=== PATIENT | female | born 1995 | race Two or more races ===

== ENCOUNTER 2019-06-12 13:47 | Inpatient (IN) | payer MEDICARE, MEDICAID ==
[~2019-06-12] VITALS: Ht 170.2 cm; Wt 105.5 kg
[2019-06-12] MEDS ORDERED: HALD100I2 IM (14:41)
[2019-06-12 15:08] LABS: HEMATOCRIT 41.1 % (36.0-47.0); HEMOGLOBIN 13.3 g/dl (12.0-15.5); MEAN CORPUSCULAR HEMOGLOBIN 27.8 pg (27.0-33.0); MEAN CORPUSCULAR HGB CONC 32.4 g/dl (32.0-36.5); MEAN CORPUSCULAR VOLUME 85.8 fl (80.0-96.0); PLATELET COUNT, AUTOMATED 226 10^3/uL (150-450); RED BLOOD COUNT 4.79 10^6/uL (4.00-5.40); WHITE BLOOD COUNT 6.8 10^3/uL (4.0-10.0)
[2019-06-12 15:30] LABS: HCG, SERUM QUALITATIVE NEGATIVE (NEGATIVE)
[2019-06-12 15:40] LABS: ACETAMINOPHEN LEVEL < 2.0 UG/ML (10.0-30.0); ALBUMIN 3.8 GM/DL (3.2-5.2); ALT/SGPT 21 U/L (12-78); BILIRUBIN,DIRECT 0.2 MG/DL (0.0-0.2); BILIRUBIN,TOTAL 0.5 MG/DL (0.2-1.0); BLOOD UREA NITROGEN 9 MG/DL (7-18); CALCIUM LEVEL 9.4 MG/DL (8.5-10.1); CARBON DIOXIDE LEVEL 25 MEQ/L (21-32); CHLORIDE LEVEL 103 MEQ/L (98-107); ETHYL ALCOHOL (ETHANOL) < 0.003 % (0.000-0.010); GLOMERULAR FILTRATION RATE > 60.0 (>60); GLUCOSE, FASTING 73 MG/DL (70-100); POTASSIUM SERUM 3.7 MEQ/L (3.5-5.1); SALICYLATE LEVEL < 1.7 MG/DL (5.0-30.0); SODIUM LEVEL 138 MEQ/L (136-145); THYROID STIMULATING HORMONE 0.436 uIU/ML (0.358-3.740)
[2019-06-12 19:54] LABS: AMPHETAMINES LEVEL URINE NEGATIVE (NEGATIVE); BARBITURATES URINE NEGATIVE (NEGATIVE); BENZODIAZEPINES URINE NEGATIVE (NEGATIVE); CANNABINOIDS URINE NEGATIVE (NEGATIVE); COCAINE METABOLITE URINE NEGATIVE (NEGATIVE); METHADONE URINE NEGATIVE (NEGATIVE); OPIATES URINE NEGATIVE (NEGATIVE); PHENCYCLIDINE URINE NEGATIVE (NEGATIVE)
[2019-06-12] MEDS ORDERED: HALOPERIDOL 10 MG TAB PO ONE (21:30)
[2019-06-12] MEDS ORDERED: LORazepam 2 MG TAB PO ONE (21:30)
[2019-06-12] MEDS ORDERED: MOM 30ML SUSPENSION UDC PO PRN (21:45)
[2019-06-12] MEDS ORDERED: MAALOX 30 ML SUSP *UDC PO PRN (21:45)
[2019-06-12] MEDS ORDERED: LORazepam 1 MG TAB PO PRN (21:45)
[2019-06-13 06:00] VITALS: BP 147/92
[2019-06-13] MEDS: HALOPERIDOL 5 MG TAB PO SCH ×5 (09:00→21:00)
[2019-06-13] MEDS ORDERED: LORazepam 2 MG/ML VIAL (J2060) IM STA ×2 (10:34→11:13)
[2019-06-13] MEDS ORDERED: HALOPERIDOL 5 MG/ML VIAL (J1630) IM STA ×2 (10:34→11:13)
[2019-06-13] MEDS ORDERED: diphenhydrAMINE INJ 50MG/ML VIAL (J1200) IM STA ×2 (10:34→11:13)
[2019-06-14] MEDS: ACETAMINOPHEN TAB 650MG DOSE (2X325MG) PO PRN ×2 (05:45→11:57)
[2019-06-14 06:49] VITALS: BP 124/83
[2019-06-14] MEDS: HALOPERIDOL 5 MG TAB PO SCH ×5 (08:59→20:36)
--- NOTE | 2019-06-14 09:15 | MHHPE ---
DATE OF ADMISSION: 06/12/2019 CURRENT MEDICATIONS: - Haldol Decanoate 100 mg IM monthly given 06/08/2019 CHIEF COMPLAINT: Physical aggression. HISTORY OF PRESENT ILLNESS: This is a 23-year-old, -[place]er female brought to the emergency room by her mother. The patient has history of schizophrenia according to her mother and was recently released from an unknown hospital in [place] on 06/08/2019. She was given a Haldol Decanoate shot prior to discharge apparently. She has not cooperated with oral medication however since discharge. The patient's mother brings her in to the hospital as she has been aggressive, which has been intensifying over the past three days. The patient's behavior in the emergency room was labile. At times, she was screaming, other times she was mute. She appeared to be responding to internal stimuli. The patient refused medication in the emergency room. She has refused medication upon admission as well. The patient has been expressing delusional beliefs to staff such as she is the " blaze Trejo". The patient is unable to provide any adequate history. Further information will need to be acquired from her mother who hopefully will be visiting later today. MEDICAL HISTORY: None noted. ALLERGIES: None noted. LEGAL HISTORY: Unknown. CHEMICAL DEPENDENCY: Unknown. SOCIAL HISTORY: The patient has moved to the [facility] in the three days with her mother who apparently is stationed at [employer]. The patient had been staying with her grandmother in [place] for the past year with a number of psychiatric hospitalizations due to poor medication compliance. Her mother apparently was stationed in [facility] at the time. Further background social information will need to be obtained from the patient and/or family members when available. FAMILY PSYCHIATRIC HISTORY: Unknown. MENTAL STATUS EXAMINATION: The patient appears alert and is oriented to month and year according to emergency room staff. The patient is mostly mute and at times catatonic when evaluated today. She smiles inappropriately. She appears to be responding to internal stimuli. She keeps her eyes closed. She whispers things to herself which are inaudible. The patient appears paranoid. At times she breaks out into tears and is wailing. Insight and judgment appear markedly impaired. ASSESSMENT: The patient appears to have a psychotic disorder, likely schizophrenia or schizoaffective disorder and apparently has history of noncompliance. Old records are not available. She apparently was treated with Haldol at the previous institution and will be offered same here at [facility]. Further information on her background will need to be obtained. DIAGNOSIS: Schizoaffective disorder. LENGTH OF STAY: 7-10 days. PLAN: 9.39 status. Encourage medication compliance. Encourage milieu involvement. Obtain further information from background history from patient and family members when available.
[2019-06-14 18:46] VITALS: BP 121/68
[2019-06-14] MEDS: traZODone 50 MG TAB PO PRN (20:36)
[2019-06-15] MEDS: ACETAMINOPHEN TAB 650MG DOSE (2X325MG) PO PRN (05:41)
[2019-06-15 06:44] VITALS: BP 116/67
[2019-06-15] MEDS: HALOPERIDOL 5 MG TAB PO SCH ×4 (09:27→21:00)
[2019-06-15 15:59] VITALS: BP 118/70
--- NOTE | 2019-06-15 20:11 | HPE ---
DATE OF ADMISSION: 06/15/2019 HISTORY OF THE PRESENT ILLNESS: Please refer to psychiatric history and evaluation for further details on this admission. This examination and history is intended for medical issues which may need treatment, followup, or consult on this 23-year-old female. ALLERGIES: No known drug allergies. PRIMARY CARE PROVIDER: She has none. SOCIAL HISTORY: She is single. She was recently discharged from an unknown hospital in [place], 06/08/2019. She has a history of schizophrenia. She has been staying with her grandmother and has moved now to the [facility] in the last three days with her mother who is apparently stationed at [place]. Ethyl alcohol (EtOH): She does not drink alcohol. She does not smoke cigarettes. She does not use recreational drugs. LABORATORY STUDIES: CBC is normal. CMP was normal. Urine for toxicology was negative. FAMILY HISTORY: Unknown. HOME MEDICATIONS: Haloperidol decanoate 100 mg intramuscularly (IM) monthly, and she received it 06/04/2019. PHYSICAL EXAMINATION: A 23-year-old cooperative female in no acute distress. Blood pressure is 116/67, pulse 84, respirations 14, temperature 98. The patient is alert and oriented times three. Pupils are equal and reactive to light. Extraocular movements intact. Cornea and sclerae clear. Conjunctivae is normal. No facial asymmetry. Pharynx: Tongue and gums pink and moist. Tongue is midline. Neck is supple without lymphadenopathy. No thyromegaly. No goiter. Carotids 2+ without bruits. Chest is clear to auscultation without wheeze or retractions. Heart is regular. Abdomen: Benign. Bowel sounds are positive. Genital/Rectal: Not done. Extremities: No cyanosis, clubbing or edema. Peripheral pulses equal and palpable bilaterally. Skin is warm and dry. IMPRESSION AND PLAN: Psychiatric plan per psychiatry. No acute medical issues.
--- NOTE | 2019-06-15 20:48 | MHIPN ---
DATE: 06/14/2019 VITAL SIGNS: Temperature 97.6, pulse 106, respirations 16, blood pressure 124/83. CURRENT MEDICATIONS: Haldol 10 mg four times a day. HISTORY OF PRESENT ILLNESS: The patient still requires one to one monitoring for her safety. The patient is a bit more verbal today, but still shows bizarre behavior. The patient smiles inappropriately. She apparently is responding to internal stimuli. The patient claims that she feels "great". At times, she is talkative, but other times she is mute. At the end of our interviews, she flops down on the bed with her head hanging off the side and refuses any further discussion. She did sign a release of information so they will be able to get further information from her mother when she visits or calls in. The patient had been refusing her Haldol oral dosage. She had taken an intramuscular (IM) dose yesterday morning. This morning she did take her first dose of by mouth Haldol and appears to be tolerating it well. MENTAL STATUS EXAMINATION: The patient appears alert, but unable to assess if she is oriented or not. The patient will not respond to any questions regarding her clinical history. She appears to be responding to internal stimuli. She does appear paranoid. Her affect appears good temporarily; at other times however she is weeping without any explanation. The patient had been voicing some caodaism delusional believes to the staff. She refused to discuss this here today. Insight appears poor. Judgment appears poor. Have overt signs of organicity. DIAGNOSIS: 1. Schizoaffective disorder. PLAN: Continue aggressive management. Encourage medication compliance. Obtain further information from family members when feasible.
--- NOTE | 2019-06-16 06:15 | MHIPN ---
DATE OF VISIT: 06/15/2019 VITAL SIGNS: Temperature 97.8, pulse 84, respirations 12, blood pressure 116/67. CURRENT MEDICATIONS: - Haldol 10 mg four times a day - trazodone 50 mg nightly as needed HISTORY OF PRESENT ILLNESS: The patient has been medication compliant for the last day or so. Her behavior has been somewhat more appropriate on the unit. She is slightly more verbal but is still responding to internal stimuli. Her mother did visit yesterday. The patient claims that she did not recognize her mother. The patient is still religiously occupied. She claims that she is the bride of Neil and that she is actually Ree Mckeon from the Bible. The patient states her appetite is quite good. The patient claims she slept well last night. She has no other complaints. The patient is still requiring one on one supervision for her own safety. MENTAL STATUS EXAM: The patient is alert and oriented to month and year. The patient just moved here from out of state. She does not know the name of the hospital or city is. The patient is a bit more verbal today. The patient still smiles a lot and appears to be generally preoccupied. Eye contact is improved. The patient is grandiose and delusional with scientology themes. The patient is not tearful today. She denies auditory hallucinations but is likely covering. She denies depression or suicidality. Insight and judgment is still poor. No signs of organicity. DIAGNOSES: Schizophrenia disorder. PLAN: Continue present management, involve in hospital milieu as appropriate.
[2019-06-16 06:47] VITALS: BP 121/75
[2019-06-16] MEDS: HALOPERIDOL 5 MG TAB PO SCH ×4 (09:53→21:00)
[2019-06-16 16:39] VITALS: BP 132/80
--- NOTE | 2019-06-16 20:13 | MHIPN ---
DATE: 06/16/2019 VITAL SIGNS: Temperature 98.3, pulse 84, respirations 12, blood pressure 121/75. CURRENT MEDICATIONS: - Haldol 10 mg four times a day taken sporadically HISTORY OF PRESENT ILLNESS: Patient had been medication compliant for a day or two, then yesterday afternoon she missed several dosages, she refused this morning's dose until I intervened and persuaded her to take it. Patient not able to explain why she is refusing. Patient is delusional, claiming that she is Ree Mckeon, of Neil. Patient is still on one-to-one supervision. She is still responding to internal stimuli. She isolates a lot in her room but at times will walk up and down the corridor. Patient has not been able to attend any groups. Staff report her appetite is not very good. MENTAL STATUS EXAMINATION: Patient is alert and oriented to month and year. Patient smiles inappropriately. She is often mute and nonresponsive to questioning. She appears paranoid. She is grandiose and delusional. Personal hygiene is poor. Patient encouraged to take a shower with staff supervision. She denies being depressed or suicidal. Insight and judgment remain quite poor. DIAGNOSIS: Schizophrenia, chronic. PLAN: Continue present management. Encourage medication compliance.
[2019-06-16] MEDS: traZODone 50 MG TAB PO PRN (23:43)
[2019-06-16] MEDS ORDERED: HALOPERIDOL 10 MG TAB As Ordered ONE (23:46)
[2019-06-16] MEDS ORDERED: LORazepam 2 MG/ML VIAL (J2060) IM STA (23:50)
[2019-06-16] MEDS ORDERED: HALOPERIDOL 5 MG/ML VIAL (J1630) IM STA (23:50)
[2019-06-16] MEDS ORDERED: diphenhydrAMINE INJ 50MG/ML VIAL (J1200) IM STA (23:50)
[2019-06-17 06:50] VITALS: BP 117/79
[2019-06-17] MEDS: HALOPERIDOL 5 MG TAB PO SCH ×4 (09:35→21:00)
[2019-06-17 18:00] VITALS: BP 122/72
[2019-06-18 06:51] VITALS: BP 118/59
[2019-06-18] MEDS: HALOPERIDOL 5 MG TAB PO SCH ×4 (10:33→21:00)
--- NOTE | 2019-06-18 10:38 | MHIPNPDOC ---
[facility] Progress Note Progress Note DATE OF SERVICE: 06/18/19 HISTORY:This is a 23-year-old, -Vietnamese female brought to the emergency room by her mother. The patient has history of schizophrenia according to her mother and was recently released from an unknown hospital in [place] on 06/08/2019. She was given a Haldol Decanoate shot prior to discharge apparently. She has not cooperated with oral medication however since discharge. The patient's mother brings her in to the hospital as she has been aggressive, which has been intensifying over the past three days. The patient's behavior in the emergency room was labile. At times, she was screaming, other times she was mute. She appeared to be responding to internal stimuli. The patient refused medication in the emergency room. She has refused medication upon admission as well. The patient has been expressing delusional beliefs to staff such as she is the " of Neil". The patient is unable to provide any adequate history. Further information will need to be acquired from her mother who hopefully will be visiting later today. VITAL SIGNS: See below. NEW TEST RESULTS: See below. CURRENT MEDICATIONS: See below. MENTAL STATUS EXAMINATION: Patient is alert, laying in bed staring a ceiling. She is refusing to talk to me and turned her head away while in bed from me to ignore me as I introduced myself to her. She is mute and nonresponsive to questioning. She appears paranoid. Per Dr. Marley she is grandiose and delusional. Personal hygiene is fair. Patient encouraged to take a shower with staff supervision. Insight and judgment remain quite poor. DIAGNOSES: Schizophrenia, chronic. ASSESSMENT:Patient refused this morning's dose of haldol and will try to get her to take it with staff support. Patient not able to explain why she is refusing as she isn't talking to me and choosing to ignore me thru her body language. Per Dr. Marley "Patient is delusional, claiming that she is Ree Mckeon, of Neil. Patient is still on one-to-one supervision. She is still responding to internal stimuli. She isolates a lot in her room but at times will walk up and down the corridor. Patient has not been able to attend any groups. Staff report her appetite is not very good." MANAGEMENT PLAN: continue plan haldol 10mg tid Time: 30ming Vital Signs Vital Signs Date Time Temp Pulse Resp B/P (MAP) Pulse Ox O2 Delivery O2 Flow Rate FiO2 06/18/19 06:51 98.5 82 12 118/59 (78) 06/12/19 15:06 100 Room Air Current Medications Current Medications Medications (Trade) Dose Ordered Sig/Ben Route PRN Reason Start Time Stop Time Status Last Admin Dose Admin Acetaminophen (Tylenol Tab) 650 mg Q6HP PRN PO HEADACHE or DISCOMFORT 06/12/19 21:45 06/15/19 05:41 Al Hydrox/Mg Hydrox/Simethicone (Mylanta) 30 ml Q4HP PRN PO HEARTBURN/INDIGESTION 06/12/19 21:45 Diphenhydramine HCl (Benadryl) 50 mg STAT STAT IM 06/13/19 10:34 06/13/19 10:36 DC 06/13/19 10:48 Diphenhydramine HCl (Benadryl) 50 mg STAT STAT IM 06/13/19 11:13 06/13/19 11:14 Cancel Diphenhydramine HCl (Benadryl) 50 mg STAT STAT IM 06/16/19 23:50 06/16/19 23:53 DC 06/16/19 23:56 Haloperidol (Haldol) 10 mg QID PO 06/13/19 09:00 06/17/19 16:20 Haloperidol (Haldol) 10 mg STAT STAT IM 06/13/19 10:34 06/13/19 10:36 DC 06/13/19 10:48 Haloperidol (Haldol) 10 mg STAT STAT IM 06/13/19 11:13 06/13/19 11:14 Cancel Haloperidol (Haldol) 10 mg STAT STAT IM 06/16/19 23:50 06/16/19 23:53 DC 06/16/19 23:56 Home Med (Med Rec Complete!) ASDIRECTED XX 06/12/19 22:45 06/12/19 22:48 DC Lorazepam (Ativan) 2 mg Q4HP PRN PO ANXIETY/AGITATION 06/12/19 21:45 Lorazepam (Ativan) 2 mg STAT STAT IM 06/13/19 10:34 06/13/19 10:36 DC 06/13/19 10:48 Lorazepam (Ativan) 2 mg STAT STAT IM 06/13/19 11:13 06/13/19 11:14 Cancel Lorazepam (Ativan) 2 mg STAT STAT IM 06/16/19 23:50 06/16/19 23:53 DC 06/16/19 23:56 Magnesium Hydroxide (Milk Of Magnesia) 30 ml DAILYPRN PRN PO CONSTIPATION 06/12/19 21:45 Trazodone HCl (Desyrel) 50 mg QHSP PRN PO INSOMNIA 06/12/19 21:45 06/14/19 20:36 Allergies Coded Allergies: No Known Drug Allergies (Verified Allergy, Unknown, 06/12/19) ZEKE BRODY DO Jun 18, 2019 10:38 am
--- NOTE | 2019-06-18 13:27 | MHIPN ---
DATE: 06/17/2019 VITAL SIGNS: Temperature 97.1, pulse 100, respirations 12, blood pressure 117/79. CURRENT MEDICATIONS: - Haldol 10 mg four times a day, taken sporadically - trazodone 50 mg at bedtime as needed HISTORY OF PRESENT ILLNESS: Patient's medication compliance has not been good. She often misses doses, especially if they are offered by a female nurse. Patient decompensated last night due to agitation, placing herself and others at risk. Patient was given intramuscular (IM) Haldol and Ativan with good effect. Patient did not need physical restraints. Patient still has a one-on-one sitter. Patient verbalizes little. She states that she wants to go home, even though she is still quite psychotic. Patient's family came in last night, and, according to nursing notes, she had minimal interaction. She is claiming that the woman who visits is not her real mother. Patient still believes that she is Ree Mckeon, the bride of Frank. MENTAL STATUS EXAMINATION: Patient is resting quietly but easily aroused. She is more mute today. She volunteers little. She is not able to explain why her behavior decompensated last night. She claims that she does not remember. Patient is still delusional with spiritism themes. Grooming and hygiene remain poor. Affect appears labile. Insight and judgment remain poor. She appears to be responding to internal stimuli. DIAGNOSES: Schizophrenia. PLAN: Continue present management. According to her mother, the patient has always done best on Haldol compared to other antipsychotics. Dr. Dailey to be taking over the case tomorrow.
[2019-06-18 18:00] VITALS: BP 106/55
[2019-06-19 06:42] VITALS: BP 121/74
[2019-06-19] MEDS: HALOPERIDOL 5 MG TAB PO SCH (09:00)
[2019-06-19] MEDS ORDERED: HALOPERIDOL DECANOATE 100 MG/ML VIAL (J1631) IM ONE (09:30)
--- NOTE | 2019-06-19 09:45 | MHIPNPDOC ---
[facility] Progress Note Progress Note DATE OF SERVICE: 06/19/19 HISTORY: This is a 23-year-old, -[place] female brought to the emergency room by her mother. The patient has history of schizophrenia according to her mother and was recently released from an unknown hospital in [place] on 06/08/2019. She was given a Haldol Decanoate shot prior to discharge apparently. She has not cooperated with oral medication however since discharge. The patient's mother brings her in to the hospital as she has been aggressive, which has been intensifying over the past three days. The patient's behavior in the emergency room was labile. At times, she was screaming, other times she was mute. She appeared to be responding to internal stimuli. The patient refused medication in the emergency room. She has refused medication upon admission as well. The patient has been expressing delusional beliefs to staff such as she is the " of Neil". The patient is unable to provide any adequate history. Further information will need to be acquired from her mother who hopefully will be visiting later today. VITAL SIGNS: See below. NEW TEST RESULTS: See below. CURRENT MEDICATIONS: See below. MENTAL STATUS EXAMINATION: Patient is alert, laying in bed with eyes closed ignoring me. She is refusing to talk to me. She is mute and nonresponsive to questioning. She appears paranoid. Per Dr. Marley she is grandiose and delusional. Personal hygiene is fair. Patient encouraged to take a shower with staff supervision. Insight and judgment remain quite poor. DIAGNOSES: Schizophrenia, chronic. ASSESSMENT:Patient refused nightly dose of haldol and per treatment team is only taking it sporadically. Prior to admission pt had been receiving haldol dec so will order it to be given here to aid with med compliance on the unit. Will continue oral haldol for now and as symptoms improve decrease and maybe titrate off pending pt improvement. If pt refuses dec and oral will consider [facility] referral. As per yesterday "Patient not able to explain why she is refusing as she isn't talking to me and choosing to ignore me thru her body language (she is doing this with much of the staff as well). Per Dr. Marley "Patient is delusional, claiming that she is Ree Mckeon, of Neil. Patient is still on one-to-one supervision. She is still responding to internal stimuli. She isolates a lot in her room but at times will walk up and down the corridor. Patient has not been able to attend any groups. Staff report her appetite is not very good." She did eat her breakfast this morning per 1:1 sitter. MANAGEMENT PLAN: continue plan haldol 10mg tid haldol dec 100mg IM x1 today Time Spent: 30 min Vital Signs Vital Signs Date Time Temp Pulse Resp B/P (MAP) Pulse Ox O2 Delivery O2 Flow Rate FiO2 06/19/19 06:42 98.0 73 18 121/74 (90) Current Medications Current Medications Medications (Trade) Dose Ordered Sig/Ben Route PRN Reason Start Time Stop Time Status Last Admin Dose Admin Acetaminophen (Tylenol Tab) 650 mg Q6HP PRN PO HEADACHE or DISCOMFORT 06/12/19 21:45 06/15/19 05:41 Al Hydrox/Mg Hydrox/Simethicone (Mylanta) 30 ml Q4HP PRN PO HEARTBURN/INDIGESTION 06/12/19 21:45 Diphenhydramine HCl (Benadryl) 50 mg STAT STAT IM 06/13/19 10:34 06/13/19 10:36 DC 06/13/19 10:48 Diphenhydramine HCl (Benadryl) 50 mg STAT STAT IM 06/13/19 11:13 06/13/19 11:14 Cancel Diphenhydramine HCl (Benadryl) 50 mg STAT STAT IM 06/16/19 23:50 06/16/19 23:53 DC 06/16/19 23:56 Haloperidol (Haldol) 10 mg QID PO 06/13/19 09:00 06/18/19 16:37 Haloperidol (Haldol) 10 mg STAT STAT IM 06/13/19 10:34 06/13/19 10:36 DC 06/13/19 10:48 Haloperidol (Haldol) 10 mg STAT STAT IM 06/13/19 11:13 06/13/19 11:14 Cancel Haloperidol (Haldol) 10 mg STAT STAT IM 06/16/19 23:50 06/16/19 23:53 DC 06/16/19 23:56 Home Med (Med Rec Complete!) ASDIRECTED XX 06/12/19 22:45 06/12/19 22:48 DC Lorazepam (Ativan) 2 mg Q4HP PRN PO ANXIETY/AGITATION 06/12/19 21:45 Lorazepam (Ativan) 2 mg STAT STAT IM 06/13/19 10:34 06/13/19 10:36 DC 06/13/19 10:48 Lorazepam (Ativan) 2 mg STAT STAT IM 06/13/19 11:13 06/13/19 11:14 Cancel Lorazepam (Ativan) 2 mg STAT STAT IM 06/16/19 23:50 06/16/19 23:53 DC 06/16/19 23:56 Magnesium Hydroxide (Milk Of Magnesia) 30 ml DAILYPRN PRN PO CONSTIPATION 06/12/19 21:45 Trazodone HCl (Desyrel) 50 mg QHSP PRN PO INSOMNIA 06/12/19 21:45 06/14/19 20:36 Allergies Coded Allergies: No Known Drug Allergies (Verified Allergy, Unknown, 06/12/19) ZEKE BRODY DO Jun 19, 2019 9:30 am
[2019-06-19] MEDS: HALOPERIDOL 10 MG TAB PO SCH ×4 (09:51→20:46)
[2019-06-19] MEDS ORDERED: LORazepam 2 MG TAB PO PRN (18:44)
[2019-06-19] MEDS ORDERED: BENZTROPINE 0.5 MG TAB PO PRN (18:45)
[2019-06-19] MEDS ORDERED: LORazepam 2 MG/ML VIAL (J2060) IM ONE (20:30)
[2019-06-20] MEDS: HALOPERIDOL 10 MG TAB PO SCH ×5 (09:25→21:50)
[2019-06-20 18:00] VITALS: BP 119/63
[2019-06-20] MEDS: traZODone 50 MG TAB PO PRN (21:50)
[2019-06-21 06:51] VITALS: BP 118/68
[2019-06-21] MEDS: HALOPERIDOL 10 MG TAB PO SCH ×4 (08:56→21:00)
[2019-06-21] MEDS ORDERED: LORazepam 1 MG TAB PO ONE (15:15)
[2019-06-21] MEDS ORDERED: LORazepam 2 MG/ML VIAL (J2060) IM ONE (15:15)
--- NOTE | 2019-06-21 17:59 | MHIPNPDOC ---
[facility] Progress Note Progress Note Date of Service: 06/21/2019 History of Present Illness 23 year old woman with a long history of psychosis. She remains psychotic on the unit on a one-to-one sitter. She has been demonstrating over the weekend significant howling, posturing and other issues consistent with catatonia. She was given a dose of Ativan that appeared to improve this on Saturday. Interval History The patient is met with at the request of the patient. She was fairly bizarre. She had been laying in her bed asleep. Her parents had come and left. However, she remained unusual howling and crying for no reason, posturing at other times and had been continuously more bizarre. She was notably having some difficulty with posturing at other times she does appear promptable at others. Nursing note that she still remains generally isolated to her room. Review Of Systems Still has a confused thought process and paranoia. Psychotherapy None on this visit. Vital Signs Reviewed. Mental Status Examination General: Poor hygiene Speech: Mute Thought processes: Tangential MSK: Has catatonic like waxy flexibility Thought content: Paranoid Abstract reasoning, and computation: Impaired Description of associations: Impaired Description of abnormal or psychotic thoughts: Demonstrates paranoid ideation Judgment: Poor Insight: Poor Orientation: Alert Cognition: Unable to fully assess Recent and remote memory: Unable to assess Attention span and concentration: Impaired Fund of knowledge: Unable to assess Mood: "Too bad" Affect: Unusual affect with inappropriate emotion matching Diagnoses Unspecified psychotic disorder. Catatonia. Assessment and Plan We'll continue with the regular management as per Dr. Dailey. However, dose of Ativan given with positive results. Concern for Catatonia there is waxing and waning. Disposition The patient will need further inpatient admission due to the severity of her psychosis and impairment. Time Spent 20 minutes with greater than 50% of time spent on coordination of care. Saturday Vital Signs Vital Signs Date Time Temp Pulse Resp B/P (MAP) Pulse Ox O2 Delivery O2 Flow Rate FiO2 06/21/19 06:51 97.6 69 12 118/68 (85) Current Medications Current Medications Medications (Trade) Dose Ordered Sig/Ben Route PRN Reason Start Time Stop Time Status Last Admin Dose Admin Acetaminophen (Tylenol Tab) 650 mg Q6HP PRN PO HEADACHE or DISCOMFORT 06/12/19 21:45 06/15/19 05:41 Al Hydrox/Mg Hydrox/Simethicone (Mylanta) 30 ml Q4HP PRN PO HEARTBURN/INDIGESTION 06/12/19 21:45 Benztropine Mesylate (Cogentin) 0.5 mg Q4HP PRN PO EPS 06/19/19 18:45 Diphenhydramine HCl (Benadryl) 50 mg STAT STAT IM 06/13/19 10:34 06/13/19 10:36 DC 06/13/19 10:48 Diphenhydramine HCl (Benadryl) 50 mg STAT STAT IM 06/13/19 11:13 06/13/19 11:14 Cancel Diphenhydramine HCl (Benadryl) 50 mg STAT STAT IM 06/16/19 23:50 06/16/19 23:53 DC 06/16/19 23:56 Haloperidol (Haldol) 10 mg QID PO 06/13/19 09:00 06/19/19 09:34 DC 06/18/19 16:37 Haloperidol (Haldol) 10 mg QID PO 06/19/19 09:00 06/21/19 17:04 Haloperidol (Haldol) 10 mg STAT STAT IM 06/13/19 10:34 06/13/19 10:36 DC 06/13/19 10:48 Haloperidol (Haldol) 10 mg STAT STAT IM 06/13/19 11:13 06/13/19 11:14 Cancel Haloperidol (Haldol) 10 mg STAT STAT IM 06/16/19 23:50 06/16/19 23:53 DC 06/16/19 23:56 Home Med (Med Rec Complete!) ASDIRECTED XX 06/12/19 22:45 06/12/19 22:48 DC Lorazepam (Ativan) 2 mg Q4HP PRN PO ANXIETY/AGITATION 06/12/19 21:45 06/19/19 18:44 DC Lorazepam (Ativan) 2 mg Q4HP PRN PO ANXIETY/AGITATION 06/19/19 18:44 Lorazepam (Ativan) 2 mg STAT STAT IM 06/13/19 10:34 06/13/19 10:36 DC 06/13/19 10:48 Lorazepam (Ativan) 2 mg STAT STAT IM 06/13/19 11:13 06/13/19 11:14 Cancel Lorazepam (Ativan) 2 mg STAT STAT IM 06/16/19 23:50 06/16/19 23:53 DC 06/16/19 23:56 Magnesium Hydroxide (Milk Of Magnesia) 30 ml DAILYPRN PRN PO CONSTIPATION 06/12/19 21:45 Trazodone HCl (Desyrel) 50 mg QHSP PRN PO INSOMNIA 06/12/19 21:45 06/14/19 20:36 Allergies Coded Allergies: No Known Drug Allergies (Verified Allergy, Unknown, 06/12/19) CHARO CHILEL DO Jun 21, 2019 17:59
[2019-06-22 06:55] VITALS: BP 112/70
[2019-06-22] MEDS: **PENDING PPD ENTRY XX SCH (09:00)
[2019-06-22] MEDS: HALOPERIDOL 10 MG TAB PO SCH ×4 (10:16→21:00)
--- NOTE | 2019-06-22 11:06 | MHIPNPDOC ---
[facility] Progress Note Progress Note DATE OF SERVICE: 06/22/19 HISTORY:This is a 23-year-old, -[place] female brought to the emergency room by her mother. The patient has history of schizophrenia according to her mother and was recently released from an unknown hospital in [place] on 06/08/2019. She was given a Haldol Decanoate shot prior to discharge apparently. She has not cooperated with oral medication however since discharge. The patient's mother brings her in to the hospital as she has been aggressive, which has been intensifying over the past three days. The patient's behavior in the emergency room was labile. At times, she was screaming, other times she was mute. She appeared to be responding to internal stimuli. The patient refused medication in the emergency room. She has refused medication upon admission as well. The patient has been expressing delusional beliefs to staff such as she is the " blaze Trejo". The patient is unable to provide any adequate history. Further information will need to be acquired from her mother who hopefully will be visiting later today. VITAL SIGNS: See below. NEW TEST RESULTS: See below. CURRENT MEDICATIONS: See below. MENTAL STATUS EXAMINATION: Patient is alert, laying in bed with eyes closed ignoring me. She is refusing to talk to me. She is mute and nonresponsive to questioning. She appears paranoid. Per Dr. Marley she is grandiose and delusional. Personal hygiene is fair. Patient encouraged to take a shower with staff supervision. Insight and judgment remain quite poor. DIAGNOSES: Schizophrenia, chronic. ASSESSMENT:Patient ignoring me today pretending to sleep in bed even though it is quite apparent she's awake and can hear me. Per treatment team, pt's parents came to visit over the weekend and she refused to see or speak with them and was agitated periodically but calmed with staff support and redirection. She is visible walking the unit periodically, eating meals, asking for clean clothes in am. She remains on 1:1 sitter for safety/psychosis. She did take her haldol dec on Saturday and tolerated it well with some improvement noted as presence in milieu more and talking with staff occasionally. She did take her haldol oral this am but per treatment team continues to only take it sporadically as she did over the weekend. er Dr. Marley "Patient is delusional, claiming that she is Ree Mckeon, of [place]. Patient is still on one-to-one supervision. She is still responding to internal stimuli. She isolates a lot in her room mostly. Patient has not been able to attend any groups. Due to slow improveme nt in psychosis, pt appears to possibly need custodial treatment and well start process for [facility] referral. MANAGEMENT PLAN: continue plan, refer to [facility] haldol 10mg tid haldol dec 100mg IM x1 today Time Spent: 30 min Vital Signs Vital Signs Date Time Temp Pulse Resp B/P (MAP) Pulse Ox O2 Delivery O2 Flow Rate FiO2 06/22/19 06:55 98.1 76 12 112/70 (84) Current Medications Current Medications Medications (Trade) Dose Ordered Sig/Ben Route PRN Reason Start Time Stop Time Status Last Admin Dose Admin Acetaminophen (Tylenol Tab) 650 mg Q6HP PRN PO HEADACHE or DISCOMFORT 06/12/19 21:45 06/15/19 05:41 Al Hydrox/Mg Hydrox/Simethicone (Mylanta) 30 ml Q4HP PRN PO HEARTBURN/INDIGESTION 06/12/19 21:45 Benztropine Mesylate (Cogentin) 0.5 mg Q4HP PRN PO EPS 06/19/19 18:45 Diphenhydramine HCl (Benadryl) 50 mg STAT STAT IM 06/13/19 10:34 06/13/19 10:36 DC 06/13/19 10:48 Diphenhydramine HCl (Benadryl) 50 mg STAT STAT IM 06/13/19 11:13 06/13/19 11:14 Cancel Diphenhydramine HCl (Benadryl) 50 mg STAT STAT IM 06/16/19 23:50 06/16/19 23:53 DC 06/16/19 23:56 Haloperidol (Haldol) 10 mg QID PO 06/13/19 09:00 06/19/19 09:34 DC 06/18/19 16:37 Haloperidol (Haldol) 10 mg QID PO 06/19/19 09:00 06/22/19 10:16 Haloperidol (Haldol) 10 mg STAT STAT IM 06/13/19 10:34 06/13/19 10:36 DC 06/13/19 10:48 Haloperidol (Haldol) 10 mg STAT STAT IM 06/13/19 11:13 06/13/19 11:14 Cancel Haloperidol (Haldol) 10 mg STAT STAT IM 06/16/19 23:50 06/16/19 23:53 DC 06/16/19 23:56 Home Med (Med Rec Complete!) ASDIRECTED XX 06/12/19 22:45 06/12/19 22:48 DC Lorazepam (Ativan) 2 mg Q4HP PRN PO ANXIETY/AGITATION 06/12/19 21:45 06/19/19 18:44 DC Lorazepam (Ativan) 2 mg Q4HP PRN PO ANXIETY/AGITATION 06/19/19 18:44 Lorazepam (Ativan) 2 mg STAT STAT IM 06/13/19 10:34 06/13/19 10:36 DC 06/13/19 10:48 Lorazepam (Ativan) 2 mg STAT STAT IM 06/13/19 11:13 06/13/19 11:14 Cancel Lorazepam (Ativan) 2 mg STAT STAT IM 06/16/19 23:50 06/16/19 23:53 DC 06/16/19 23:56 Magnesium Hydroxide (Milk Of Magnesia) 30 ml DAILYPRN PRN PO CONSTIPATION 06/12/19 21:45 Trazodone HCl (Desyrel) 50 mg QHSP PRN PO INSOMNIA 06/12/19 21:45 06/14/19 20:36 Allergies Coded Allergies: No Known Drug Allergies (Verified Allergy, Unknown, 06/12/19) ZEKE BRODY DO Jun 22, 2019 11:06 am
[2019-06-22] MEDS ORDERED: TUBERCULIN PPD 5 UNITS/0.1 ML ID ONE (11:15)
[2019-06-22 18:17] VITALS: BP 138/75
[2019-06-22 18:36] VITALS: BP 138/75
[2019-06-23] VITALS (10 sets, daily range): BP systolic 102–140; BP diastolic 69–97
[2019-06-23] MEDS ORDERED: diphenhydrAMINE INJ 50MG/ML VIAL (J1200) IM STA ×2 (00:02→11:55)
[2019-06-23] MEDS ORDERED: HALOPERIDOL 5 MG/ML VIAL (J1630) IM STA (00:02)
[2019-06-23] MEDS ORDERED: LORazepam 2 MG/ML VIAL (J2060) IM STA ×2 (00:02→11:55)
--- NOTE | 2019-06-23 00:32 | MHIR ---
General Date: Jun 22, 2019 Time Initiated: 11:55 Restraint Documentation Order/Evaluation FACE TO FACE: Yes PHYSICIAN ASSESSMENT: The patient was agitated, was not following directions, kept going towards the door, she is psychotic, was physically aggressive towards staff. Earlier, she had urinated on herself REASON FOR RESTRAINT: Patient poses imminent danger of harming self or others: As above DE-ESCALATION INTERVENTIONS ATTEMPTED BEFORE USE OF RESTRAINTS: Yes, re direction was attempted, her room is close to the Nurse station, PRN medications were offered, her night time medications were offered and she refused all of them [MECHANICAL AND/OR CHEMICAL] RESTRAINTS USED: both LENGTH OF TIME ORDERED IN RESTRAINTS: 240 minutes. WHEN TO DISCONTINUE RESTRAINTS:when she is not a danger to self or others. Post evaluation of restraint due in 24 hours. WENDY SHAIKH MD Jun 23, 2019 00:09
[2019-06-23] MEDS: **PENDING PPD ENTRY XX SCH (09:00)
[2019-06-23] MEDS: HALOPERIDOL 10 MG TAB PO SCH ×4 (09:00→22:17)
--- NOTE | 2019-06-23 09:40 | MHPR ---
General Date: Jun 23, 2019 Time: 09:30 Post-Restraint Evaluation THE OUTCOME OF THE RESTRAINT: According to Nursing staff, it was positive, she was able to calm, she slept well and her V/S were maintained within normal limitis. EFFECTIVENESS OF THE RESTRAINT: Mechanical and/or chemical: Positive ANY EVIDENCE THAT THE PATIENT WAS AFFECTED EMOTIONALLY: she was not affected in a negative way, she was able to rest, she needed that. The effect was positive ANY NEED FOR COUNSELING/ASSISTANCE: Re direction and support has been provided by staff. CHANGES IN TREATMENT PLAN: Those will be up to treating attending, Dr. Dailey. RECOMMENDATIONS FOR FUTURE INCIDENTS: continue re direction, support, PRN medications.. WENDY SHAIKH MD Jun 23, 2019 09:40
--- NOTE | 2019-06-23 10:02 | MHIPNPDOC ---
[facility] Progress Note Progress Note DATE OF SERVICE: 06/23/19 HISTORY: Per Dr. Marley "This is a 23-year-old, -[place] female brought to the emergency room by her mother. The patient has history of schizophrenia according to her mother and was recently released from an unknown hospital in [place] on 06/08/2019. She was given a Haldol Decanoate shot prior to discharge apparently. She has not cooperated with oral medication however since discharge. The patient's mother brings her in to the hospital as she has been aggressive, which has been intensifying over the past three days. The patient's behavior in the emergency room was labile. At times, she was screaming, other times she was mute. She appeared to be responding to internal stimuli. The patient refused medication in the emergency room. She has refused medication upon admission as well. The patient has been expressing delusional beliefs to staff such as she is the " blaze Trejo". The patient is unable to provide any adequate history. Further information will need to be acquired from her mother who hopefully will be visiting later today. VITAL SIGNS: See below. NEW TEST RESULTS: See below. CURRENT MEDICATIONS: See below. MENTAL STATUS EXAMINATION: Patient is alert, laying in bed with eyes closed ignoring me. She is refusing to talk to me. She is mute and nonresponsive to questioning. She appears paranoid and bizarre (Pt seen this morning in restraint room standing by her bed raising her forearms up and down in a routine manner with her eyes closed and when I tried to speak to pt she swung her arm out toward me as if attempted to hit me." (Per Dr. Marley she is grandiose and delusional. Personal hygiene is fair. Patient encouraged to take a shower with staff supervision. Insight and judgment remain quite poor. DIAGNOSES: Schizophrenia, chronic. ASSESSMENT:Pt coded last night due to "The patient was agitated, was not following directions, kept going towards the door, she is psychotic, was physically aggressive towards staff. Earlier, she had urinated on herself" per Dr. Mason. Pt seen this morning in restraint room standing by her bed raising her forearms up and down in a routine manner with her eyes closed and when I tried to speak to pt she swung her arm out toward me as if attempted to hit me. Left pt with 1:1 sitter present and she proceeded to return to what she was doing and wasn't violent or aggressive but very bizarre. She refused to take her oral haldol this am and will have staff continue to try to encourage her to take it as directed. She is visible walking the unit periodically, eating edson ls, asking for clean clothes in am. She remains on 1:1 sitter for safety/psychosis. She did take her haldol dec on Saturday and tolerated it well with some improvement noted as presence in milieu more and talking with staff occasionally. Continues to only take oral haldol sporadically. Per Dr. Marley "Patient is delusional, claiming that she is Ree Mckeon, of [place]. Maddy lucero is still on one-to-one supervision. She is still responding to internal stimuli. She isolates a lot in her room mostly. Patient has not been able to attend any groups. Due to slow improvement in psychosis, pt appears to possibly need [facility] terminal treatment and well start process for [facility] referral. MANAGEMENT PLAN: continue plan, refer to [facility] haldol 10mg tid haldol dec 100mg IM x1 today Time Spent: 30 min Vital Signs Vital Signs Date Time Temp Pulse Resp B/P (MAP) Pulse Ox O2 Delivery O2 Flow Rate FiO2 06/23/19 06:52 97.1 94 12 125/74 (91) 06/23/19 00:15 97 Current Medications Current Medications Medications (Trade) Dose Ordered Sig/Ben Route PRN Reason Start Time Stop Time Status Last Admin Dose Admin Acetaminophen (Tylenol Tab) 650 mg Q6HP PRN PO HEADACHE or DISCOMFORT 06/12/19 21:45 06/15/19 05:41 Al Hydrox/Mg Hydrox/Simethicone (Mylanta) 30 ml Q4HP PRN PO HEARTBURN/INDIGESTION 06/12/19 21:45 Benztropine Mesylate (Cogentin) 0.5 mg Q4HP PRN PO EPS 06/19/19 18:45 Diphenhydramine HCl (Benadryl) 50 mg STAT STAT IM 06/13/19 10:34 06/13/19 10:36 DC 06/13/19 10:48 Diphenhydramine HCl (Benadryl) 50 mg STAT STAT IM 06/13/19 11:13 06/13/19 11:14 Cancel Diphenhydramine HCl (Benadryl) 50 mg STAT STAT IM 06/16/19 23:50 06/16/19 23:53 DC 06/16/19 23:56 Diphenhydramine HCl (Benadryl) 50 mg STAT STAT IM 06/23/19 00:02 06/23/19 00:05 DC 06/23/19 00:08 Haloperidol (Haldol) 10 mg QID PO 06/13/19 09:00 06/19/19 09:34 DC 06/18/19 16:37 Haloperidol (Haldol) 10 mg QID PO 06/19/19 09:00 06/22/19 18:14 Haloperidol (Haldol) 10 mg STAT STAT IM 06/13/19 10:34 06/13/19 10:36 DC 06/13/19 10:48 Haloperidol (Haldol) 10 mg STAT STAT IM 06/13/19 11:13 06/13/19 11:14 Cancel Haloperidol (Haldol) 10 mg STAT STAT IM 06/16/19 23:50 06/16/19 23:53 DC 06/16/19 23:56 Haloperidol (Haldol) 10 mg STAT STAT IM 06/23/19 00:02 06/23/19 00:05 DC 06/23/19 00:09 Home Med (Med Rec Complete!) ASDIRECTED XX 06/12/19 22:45 06/12/19 22:48 DC Lorazepam (Ativan) 1 mg STAT STAT IM 06/23/19 00:02 06/23/19 00:05 DC 06/23/19 00:09 Lorazepam (Ativan) 2 mg Q4HP PRN PO ANXIETY/AGITATION 06/12/19 21:45 06/19/19 18:44 DC Lorazepam (Ativan) 2 mg Q4HP PRN PO ANXIETY/AGITATION 06/19/19 18:44 Lorazepam (Ativan) 2 mg STAT STAT IM 06/13/19 10:34 06/13/19 10:36 DC 06/13/19 10:48 Lorazepam (Ativan) 2 mg STAT STAT IM 06/13/19 11:13 06/13/19 11:14 Cancel Lorazepam (Ativan) 2 mg STAT STAT IM 8/20/19 23:50 06/16/19 23:53 DC 06/16/19 23:56 Magnesium Hydroxide (Milk Of Magnesia) 30 ml DAILYPRN PRN PO CONSTIPATION 06/12/19 21:45 Non-Formulary Medication ( See Comment Field Below ) SEE COMMENTS SECTION 1T@10 XX 06/24/19 10:00 06/25/19 09:59 UNV Non-Formulary Medication ( See Comment Field Below ) SEE LABEL COMMENTS DAILY XX 06/22/19 09:00 Trazodone HCl (Desyrel) 50 mg QHSP PRN PO INSOMNIA 06/12/19 21:45 06/14/19 20:36 Allergies Coded Allergies: No Known Drug Allergies (Verified Allergy, Unknown, 06/12/19) ZEKE BRODY DO Jun 23, 2019 10:02 am
[2019-06-23] MEDS ORDERED: chlorproMAZINE INJ 50MG/2ML AMP (J3230) IM STA (11:55)
--- NOTE | 2019-06-23 12:00 | MHIR ---
General Date: Jun 23, 2019 Restraint Documentation Order/Evaluation FACE TO FACE: Yes PHYSICIAN ASSESSMENT: The patient was agitated, crying, saying "you're not my doctor... I want my doctor", was not following directions, listening to staff support or redirection, refusing prn meds, kept going towards the door, attempted to hit staff aiming toward mem she is psychotic, was physically aggressive towards staff. REASON FOR RESTRAINT: Patient poses imminent danger of harming self or others: As above DE-ESCALATION INTERVENTIONS ATTEMPTED BEFORE USE OF RESTRAINTS: Yes, redirection was attempted, staff support, PRN medications were offered [MECHANICAL AND/OR CHEMICAL] RESTRAINTS USED: both LENGTH OF TIME ORDERED IN RESTRAINTS: 240 minutes. WHEN TO DISCONTINUE RESTRAINTS:when she is not a danger to self or others. Post evaluation of restraint due in 24 hours. ZEKE BRODY DO Jun 23, 2019 12:00 pm
[2019-06-24 06:47] VITALS: BP 148/59
[2019-06-24] MEDS: HALOPERIDOL 10 MG TAB PO SCH ×4 (09:00→21:00)
[2019-06-24] MEDS: **PENDING PPD ENTRY XX SCH (09:00)
--- NOTE | 2019-06-24 09:10 | MHPR ---
General Date: Jun 24, 2019 Post-Restraint Evaluation THE OUTCOME OF THE RESTRAINT: pt took IM medications without incident and did not need to be physically restrained. She feel asleep shortly after receiving meds EFFECTIVENESS OF THE RESTRAINT: Mechanical and/or chemical: chemical only and positive ANY EVIDENCE THAT THE PATIENT WAS AFFECTED EMOTIONALLY: no. ANY NEED FOR COUNSELING/ASSISTANCE: no CHANGES IN TREATMENT PLAN:no RECOMMENDATIONS FOR FUTURE INCIDENTS: continue current plan and 1:1 ZEKE BRODY DO Jun 24, 2019 9:10 am
--- NOTE | 2019-06-24 09:20 | MHIPNPDOC ---
[facility] Progress Note Progress Note DATE OF SERVICE: 06/24/19 HISTORY: Per Dr. Marley "This is a 23-year-old, -[place] female brought to the emergency room by her mother. The patient has history of schizophrenia according to her mother and was recently released from an unknown hospital in [place] on 06/08/2019. She was given a Haldol Decanoate shot prior to discharge apparently. She has not cooperated with oral medication however since discharge. The patient's mother brings her in to the hospital as she has been aggressive, which has been intensifying over the past three days. The patient's behavior in the emergency room was labile. At times, she was screaming, other times she was mute. She appeared to be responding to internal stimuli. The patient refused medication in the emergency room. She has refused medication upon admission as well. The patient has been expressing delusional beliefs to staff such as she is the " blaze Trejo". The patient is unable to provide any adequate history. Further information will need to be acquired from her mother who hopefully will be visiting later today. VITAL SIGNS: See below. NEW TEST RESULTS: See below. CURRENT MEDICATIONS: See below. MENTAL STATUS EXAMINATION:Unable to assess as pt asleep and left sleeping. (per yesterday MSE) Patient is alert, laying in bed with eyes closed ignoring me. She is refusing to talk to me. She is mute and nonresponsive to questioning. She appears paranoid and bizarre (Pt seen this morning in restraint room standing by her bed raising her forearms up and down in a routine manner with her eyes closed and when I tried to speak to pt she swung her arm out toward me as if attempted to hit me." (Per Dr. Marley she is grandiose and delusional. Personal hygiene is fair. Patient encouraged to take a shower with staff supervision. Insight and judgment remain quite poor. DIAGNOSES: Schizophrenia, chronic. ASSESSMENT:Pt coded yesterday afternoon due to "The patient was agitated, crying, saying "you're not my doctor... I want my doctor", was not following directions, listening to staff support or redirection, refusing prn meds, kept going towards the door, attempted to hit staff aiming toward me she is psychotic, was physically aggressive towards staff. " and only received chemical restraint (thorazine, ativan, benadryl) w/o incident and did not need to be physically restrained, she feel asleep shortly after receiving meds.. Pt seen this morning sleeping in bed with 1:1 sitter present. Per yesterday's note "in restraint room standing by her bed raising her forearms up and down in a routine manner with her eyes closed and when I tried to speak to pt she swung her arm out toward me as if attempted to hit me. Left pt with 1:1 sitter present and she proceeded to return to what she was doing and wasn't violent or aggressive but very bizarre." She has not taken her oral haldol this am due to having been asleep all morning. She is visible walking the unit periodically, eating meals, asking for clean clothes in am. She remains on 1:1 sitter for safety/psychosis. She did take her haldol dec on Saturday and tolerated it well with some improvement noted as presence in milieu more and talking with staff occasionally. Continues to only take oral haldol sporadically. Per Dr. Marley "Patient is delusional, claiming that she is Ree Mckeon, of [place]. Patient is still on one-to-one supervision. She is still responding to internal stimuli. She isolates a lot in her room mostly. Patient has not been able to attend any groups. Due to slow improvement in psychosis, pt appears to possibly need custodial treatment and well start process for [facility] referral. MANAGEMENT PLAN: continue plan, refer to [facility] haldol 10mg tid haldol dec 100mg IM x1 today Time Spent: 30 min Vital Signs Vital Signs Date Time Temp Pulse Resp B/P (MAP) Pulse Ox O2 Delivery O2 Flow Rate FiO2 06/24/19 06:47 99.1 82 14 148/59 (88) 06/23/19 00:15 97 Current Medications Current Medications Medications (Trade) Dose Ordered Sig/Ben Route PRN Reason Start Time Stop Time Status Last Admin Dose Admin Acetaminophen (Tylenol Tab) 650 mg Q6HP PRN PO HEADACHE or DISCOMFORT 06/12/19 21:45 06/15/19 05:41 Al Hydrox/Mg Hydrox/Simethicone (Mylanta) 30 ml Q4HP PRN PO HEARTBURN/INDIGESTION 06/12/19 21:45 Benztropine Mesylate (Cogentin) 0.5 mg Q4HP PRN PO EPS 06/19/19 18:45 Chlorpromazine HCl (Thorazine) 50 mg STAT STAT IM 06/23/19 11:55 06/23/19 11:58 DC 06/23/19 12:01 Diphenhydramine HCl (Benadryl) 50 mg STAT STAT IM 06/13/19 10:34 06/13/19 10:36 DC 06/13/19 10:48 Diphenhydramine HCl (Benadryl) 50 mg STAT STAT IM 06/13/19 11:13 06/13/19 11:14 Cancel Diphenhydramine HCl (Benadryl) 50 mg STAT STAT IM 06/16/19 23:50 06/16/19 23:53 DC 06/16/19 23:56 Diphenhydramine HCl (Benadryl) 50 mg STAT STAT IM 06/23/19 00:02 06/23/19 00:05 DC 06/23/19 00:08 Diphenhydramine HCl (Benadryl) 50 mg STAT STAT IM 06/23/19 11:55 06/23/19 11:58 DC 06/23/19 12:21 Haloperidol (Haldol) 10 mg QID PO 06/13/19 09:00 06/19/19 09:34 DC 06/18/19 16:37 Haloperidol (Haldol) 10 mg QID PO 06/19/19 09:00 06/22/19 18:14 Haloperidol (Haldol) 10 mg STAT STAT IM 06/13/19 10:34 06/13/19 10:36 DC 06/13/19 10:48 Haloperidol (Haldol) 10 mg STAT STAT IM 06/13/19 11:13 06/13/19 11:14 Cancel Haloperidol (Haldol) 10 mg STAT STAT IM 06/16/19 23:50 06/16/19 23:53 DC 06/16/19 23:56 Haloperidol (Haldol) 10 mg STAT STAT IM 06/23/19 00:02 06/23/19 00:05 DC 06/23/19 00:09 Home Med (Med Rec Complete!) ASDIRECTED XX 06/12/19 22:45 06/12/19 22:48 DC Lorazepam (Ativan) 1 mg STAT STAT IM 06/23/19 00:02 06/23/19 00:05 DC 06/23/19 00:09 Lorazepam (Ativan) 2 mg Q4HP PRN PO ANXIETY/AGITATION 06/12/19 21:45 06/19/19 18:44 DC Lorazepam (Ativan) 2 mg Q4HP PRN PO ANXIETY/AGITATION 06/19/19 18:44 Lorazepam (Ativan) 2 mg STAT STAT IM 06/13/19 10:34 06/13/19 10:36 DC 06/13/19 10:48 Lorazepam (Ativan) 2 mg STAT STAT IM 06/13/19 11:13 06/13/19 11:14 Cancel Lorazepam (Ativan) 2 mg STAT STAT IM 06/16/19 23:50 06/16/19 23:53 DC 06/16/19 23:56 Lorazepam (Ativan) 2 mg STAT STAT IM 06/23/19 11:55 06/23/19 11:58 DC 06/23/19 12:02 Magnesium Hydroxide (Milk Of Magnesia) 30 ml DAILYPRN PRN PO CONSTIPATION 06/12/19 21:45 Non-Formulary Medication ( See Comment Field Below ) SEE COMMENTS SECTION 1T@10 XX 06/24/19 10:00 06/25/19 09:59 UNV Non-Formulary Medication ( See Comment Field Below ) SEE LABEL COMMENTS DAILY XX 06/22/19 09:00 Trazodone HCl (Desyrel) 50 mg QHSP PRN PO INSOMNIA 06/12/19 21:45 06/14/19 20:36 Allergies Coded Allergies: No Known Drug Allergies (Verified Allergy, Unknown, 06/12/19) ZEKE BRODY DO Jun 24, 2019 9:20 am
[2019-06-24] MEDS ORDERED: PPD DOCUMENTATION ENTRY MISC XX SCH (10:00)
[2019-06-25 06:45] VITALS: BP 127/55
[2019-06-25] MEDS: HALOPERIDOL 10 MG TAB PO SCH ×3 (10:00→21:00)
[2019-06-25] MEDS: **PENDING PPD ENTRY XX SCH (10:00)
--- NOTE | 2019-06-25 10:25 | MHIPNPDOC ---
[facility] Progress Note Progress Note DATE OF SERVICE: 06/25/19 HISTORY: Per Dr. Marley "This is a 23-year-old, -Norwegian female brought to the emergency room by her mother. The patient has history of schizophrenia according to her mother and was recently released from an unknown hospital in [place] on 06/08/2019. She was given a Haldol Decanoate shot prior to discharge apparently. She has not cooperated with oral medication however since discharge. The patient's mother brings her in to the hospital as she has been aggressive, which has been intensifying over the past three days. The patient's behavior in the emergency room was labile. At times, she was screaming, other times she was mute. She appeared to be responding to internal stimuli. The patient refused medication in the emergency room. She has refused medication upon admission as well. The patient has been expressing delusional beliefs to staff such as she is the " blaze Trejo". The patient is unable to provide any adequate history. Further information will need to be acquired from her mother who hopefully will be visiting later today. VITAL SIGNS: See below. NEW TEST RESULTS: See below. CURRENT MEDICATIONS: See below. MENTAL STATUS EXAMINATION: Patient is alert, laying in bed, and arousable. She is did talk to me today. She is more cooperative today. She is not reliable as she states she's taking her medicine but per MAR refused her morning haldol today. Speech limited to yes/no answers and is non-spontaneous. She appears paranoid and bizarre (Per Dr. Marley she is grandiose and delusional. Personal hygiene is fair. Patient encouraged to take a shower with staff supervision. Insight and judgment remain quite poor. DIAGNOSES: Schizophrenia, chronic. ASSESSMENT:Pt did not need to be coded yesterday. Pt seen in room this am with 1:1 sitter present and actually talked to me. States she doing "well" and smiled at me. She had been walking with staff in the milieu and cooperative this am. She appears much more pleasant and is much more cooperative today. States she taking her medication today but when looked at med MAR she refused her Haldol this am. Will encourage pt to take it to help her. cShe remains on 1:1 sitter for safety/psychosis. She did take her haldol dec on 06/19/19 and tolerated it well with some improvement noted as presence in milieu more and talking with staff occasionally. Continues to only take oral haldol sporadically. Per Dr. Marley "Patient is delusional, claiming that she is Ree Mckeon, of [place]. Patient is still on one-to-one supervision. She is still responding to internal stimuli. She isolates a lot in her room mostly. Patient has not been able to attend any groups. Due to slow improvement in psychosis, pt appears to possibly need senior living treatment and well start process for [facility] referral. MANAGEMENT PLAN: increase oral haldol, refer to [facility] haldol 20mg tid haldol dec 100mg IM 06/19/19 Time Spent: 30 min Vital Signs Vital Signs Date Time Temp Pulse Resp B/P (MAP) Pulse Ox O2 Delivery O2 Flow Rate FiO2 06/25/19 06:45 98.6 85 12 127/55 (79) 06/23/19 00:15 97 Current Medications Current Medications Medications (Trade) Dose Ordered Sig/Ben Route PRN Reason Start Time Stop Time Status Last Admin Dose Admin Acetaminophen (Tylenol Tab) 650 mg Q6HP PRN PO HEADACHE or DISCOMFORT 06/12/19 21:45 06/15/19 05:41 Al Hydrox/Mg Hydrox/Simethicone (Mylanta) 30 ml Q4HP PRN PO HEARTBURN/INDIGESTION 06/12/19 21:45 Benztropine Mesylate (Cogentin) 0.5 mg Q4HP PRN PO EPS 06/19/19 18:45 Chlorpromazine HCl (Thorazine) 50 mg STAT STAT IM 06/23/19 11:55 06/23/19 11:58 DC 06/23/19 12:01 Diphenhydramine HCl (Benadryl) 50 mg STAT STAT IM 06/13/19 10:34 06/13/19 10:36 DC 06/13/19 10:48 Diphenhydramine HCl (Benadryl) 50 mg STAT STAT IM 06/13/19 11:13 06/13/19 11:14 Cancel Diphenhydramine HCl (Benadryl) 50 mg STAT STAT IM 06/16/19 23:50 06/16/19 23:53 DC 06/16/19 23:56 Diphenhydramine HCl (Benadryl) 50 mg STAT STAT IM 06/23/19 00:02 06/23/19 00:05 DC 06/23/19 00:08 Diphenhydramine HCl (Benadryl) 50 mg STAT STAT IM 06/23/19 11:55 06/23/19 11:58 DC 06/23/19 12:21 Haloperidol (Haldol) 10 mg QID PO 06/13/19 09:00 06/19/19 09:34 DC 06/18/19 16:37 Haloperidol (Haldol) 10 mg QID PO 06/19/19 09:00 06/22/19 18:14 Haloperidol (Haldol) 10 mg STAT STAT IM 06/13/19 10:34 06/13/19 10:36 DC 06/13/19 10:48 Haloperidol (Haldol) 10 mg STAT STAT IM 06/13/19 11:13 06/13/19 11:14 Cancel Haloperidol (Haldol) 10 mg STAT STAT IM 06/16/19 23:50 06/16/19 23:53 DC 06/16/19 23:56 Haloperidol (Haldol) 10 mg STAT STAT IM 06/23/19 00:02 06/23/19 00:05 DC 06/23/19 00:09 Home Med (Med Rec Complete!) ASDIRECTED XX 06/12/19 22:45 06/12/19 22:48 DC Lorazepam (Ativan) 1 mg STAT STAT IM 06/23/19 00:02 06/23/19 00:05 DC 06/23/19 00:09 Lorazepam (Ativan) 2 mg Q4HP PRN PO ANXIETY/AGITATION 06/12/19 21:45 06/19/19 18:44 DC Lorazepam (Ativan) 2 mg Q4HP PRN PO ANXIETY/AGITATION 06/19/19 18:44 Lorazepam (Ativan) 2 mg STAT STAT IM 06/13/19 10:34 06/13/19 10:36 DC 06/13/19 10:48 Lorazepam (Ativan) 2 mg STAT STAT IM 06/13/19 11:13 06/13/19 11:14 Cancel Lorazepam (Ativan) 2 mg STAT STAT IM 06/16/19 23:50 06/16/19 23:53 DC 06/16/19 23:56 Lorazepam (Ativan) 2 mg STAT STAT IM 06/23/19 11:55 06/23/19 11:58 DC 06/23/19 12:02 Magnesium Hydroxide (Milk Of Magnesia) 30 ml DAILYPRN PRN PO CONSTIPATION 06/12/19 21:45 Non-Formulary Medication ( See Comment Field Below ) SEE COMMENTS SECTION 1T@10 XX 06/24/19 10:00 06/25/19 09:59 UNV Non-Formulary Medication ( See Comment Field Below ) SEE LABEL COMMENTS DAILY XX 06/22/19 09:00 Trazodone HCl (Desyrel) 50 mg QHSP PRN PO INSOMNIA 06/12/19 21:45 06/14/19 20:36 Allergies Coded Allergies: No Known Drug Allergies (Verified Allergy, Unknown, 06/12/19) ZEKE BRODY DO Jun 25, 2019 10:25 am
[2019-06-25 18:00] VITALS: BP 135/93
[2019-06-26 06:45] VITALS: BP 131/68
[2019-06-26] MEDS: HALOPERIDOL 10 MG TAB PO SCH ×3 (08:43→21:00)
[2019-06-26] MEDS: **PENDING PPD ENTRY XX SCH (09:00)
--- NOTE | 2019-06-26 10:13 | MHIPNPDOC ---
[facility] [place] Progress Note DATE OF SERVICE: 06/26/19 HISTORY: Per Dr. Marley "This is a 23-year-old, -Bulgarian female brought to the emergency room by her mother. The patient has history of schizophrenia according to her mother and was recently released from an unknown hospital in [place] on 06/08/2019. She was given a Haldol Decanoate shot prior to discharge apparently. She has not cooperated with oral medication however since discharge. The patient's mother brings her in to the hospital as she has been aggressive, which has been intensifying over the past three days. The patient's behavior in the emergency room was labile. At times, she was screaming, other times she was mute. She appeared to be responding to internal stimuli. The patient refused medication in the emergency room. She has refused medication upon admission as well. The patient has been expressing delusional beliefs to staff such as she is the " blaze Trejo". The patient is unable to provide any adequate history. Further information will need to be acquired from her mother who hopefully will be visiting later today. VITAL SIGNS: See below. NEW TEST RESULTS: See below. CURRENT MEDICATIONS: See below. MENTAL STATUS EXAMINATION: Patient is awake, alert, and oriented to self and hospital. Saw me in my office and was able to ask linear and logical questions about when she could possibly go home. She is more cooperative and pleasant today. She is not fully reliable still. Speech is more regular and spontaneous. She appears less paranoid and bizarre, responding to internal stimuli less often (Per Dr. Marley she is grandiose and delusional. Personal hygiene is fair. Patient encouraged to take a shower with staff supervision. Insight and judgment remain quite poor. DIAGNOSES: Schizophrenia, chronic. ASSESSMENT:Pt did not need to be coded yesterday. Pt seen in office today with 1:1 sitter present and asked me how much longer she would be here. Spoke to pt about making sure she takes her oral haldol tid as scheduled and that she does appear to be improving. Advised pt if she continues to be compliant on her medication and continues to show improved psychosis then she may be able to be discharge home sometime next week. States she'll be compliant on her meds b/c she wants to go home. She is able to participate with interview, be coop erative, and is able to ask linear/logical questions. She is more present in the milieu during the day. She continues bizarre behavior and response to internal stimuli that appear to be improving with increase in oral haldol. She had been walking with staff in the milieu and cooperative this am. She is pleasant and cooperative today today. States she taking her medication today but when looked at med MAR and she did take her meds. Will encourage pt to take it to help her. She remains on 1:1 sitter for safety/psychosis. She did take her haldol dec on 06/19/19 and tolerated it well with some improvement noted as presence in milieu more and talking with staff occasionally. Continues to take oral haldol sporadically but is roughly taking it more often than previously. Per Dr. Marley "Patient is delusional, claiming that she is Ree Mckeon, of [place]." She is still responding to internal stimuli. Patient has not been able to attend any groups. Due to slow improvement in psychosis, pt appears to possibly need alf treatment and well start process for [facility] referral. MANAGEMENT PLAN: increase oral haldol, refer to [facility] haldol 20mg tid haldol dec 100mg IM 06/19/19 Time Spent: 30 min Vital Signs Vital Signs Date Time Temp Pulse Resp B/P (MAP) Pulse Ox O2 Delivery O2 Flow Rate FiO2 06/26/19 06:45 99.1 87 12 131/68 (89) 06/23/19 00:15 97 Current Medications Current Medications Medications (Trade) Dose Ordered Sig/Ben Route PRN Reason Start Time Stop Time Status Last Admin Dose Admin Acetaminophen (Tylenol Tab) 650 mg Q6HP PRN PO HEADACHE or DISCOMFORT 06/12/19 21:45 06/15/19 05:41 Al Hydrox/Mg Hydrox/Simethicone (Mylanta) 30 ml Q4HP PRN PO HEARTBURN/INDIGESTION 06/12/19 21:45 Benztropine Mesylate (Cogentin) 0.5 mg Q4HP PRN PO EPS 06/19/19 18:45 Chlorpromazine HCl (Thorazine) 50 mg STAT STAT IM 06/23/19 11:55 06/23/19 11:58 DC 06/23/19 12:01 Diphenhydramine HCl (Benadryl) 50 mg STAT STAT IM 06/13/19 10:34 06/13/19 10:36 DC 06/13/19 10:48 Diphenhydramine HCl (Benadryl) 50 mg STAT STAT IM 06/13/19 11:13 06/13/19 11:14 Cancel Diphenhydramine HCl (Benadryl) 50 mg STAT STAT IM 06/16/19 23:50 06/16/19 23:53 DC 06/16/19 23:56 Diphenhydramine HCl (Benadryl) 50 mg STAT STAT IM 06/23/19 00:02 06/23/19 00:05 DC 06/23/19 00:08 Diphenhydramine HCl (Benadryl) 50 mg STAT STAT IM 06/23/19 11:55 06/23/19 11:58 DC 06/23/19 12:21 Haloperidol (Haldol) 10 mg QID PO 06/13/19 09:00 06/19/19 09:34 DC 06/18/19 16:37 Haloperidol (Haldol) 10 mg QID PO 06/19/19 09:00 06/25/19 10:23 DC 06/22/19 18:14 Haloperidol (Haldol) 10 mg STAT STAT IM 06/13/19 10:34 06/13/19 10:36 DC 06/13/19 10:48 Haloperidol (Haldol) 10 mg STAT STAT IM 06/13/19 11:13 06/13/19 11:14 Cancel Haloperidol (Haldol) 10 mg STAT STAT IM 06/16/19 23:50 06/16/19 23:53 DC 06/16/19 23:56 Haloperidol (Haldol) 10 mg STAT STAT IM 06/23/19 00:02 06/23/19 00:05 DC 06/23/19 00:09 Haloperidol (Haldol) 10 mg TID PO 06/25/19 16:00 06/26/19 08:43 Home Med (Med Rec Complete!) ASDIRECTED XX 06/12/19 22:45 06/12/19 22:48 DC Lorazepam (Ativan) 1 mg STAT STAT IM 06/23/19 00:02 06/23/19 00:05 DC 06/23/19 00:09 Lorazepam (Ativan) 2 mg Q4HP PRN PO ANXIETY/AGITATION 06/12/19 21:45 06/19/19 18:44 DC Lorazepam (Ativan) 2 mg Q4HP PRN PO ANXIETY/AGITATION 06/19/19 18:44 06/25/19 17:28 Lorazepam (Ativan) 2 mg STAT STAT IM 06/13/19 10:34 06/13/19 10:36 DC 06/13/19 10:48 Lorazepam (Ativan) 2 mg STAT STAT IM 06/13/19 11:13 06/13/19 11:14 Cancel Lorazepam (Ativan) 2 mg STAT STAT IM 06/16/19 23:50 06/16/19 23:53 DC 06/16/19 23:56 Lorazepam (Ativan) 2 mg STAT STAT IM 06/23/19 11:55 06/23/19 11:58 DC 06/23/19 12:02 Magnesium Hydroxide (Milk Of Magnesia) 30 ml DAILYPRN PRN PO CONSTIPATION 06/12/19 21:45 Miscellaneous (Unresolved Clarification Entry) SEE LABEL COMMENTS DAILY XX 06/25/19 09:00 06/26/19 01:24 Miscellaneous (Unresolved Clarification Entry) SEE LABEL COMMENTS DAILY XX 06/26/19 09:00 UNV Non-Formulary Medication ( See Comment Field Below ) SEE COMMENTS SECTION 1T@10 XX 06/24/19 10:00 06/25/19 09:59 UNV Non-Formulary Medication ( See Comment Field Below ) SEE LABEL COMMENTS DAILY XX 06/22/19 09:00 Trazodone HCl (Desyrel) 50 mg QHSP PRN PO INSOMNIA 06/12/19 21:45 06/14/19 20:36 Allergies Coded Allergies: No Known Drug Allergies (Verified Allergy, Unknown, 06/12/19) ZEKE BRODY DO Jun 26, 2019 10:13 am
[2019-06-26 17:55] VITALS: BP 134/93
[2019-06-27] MEDS: **PENDING PPD ENTRY XX SCH (09:00)
[2019-06-27] MEDS: HALOPERIDOL 10 MG TAB PO SCH ×3 (09:37→21:00)
[2019-06-27 17:58] VITALS: BP 118/77
[2019-06-28] VITALS (16 sets, daily range): BP systolic 102–146; BP diastolic 56–90
[2019-06-28] MEDS ORDERED: HALOPERIDOL 5 MG/ML VIAL (J1630) IM STA (02:22)
[2019-06-28] MEDS ORDERED: diphenhydrAMINE INJ 50MG/ML VIAL (J1200) IM STA (02:22)
[2019-06-28] MEDS ORDERED: LORazepam 2 MG/ML VIAL (J2060) IM STA ×2 (02:22→03:50)
[2019-06-28] MEDS ORDERED: LORazepam 2 MG TAB PO PRN (02:45)
[2019-06-28] MEDS ORDERED: chlorproMAZINE INJ 50MG/2ML AMP (J3230) IM PRN (02:45)
--- NOTE | 2019-06-28 02:45 | MHIR ---
General Date: Jun 28, 2019 Restraint Documentation Order/Evaluation FACE TO FACE: Yes PHYSICIAN ASSESSMENT: The patient was psychotic, butt scooting on the floor in the milieu, would not stop with any staff support, redirection, prn meds offered by staff. REASON FOR RESTRAINT: Patient poses imminent danger of harming self or others: As above DE-ESCALATION INTERVENTIONS ATTEMPTED BEFORE USE OF RESTRAINTS: Yes, re direction was attempted, her room is close to the Nurse station, PRN medications were offered, her night time medications were offered and she refused all of them [MECHANICAL AND/OR CHEMICAL] RESTRAINTS USED: both LENGTH OF TIME ORDERED IN RESTRAINTS: 240 minutes. WHEN TO DISCONTINUE RESTRAINTS:when she is not a danger to self or others. Post evaluation of restraint due in 24 hours. ZEKE BRODY DO Jun 28, 2019 02:45
[2019-06-28] MEDS ORDERED: chlorproMAZINE INJ 50MG/2ML AMP (J3230) IM STA (03:49)
--- NOTE | 2019-06-28 09:34 | MHPR ---
General Date: Jun 28, 2019 Post-Restraint Evaluation THE OUTCOME OF THE RESTRAINT: Had to be given thorazine 50mg and ativan 2mg IM roughly 30min after initial meds given due to pt continuing to scream and not stopping with an redirection, staff support, prn meds offered. Once second dose of meds given pt calmed down and feel sleep. EFFECTIVENESS OF THE RESTRAINT: Mechanical and/or chemical: Positive ANY EVIDENCE THAT THE PATIENT WAS AFFECTED EMOTIONALLY: she was not affected in a negative way, she was able to rest, she needed that. The effect was positive ANY NEED FOR COUNSELING/ASSISTANCE: Re direction and support has been provided by staff. CHANGES IN TREATMENT PLAN: continue current plan RECOMMENDATIONS FOR FUTURE INCIDENTS: continue re direction, support, PRN medications.. ZEKE BRODY DO Jun 28, 2019 9:34 am
[2019-06-28] MEDS ORDERED: chlorproMAZINE 25 MG TAB (Q0161) PO PRN (09:45)
[2019-06-28] MEDS: HALOPERIDOL 10 MG TAB PO SCH ×3 (10:10→21:00)
[2019-06-28] MEDS: **PENDING PPD ENTRY XX SCH (16:00)
[2019-06-29 06:46] VITALS: BP 138/73
[2019-06-29] MEDS: **PENDING PPD ENTRY XX SCH (09:00)
[2019-06-29] MEDS: HALOPERIDOL 10 MG TAB PO SCH ×3 (09:00→21:48)
--- NOTE | 2019-06-29 10:14 | MHIPNPDOC ---
[facility] Progress Note Progress Note DATE OF SERVICE: 06/29/19 HISTORY: Per Dr. Marley "This is a 23-year-old, -Lao female brought to the emergency room by her mother. The patient has history of schizophrenia according to her mother and was recently released from an unknown hospital in [place] on 06/08/2019. She was given a Haldol Decanoate shot prior to discharge apparently. She has not cooperated with oral medication however since discharge. The patient's mother brings her in to the hospital as she has been aggressive, which has been intensifying over the past three days. The patient's behavior in the emergency room was labile. At times, she was screaming, other times she was mute. She appeared to be responding to internal stimuli. The patient refused medication in the emergency room. She has refused medication upon admission as well. The patient has been expressing delusional beliefs to staff such as she is the " blaze Trejo". The patient is unable to provide any adequate history. Further information will need to be acquired from her mother who hopefully will be visiting later today. VITAL SIGNS: See below. NEW TEST RESULTS: See below. CURRENT MEDICATIONS: See below. MENTAL STATUS EXAMINATION: Patient is awake, alert, and oriented to self and hospital. Walked into my office with sitter present w/o being called demanding to go home. She appeared dazed and lethargic and was refusing to sit but rather standing over me causing nurse to step beside me for safety. She is preoccupied with go home. Appears to be becoming more bizarre and psychotic with medication noncompliance for rough the past 3 days. She is not fully reliable still. Speech is spontaneous and demanding. She appears paranoid and bizarre, responding to internal stimuli (Per Dr. Marley she is grandiose and delusional. Personal hygiene is fair. Patient encouraged to take a shower with staff supervision. Insight and judgment remain quite poor. DIAGNOSES: Schizophrenia, chronic. ASSESSMENT:Pt was coded around 2:30am early Saturday morning as "The patient was psychotic, butt scooting on the floor in the milieu, would not stop with any staff support, redirection, prn meds offered by staff." She continues to refuse her medication all Saturday night, all day Saturday, and this morning. Pt seen in office today after just walking in w/o being asked to with 1:1 sitter present demanding to be discharged. She stated she needed to go home and didn't need to be here b/c she was fine. Repeatedly told pt that she was not ready to go home and would not be discharge which she would not accept. She then stated she was going to call her mom and get a transit clerk, went to call her mom, and then came back saying "My mom told me I'm going home on Saturday", then left again. She appeared slightly dazed, lethargic, refusing to sit down, and attempting to stand over me causing nurse to step beside me for safety. States she's been taking her meds each time they're due even though she hasn't been for roughly 3 days. Advised pt if she continues to be compliant on her medication and continues to show improved psychosis then she may be able to be discharge home. She continues bizarre behavior and response to internal stimuli that is decompensating due to med noncompliance. Per Dr. Marley "Patient is delusional, claiming that she is Ree Mckeon, of [place]." She is still responding to internal stimuli. Patient has not been able to attend any groups. Due to slow improvement in psychosis, pt appears to possibly need senior care treatment and well start process [facility]. MANAGEMENT PLAN: increase oral haldol, refer to [facility] haldol 20mg tid haldol dec 100mg IM 06/19/19 Time Spent: 30 min Vital Signs Vital Signs Date Time Temp Pulse Resp B/P (MAP) Pulse Ox O2 Delivery O2 Flow Rate FiO2 06/29/19 06:46 98.2 92 14 138/73 (94) 06/28/19 05:45 100 Current Medications Current Medications Medications (Trade) Dose Ordered Sig/Ben Route PRN Reason Start Time Stop Time Status Last Admin Dose Admin Acetaminophen (Tylenol Tab) 650 mg Q6HP PRN PO HEADACHE or DISCOMFORT 06/12/19 21:45 06/15/19 05:41 Al Hydrox/Mg Hydrox/Simethicone (Mylanta) 30 ml Q4HP PRN PO HEARTBURN/INDIGESTION 06/12/19 21:45 Benztropine Mesylate (Cogentin) 0.5 mg Q4HP PRN PO EPS 06/19/19 18:45 Chlorpromazine HCl (Thorazine) 50 mg Q4HP PRN PO AGITATION 06/28/19 09:45 Chlorpromazine HCl (Thorazine) 50 mg Q6HP PRN IM AGITATION 06/28/19 02:45 Cancel Chlorpromazine HCl (Thorazine) 50 mg STAT STAT IM 06/23/19 11:55 06/23/19 11:58 DC 06/23/19 12:01 Chlorpromazine HCl (Thorazine) 50 mg STAT STAT IM 06/28/19 03:49 06/28/19 03:52 DC 06/28/19 03:55 Diphenhydramine HCl (Benadryl) 50 mg STAT STAT IM 06/13/19 10:34 06/13/19 10:36 DC 06/13/19 10:48 Diphenhydramine HCl (Benadryl) 50 mg STAT STAT IM 06/13/19 11:13 06/13/19 11:14 Cancel Diphenhydramine HCl (Benadryl) 50 mg STAT STAT IM 06/16/19 23:50 06/16/19 23:53 DC 06/16/19 23:56 Diphenhydramine HCl (Benadryl) 50 mg STAT STAT IM 06/23/19 00:02 06/23/19 00:05 DC 06/23/19 00:08 Diphenhydramine HCl (Benadryl) 50 mg STAT STAT IM 06/23/19 11:55 06/23/19 11:58 DC 06/23/19 12:21 Diphenhydramine HCl (Benadryl) 100 mg STAT STAT IM 06/28/19 02:22 06/28/19 02:27 DC 06/28/19 02:29 Haloperidol (Haldol) 10 mg QID PO 06/13/19 09:00 06/19/19 09:34 DC 06/18/19 16:37 Haloperidol (Haldol) 10 mg QID PO 06/19/19 09:00 06/25/19 10:23 DC 06/22/19 18:14 Haloperidol (Haldol) 10 mg STAT STAT IM 06/13/19 10:34 06/13/19 10:36 DC 06/13/19 10:48 Haloperidol (Haldol) 10 mg STAT STAT IM 06/13/19 11:13 06/13/19 11:14 Cancel Haloperidol (Haldol) 10 mg STAT STAT IM 06/16/19 23:50 06/16/19 23:53 DC 06/16/19 23:56 Haloperidol (Haldol) 10 mg STAT STAT IM 06/23/19 00:02 06/23/19 00:05 DC 06/23/19 00:09 Haloperidol (Haldol) 10 mg STAT STAT IM 06/28/19 02:22 06/28/19 02:27 DC 06/28/19 02:29 Haloperidol (Haldol) 10 mg TID PO 06/25/19 16:00 06/26/19 10:07 DC 06/26/19 08:43 Haloperidol (Haldol) 20 mg TID PO 06/26/19 16:00 06/27/19 15:56 Home Med (Med Rec Complete!) ASDIRECTED XX 06/12/19 22:45 06/12/19 22:48 DC Lorazepam (Ativan) 1 mg STAT STAT IM 06/23/19 00:02 06/23/19 00:05 DC 06/23/19 00:09 Lorazepam (Ativan) 2 mg Q4HP PRN PO ANXIETY/AGITATION 06/12/19 21:45 06/19/19 18:44 DC Lorazepam (Ativan) 2 mg Q4HP PRN PO ANXIETY/AGITATION 06/19/19 18:44 06/26/19 14:54 DC 06/25/19 17:28 Lorazepam (Ativan) 2 mg Q4HP PRN PO ANXIETY/AGITATION 06/28/19 02:45 Lorazepam (Ativan) 2 mg STAT STAT IM 06/13/19 10:34 06/13/19 10:36 DC 06/13/19 10:48 Lorazepam (Ativan) 2 mg STAT STAT IM 06/13/19 11:13 06/13/19 11:14 Cancel Lorazepam (Ativan) 2 mg STAT STAT IM 06/16/19 23:50 06/16/19 23:53 DC 06/16/19 23:56 Lorazepam (Ativan) 2 mg STAT STAT IM 06/23/19 11:55 06/23/19 11:58 DC 06/23/19 12:02 Lorazepam (Ativan) 2 mg STAT STAT IM 06/28/19 02:22 06/28/19 02:27 DC 06/28/19 02:29 Lorazepam (Ativan) 2 mg STAT STAT IM 06/28/19 03:50 06/28/19 03:51 DC 06/28/19 03:54 Magnesium Hydroxide (Milk Of Magnesia) 30 ml DAILYPRN PRN PO CONSTIPATION 06/12/19 21:45 Miscellaneous (Unresolved Clarification Entry) SEE LABEL COMMENTS DAILY XX 06/25/19 09:00 06/26/19 11:14 DC 06/26/19 01:24 Miscellaneous (Unresolved Clarification Entry) SEE LABEL COMMENTS DAILY XX 06/26/19 09:00 UNV Miscellaneous (Unresolved Clarification Entry) SEE LABEL COMMENTS DAILY XX 06/27/19 09:00 06/27/19 09:00 DC Non-Formulary Medication ( See Comment Field Below ) SEE COMMENTS SECTION 1T@10 XX 06/24/19 10:00 06/25/19 09:59 UNV Non-Formulary Medication ( See Comment Field Below ) SEE LABEL COMMENTS DAILY XX 06/22/19 09:00 Trazodone HCl (Desyrel) 50 mg QHSP PRN PO INSOMNIA 06/12/19 21:45 06/14/19 20:36 Allergies Coded Allergies: No Known Drug Allergies (Verified Allergy, Unknown, 06/12/19) ZEKE BRODY DO Jun 29, 2019 10:14 am
[2019-06-29 17:02] VITALS: BP 132/80
[2019-06-29] MEDS: traZODone 50 MG TAB PO PRN (21:48)
[2019-06-30 06:52] VITALS: BP 119/66
[2019-06-30] MEDS: **PENDING PPD ENTRY XX SCH (09:00)
[2019-06-30] MEDS: HALOPERIDOL 10 MG TAB PO SCH ×3 (09:34→21:00)
--- NOTE | 2019-06-30 10:58 | MHIPNPDOC ---
[facility] Progress Note Progress Note DATE OF SERVICE: 06/30/19 HISTORY: Per Dr. Marley "This is a 23-year-old, -[place] female brought to the emergency room by her mother. The patient has history of schizophrenia according to her mother and was recently released from an unknown hospital in [place] on 06/08/2019. She was given a Haldol Decanoate shot prior to discharge apparently. She has not cooperated with oral medication however since discharge. The patient's mother brings her in to the hospital as she has been aggressive, which has been intensifying over the past three days. The patient's behavior in the emergency room was labile. At times, she was screaming, other times she was mute. She appeared to be responding to internal stimuli. The patient refused medication in the emergency room. She has refused medication upon admission as well. The patient has been expressing delusional beliefs to staff such as she is the " of Neil". The patient is unable to provide any adequate history. Further information will need to be acquired from her mother who hopefully will be visiting later today. VITAL SIGNS: See below. NEW TEST RESULTS: See below. CURRENT MEDICATIONS: See below. MENTAL STATUS EXAMINATION: Patient is awake. Pt appears bizarre today as she's not talking, sitting at the edge of her bed, staring at the wall, and not moving for over 30min. . She appeared dazed and lethargicAppears to be becoming more bizarre and psychotic with medication noncompliance for rough the past 3 days. She is not fully reliable still. Speech is mute today She appears paranoid and bizarre, responding to internal stimuli (Per Dr. Marley she is grandiose and delusional. Personal hygiene is fair. Patient encouraged to take a shower with staff supervision." Insight and judgment remain quite poor. DIAGNOSES: Schizophrenia, chronic. ASSESSMENT:Pt was not coded last night. She did take her oral haldol this am, first time in 3 days. Pt seen in her room with sitter present, bizarre, not talking, sitting at the edge of her bed, staring at the wall, and not moving for over 30min. Per yesterdiay's note "Pt seen in office today after just walking in w/o being asked to with 1:1 sitter present demanding to be discharged. She stated she needed to go home and didn't need to be here b/c she was fine. Repeatedly told pt that she was not ready to go home and would not be discharge which she would not accept. She then stated she was going to call her mom and get a finance consultant, went to call her mom, and then came back saying "My mom told me I'm going home on Saturday", then left again. She appeared slightly dazed, lethargic, refusing to sit down, and attempting to stand over me causing nurse to step beside me for safety." She continues bizarre behavior and responsing to internal stimuli that is decompensating due to med noncompliance. Per Dr. Marley "Patient is delusional, claiming that she is Ree Mckeon, of [place]." She is still responding to internal stimuli. Patient has not been able to attend any groups. Due to slow improvement in psychosis, pt appears to possibly need long term care administrator treatment and well start process for [facility] referral. MANAGEMENT PLAN: increase oral haldol, refer to [facility] haldol 20mg tid haldol dec 100mg IM 06/19/19 Time Spent: 30 min Vital Signs Vital Signs Date Time Temp Pulse Resp B/P (MAP) Pulse Ox O2 Delivery O2 Flow Rate FiO2 06/30/19 06:52 98.4 100 12 119/66 (83) 06/28/19 05:45 100 Current Medications Current Medications Medications (Trade) Dose Ordered Sig/Ben Route PRN Reason Start Time Stop Time Status Last Admin Dose Admin Acetaminophen (Tylenol Tab) 650 mg Q6HP PRN PO HEADACHE or DISCOMFORT 06/12/19 21:45 06/15/19 05:41 Al Hydrox/Mg Hydrox/Simethicone (Mylanta) 30 ml Q4HP PRN PO HEARTBURN/INDIGESTION 06/12/19 21:45 Benztropine Mesylate (Cogentin) 0.5 mg Q4HP PRN PO EPS 06/19/19 18:45 Chlorpromazine HCl (Thorazine) 50 mg Q4HP PRN PO AGITATION 06/28/19 09:45 Chlorpromazine HCl (Thorazine) 50 mg Q6HP PRN IM AGITATION 06/28/19 02:45 Cancel Chlorpromazine HCl (Thorazine) 50 mg STAT STAT IM 06/23/19 11:55 06/23/19 11:58 DC 06/23/19 12:01 Chlorpromazine HCl (Thorazine) 50 mg STAT STAT IM 06/28/19 03:49 06/28/19 03:52 DC 06/28/19 03:55 Diphenhydramine HCl (Benadryl) 50 mg STAT STAT IM 06/13/19 10:34 06/13/19 10:36 DC 06/13/19 10:48 Diphenhydramine HCl (Benadryl) 50 mg STAT STAT IM 06/13/19 11:13 06/13/19 11:14 Cancel Diphenhydramine HCl (Benadryl) 50 mg STAT STAT IM 06/16/19 23:50 06/16/19 23:53 DC 06/16/19 23:56 Diphenhydramine HCl (Benadryl) 50 mg STAT STAT IM 06/23/19 00:02 06/23/19 00:05 DC 06/23/19 00:08 Diphenhydramine HCl (Benadryl) 50 mg STAT STAT IM 06/23/19 11:55 06/23/19 11:58 DC 06/23/19 12:21 Diphenhydramine HCl (Benadryl) 100 mg STAT STAT IM 06/28/19 02:22 06/28/19 02:27 DC 06/28/19 02:29 Haloperidol (Haldol) 10 mg QID PO 06/13/19 09:00 06/19/19 09:34 DC 06/18/19 16:37 Haloperidol (Haldol) 10 mg QID PO 06/19/19 09:00 06/25/19 10:23 DC 06/22/19 18:14 Haloperidol (Haldol) 10 mg STAT STAT IM 06/13/19 10:34 06/13/19 10:36 DC 06/13/19 10:48 Haloperidol (Haldol) 10 mg STAT STAT IM 06/13/19 11:13 06/13/19 11:14 Cancel Haloperidol (Haldol) 10 mg STAT STAT IM 06/16/19 23:50 06/16/19 23:53 DC 06/16/19 23:56 Haloperidol (Haldol) 10 mg STAT STAT IM 06/23/19 00:02 06/23/19 00:05 DC 06/23/19 00:09 Haloperidol (Haldol) 10 mg STAT STAT IM 06/28/19 02:22 06/28/19 02:27 DC 06/28/19 02:29 Haloperidol (Haldol) 10 mg TID PO 06/25/19 16:00 06/26/19 10:07 DC 06/26/19 08:43 Haloperidol (Haldol) 20 mg TID PO 06/26/19 16:00 06/30/19 09:34 Home Med (Med Rec Complete!) ASDIRECTED XX 06/12/19 22:45 06/12/19 22:48 DC Lorazepam (Ativan) 1 mg STAT STAT IM 06/23/19 00:02 06/23/19 00:05 DC 06/23/19 00:09 Lorazepam (Ativan) 2 mg Q4HP PRN PO ANXIETY/AGITATION 06/12/19 21:45 06/19/19 18:44 DC Lorazepam (Ativan) 2 mg Q4HP PRN PO ANXIETY/AGITATION 06/19/19 18:44 06/26/19 14:54 DC 06/25/19 17:28 Lorazepam (Ativan) 2 mg Q4HP PRN PO ANXIETY/AGITATION 06/28/19 02:45 Lorazepam (Ativan) 2 mg STAT STAT IM 06/13/19 10:34 06/13/19 10:36 DC 06/13/19 10:48 Lorazepam (Ativan) 2 mg STAT STAT IM 06/13/19 11:13 06/13/19 11:14 Cancel Lorazepam (Ativan) 2 mg STAT STAT IM 06/16/19 23:50 06/16/19 23:53 DC 06/16/19 23:56 Lorazepam (Ativan) 2 mg STAT STAT IM 06/23/19 11:55 06/23/19 11:58 DC 06/23/19 12:02 Lorazepam (Ativan) 2 mg STAT STAT IM 06/28/19 02:22 06/28/19 02:27 DC 06/28/19 02:29 Lorazepam (Ativan) 2 mg STAT STAT IM 06/28/19 03:50 06/28/19 03:51 DC 06/28/19 03:54 Magnesium Hydroxide (Milk Of Magnesia) 30 ml DAILYPRN PRN PO CONSTIPATION 06/12/19 21:45 Miscellaneous (Unresolved Clarification Entry) SEE LABEL COMMENTS DAILY XX 06/25/19 09:00 06/26/19 11:14 DC 06/26/19 01:24 Miscellaneous (Unresolved Clarification Entry) SEE LABEL COMMENTS DAILY XX 06/26/19 09:00 UNV Miscellaneous (Unresolved Clarification Entry) SEE LABEL COMMENTS DAILY XX 06/27/19 09:00 06/27/19 09:00 DC Non-Formulary Medication ( See Comment Field Below ) SEE COMMENTS SECTION 1T@10 XX 06/24/19 10:00 06/25/19 09:59 UNV Non-Formulary Medication ( See Comment Field Below ) SEE LABEL COMMENTS DAILY XX 06/22/19 09:00 Trazodone HCl (Desyrel) 50 mg QHSP PRN PO INSOMNIA 06/12/19 21:45 06/29/19 21:48 Allergies Coded Allergies: No Known Drug Allergies (Verified Allergy, Unknown, 06/12/19) ZEKE BRODY DO Jun 30, 2019 10:58 am
[2019-06-30] MEDS ORDERED: LORazepam 2 MG/ML VIAL (J2060) IM STA (12:09)
[2019-06-30] MEDS ORDERED: chlorproMAZINE INJ 50MG/2ML AMP (J3230) IM STA (12:09)
[2019-06-30] MEDS ORDERED: diphenhydrAMINE INJ 50MG/ML VIAL (J1200) IM STA (12:09)
--- NOTE | 2019-06-30 12:20 | MHIR ---
General Date: Jun 30, 2019 Restraint Documentation Order/Evaluation FACE TO FACE: Yes PHYSICIAN ASSESSMENT: the pt was demanding to be discharged, crying, stating she is taking her medication every time it's due but per med records hasn't been thru out the week end or very sporadic, screaming and yelling at me, becoming aggressive toward me having staff hold her back and attempting to redirect her, refusing to take prn medication or listening to any redirection, attempting to follow and confront me. REASON FOR RESTRAINT: Patient poses imminent danger of harming self or others: As above DE-ESCALATION INTERVENTIONS ATTEMPTED BEFORE USE OF RESTRAINTS: Yes, re direction was attempted, her room is close to the Nurse station, PRN medications were offered, her night time medications were offered and she refused all of them [MECHANICAL AND/OR CHEMICAL] RESTRAINTS USED: both LENGTH OF TIME ORDERED IN RESTRAINTS: 240 minutes. WHEN TO DISCONTINUE RESTRAINTS:when she is not a danger to self or others. Post evaluation of restraint due in 24 hours. Post evaluation of restraint due in 24 hours. ZEKE BRODY DO Jun 30, 2019 12:20
[2019-06-30 12:30] VITALS: BP 124/95
[2019-06-30 14:30] VITALS: BP 119/72
[2019-06-30 14:45] VITALS: BP 116/71
[2019-06-30 15:00] VITALS: BP 114/72
[2019-07-01 07:02] VITALS: BP 134/66
[2019-07-01] MEDS: **PENDING PPD ENTRY XX SCH (09:00)
[2019-07-01] MEDS: HALOPERIDOL 10 MG TAB PO SCH ×3 (09:31→21:57)
--- NOTE | 2019-07-01 09:35 | MHPR ---
General Date: Jul 01, 2019 Post-Restraint Evaluation THE OUTCOME OF THE RESTRAINT: good, feel asleep after receiving meds EFFECTIVENESS OF THE RESTRAINT: Mechanical and/or chemical: both positive ANY EVIDENCE THAT THE PATIENT WAS AFFECTED EMOTIONALLY: no. ANY NEED FOR COUNSELING/ASSISTANCE: no CHANGES IN TREATMENT PLAN:no RECOMMENDATIONS FOR FUTURE INCIDENTS: continue current plan and 1:1 ZEKE BRODY DO Jul 01, 2019 9:35 am
--- NOTE | 2019-07-01 10:24 | MHIPNPDOC ---
[facility] Progress Note Progress Note DATE OF SERVICE: 07/01/19 HISTORY: Per Dr. Marley "This is a 23-year-old, -[place]ones[place] female brought to the emergency room by her mother. The patient has history of schizophrenia according to her mother and was recently released from an unknown hospital in [place] on 06/08/2019. She was given a Haldol Decanoate shot prior to discharge apparently. She has not cooperated with oral medication however since discharge. The patient's mother brings her in to the hospital as she has been aggressive, which has been intensifying over the past three days. The patient's behavior in the emergency room was labile. At times, she was screaming, other times she was mute. She appeared to be responding to internal stimuli. The patient refused medication in the emergency room. She has refused medication upon admission as well. The patient has been expressing delusional beliefs to staff such as she is the " of Neil". The patient is unable to provide any adequate history. Further information will need to be acquired from her mother who hopefully will be visiting later today. VITAL SIGNS: See below. NEW TEST RESULTS: See below. CURRENT MEDICATIONS: See below. MENTAL STATUS EXAMINATION: Patient is asleep and left sleeping due to agitation when up that is sporadic and mostly related to wanting to go home. Per yesterday MSE "Pt appears bizarre today as she's not talking, sitting at the edge of her bed, staring at the wall, and not moving for over 30min. . She appeared dazed and lethargicAppears to be becoming more bizarre and psychotic with medication noncompliance for rough the past 3 days. She is not fully reliable still. Speech is mute today She appears paranoid and bizarre, responding to internal stimuli (Per Dr. Marley she is grandiose and delusional. Personal hygiene is fair. Patient encouraged to take a shower with staff supervision." Insight and judgment remain quite poor." DIAGNOSES: Schizophrenia, chronic. ASSESSMENT:Pt was coded yesterday due to "the pt was demanding to be discharged, crying, stating she is taking her medication every time it's due but per med records hasn't been thru out the week end or very sporadic, screaming and yelling at me, becoming aggressive toward me having staff hold her back and attempting to redirect her, refusing to take prn medication or listening to any redirection, attempting to follow and confront me." Fell asleep after im thorazine/ativan/benadryl give. REfused her oral haldol last night and this morning. May change pt to prolixin to see if more beneficial for her psychosis than haldol, although her non-compliance with haldol makes it hard to tell. Pt seen in her room at first sleeping, then eating breakfast quietly, then walkled milieu to shower all with sitter present. Per treatment team that spoke with pt's mother yesterday, mother states pt is not at her baseline status and still needs treatment. She continues bizarre behavior and responding to internal stimuli that is decompensating due to med noncompliance. Per Dr. Marley "Patient is delusional, claiming that she is Ree Mckeon, of [place]." She is still responding to internal stimuli. Patient has not been able to attend any groups. Due to slow improvement in psychosis, pt appears to possibly need local intermodal truck driver treatment and well start process for [facility] referral. MANAGEMENT PLAN: increase oral haldol, refer to [facility] haldol 20mg tid haldol dec 100mg IM 06/19/19 Time Spent: 30 min Vital Signs Vital Signs Date Time Temp Pulse Resp B/P (MAP) Pulse Ox O2 Delivery O2 Flow Rate FiO2 07/01/19 07:02 98.0 85 12 134/66 (88) 06/30/19 15:00 99 Current Medications Current Medications Medications (Trade) Dose Ordered Sig/Ben Route PRN Reason Start Time Stop Time Status Last Admin Dose Admin Acetaminophen (Tylenol Tab) 650 mg Q6HP PRN PO HEADACHE or DISCOMFORT 06/12/19 21:45 06/15/19 05:41 Al Hydrox/Mg Hydrox/Simethicone (Mylanta) 30 ml Q4HP PRN PO HEARTBURN/INDIGESTION 06/12/19 21:45 Benztropine Mesylate (Cogentin) 0.5 mg Q4HP PRN PO EPS 06/19/19 18:45 Chlorpromazine HCl (Thorazine) 50 mg Q4HP PRN PO AGITATION 06/28/19 09:45 Chlorpromazine HCl (Thorazine) 50 mg Q6HP PRN IM AGITATION 06/28/19 02:45 Cancel Chlorpromazine HCl (Thorazine) 50 mg STAT STAT IM 06/23/19 11:55 06/23/19 11:58 DC 06/23/19 12:01 Chlorpromazine HCl (Thorazine) 50 mg STAT STAT IM 06/28/19 03:49 06/28/19 03:52 DC 06/28/19 03:55 Chlorpromazine HCl (Thorazine) 100 mg STAT STAT IM 06/30/19 12:09 06/30/19 12:13 DC 06/30/19 12:20 Diphenhydramine HCl (Benadryl) 50 mg STAT STAT IM 06/13/19 10:34 06/13/19 10:36 DC 06/13/19 10:48 Diphenhydramine HCl (Benadryl) 50 mg STAT STAT IM 06/13/19 11:13 06/13/19 11:14 Cancel Diphenhydramine HCl (Benadryl) 50 mg STAT STAT IM 06/16/19 23:50 06/16/19 23:53 DC 06/16/19 23:56 Diphenhydramine HCl (Benadryl) 50 mg STAT STAT IM 06/23/19 00:02 06/23/19 00:05 DC 06/23/19 00:08 Diphenhydramine HCl (Benadryl) 50 mg STAT STAT IM 06/23/19 11:55 06/23/19 11:58 DC 06/23/19 12:21 Diphenhydramine HCl (Benadryl) 100 mg STAT STAT IM 06/28/19 02:22 06/28/19 02:27 DC 06/28/19 02:29 Diphenhydramine HCl (Benadryl) 100 mg STAT STAT IM 06/30/19 12:09 06/30/19 12:13 DC 06/30/19 12:20 Haloperidol (Haldol) 10 mg QID PO 06/13/19 09:00 06/19/19 09:34 DC 06/18/19 16:37 Haloperidol (Haldol) 10 mg QID PO 06/19/19 09:00 06/25/19 10:23 DC 06/22/19 18:14 Haloperidol (Haldol) 10 mg STAT STAT IM 06/13/19 10:34 06/13/19 10:36 DC 06/13/19 10:48 Haloperidol (Haldol) 10 mg STAT STAT IM 06/13/19 11:13 06/13/19 11:14 Cancel Haloperidol (Haldol) 10 mg STAT STAT IM 06/16/19 23:50 06/16/19 23:53 DC 06/16/19 23:56 Haloperidol (Haldol) 10 mg STAT STAT IM 06/23/19 00:02 06/23/19 00:05 DC 06/23/19 00:09 Haloperidol (Haldol) 10 mg STAT STAT IM 06/28/19 02:22 06/28/19 02:27 DC 06/28/19 02:29 Haloperidol (Haldol) 10 mg TID PO 06/25/19 16:00 06/26/19 10:07 DC 06/26/19 08:43 Haloperidol (Haldol) 20 mg TID PO 06/26/19 16:00 06/30/19 16:27 Home Med (Med Rec Complete!) ASDIRECTED XX 06/12/19 22:45 06/12/19 22:48 DC Lorazepam (Ativan) 1 mg STAT STAT IM 06/23/19 00:02 06/23/19 00:05 DC 06/23/19 00:09 Lorazepam (Ativan) 2 mg Q4HP PRN PO ANXIETY/AGITATION 06/12/19 21:45 06/19/19 18:44 DC Lorazepam (Ativan) 2 mg Q4HP PRN PO ANXIETY/AGITATION 06/19/19 18:44 06/26/19 14:54 DC 06/25/19 17:28 Lorazepam (Ativan) 2 mg Q4HP PRN PO ANXIETY/AGITATION 06/28/19 02:45 Lorazepam (Ativan) 2 mg STAT STAT IM 06/13/19 10:34 06/13/19 10:36 DC 06/13/19 10:48 Lorazepam (Ativan) 2 mg STAT STAT IM 06/13/19 11:13 06/13/19 11:14 Cancel Lorazepam (Ativan) 2 mg STAT STAT IM 06/16/19 23:50 06/16/19 23:53 DC 06/16/19 23:56 Lorazepam (Ativan) 2 mg STAT STAT IM 06/23/19 11:55 06/23/19 11:58 DC 06/23/19 12:02 Lorazepam (Ativan) 2 mg STAT STAT IM 06/28/19 02:22 06/28/19 02:27 DC 06/28/19 02:29 Lorazepam (Ativan) 2 mg STAT STAT IM 06/28/19 03:50 06/28/19 03:51 DC 06/28/19 03:54 Lorazepam (Ativan) 2 mg STAT STAT IM 06/30/19 12:09 06/30/19 12:13 DC 06/30/19 12:20 Magnesium Hydroxide (Milk Of Magnesia) 30 ml DAILYPRN PRN PO CONSTIPATION 06/12/19 21:45 Miscellaneous (Unresolved Clarification Entry) SEE LABEL COMMENTS DAILY XX 06/25/19 09:00 06/26/19 11:14 DC 06/26/19 01:24 Miscellaneous (Unresolved Clarification Entry) SEE LABEL COMMENTS DAILY XX 06/26/19 09:00 UNV Miscellaneous (Unresolved Clarification Entry) SEE LABEL COMMENTS DAILY XX 06/27/19 09:00 06/27/19 09:00 DC Non-Formulary Medication ( See Comment Field Below ) SEE COMMENTS SECTION 1T@10 XX 06/24/19 10:00 06/25/19 09:59 UNV Non-Formulary Medication ( See Comment Field Below ) SEE LABEL COMMENTS DAILY XX 06/22/19 09:00 Trazodone HCl (Desyrel) 50 mg QHSP PRN PO INSOMNIA 06/12/19 21:45 06/29/19 21:48 Allergies Coded Allergies: No Known Drug Allergies (Verified Allergy, Unknown, 06/12/19) ZEKE BRODY DO Jul 01, 2019 9:35 am
[2019-07-01 16:31] VITALS: BP 112/70
[2019-07-01] MEDS: ACETAMINOPHEN TAB 650MG DOSE (2X325MG) PO PRN (17:44)
[2019-07-02 06:51] VITALS: BP 122/67
[2019-07-02] MEDS: **PENDING PPD ENTRY XX SCH (09:00)
[2019-07-02] MEDS: HALOPERIDOL 10 MG TAB PO SCH (09:19)
--- NOTE | 2019-07-02 09:52 | MHIPNPDOC ---
[facility] Progress Note Progress Note DATE OF SERVICE: 07/02/19 HISTORY: Per Dr. Marley "This is a 23-year-old, -I[place] female brought to the emergency room by her mother. The patient has history of schizophrenia according to her mother and was recently released from an unknown hospital in [place] on 06/08/2019. She was given a Haldol Decanoate shot prior to discharge apparently. She has not cooperated with oral medication however since discharge. The patient's mother brings her in to the hospital as she has been aggressive, which has been intensifying over the past three days. The patient's behavior in the emergency room was labile. At times, she was screaming, other times she was mute. She appeared to be responding to internal stimuli. The patient refused medication in the emergency room. She has refused medication upon admission as well. The patient has been expressing delusional beliefs to staff such as she is the " of Neil". The patient is unable to provide any adequate history. Further information will need to be acquired from her mother who hopefully will be visiting later today. VITAL SIGNS: See below. NEW TEST RESULTS: See below. CURRENT MEDICATIONS: See below. MENTAL STATUS EXAMINATION: Patient is asleep and left sleeping due to agitation when up that is sporadic and mostly related to wanting to go home. Per yesterday MSE "Pt appears bizarre today as she's not talking, sitting at the edge of her bed, staring at the wall, and not moving for over 30min. . She appeared dazed and lethargicAppears to be becoming more bizarre and psychotic with medication noncompliance for rough the past 3 days. She is not fully reliable still. Speech is mute today She appears paranoid and bizarre, responding to internal stimuli (Per Dr. Marley she is grandiose and delusional. Personal hygiene is fair. Patient encouraged to take a shower with staff supervision." Insight and judgment remain quite poor." DIAGNOSES: Schizophrenia, chronic. ASSESSMENT:Pt was not coded yesterday. Pt seen in office today stating she's "better," has been taking all her medications, wants to go home today, and that her mom told her she wants her home. Attempted to speek with pt that, yes she did take her medicine yesterday but has not taken this morning yet and that she is still not fully better to go home which mother also told treatment team. Pt started saying that I was lying, just wanted to keep her here for no reason b/c she is better, her mother told her she wants her home, and that I don't care. Stated she was going to call her food service driver then left office to go use phone and called her mother requesting her mother to get her a food service driver b/c I'm a liar and she is taking all her medication while she was upset and crying. Will change pt to prolixin to see if more beneficial for her psychosis than haldol, although her non-compliance with haldol makes it hard to tell. It has been 2wks since pt recieved first does of haldol dec with very limited improvement in psychosis since administration and most likely 100mg IM not enough so will give another dose to see if psychosis improves more especially with pt's unpredictable med compliance on oral meds. As stated yesterday "Per treatment team that spoke with pt's mother yesterday, mother states pt is not at her baseline status and still needs treatment." She continues bizarre behavior, emotionally reactive/unpredictably aggressive, and responding to internal stimuli that is decompensating due to med noncompliance. Per Dr. Marley "Patient is delusional, claiming that she is Ree Mckeon, of [place]." She is still responding to internal stimuli. Patient has not been able to attend any groups. Due to slow improvement in psychosis, pt appears to possibly need shelter treatment and well start process [facility]. MANAGEMENT PLAN: D/c oral haldol and start prolixin 10mg tid, refer to [facility] Prolixin 10mg tid haldol dec 100mg IM 06/19/19 and x1 today Time Spent: 30 min Vital Signs Vital Signs Date Time Temp Pulse Resp B/P (MAP) Pulse Ox O2 Delivery O2 Flow Rate FiO2 07/02/19 06:51 98.2 89 12 122/67 (85) 06/30/19 15:00 99 Current Medications Current Medications Medications (Trade) Dose Ordered Sig/Ben Route PRN Reason Start Time Stop Time Status Last Admin Dose Admin Acetaminophen (Tylenol Tab) 650 mg Q6HP PRN PO HEADACHE or DISCOMFORT 06/12/19 21:45 9/4/19 17:44 Al Hydrox/Mg Hydrox/Simethicone (Mylanta) 30 ml Q4HP PRN PO HEARTBURN/INDIGESTION 06/12/19 21:45 Benztropine Mesylate (Cogentin) 0.5 mg Q4HP PRN PO EPS 06/19/19 18:45 Chlorpromazine HCl (Thorazine) 50 mg Q4HP PRN PO AGITATION 06/28/19 09:45 Chlorpromazine HCl (Thorazine) 50 mg Q6HP PRN IM AGITATION 06/28/19 02:45 Cancel Chlorpromazine HCl (Thorazine) 50 mg STAT STAT IM 06/23/19 11:55 06/23/19 11:58 DC 06/23/19 12:01 Chlorpromazine HCl (Thorazine) 50 mg STAT STAT IM 06/28/19 03:49 06/28/19 03:52 DC 06/28/19 03:55 Chlorpromazine HCl (Thorazine) 100 mg STAT STAT IM 06/30/19 12:09 06/30/19 12:13 DC 06/30/19 12:20 Diphenhydramine HCl (Benadryl) 50 mg STAT STAT IM 06/13/19 10:34 06/13/19 10:36 DC 06/13/19 10:48 Diphenhydramine HCl (Benadryl) 50 mg STAT STAT IM 06/13/19 11:13 06/13/19 11:14 Cancel Diphenhydramine HCl (Benadryl) 50 mg STAT STAT IM 06/16/19 23:50 06/16/19 23:53 DC 06/16/19 23:56 Diphenhydramine HCl (Benadryl) 50 mg STAT STAT IM 06/23/19 00:02 06/23/19 00:05 DC 06/23/19 00:08 Diphenhydramine HCl (Benadryl) 50 mg STAT STAT IM 06/23/19 11:55 06/23/19 11:58 DC 06/23/19 12:21 Diphenhydramine HCl (Benadryl) 100 mg STAT STAT IM 06/28/19 02:22 06/28/19 02:27 DC 06/28/19 02:29 Diphenhydramine HCl (Benadryl) 100 mg STAT STAT IM 06/30/19 12:09 06/30/19 12:13 DC 06/30/19 12:20 Haloperidol (Haldol) 10 mg QID PO 06/13/19 09:00 06/19/19 09:34 DC 06/18/19 16:37 Haloperidol (Haldol) 10 mg QID PO 06/19/19 09:00 06/25/19 10:23 DC 06/22/19 18:14 Haloperidol (Haldol) 10 mg STAT STAT IM 06/13/19 10:34 06/13/19 10:36 DC 06/13/19 10:48 Haloperidol (Haldol) 10 mg STAT STAT IM 06/13/19 11:13 06/13/19 11:14 Cancel Haloperidol (Haldol) 10 mg STAT STAT IM 06/16/19 23:50 06/16/19 23:53 DC 06/16/19 23:56 Haloperidol (Haldol) 10 mg STAT STAT IM 06/23/19 00:02 06/23/19 00:05 DC 06/23/19 00:09 Haloperidol (Haldol) 10 mg STAT STAT IM 06/28/19 02:22 06/28/19 02:27 DC 06/28/19 02:29 Haloperidol (Haldol) 10 mg TID PO 06/25/19 16:00 06/26/19 10:07 DC 06/26/19 08:43 Haloperidol (Haldol) 20 mg TID PO 06/26/19 16:00 07/02/19 09:19 Home Med (Med Rec Complete!) ASDIRECTED XX 06/12/19 22:45 06/12/19 22:48 DC Lorazepam (Ativan) 1 mg STAT STAT IM 06/23/19 00:02 06/23/19 00:05 DC 06/23/19 00:09 Lorazepam (Ativan) 2 mg Q4HP PRN PO ANXIETY/AGITATION 06/12/19 21:45 06/19/19 18:44 DC Lorazepam (Ativan) 2 mg Q4HP PRN PO ANXIETY/AGITATION 06/19/19 18:44 06/26/19 14:54 DC 06/25/19 17:28 Lorazepam (Ativan) 2 mg Q4HP PRN PO ANXIETY/AGITATION 06/28/19 02:45 Lorazepam (Ativan) 2 mg STAT STAT IM 06/13/19 10:34 06/13/19 10:36 DC 06/13/19 10:48 Lorazepam (Ativan) 2 mg STAT STAT IM 06/13/19 11:13 06/13/19 11:14 Cancel Lorazepam (Ativan) 2 mg STAT STAT IM 06/16/19 23:50 06/16/19 23:53 DC 06/16/19 23:56 Lorazepam (Ativan) 2 mg STAT STAT IM 06/23/19 11:55 06/23/19 11:58 DC 06/23/19 12:02 Lorazepam (Ativan) 2 mg STAT STAT IM 06/28/19 02:22 06/28/19 02:27 DC 06/28/19 02:29 Lorazepam (Ativan) 2 mg STAT STAT IM 06/28/19 03:50 06/28/19 03:51 DC 06/28/19 03:54 Lorazepam (Ativan) 2 mg STAT STAT IM 06/30/19 12:09 06/30/19 12:13 DC 06/30/19 12:20 Magnesium Hydroxide (Milk Of Magnesia) 30 ml DAILYPRN PRN PO CONSTIPATION 06/12/19 21:45 Miscellaneous (Unresolved Clarification Entry) SEE LABEL COMMENTS DAILY XX 06/25/19 09:00 06/26/19 11:14 DC 06/26/19 01:24 Miscellaneous (Unresolved Clarification Entry) SEE LABEL COMMENTS DAILY XX 06/26/19 09:00 UNV Miscellaneous (Unresolved Clarification Entry) SEE LABEL COMMENTS DAILY XX 06/27/19 09:00 06/27/19 09:00 DC Non-Formulary Medication ( See Comment Field Below ) SEE COMMENTS SECTION 1T@10 XX 06/24/19 10:00 06/25/19 09:59 UNV Non-Formulary Medication ( See Comment Field Below ) SEE LABEL COMMENTS DAILY XX 06/22/19 09:00 Trazodone HCl (Desyrel) 50 mg QHSP PRN PO INSOMNIA 06/12/19 21:45 06/29/19 21:48 Allergies Coded Allergies: No Known Drug Allergies (Verified Allergy, Unknown, 06/12/19) ZEKE BRODY DO Jul 02, 2019 9:52 am
[2019-07-02] MEDS ORDERED: HALOPERIDOL DECANOATE 100 MG/ML VIAL (J1631) IM ONE (10:00)
[2019-07-02] MEDS ORDERED: LORazepam 1 MG TAB PO ONE (20:00)
[2019-07-02] MEDS ORDERED: LORazepam 2 MG/ML VIAL (J2060) IM ONE ×2 (21:00→23:00)
[2019-07-02] MEDS ORDERED: chlorproMAZINE INJ 50MG/2ML AMP (J3230) IM ONE (23:00)
[2019-07-03] MEDS: **PENDING PPD ENTRY XX SCH (09:00)
--- NOTE | 2019-07-03 09:30 | MHIPNPDOC ---
[facility] Progress Note Progress Note DATE OF SERVICE: 07/03/19 HISTORY: Per Dr. Marley "This is a 23-year-old, -English female brought to the emergency room by her mother. The patient has history of schizophrenia according to her mother and was recently released from an unknown hospital in [place] on 06/08/2019. She was given a Haldol Decanoate shot prior to discharge apparently. She has not cooperated with oral medication however since discharge. The patient's mother brings her in to the hospital as she has been aggressive, which has been intensifying over the past three days. The patient's behavior in the emergency room was labile. At times, she was screaming, other times she was mute. She appeared to be responding to internal stimuli. The patient refused medication in the emergency room. She has refused medication upon admission as well. The patient has been expressing delusional beliefs to staff such as she is the " of Neil". The patient is unable to provide any adequate history. Further information will need to be acquired from her mother who hopefully will be visiting later today. VITAL SIGNS: See below. NEW TEST RESULTS: See below. CURRENT MEDICATIONS: See below. MENTAL STATUS EXAMINATION: Patient is asleep and left sleeping due to agitation when up that is sporadic and mostly related to wanting to go home. Per yesterday MSE "Pt appears bizarre today as she's not talking, sitting at the edge of her bed, staring at the wall, and not moving for over 30min. . She appeared dazed and lethargicAppears to be becoming more bizarre and psychotic with medication noncompliance for rough the past 3 days. She is not fully reliable still. Speech is mute today She appears paranoid and bizarre, responding to internal stimuli (Per Dr. Marley she is grandiose and delusional. Personal hygiene is fair. Patient encouraged to take a shower with staff supervision." Insight and judgment remain quite poor." DIAGNOSES: Schizophrenia, chronic. ASSESSMENT:Pt was not coded yesterday. Called by staff for pt behaving very bizarre but not agitated, sitting on her bed and staring oddly, rolling her eyes at times intensionally due to internal stimuli and pt given thorazine 100mg and ativan 2mg that she took po. She is asleep currently so unable to assess at this time. She was left sleeping due to unpredictable agitation when awake. Pt refused im haldol dec and oral prolixin noon and nightly dose Per yesterday's note "Pt seen in office today stating she's "better," has been taking all her medications, wants to go home today, and that her mom told her she wants her home. Attempted to spek with pt that, yes she did take her medicine yesterday but has not taken this morning yet and that she is still not fully better to go home which mother also told treatment team. Pt started saying that I was lying, just wanted to keep her here for no reason b/c she is better, her mother told her she wants her home, and that I don't care. Stated she was going to call her box office attendant then left office to go use phone and called her mother requesting her mother to get her a box office attendant b/c I'm a liar and she is taking all her medication while she was upset and crying. Will change pt to prolixin to see if more beneficial for her psychosis than haldol, although her non-compliance with haldol makes it hard to tell. It has been 2wks since pt recieved first does of haldol dec with very limited improvement in psychosis since administration and most likely 100mg IM not enough so will give another dose to see if psychosis improves more especially with pt's unpredictable med compliance on oral meds. As stated yesterday "Per treatment team that spoke with pt's mother yesterday, mother states pt is not at her baseline status and still needs treatment." She continues bizarre behavior, emotionally reactive/unpredictably aggressive, and responding to internal stimuli that is decompensating due to med noncompliance. Per Dr. Marley "Patient is delusional, claiming that she is Ree Mckeon, of [place]." She is still responding to internal stimuli. Patient has not been able to attend any groups. Due to slow improvement in psychosis, pt appears to possibly need truck terminal manager treatment and well start process for [facility]." MANAGEMENT PLAN: [facility] to [facility] Prolixin 10mg tid haldol dec 100mg IM 06/19/19 and x1 (refused 07/02/19) Time Spent: 30 min Vital Signs Vital Signs Date Time Temp Pulse Resp B/P (MAP) Pulse Ox O2 Delivery O2 Flow Rate FiO2 07/03/19 06:52 14 07/02/19 06:51 98.2 89 122/67 (85) 06/30/19 15:00 99 Current Medications Current Medications Medications (Trade) Dose Ordered Sig/Ben Route PRN Reason Start Time Stop Time Status Last Admin Dose Admin Acetaminophen (Tylenol Tab) 650 mg Q6HP PRN PO HEADACHE or DISCOMFORT 06/12/19 21:45 07/01/19 17:44 Al Hydrox/Mg Hydrox/Simethicone (Mylanta) 30 ml Q4HP PRN PO HEARTBURN/INDIGESTION 06/12/19 21:45 Benztropine Mesylate (Cogentin) 0.5 mg Q4HP PRN PO EPS 06/19/19 18:45 Chlorpromazine HCl (Thorazine) 50 mg Q4HP PRN PO AGITATION 06/28/19 09:45 Chlorpromazine HCl (Thorazine) 50 mg Q6HP PRN IM AGITATION 06/28/19 02:45 Cancel Chlorpromazine HCl (Thorazine) 50 mg STAT STAT IM 06/23/19 11:55 06/23/19 11:58 DC 06/23/19 12:01 Chlorpromazine HCl (Thorazine) 50 mg STAT STAT IM 06/28/19 03:49 06/28/19 03:52 DC 06/28/19 03:55 Chlorpromazine HCl (Thorazine) 100 mg STAT STAT IM 06/30/19 12:09 06/30/19 12:13 DC 06/30/19 12:20 Diphenhydramine HCl (Benadryl) 50 mg STAT STAT IM 06/13/19 10:34 06/13/19 10:36 DC 06/13/19 10:48 Diphenhydramine HCl (Benadryl) 50 mg STAT STAT IM 06/13/19 11:13 06/13/19 11:14 Cancel Diphenhydramine HCl (Benadryl) 50 mg STAT STAT IM 06/16/19 23:50 06/16/19 23:53 DC 06/16/19 23:56 Diphenhydramine HCl (Benadryl) 50 mg STAT STAT IM 06/23/19 00:02 06/23/19 00:05 DC 06/23/19 00:08 Diphenhydramine HCl (Benadryl) 50 mg STAT STAT IM 06/23/19 11:55 06/23/19 11:58 DC 06/23/19 12:21 Diphenhydramine HCl (Benadryl) 100 mg STAT STAT IM 06/28/19 02:22 06/28/19 02:27 DC 06/28/19 02:29 Diphenhydramine HCl (Benadryl) 100 mg STAT STAT IM 06/30/19 12:09 06/30/19 12:13 DC 06/30/19 12:20 Fluphenazine HCl (Prolixin) 10 mg TID PO 07/02/19 16:00 Haloperidol (Haldol) 10 mg QID PO 06/13/19 09:00 06/19/19 09:34 DC 06/18/19 16:37 Haloperidol (Haldol) 10 mg QID PO 06/19/19 09:00 06/25/19 10:23 DC 06/22/19 18:14 Haloperidol (Haldol) 10 mg STAT STAT IM 06/13/19 10:34 06/13/19 10:36 DC 06/13/19 10:48 Haloperidol (Haldol) 10 mg STAT STAT IM 06/13/19 11:13 06/13/19 11:14 Cancel Haloperidol (Haldol) 10 mg STAT STAT IM 06/16/19 23:50 06/16/19 23:53 DC 06/16/19 23:56 Haloperidol (Haldol) 10 mg STAT STAT IM 06/23/19 00:02 06/23/19 00:05 DC 06/23/19 00:09 Haloperidol (Haldol) 10 mg STAT STAT IM 06/28/19 02:22 06/28/19 02:27 DC 06/28/19 02:29 Haloperidol (Haldol) 10 mg TID PO 06/25/19 16:00 06/26/19 10:07 DC 06/26/19 08:43 Haloperidol (Haldol) 20 mg TID PO 06/26/19 16:00 07/02/19 09:49 DC 07/02/19 09:19 Home Med (Med Rec Complete!) ASDIRECTED XX 06/12/19 22:45 06/12/19 22:48 DC Lorazepam (Ativan) 1 mg STAT STAT IM 06/23/19 00:02 06/23/19 00:05 DC 06/23/19 00:09 Lorazepam (Ativan) 2 mg Q4HP PRN PO ANXIETY/AGITATION 06/12/19 21:45 06/19/19 18:44 DC Lorazepam (Ativan) 2 mg Q4HP PRN PO ANXIETY/AGITATION 06/19/19 18:44 06/26/19 14:54 DC 06/25/19 17:28 Lorazepam (Ativan) 2 mg Q4HP PRN PO ANXIETY/AGITATION 06/28/19 02:45 Lorazepam (Ativan) 2 mg STAT STAT IM 06/13/19 10:34 06/13/19 10:36 DC 06/13/19 10:48 Lorazepam (Ativan) 2 mg STAT STAT IM 06/13/19 11:13 06/13/19 11:14 Cancel Lorazepam (Ativan) 2 mg STAT STAT IM 06/16/19 23:50 06/16/19 23:53 DC 06/16/19 23:56 Lorazepam (Ativan) 2 mg STAT STAT IM 06/23/19 11:55 06/23/19 11:58 DC 06/23/19 12:02 Lorazepam (Ativan) 2 mg STAT STAT IM 06/28/19 02:22 06/28/19 02:27 DC 06/28/19 02:29 Lorazepam (Ativan) 2 mg STAT STAT IM 06/28/19 03:50 06/28/19 03:51 DC 06/28/19 03:54 Lorazepam (Ativan) 2 mg STAT STAT IM 06/30/19 12:09 06/30/19 12:13 DC 06/30/19 12:20 Magnesium Hydroxide (Milk Of Magnesia) 30 ml DAILYPRN PRN PO CONSTIPATION 06/12/19 21:45 Miscellaneous (Unresolved Clarification Entry) SEE LABEL COMMENTS DAILY XX 06/25/19 09:00 06/26/19 11:14 DC 06/26/19 01:24 Miscellaneous (Unresolved Clarification Entry) SEE LABEL COMMENTS DAILY XX 06/26/19 09:00 UNV Miscellaneous (Unresolved Clarification Entry) SEE LABEL COMMENTS DAILY XX 06/27/19 09:00 8/31/19 09:00 DC Non-Formulary Medication ( See Comment Field Below ) SEE COMMENTS SECTION 1T@10 XX 06/24/19 10:00 06/25/19 09:59 UNV Non-Formulary Medication ( See Comment Field Below ) SEE LABEL COMMENTS DAILY XX 06/22/19 09:00 Trazodone HCl (Desyrel) 50 mg QHSP PRN PO INSOMNIA 06/12/19 21:45 06/29/19 21:48 Allergies Coded Allergies: No Known Drug Allergies (Verified Allergy, Unknown, 06/12/19) ZEKE BRODY DO Jul 03, 2019 9:30 am
[2019-07-03 14:30] VITALS: BP 128/74
[2019-07-03 18:14] VITALS: BP 128/73
[2019-07-04 06:07] VITALS: BP 116/66
[2019-07-04] MEDS: **PENDING PPD ENTRY XX SCH (09:00)
[2019-07-04 16:26] VITALS: BP 121/80
--- NOTE | 2019-07-04 22:08 | MHIPN ---
DATE: 07/04/2019 The patient today states "I am a little tired." She says that she slept good. She has no complaints. MENTAL STATUS EXAMINATION: This patient is alert and oriented times three. Eye contact is fair. Psychomotor activity is normal. The patient states that her mood is fine. Affect appeared to be less labile today. She says that her mood is fine. She denies it but appears to be still psychotic, although she did not verbalize any delusions today. Insight and judgment poor. DIAGNOSIS: 1. Schizophrenia. TREATMENT PLAN: At this point, we will continue to further monitor the patient for her psychotic symptoms and periods of agitation and we will titrate her medications as indicated.
[2019-07-05 06:47] VITALS: BP 124/80
[2019-07-05] MEDS: **PENDING PPD ENTRY XX SCH (09:00)
[2019-07-05 16:40] VITALS: BP 132/75
--- NOTE | 2019-07-05 18:01 | MHIPN ---
DATE: 07/05/2019 The patient today actually came and sat in my office. She tells me that she feels that she is doing better. When I asked her why, she said, "I am opening up more and I am not sleeping all day." She tells me that she is taking her medications, although I am not sure how reliable that is. When I asked why she took the medication, she said that it was for "my thoughts that I should not have." She would not be more specific than that. MENTAL STATUS EXAMINATION: She is alert and oriented times three. She is pleasant, cooperative, verbally spontaneous. There is no formal thought disorder noted. She is still a little guarded about her thoughts. Mood is better. Affect is more appropriate. She still appears to be guarded and I suspect that she is still having some delusions, although she will not admit to it. She is not psychotic, suicidal or homicidal. Concentration is fair. Memory is fair. Insight and judgment poor. DIAGNOSIS: 1. Schizophrenia. TREATMENT PLAN: We will continue to monitor the patient for continued resolution of psychotic symptoms and continue to treat the patient as indicated, and we will continue the one-to-one observation level until we see that this behavior pattern continues to be consistent.
[2019-07-06 06:46] VITALS: BP 122/70
[2019-07-06] MEDS: **PENDING PPD ENTRY XX SCH (08:22)
--- NOTE | 2019-07-06 10:43 | MHIPNPDOC ---
[facility] Progress Note Progress Note DATE OF SERVICE: 07/06/19 HISTORY: Per Dr. Marley "This is a 23-year-old, -[place] female brought to the emergency room by her mother. The patient has history of schizophrenia according to her mother and was recently released from an unknown hospital in [place] on 06/08/2019. She was given a Haldol Decanoate shot prior to discharge apparently. She has not cooperated with oral medication however since discharge. The patient's mother brings her in to the hospital as she has been aggressive, which has been intensifying over the past three days. The patient's behavior in the emergency room was labile. At times, she was screaming, other times she was mute. She appeared to be responding to internal stimuli. The patient refused medication in the emergency room. She has refused medication upon admission as well. The patient has been expressing delusional beliefs to staff such as she is the " blaze Trejo". The patient is unable to provide any adequate history. Further information will need to be acquired from her mother who hopefully will be visiting later today. VITAL SIGNS: See below. NEW TEST RESULTS: See below. CURRENT MEDICATIONS: See below. MENTAL STATUS EXAMINATION: Patient is seen and states she's doing good and is compliant on her medications. Pt appears less bizarre and psychotic with medication compliance over the weekend. Her speech is reg rate/rhythm, and more spontaneous. She appears more alert and bright. She appears to be responding to internal stimuli less. She denies SI/HI. Insight and judgement are improving. Thoughts are more linear and logical. DIAGNOSES: Schizophrenia, chronic. ASSESSMENT:Per treatment team, pt had a good weekend and not coded thru out. Pt seen today after she was in the [facility] socializing with her peers. She appears to be doing much better and has been compliant on her prolixin that appears beneficial to her psychosis. States she's doing good and is taking her medications. She appears more alert, bright, is smiling, and is able to have more of a logical conversation with me w/o any agitation. She appears calmer and less bizarre. States she called her mom over the weekend and her mother told her she's ready for pt to come home, and pt is very much looking forward to going home soon. Will have d/c case planner call pt mother to ask mother if she thinks the pt is near baseline as mother has been dealing with pt's mental health problems for awhile as appears to be able to assess pt status (baseline status) well. Per Dr. Marley "Patient is delusional, claiming that she is Ree Mckeon, of [place]." She is appears to be responding to internal stimul less and her attention is greatly improved. Maybe able to d/c pt later this week if she continues to progress as she is now and remain med compliant. [facility] Prolixin 10mg tid haldol dec 100mg IM 06/19/19 and x1 (refused 07/02/19) Time Spent: 30 min Vital Signs Vital Signs Date Time Temp Pulse Resp B/P (MAP) Pulse Ox O2 Delivery O2 Flow Rate FiO2 07/06/19 06:46 98.0 95 12 122/70 (87) 07/03/19 14:30 100 Current Medications Current Medications Medications (Trade) Dose Ordered Sig/Ben Route PRN Reason Start Time Stop Time Status Last Admin Dose Admin Acetaminophen (Tylenol Tab) 650 mg Q6HP PRN PO HEADACHE or DISCOMFORT 06/12/19 21:45 07/01/19 17:44 Al Hydrox/Mg Hydrox/Simethicone (Mylanta) 30 ml Q4HP PRN PO HEARTBURN/INDIGESTION 06/12/19 21:45 Benztropine Mesylate (Cogentin) 0.5 mg Q4HP PRN PO EPS 06/19/19 18:45 Chlorpromazine HCl (Thorazine) 50 mg Q4HP PRN PO AGITATION 06/28/19 09:45 Chlorpromazine HCl (Thorazine) 50 mg Q6HP PRN IM AGITATION 06/28/19 02:45 Cancel Chlorpromazine HCl (Thorazine) 50 mg STAT STAT IM 06/23/19 11:55 06/23/19 11:58 DC 06/23/19 12:01 Chlorpromazine HCl (Thorazine) 50 mg STAT STAT IM 06/28/19 03:49 06/28/19 03:52 DC 06/28/19 03:55 Chlorpromazine HCl (Thorazine) 100 mg STAT STAT IM 06/30/19 12:09 06/30/19 12:13 DC 06/30/19 12:20 Diphenhydramine HCl (Benadryl) 50 mg STAT STAT IM 06/13/19 10:34 06/13/19 10:36 DC 06/13/19 10:48 Diphenhydramine HCl (Benadryl) 50 mg STAT STAT IM 06/13/19 11:13 06/13/19 11:14 Cancel Diphenhydramine HCl (Benadryl) 50 mg STAT STAT IM 06/16/19 23:50 06/16/19 23:53 DC 06/16/19 23:56 Diphenhydramine HCl (Benadryl) 50 mg STAT STAT IM 06/23/19 00:02 06/23/19 00:05 DC 06/23/19 00:08 Diphenhydramine HCl (Benadryl) 50 mg STAT STAT IM 06/23/19 11:55 06/23/19 11:58 DC 06/23/19 12:21 Diphenhydramine HCl (Benadryl) 100 mg STAT STAT IM 06/28/19 02:22 06/28/19 02:27 DC 06/28/19 02:29 Diphenhydramine HCl (Benadryl) 100 mg STAT STAT IM 06/30/19 12:09 06/30/19 12:13 DC 06/30/19 12:20 Fluphenazine HCl (Prolixin) 10 mg TID PO 07/02/19 16:00 07/06/19 08:21 Haloperidol (Haldol) 10 mg QID PO 06/13/19 09:00 06/19/19 09:34 DC 06/18/19 16:37 Haloperidol (Haldol) 10 mg QID PO 06/19/19 09:00 06/25/19 10:23 DC 06/22/19 18:14 Haloperidol (Haldol) 10 mg STAT STAT IM 06/13/19 10:34 06/13/19 10:36 DC 06/13/19 10:48 Haloperidol (Haldol) 10 mg STAT STAT IM 06/13/19 11:13 06/13/19 11:14 Cancel Haloperidol (Haldol) 10 mg STAT STAT IM 06/16/19 23:50 06/16/19 23:53 DC 06/16/19 23:56 Haloperidol (Haldol) 10 mg STAT STAT IM 06/23/19 00:02 06/23/19 00:05 DC 06/23/19 00:09 Haloperidol (Haldol) 10 mg STAT STAT IM 06/28/19 02:22 06/28/19 02:27 DC 06/28/19 02:29 Haloperidol (Haldol) 10 mg TID PO 06/25/19 16:00 06/26/19 10:07 DC 06/26/19 08:43 Haloperidol (Haldol) 20 mg TID PO 06/26/19 16:00 07/02/19 09:49 DC 07/02/19 09:19 Home Med (Med Rec Complete!) ASDIRECTED XX 06/12/19 22:45 06/12/19 22:48 DC Lorazepam (Ativan) 1 mg STAT STAT IM 06/23/19 00:02 06/23/19 00:05 DC 06/23/19 00:09 Lorazepam (Ativan) 2 mg Q4HP PRN PO ANXIETY/AGITATION 06/12/19 21:45 06/19/19 18:44 DC Lorazepam (Ativan) 2 mg Q4HP PRN PO ANXIETY/AGITATION 06/19/19 18:44 06/26/19 14:54 DC 06/25/19 17:28 Lorazepam (Ativan) 2 mg Q4HP PRN PO ANXIETY/AGITATION 06/28/19 02:45 Lorazepam (Ativan) 2 mg STAT STAT IM 06/13/19 10:34 06/13/19 10:36 DC 06/13/19 10:48 Lorazepam (Ativan) 2 mg STAT STAT IM 06/13/19 11:13 06/13/19 11:14 Cancel Lorazepam (Ativan) 2 mg STAT STAT IM 06/16/19 23:50 06/16/19 23:53 DC 06/16/19 23:56 Lorazepam (Ativan) 2 mg STAT STAT IM 06/23/19 11:55 06/23/19 11:58 DC 06/23/19 12:02 Lorazepam (Ativan) 2 mg STAT STAT IM 06/28/19 02:22 06/28/19 02:27 DC 06/28/19 02:29 Lorazepam (Ativan) 2 mg STAT STAT IM 06/28/19 03:50 06/28/19 03:51 DC 06/28/19 03:54 Lorazepam (Ativan) 2 mg STAT STAT IM 06/30/19 12:09 06/30/19 12:13 DC 06/30/19 12:20 Magnesium Hydroxide (Milk Of Magnesia) 30 ml DAILYPRN PRN PO CONSTIPATION 06/12/19 21:45 Miscellaneous (Unresolved Clarification Entry) SEE LABEL COMMENTS DAILY XX 06/25/19 09:00 06/26/19 11:14 DC 06/26/19 01:24 Miscellaneous (Unresolved Clarification Entry) SEE LABEL COMMENTS DAILY XX 06/26/19 09:00 UNV Miscellaneous (Unresolved Clarification Entry) SEE LABEL COMMENTS DAILY XX 06/27/19 09:00 06/27/19 09:00 DC Miscellaneous (Unresolved Clarification Entry) SEE LABEL COMMENTS DAILY XX 07/04/19 09:00 07/04/19 09:00 DC Non-Formulary Medication ( See Comment Field Below ) SEE COMMENTS SECTION 1T@10 XX 06/24/19 10:00 06/25/19 09:59 UNV Non-Formulary Medication ( See Comment Field Below ) SEE LABEL COMMENTS DAILY XX 06/22/19 09:00 Trazodone HCl (Desyrel) 50 mg QHSP PRN PO INSOMNIA 06/12/19 21:45 06/29/19 21:48 Allergies Coded Allergies: No Known Drug Allergies (Verified Allergy, Unknown, 06/12/19) ZEKE BRODY DO Jul 06, 2019 10:31 am
[2019-07-06 15:45] VITALS: BP 138/84
[2019-07-07 07:00] VITALS: BP 113/72
[2019-07-07] MEDS: **PENDING PPD ENTRY XX SCH (08:51)
--- NOTE | 2019-07-07 10:36 | MHIPNPDOC ---
[facility] Progress Note Progress Note DATE OF SERVICE: 07/07/19 HISTORY: Per Dr. Marley "This is a 23-year-old, -[place] female brought to the emergency room by her mother. The patient has history of schizophrenia according to her mother and was recently released from an unknown hospital in [place] on 06/08/2019. She was given a Haldol Decanoate shot prior to discharge apparently. She has not cooperated with oral medication however since discharge. The patient's mother brings her in to the hospital as she has been aggressive, which has been intensifying over the past three days. The patient's behavior in the emergency room was labile. At times, she was screaming, other times she was mute. She appeared to be responding to internal stimuli. The patient refused medication in the emergency room. She has refused medication upon admission as well. The patient has been expressing delusional beliefs to staff such as she is the " blaze Trejo". The patient is unable to provide any adequate history. Further information will need to be acquired from her mother who hopefully will be visiting later today. VITAL SIGNS: See below. NEW TEST RESULTS: See below. CURRENT MEDICATIONS: See below. MENTAL STATUS EXAMINATION: Patient is seen and states she's doing good and is compliant on her medications. Pt appears much less bizarre and psychotic with medication compliance over the weekend. She is no longer on a 1:1 sitter and is doing well, present in the milieu with peers. Her speech is reg rate/rhythm, and more spontaneous. She appears more alert and bright. She does not appear to be responding to internal stimuli . She denies SI/HI. Insight and judgement are improving. Thoughts are more linear and logical. DIAGNOSES: Schizophrenia, chronic. ASSESSMENT:Pt seen today and states she doing good and is compliant on her medications. She is off 1:1 sitter now and doing very well behaviorally. Per treatment team, mother called and states she believes pt is at her baseline status and is able to come home now. Told pt that she appears to be doing much better and will plan on d/c home tomorrow which pt is very excited about. Pt has been in the lounge socializing with her peers. She appears to be more eu thymic, attentive, with more linear and logical thoughts now that she has been compliant on her prolixin that appears beneficial to her psychosis. She appears more alert, bright, is smiling, and is able to have more of a logical conversation with me w/o any agitation. She appears calmer and no longer bizarre. She is appears to to no longer be responding to internal stimuli and h er attention is greatly improved. She denies SI/HI. Feels safe here. MANAGEMENT PLAN[place] [facility] Prolixin 10mg tid haldol dec 100mg IM 06/19/19 and x1 (refused 07/02/19) Time Spent: 30 min Vital Signs Vital Signs Date Time Temp Pulse Resp B/P (MAP) Pulse Ox O2 Delivery O2 Flow Rate FiO2 07/07/19 07:00 97.3 84 16 113/72 (86) 07/03/19 14:30 100 Current Medications Current Medications Medications (Trade) Dose Ordered Sig/Ben Route PRN Reason Start Time Stop Time Status Last Admin Dose Admin Acetaminophen (Tylenol Tab) 650 mg Q6HP PRN PO HEADACHE or DISCOMFORT 06/12/19 21:45 07/01/19 17:44 Al Hydrox/Mg Hydrox/Simethicone (Mylanta) 30 ml Q4HP PRN PO HEARTBURN/INDIGESTION 06/12/19 21:45 Benztropine Mesylate (Cogentin) 0.5 mg Q4HP PRN PO EPS 06/19/19 18:45 Chlorpromazine HCl (Thorazine) 50 mg Q4HP PRN PO AGITATION 06/28/19 09:45 Chlorpromazine HCl (Thorazine) 50 mg Q6HP PRN IM AGITATION 06/28/19 02:45 Cancel Chlorpromazine HCl (Thorazine) 50 mg STAT STAT IM 06/23/19 11:55 06/23/19 11:58 DC 06/23/19 12:01 Chlorpromazine HCl (Thorazine) 50 mg STAT STAT IM 06/28/19 03:49 06/28/19 03:52 DC 06/28/19 03:55 Chlorpromazine HCl (Thorazine) 100 mg STAT STAT IM 06/30/19 12:09 06/30/19 12:13 DC 06/30/19 12:20 Diphenhydramine HCl (Benadryl) 50 mg STAT STAT IM 06/13/19 10:34 06/13/19 10:36 DC 06/13/19 10:48 Diphenhydramine HCl (Benadryl) 50 mg STAT STAT IM 06/13/19 11:13 06/13/19 11:14 Cancel Diphenhydramine HCl (Benadryl) 50 mg STAT STAT IM 06/16/19 23:50 06/16/19 23:53 DC 06/16/19 23:56 Diphenhydramine HCl (Benadryl) 50 mg STAT STAT IM 06/23/19 00:02 06/23/19 00:05 DC 06/23/19 00:08 Diphenhydramine HCl (Benadryl) 50 mg STAT STAT IM 06/23/19 11:55 06/23/19 11:58 DC 06/23/19 12:21 Diphenhydramine HCl (Benadryl) 100 mg STAT STAT IM 06/28/19 02:22 06/28/19 02:27 DC 06/28/19 02:29 Diphenhydramine HCl (Benadryl) 100 mg STAT STAT IM 06/30/19 12:09 06/30/19 12:13 DC 06/30/19 12:20 Fluphenazine HCl (Prolixin) 10 mg TID PO 07/02/19 16:00 07/07/19 08:00 Haloperidol (Haldol) 10 mg QID PO 06/13/19 09:00 06/19/19 09:34 DC 06/18/19 16:37 Haloperidol (Haldol) 10 mg QID PO 06/19/19 09:00 06/25/19 10:23 DC 06/22/19 18:14 Haloperidol (Haldol) 10 mg STAT STAT IM 06/13/19 10:34 06/13/19 10:36 DC 06/13/19 10:48 Haloperidol (Haldol) 10 mg STAT STAT IM 06/13/19 11:13 06/13/19 11:14 Cancel Haloperidol (Haldol) 10 mg STAT STAT IM 06/16/19 23:50 06/16/19 23:53 DC 06/16/19 23:56 Haloperidol (Haldol) 10 mg STAT STAT IM 06/23/19 00:02 06/23/19 00:05 DC 06/23/19 00:09 Haloperidol (Haldol) 10 mg STAT STAT IM 06/28/19 02:22 06/28/19 02:27 DC 06/28/19 02:29 Haloperidol (Haldol) 10 mg TID PO 06/25/19 16:00 06/26/19 10:07 DC 06/26/19 08:43 Haloperidol (Haldol) 20 mg TID PO 06/26/19 16:00 07/02/19 09:49 DC 07/02/19 09:19 Home Med (Med Rec Complete!) ASDIRECTED XX 06/12/19 22:45 06/12/19 22:48 DC Lorazepam (Ativan) 1 mg STAT STAT IM 06/23/19 00:02 06/23/19 00:05 DC 06/23/19 00:09 Lorazepam (Ativan) 2 mg Q4HP PRN PO ANXIETY/AGITATION 06/12/19 21:45 06/19/19 18:44 DC Lorazepam (Ativan) 2 mg Q4HP PRN PO ANXIETY/AGITATION 06/19/19 18:44 06/26/19 14:54 DC 06/25/19 17:28 Lorazepam (Ativan) 2 mg Q4HP PRN PO ANXIETY/AGITATION 06/28/19 02:45 Lorazepam (Ativan) 2 mg STAT STAT IM 06/13/19 10:34 06/13/19 10:36 DC 06/13/19 10:48 Lorazepam (Ativan) 2 mg STAT STAT IM 06/13/19 11:13 06/13/19 11:14 Cancel Lorazepam (Ativan) 2 mg STAT STAT IM 06/16/19 23:50 06/16/19 23:53 DC 06/16/19 23:56 Lorazepam (Ativan) 2 mg STAT STAT IM 06/23/19 11:55 06/23/19 11:58 DC 06/23/19 12:02 Lorazepam (Ativan) 2 mg STAT STAT IM 06/28/19 02:22 06/28/19 02:27 DC 06/28/19 02:29 Lorazepam (Ativan) 2 mg STAT STAT IM 06/28/19 03:50 06/28/19 03:51 DC 06/28/19 03:54 Lorazepam (Ativan) 2 mg STAT STAT IM 06/30/19 12:09 06/30/19 12:13 DC 06/30/19 12:20 Magnesium Hydroxide (Milk Of Magnesia) 30 ml DAILYPRN PRN PO CONSTIPATION 06/12/19 21:45 Miscellaneous (Unresolved Clarification Entry) SEE LABEL COMMENTS DAILY XX 06/25/19 09:00 06/26/19 11:14 DC 06/26/19 01:24 Miscellaneous (Unresolved Clarification Entry) SEE LABEL COMMENTS DAILY XX 06/26/19 09:00 UNV Miscellaneous (Unresolved Clarification Entry) SEE LABEL COMMENTS DAILY XX 06/27/19 09:00 06/27/19 09:00 DC Miscellaneous (Unresolved Clarification Entry) SEE LABEL COMMENTS DAILY XX 07/04/19 09:00 07/04/19 09:00 DC Non-Formulary Medication ( See Comment Field Below ) SEE COMMENTS SECTION 1T@10 XX 06/24/19 10:00 06/25/19 09:59 UNV Non-Formulary Medication ( See Comment Field Below ) SEE LABEL COMMENTS DAILY XX 06/22/19 09:00 Trazodone HCl (Desyrel) 50 mg QHSP PRN PO INSOMNIA 06/12/19 21:45 06/29/19 21:48 Allergies Coded Allergies: No Known Drug Allergies (Verified Allergy, Unknown, 06/12/19) ZEKE BRODY DO Jul 07, 2019 10:36 am
[2019-07-07 18:00] VITALS: BP 125/75
[2019-07-08 06:58] VITALS: BP 116/72
[2019-07-08] MEDS ORDERED: FLUP5TA PO (08:43)
[2019-07-08] MEDS ORDERED: HALD100I2 IM (08:43)
--- NOTE | 2019-07-08 08:43 | MHDSPDOC ---
[facility] Discharge Summary Discharge Summary DATE OF ADMISSION: Jun 12, 2019 at 9:35 pm DATE OF DISCHARGE: Jul 08, 2019 DISCHARGE DIAGNOSES: Schizophrenia, chronic. REASON FOR ADMISSION: Per Dr. Marley "This is a 23-year-old, -[place] female brought to the emergency room by her mother. The patient has history of schizophrenia according to her mother and was recently released from an unknown hospital in [place] on 06/08/2019. She was given a Haldol Decanoate shot prior to discharge apparently. She has not cooperated with oral medication however since discharge. The patient's mother brings her in to the hospital as she has been aggressive, which has been intensifying over the past three days. The patient's behavior in the emergency room was labile. At times, she was screaming, other times she was mute. She appeared to be responding to internal stimuli. The patient refused medication in the emergency room. She has refused medication upon admission as well. The patient has been expressing delusional beliefs to staff such as she is the " blaze Trejo". The patient is unable to provide any adequate history. Further information will need to be acquired from her mother who hopefully will be visiting later today. CONSULTANTS INVOLVED: none TREATMENT AND PROGRESS ON THE UNIT : Pt was admitted to [facility], seen for psychiatric assessment and started on haldol 5mg qid mg daily for mood and anxiety that was changed to haldol 10mg tid and pt received haldol decanoate 100mg im that she tolerated well but symptoms only cleared minorly. She was continued on haldol dec that she did not take frequently and it did not appear beneficial for pt's psychosis so it was changed to prolixin 10mg tid that she finally started taking to feel compliance with improvement of her symptoms to baseline as verified by the pt's mother in speaking with d/c community development planner prior pt d/c home. She was provided trazodone 50mg qhs prn insomnia. Pt found her prolixin and haldol dec beneficial and tolerated them well. She attended groups daily during her stay. Her symptoms improved greatly with treatment to her baseline status. She was pleasant, cooperative, did not appear psychotic any longer with good linear and logical thought, good attention, and euthymic. On day of discharge she denied depression, anxiety, insomnia, SI/HI, hallucinations, delusions. She was discharged home after family meeting with her mother with follow-up at [facility] She felt safe for discharge. DISCHARGE ASSESSMENT: Pt seen today and states she doing good and is compliant on her medications. She is pleasant, cooperative, did not appear psychotic any longer with good linear and logical thought, good attention, and euthymic. Pt h as been in the lounge socializing with her peers. She appears to be euthymic, attentive, with more linear and logical thoughts now that she has been compliant on her prolixin that appears beneficial to her psychosis. She appears more alert, bright, is smiling, and is able to have logical conversation with me w/o any agitation. She appears calmer and no longer bizarre. She is appears to to no longer be responding to internal stimuli and her attention is greatly improved. She denies depression, anxiety, insomnia, SI/HI. Feels safe to be discharged home with her mother. MENTAL STATUS EXAMINATION ON DISCHARGE: Patient is seen and states she's doing good and is compliant on her medications. Pt appears no longer bizarre and psychotic with medication compliance and appears at her baseline status. She is pleasant and cooperative. Her speech is reg rate/rhythm, and more spontaneous. She appears more alert and bright. She does not appear to be responding to internal stimuli . She denies SI/HI. Insight and judgement are fair. Thoughts are linear and logical. MEDICATIONS ON DISCHARGE: Prolixin 10mg tid haldol dec 100mg IM qmonthly PLAN/FOLLOWUP ARRANGEMENTS: D/c home with follow-up at [facility] The amount of time spent in the coordination of care for this patient was approximately 30 minutes. Vital Signs/I&Os Vital Signs Date Time Temp Pulse Resp B/P (MAP) Pulse Ox O2 Delivery O2 Flow Rate FiO2 07/08/19 06:58 97.6 87 12 116/72 (87) 07/03/19 14:30 100 Medications Scheduled Haloperidol Decanoate (Haldol Decanoate 100) 100 Mg/1 Ml Ampul, 100 MG IM Q30D, (Reported) Allergies Coded Allergies: No Known Drug Allergies (Verified Allergy, Unknown, 06/12/19) ZEKE BRODY DO Jul 08, 2019 8:43 am
[2019-07-08] MEDS: **PENDING PPD ENTRY XX SCH (09:00)
== END 2019-07-08 11:25 | disposition home or self-care (01) | DRG 885 ==
LOC: M ED 13:47 → M ED INP 21:35 → M PSY 06-13 01:39
PROVIDERS: ADMIT Psychiatry & Neurology Psychiatry; ATTEND Psychiatry & Neurology Psychiatry
DX: F20.5 Residual schizophrenia (principal); Z91.14 Patient's other noncompliance with medication regimen; Z79.899 Other long term (current) drug therapy

== ENCOUNTER 2019-07-22 16:17 | Outpatient (CLI) | payer MEDICARE, MEDICAID ==
[~2019-07-22] VITALS: Ht 170.2 cm; Wt 105.5 kg
[~2019-07-22 16:17] MED LIST: FLUP5TA PO; HALD100I2 IM
[2019-07-22 16:20] VITALS: BP 119/71
[2019-07-22] MEDS ORDERED: HALOPERIDOL DECANOATE 100 MG/ML VIAL (J1631) IM ONE (16:30)
[2019-07-22] MEDS ORDERED: HALOPERIDOL DECANOATE 100 MG/ML IM ONE (16:30)
== END 2019-07-22 16:45 | disposition home or self-care (01) ==
LOC: M INFU 16:17
PROVIDERS: ATTEND Psychiatry & Neurology Psychiatry
DX: F20.9 Schizophrenia, unspecified (principal)

== ENCOUNTER 2019-08-05 18:23 | Emergency (ER) | payer SELFPAY ==
[~2019-08-05] VITALS: Ht 172.7 cm; Wt 105.9 kg
[2019-08-05 18:23] VITALS: BP 130/92
[2019-08-06] MEDS ORDERED: CLIN1GEL3 TOP (20:32)
[2019-08-06] MEDS ORDERED: CLEO300C2 PO (20:32)
== END 2019-08-05 19:00 | disposition left against medical advice (07) ==
LOC: M ED 18:23
DX: Z53.21 Procedure and treatment not carried out due to patient leaving prior to being seen by health care provider (principal)

== ENCOUNTER 2019-08-06 19:01 | Emergency (ER) | payer MEDICARE, MEDICAID ==
[~2019-08-06] VITALS: Ht 172.7 cm; Wt 105.9 kg
[2019-08-06] MEDS ORDERED: KETOROLAC 60 MG/2 ML VIAL (J1885) IM ONE (20:15)
[2019-08-06] MEDS ORDERED: CLEO300C2 PO (20:32)
[2019-08-06] MEDS ORDERED: CLIN1GEL3 TOP (20:32)
[2019-08-06 20:53] VITALS: BP 115/79
== END 2019-08-06 20:54 | disposition home or self-care (01) ==
LOC: M ED 19:01
DX: L05.91 Pilonidal cyst without abscess (principal)
CPT/HCPCS: 96372; 99283; J1885

== ENCOUNTER 2019-12-07 14:57 | Emergency (ER) | payer MEDICAID, MEDICARE, SELFPAY ==
[~2019-12-07] VITALS: Ht 172.7 cm; Wt 108.6 kg
[~2019-12-07 14:57] MED LIST changes: +CLEO300C2 PO; +CLIN1GEL3 TOP
[2019-12-07 18:37] VITALS: BP 121/91
[2019-12-07] MEDS ORDERED: FLAG500T PO (18:37)
[2019-12-07] MEDS ORDERED: KEFL500C17 PO (18:43)
[2019-12-07] MEDS ORDERED: metroNIDAZOLE (FLAGYL) 500 MG TAB PO ONE (18:45)
[2019-12-07] MEDS ORDERED: CEPHALEXIN 500 MG CAP PO ONE (18:45)
[2019-12-07 19:23] LABS: CHLAMYDIA DNA AMPLIFICATION NEGATIVE (NEGATIVE); GC DNA AMPLIFICATION NEGATIVE (NEGATIVE)
== END 2019-12-07 19:00 | disposition home or self-care (01) ==
LOC: M ED 14:57
DX: N39.0 Urinary tract infection, site not specified (principal); A59.9 Trichomoniasis, unspecified; F20.9 Schizophrenia, unspecified; Z79.899 Other long term (current) drug therapy

== ENCOUNTER 2020-04-13 19:10 | Emergency (ER) | payer MEDICARE, MEDICAID ==
[~2020-04-13] VITALS: Ht 172.7 cm; Wt 114.9 kg
[~2020-04-13 19:10] MED LIST changes: +FLAG500T PO; +KEFL500C17 PO
[2020-04-13 19:11] VITALS: BP 131/83
[2020-04-13 19:58] LABS: BASO % 0.3 % (0.0-1.0); EOS # 0.4 10^3/uL (0.0-0.5); EOS % 4.6 % (0.0-3.0); HEMATOCRIT 38.7 % (36.0-47.0); HEMOGLOBIN 12.1 g/dl (12.0-15.5); LYMPH # 2.9 10^3/uL (1.5-5.0); LYMPH % 29.8 % (24.0-44.0); MEAN CORPUSCULAR HEMOGLOBIN 26.8 pg (27.0-33.0); MEAN CORPUSCULAR HGB CONC 31.3 g/dl (32.0-36.5); MEAN CORPUSCULAR VOLUME 85.6 fl (80.0-96.0); MONO # 0.7 10^3/uL (0.0-0.8); NEUTROPHILS # 5.6 10^3/uL (1.5-8.5); PLATELET COUNT, AUTOMATED 230 10^3/uL (150-450); RED BLOOD COUNT 4.52 10^6/uL (4.00-5.40); WHITE BLOOD COUNT 9.6 10^3/uL (4.0-10.0)
[2020-04-13 20:22] LABS: ACETAMINOPHEN LEVEL < 2.0 UG/ML (10.0-30.0); BLOOD UREA NITROGEN 12 MG/DL (7-18); CALCIUM LEVEL 8.4 MG/DL (8.5-10.1); CARBON DIOXIDE LEVEL 23 MEQ/L (21-32); CHLORIDE LEVEL 109 MEQ/L (98-107); CREATININE FOR GFR 0.95 MG/DL (0.55-1.30); ETHYL ALCOHOL (ETHANOL) < 0.003 % (0.000-0.010); GLOMERULAR FILTRATION RATE > 60.0 (>60); GLUCOSE, FASTING 92 MG/DL (70-100); POTASSIUM SERUM 3.8 MEQ/L (3.5-5.1); SALICYLATE LEVEL < 1.7 MG/DL (5.0-30.0); SODIUM LEVEL 139 MEQ/L (136-145)
[2020-04-13 20:23] LABS: AMPHETAMINES LEVEL URINE NEGATIVE (NEGATIVE); BARBITURATES URINE NEGATIVE (NEGATIVE); BENZODIAZEPINES URINE NEGATIVE (NEGATIVE); CANNABINOIDS URINE NEGATIVE (NEGATIVE); COCAINE METABOLITE URINE NEGATIVE (NEGATIVE); METHADONE URINE NEGATIVE (NEGATIVE); OPIATES URINE NEGATIVE (NEGATIVE); PHENCYCLIDINE URINE NEGATIVE (NEGATIVE)
[2020-04-13 20:23] LABS: HCG, SERUM QUALITATIVE NEGATIVE (NEGATIVE)
== END 2020-04-13 20:59 | disposition home or self-care (01) ==
LOC: M ED 19:10
DX: F20.9 Schizophrenia, unspecified (principal); F31.9 Bipolar disorder, unspecified; Z79.899 Other long term (current) drug therapy; F17.210 Nicotine dependence, cigarettes, uncomplicated
CPT/HCPCS: 36415; 80048; 80307; 84703; 85025; 99284; G0480

== ENCOUNTER 2020-09-13 11:10 | Emergency (ER) | payer MEDICARE, MEDICAID ==
[~2020-09-13] VITALS: Ht 172.7 cm; Wt 114.9 kg
[2020-09-13 14:40] LABS: CHLAMYDIA DNA AMPLIFICATION NEGATIVE (NEGATIVE); GC DNA AMPLIFICATION NEGATIVE (NEGATIVE)
[2020-09-13] MEDS ORDERED: MICO2CRE42 TOP (14:54)
[2020-09-13 15:07] VITALS: BP 128/74
== END 2020-09-13 15:08 | disposition home or self-care (01) ==
LOC: M ED 11:10
DX: B37.3 Candidiasis of vulva and vagina (principal); F20.9 Schizophrenia, unspecified; F33.9 Major depressive disorder, recurrent, unspecified; F17.210 Nicotine dependence, cigarettes, uncomplicated; Z79.899 Other long term (current) drug therapy

== ENCOUNTER → 2020-10-11 | Outpatient (REF) | payer MEDICARE, MEDICAID ==
[~2020-10-11] MED LIST changes: -FLUP5TA PO; +FLUP5TAB13 PO; +MICO2CRE42 TOP
[2020-10-11 18:05] LABS: ALBUMIN 3.6 GM/DL (3.2-5.2); ALT/SGPT 23 U/L (12-78); BILIRUBIN,TOTAL 0.5 MG/DL (0.2-1.0); BLOOD UREA NITROGEN 8 MG/DL (7-18); CARBON DIOXIDE LEVEL 27 MEQ/L (21-32); CHLORIDE LEVEL 109 MEQ/L (98-107); CHOLESTEROL LEVEL 187 MG/DL (<200); CREATININE FOR GFR 0.98 MG/DL (0.55-1.30); GLOMERULAR FILTRATION RATE > 60.0 (>60); GLUCOSE, FASTING 91 MG/DL (70-100); HDL CHOLESTEROL 44 MG/DL (>40); LDL CHOLESTEROL 121 MG/DL (<100); NON-HDL-C 143 MG/DL; POTASSIUM SERUM 4.3 MEQ/L (3.5-5.1); SODIUM LEVEL 140 MEQ/L (136-145); TOTAL PROTEIN 7.5 GM/DL (6.4-8.2); TRIGLYCERIDES LEVEL 111 MG/DL (<150)
== END ==
LOC: M SFHCPLAZ 15:09
PROVIDERS: ATTEND Family Medicine
DX: F20.9 Schizophrenia, unspecified (principal); Z13.220 Encounter for screening for lipoid disorders; Z79.899 Other long term (current) drug therapy
CPT/HCPCS: 36415; 80053; 80061; G0463

== ENCOUNTER 2020-11-08 15:40 | Emergency (ER) | payer MEDICARE, MEDICAID ==
[~2020-11-08] VITALS: Ht 172.7 cm; Wt 114.5 kg
--- OUTSIDE RECORDS SUMMARY | 2020-11-08 15:47 | CCD ---
Author Author [facility] Organization [facility] Address Unknown Phone Unavailable Care Team Providers Care Tile Designer Name Role Phone Nito Colbert Unavailable PROBLEMS Type Condition ICD9-CM Code [id number] Code Onset Dates Condition S tatus SNOMED Code Notes Problem Schizophrenia, unspecified type F20.9 Active 56719424 Problem Generalized anxiety disorder F41.1 Active 218 29267 ALLERGIES No Known Allergies ENCOUNTERS from 1993 to 2020-10-12 Encounter Location Date Provider Diagnosis [facility] [place] [address] [place] [address] Sep, Nito Hernandezry Schizophrenia, unspecified t ype F20.9 ; Acne vulgaris L70.0 and Screening for hyperlipidemia Z13.220 IMMUNIZATIONS Vaccine Route Administration Date Status HPV9 0.5mL (Gardasil 9) IM Intramuscular January 01, 2020 Adminis tered SOCIAL HISTORY Tobacco Use: Social History Observation Description Date Details (start date - stop date) Current Smoker Sex Assigned At : Social History Observation Description Sex Assigned At Unknown Audit Question Answer Notes Total Score: 0 Interpretation: Alcohol Education Drug and Alcohol Question Answer Notes Total Score: 0 Interpretation: No problems reported BMI Care Goal Follow-Up Question Answer Notes Above Normal BMI Follow-Up Giving encouragement to exercise Tobacco Use: Question Answer Notes Are you a: current smoker Black and Mild Cigar s - 3 per day Patient counseled on the dangers of tobacco use and urged to quit: 10/09/2019 REASON FOR REFERRAL No Information VITAL SIGNS Weight 250 lbs Sep, Height 68 in Sep, BMI 38.01 kg/m2 Sep, Heart Rate 119 /min Sep, Respiratory Rate 17 /min Sep, Temperature 98.1 degrees Fahrenheit Sep, Oximetry 99 Sep, Blood pressure systolic 118 mm Hg Sep, Blood pressure diastolic 82 mm Hg Sep, MEDICATIONS Medication SIG (Take, Route, Frequency, Duration) Notes Start Da te End Date Status Tretinoin 0.025 % 1 application in the evening to face Externally Once a day for 30 days Sep, Not-Taking Albuterol Sulfate 108 (90 Base) MCG/ACT 1 puff as needed Inh alation every 4 hrs Not-Taking Haldol Decanoate 100 MG/ML 2 ml Intramuscular Not-Taking Fluphenazine HCl 10 MG 1 tablet Orally three times a day for 30 days Not-Taking PROCEDURES No Information RESULTS No Results REASON FOR VISIT follow up MEDICAL (GENERAL) HISTORY Type Description Date Surgical History No Surgical history information Hospitalization History 2018 Goals Section No Information Health Concerns No Information MEDICAL EQUIPMENT No Information MENTAL STATUS No Information FUNCTIONAL STATUS No Information ASSESSMENTS Encounter Date Diagnosis Assessment Notes Treatment Notes Treatm ent Clinical Notes Sep, Schizophrenia, unspecified type (ICD-10 - F20.9) I advised patient to go back to seeing behavioral health in order to continue getting her medication because although she does feel Steinauer that may be the medication this causing her to feel this way and do not want her to have an acute worsening of her schizophrenia causing acute hospitalization. Patient says that she will go and talk with behavioral health. Sep, Acne vulgaris (ICD-10 - L70.0) I advised the patient that her acne is mostly related to the dandruff on her head has caused the same organism. I advised her to get some bhdb-pvr-ifwccyd dandruff shampoo and using both her hair and on her for head and nose. Advised to leave the shampoo on for about 5 minutes before rinsing off. If her acne worse and she can use the tretioin cream as spot treatment. Advised patient to keep her face moist and continue using her face wash. If the patient's is acne is not improved by next time I see her, we will start ketoconazole cream. Sep, Screening for hyperlipidemia (ICD-10 - Z13.220) Patient has never had a lipid panel in one has been ordered today. PLAN OF TREATMENT Treatment Notes Assessment Notes Clinical Notes Schizophrenia, unspecified type I advised patient to g o back to seeing behavioral health in order to continue getting her medication because although she does feel Steinauer that may be the medication this causing her to feel this way and do not want her to have an acute worsening of her schizophrenia causing acute hospitalization. Patient says that she will go and talk with behavioral health. Acne vulgaris I advised the patient that h er acne is mostly related to the dandruff on her head has caused the same organism. I advised her to get some fgqr-iaz-mivcsth dandruff shampoo and using both her hair and on her for head and nose. Advised to leave the shampoo on for about 5 minutes before rinsing off. If her acne worse and she can use the tretioin cream as spot treatment. Advised patient to keep her face moist and continue using her face wash. If the patient's is acne is not improved by next time I see her, we will start ketoconazole cream. Screening for hyperlipidemia Patient has never had a l ipid panel in one has been ordered today. Treatment Notes Test Name Order Date Comprehensive Metabolic Profile (CMP) 2020-10-12 LIPID PANEL (CARDIAC RISK) 2020-10-12 Next Appt Details 2 Months Reason:follow up acne Provider Name:Irina Rousseau, 2020-11-29 01:30:00 PM, [address] [place], [address], Follow Up:2 Monthsfollow up acne Insurance Providers Payer Name Payer Address Payer Phone Insured Name Patient Relati onship to Insured Coverage Start Date Coverage End Date MEDICARE Part A and B [address] [facility] [phone] KATHY GORDON MEDICAID [facility] [address] [facility] [id number] KATHY GORDON
--- OUTSIDE RECORDS SUMMARY | 2020-11-08 15:47 | CCD ---
Author Author [facility] Organization [facility] Address Unknown Phone Unavailable Care Team Providers Care Customer Trainer Name Role Phone Nito Colbert Unavailable PROBLEMS Type Condition ICD9-CM Code [id number] Code Onset Dates Condition S tatus SNOMED Code Notes Problem Schizophrenia, unspecified type F20.9 Active [id number] Problem Generalized anxiety disorder F41.1 Active 218 53556 ALLERGIES No Known Allergies ENCOUNTERS from 1993 to 2020-09-14 Encounter Location Date Provider Diagnosis [address] [address] Aug, Nito Filemon IMMUNIZATIONS Vaccine Route Administration Date Status HPV9 [...] REASON FOR REFERRAL No Information VITAL SIGNS No information MEDICATIONS Medication SIG (Take, Route, Frequency, Duration) Notes Start Da te End Date Status Albuterol Sulfate 108 (90 Base) MCG/ACT 1 puff as needed Inh alation every 4 hrs Not-Taking Fluphenazine HCl 10 MG 1 tablet Orally three times a day for 30 days Not-Taking Tretinoin 0.025 % 1 application in the evening to face Externally Once a day for 30 days Sep, Not-Taking Haldol Decanoate 100 MG/ML 2 ml Intramuscular Active PROCEDURES No Information RESULTS No Results REASON FOR VISIT ER Visit [facility] 09/13; Gen Med Complaint MEDICAL (GENERAL) HISTORY Type Description Date Surgical History No Surgical history information Hospitalization History 2019 Goals Section No Information Health Concerns No Information MEDICAL EQUIPMENT No Information MENTAL STATUS No Information FUNCTIONAL STATUS No Information ASSESSMENTS No Information PLAN OF TREATMENT Next Appt Details Provider Name:Nito Colbert, 2020-09-26 03:00:00 PM, [address] [place], [address], Insurance Providers Payer Name Payer Address Payer Phone Insured Name Patient Relati onship to Insured Coverage Start Date Coverage End Date MEDICAID [employer] [address] [facility] [id number] KATHY GORDON MEDICARE Part A and B [address] [facility] [address] [phone] KATHY GORDON
--- OUTSIDE RECORDS SUMMARY | 2020-11-08 15:47 | CCD ---
Author Author [facility] Organization [facility] Address Unknown Phone Unavailable Support Name Relationship Address Phone UE Next Of Kin Unknown Unavailable UN Next Of Kin Unknown Unavailable SHON RODRIGUEZ Next Of Kin [address] [place] [address] Shon Rodriguez ECON [address] [place] [address] [phone] Re-disclosure Warning The records that you are about to access may contain information from federally-assisted alcohol or drug abuse programs. If such information is present, then the following federally mandated warning applies: This information has been disclosed to you from records protected by federal confidentiality rules (42 CFR part 2). The federal rules prohibit you from making any further disclosure of this information unless further disclosure is expressly permitted by the written consent of the person to whom it pertains or as otherwise permitted by 42 CFR part 2. A general authorization for the release of medical or other information is NOT sufficient for this purpose. The Federal rules restrict any use of the information to criminally investigate or prosecute any alcohol or drug abuse patient.The records that you are about to access may contain highly sensitive health information, the redisclosure of which is protected by Article 27-F of the [facility] Public Health law. If you continue you may have access to information: Regarding HIV / AIDS; Provided by facilities licensed or operated by the [facility] Office of Mental Health; or Provided by the [facility] Office for People With Developmental Disabilities. If such information is present, then the following [facility] mandated warning applies: This information has been disclosed to you from confidential records which are protected by state law. State law prohibits you from making any further disclosure of this information without the specific written consent of the person to whom it pertains, or as otherwise permitted by law. Any unauthorized further disclosure in violation of state law may result in a fine or skilled nursing sentence or both. A general authorization for the release of medical or other information is NOT sufficient authorization for further disc losure. Encounters Encounter Providers Location Date Indications Data Source(s ) Outpatient [address] [facility] [id number] 10/11/2020 12:00:00 AM EST eCW1 ([facility]) Unknown [address] [facility] [address] 09/14/2020 12:00:00 AM EST eCW1 ([facility]) [facility] [address] [place] [phone] 01/28/2020 12:00:00 AM EDT eCW1 ([facility]) [address] [address] 01/13/2020 12:00:00 AM EDT eCW1 ([facility]) [facility] [address] [place] [phone] 01/01/2020 12:00:00 AM EST eCW1 ([facility]) [address] [address] 12/21/2019 12:00:00 AM EST eCW1 ([facility]) [facility] [address] [place] [phone] 12/17/2019 12:00:00 AM EST eCW1 ([facility]) [address] [address] 12/08/2019 12:00:00 AM EST eCW1 ([facility]) [address] [address] 11/25/2019 12:00:00 AM EST eCW1 ([facility]) [address] [address] 11/11/2019 12:00:00 AM EST eCW1 ([facility]) [facility] [address] [place] [phone] 11/10/2019 12:00:00 AM EST eCW1 ([facility]) [facility] [place] [address] [facility] [address] 10/12/2019 12:00:00 AM EST eCW1 ([facility]) [facility] [address] [place] [address] 10/09/2019 12:00:00 AM EST eCW1 ([facility]) [facility] [address] [place] [address] 10/06/2019 12:00:00 AM EST eCW1 ([facility]) Immunizations Vaccine Date Status Description Data Source(s) HPV9 01/01/2020 04:17:00 PM EST completed e CW1 ([facility] To [facility]) HPV9 01/01/2020 04:17:00 PM EST completed e CW1 (Pending [facility] To [facility]) HPV9 01/01/2020 04:17:00 PM EST completed e CW1 (Pending [facility] To [facility]) Medications Medication Brand Name Start Date Product Form Dose Route Admi nistrative Instructions Pharmacy Instructions Status Indications Reaction Description Data Source(s) Tretinoin 0.25 MG/ML Topical Cream Tretinoin 0.025 % Tretino in 0.025 % 10/09/2019 12:00:00 AM EST suspended 1 application in the evening to face eCW1 ([facility] To [facility]) Tretinoin 0.25 MG/ML Topical Cream Tretinoin 0.025 % Tretino in 0.025 % 10/09/2019 12:00:00 AM EST suspended Tretinoin 0.025 % eCW1 ([facility] To [facility]) Tretinoin 0.25 MG/ML Topical Cream Tretinoin 0.025 % Tretino in 0.025 % 10/09/2019 12:00:00 AM EST suspended Tretinoin 0.025 % eCW1 ([facility] To [facility]) Tretinoin 0.25 MG/ML Topical Cream Tretinoin 0.025 % Tretino in 0.025 % 10/09/2019 12:00:00 AM EST active 1 application in the evening to face eCW1 ([facility]) Tretinoin 0.025 % UNK 10/09/2019 12:00:00 AM EST active 1 application in the evening to face eCW1 ([facility]) Insurance Providers Payer name Policy type / Coverage type Policy ID Covered green party ID Covered green party's relationship to sabillon Policy [place] Plan Information HIEN [id number] SP [id number] MEDICARE [id number] SP [id number] MEDICARE [id number] SP [id number] MEDICAID [id number] SP [id number] SELF PAY ONLY [id number] SP [id number] SELF PAY ONLY [id number] SP [id number] NCO EPALS [id number] SP [id number] Surgeries/Procedures Procedure Description Date Indications Data Source(s) Office Visit, Est Pt., Level 2 FC 01/01/2020 12:00:00 AM EST eCW1 ([facility]) HPV9 0.5mL (Gardasil 9) 01/01/2020 12:00:00 AM EST eCW1 ([facility]) IMMUNIZATION ADMIN 01/01/2020 12:00:00 AM EST eCW1 ([facility]) PSYTX W PT 45 MINUTES 12/21/2019 12:00:00 AM EST eCW1 ([facility]) Office Visit, Est Pt., Level 3 PC 10/09/2019 12:00:00 AM EST eCW1 ([facility]) Social History Code Duration Value Status Description Data Source(s ) Smoking 10/11/2020 12:00:00 AM EST Current Smoker completed Curre nt Smoker eCW1 ([facility]) Smoking 01/01/2020 12:00:00 AM EST Current Smoker completed Curre nt Smoker eCW1 ([facility]) Vital Signs ID Date Data Source UNK Name Value Range Interpretation Code Description Data Source(s) Diastolic blood pressure 82 mm[Hg] 82 mm[Hg] eCW1 ([facility]) Systolic blood pressure 118 mm[Hg] 118 mm[Hg] e CW1 ([facility]) Body temperature 98.1 [degF] 98.1 [degF] eCW1 ( [facility]) Respiratory rate 17 /min 17 /min eCW1 ([facility]) Heart rate 119 /min 119 /min eCW1 ([facility]) Body mass index (BMI) [Ratio] 38.01 kg/m2 38.01 kg/m2 eCW1 ([facility]) Body height 68 [in_i] 68 [in_i] eCW1 ([facility]) Body weight 250 [lb_av] 250 [lb_av] eCW1 ([facility]) Body weight 109.318 kg 109.318 kg MEDENT ([facility], ) Body mass index (BMI) [Ratio] 36.6 kg/m2 36.6 k g/m2 MEDENT ([facility], ) Body weight 241.00 [lb_av] 241.00 [lb_av] MEDEN T ([facility], ) Body height 68 [in_i] 68 [in_i] MEDENT ([facility], ) 5'8" Heart rate 79 /min 79 /min MEDENT ([facility], ) Diastolic blood pressure 82 mm[Hg] 82 mm[Hg] MEDENT ([facility], ) Systolic blood pressure 116 mm[Hg] 116 mm[Hg] M EDENT ([facility], ) Diastolic blood pressure 70 mm[Hg] 70 mm[Hg] eCW1 ([facility]) Systolic blood pressure 120 mm[Hg] 120 mm[Hg] e CW1 ([facility]) Body temperature 96.7 [degF] 96.7 [degF] eCW1 ( [facility]) Respiratory rate 18 /min 18 /min eCW1 ([facility]) Heart rate 84 /min 84 /min eCW1 ([facility]) Body mass index (BMI) [Ratio] 36.94 kg/m2 36.94 kg/m2 W1 ([facility]) Body height 68 [in_us] 68 [in_us] eCW1 ([facility]) Body weight Measured 243 [lb_av] 243 [lb_av] eC W1 ([facility]) Diastolic blood pressure 70 mm[Hg] 70 mm[Hg] eCW1 ([facility]) Systolic blood pressure 120 mm[Hg] 120 mm[Hg] e CW1 ([facility]) Body temperature 97 [degF] 97 [degF] eCW1 ([facility]) Respiratory rate 20 /min 20 /min eCW1 ([facility]) Heart rate 80 /min 80 /min eCW1 ([facility]) Body mass index (BMI) [Ratio] 36.64 kg/m2 36.64 kg/m2 eCW1 ([facility]) Body height 68 [in_us] 68 [in_us] eCW1 ([facility]) Body weight Measured 241 [lb_av] 241 [lb_av] eC W1 ([facility]) Diastolic blood pressure 76 mm[Hg] 76 mm[Hg] eCW1 ([facility]) Systolic blood pressure 118 mm[Hg] 118 mm[Hg] e CW1 ([facility]) Body temperature 98.6 [degF] 98.6 [degF] eCW1 ( [facility]) Respiratory rate 18 /min 18 /min eCW1 ([facility]) Heart rate 120 /min 120 /min eCW1 ([facility]) Body mass index (BMI) [Ratio] 36.31 kg/m2 36.31 kg/m2 eCW1 ([facility]ending [facility]) Body height 68 [in_us] 68 [in_us] eCW1 ([facility]) Body weight Measured 238.8 [lb_av] 238.8 [lb_av ] eCW1 (Pending [facility] To [facility]) Patient Treatment Plan of Care Planned Activity Planned Date Details Description Data Source (s) Tretinoin 0.25 MG/ML Topical Cream 10/09/2019 12:00:00 AM EST eCW1 ([facility]ending [facility] To [facility])
--- OUTSIDE RECORDS SUMMARY | 2020-11-08 16:32 | CCD ---
Author Author [facility] Organization [facility] Address Unknown Phone Unavailable Support Name Relationship Address Phone YVONNE RODRIGUEZ Next Of Kin [address] [place], [place] [address] UE Next Of Kin Unknown Unavailable UN Next Of Kin Unknown Unavailable SHON RODRIGUEZ Next Of Kin [address], [place] [id number] Shon Rodriguez ECON [address] [place] [address] [phone] Re-disclosure Warning The records that you are [...] is protected by Article 27-F of the [facility] Public Health law. If you continue you may have access to information: Regarding HIV / AIDS; Provided by facilities licensed or operated by the [facility] Office of Mental Health; or Provided by the [facility] Office for People With Developmental Disabilities. If such information is present, then the following [facility] mandated warning applies: This information has been [...] law may result in a fine or care home sentence or both. A general authorization for the release of medical or other information is NOT sufficient authorization for further disc losure. Encounters Encounter Providers Location Date Indications Data Source(s ) Outpatient [address] [facility] [place] [id number] 10/11/2020 12:00:00 AM EST eCW1 ([facility]) Unknown [address] [facility] [address] 09/14/2020 12:00:00 AM EST eCW1 ([facility]) [facility] [address] [place] [phone] 01/28/2020 12:00:00 AM EDT eCW1 ([facility]) [address] [address] 01/13/2020 12:00:00 AM EDT eCW1 ([facility]) [facility] Resident [address] [place] [phone] 01/01/2020 12:00:00 AM EST eCW1 ([facility]) [address] [address] 12/21/2019 12:00:00 AM EST eCW1 ([facility]) [facility] Resident [address] [place] [phone] 12/17/2019 12:00:00 AM EST eCW1 ([facility]) [facility] [address] [place] [phone] 12/08/2019 12:00:00 AM EST eCW1 ([facility]) [address] [address] 11/25/2019 12:00:00 AM EST eCW1 ([facility]) [address] [address] 11/11/2019 12:00:00 AM EST eCW1 ([facility]) [facility] Resident [address] [place] [address] 11/10/2019 12:00:00 AM EST eCW1 ([facility]) [facility] [place] [address] [facility] [address] 10/12/2019 12:00:00 AM EST eCW1 ([facility]) [facility] Resident [address] [place] [address] 10/09/2019 12:00:00 AM EST eCW1 ([facility]) [facility] [address] [place] [address] 10/06/2019 12:00:00 AM EST eCW1 ([facility]) Immunizations Vaccine Date Status Description Data Source(s) HPV9 01/01/2020 04:17:00 PM EST completed e CW1 ([facility]) HPV9 01/01/2020 04:17:00 PM EST completed e CW1 ([facility]) HPV9 01/01/2020 04:17:00 PM EST completed e CW1 ([facility]) Medications Medication Brand Name Start Date Product Form Dose Route Admi nistrative Instructions Pharmacy Instructions Status Indications Reaction Description Data Source(s) Tretinoin 0.25 MG/ML Topical Cream Tretinoin 0.025 % Tretino in 0.025 % 10/09/2019 12:00:00 AM EST suspended 1 application in the evening to face eCW1 ([facility]) Tretinoin 0.25 MG/ML Topical Cream Tretinoin 0.025 % Tretino in 0.025 % 10/09/2019 12:00:00 AM EST suspended Tretinoin 0.025 % eCW1 ([facility]) Tretinoin 0.25 MG/ML Topical Cream Tretinoin 0.025 % Tretino in 0.025 % 10/09/2019 12:00:00 AM EST suspended Tretinoin 0.025 % eCW1 ([facility]) Tretinoin 0.25 MG/ML Topical Cream Tretinoin 0.025 % Tretino in 0.025 % 10/09/2019 12:00:00 AM EST active 1 application in the evening to face eCW1 ([facility]) Tretinoin 0.025 % UNK 10/09/2019 12:00:00 AM EST active 1 application in the evening to face eCW1 ([facility]) Insurance Providers Payer name Policy type / Coverage type Policy ID Covered alliance party ID Covered alliance party's relationship to sabillon Policy Sab[place] Plan Information EMEDNY [id number] SP [id number] MEDICARE [id number] SP [id number] MEDICARE [id number] SP [id number] [id number] MEDICAID [id number] SP [id number] SELF PAY ONLY [id number] SP [id number] SELF PAY ONLY [id number] SP [id number] NCO EPALS [id number] SP [id number] Surgeries/Procedures Procedure Description Date Indications Data Source(s) Office Visit, Est Pt., Level 2 FC 01/01/2020 12:00:00 AM EST eCW1 ([facility]) HPV9 0.5mL (Gardasil 9) 01/01/2020 12:00:00 AM EST eCW1 ([facility]) IMMUNIZATION ADMIN 01/01/2020 12:00:00 AM EST eCW1 ([facility]) PSYTX W PT 45 MINUTES 12/21/2019 12:00:00 AM EST eCW1 ([facility]) Office Visit, Est Pt., Level 3 PC 10/09/2019 12:00:00 AM EST eCW1 ([facility]) Social History Code Duration Value Status Description Data Source(s ) Smoking 10/11/2020 12:00:00 AM EST Current Smoker completed Curre nt Smoker eCW1 ([facility]) Smoking 01/01/2020 12:00:00 AM EST Current Smoker completed Curre nt Smoker eCW1 ([facility]) Vital Signs ID Date Data Source UNK Name Value Range Interpretation Code Description Data Source(s) Diastolic blood pressure 82 mm[Hg] 82 mm[Hg] eCW1 ([facility]) Systolic blood pressure 118 mm[Hg] 118 mm[Hg] e CW1 ([facility]) Body temperature 98.1 [degF] 98.1 [degF] eCW1 ( [facility]) Respiratory rate 17 /min 17 /min eCW1 ([facility]) Heart rate 119 /min 119 /min eCW1 ([facility]) Body mass index (BMI) [Ratio] 38.01 kg/m2 38.01 kg/m2 eCW1 ([facility]) Body height 68 [in_i] 68 [in_i] eCW1 ([facility]) Body weight 250 [lb_av] 250 [lb_av] eCW1 ([facility]) Body weight 109.318 kg 109.318 kg MEDENT ([facility], ) Body mass index (BMI) [Ratio] 36.6 kg/m2 36.6 k g/m2 MEDENT ([facility], ) Body weight 241.00 [lb_av] 241.00 [lb_av] MEDEN T ([facility], ) Body height 68 [in_i] 68 [in_i] MEDENT ([facility], ) 5'8" Heart rate 79 /min 79 /min [facility], [facility] Diastolic blood pressure 82 mm[Hg] 82 mm[Hg] MEDENT ([facility]) Systolic blood pressure 116 mm[Hg] 116 mm[Hg] M EDENT ([facility], ) Diastolic blood pressure 70 mm[Hg] 70 mm[Hg] eCW1 ([facility]) Systolic blood pressure 120 mm[Hg] 120 mm[Hg] e CW1 ([facility]) Body temperature 96.7 [degF] 96.7 [degF] eCW1 ( [facility]) Respiratory rate 18 /min 18 /min eCW1 ([facility]) Heart rate 84 /min 84 /min eCW1 ([facility]) Body mass index (BMI) [Ratio] 36.94 kg/m2 36.94 kg/m2 eCW1 ([facility]) Body height 68 [in_us] 68 [in_us] eCW1 ([facility]) Body weight Measured 243 [lb_av] 243 [lb_av] eC W1 ([facility]) Diastolic blood pressure 70 mm[Hg] 70 mm[Hg] eCW1 ([facility]) Systolic blood pressure 120 mm[Hg] 120 mm[Hg] e CW1 ([facility]) Body temperature 97 [degF] 97 [degF] eCW1 ([facility]) Respiratory rate 20 /min 20 /min eCW1 ([facility]) Heart rate 80 /min 80 /min eCW1 ([facility]) Body mass index (BMI) [Ratio] 36.64 kg/m2 36.64 kg/m2 eCW1 ([facility]) Body height 68 [in_us] 68 [in_us] eCW1 ([facility]) Body weight Measured 241 [lb_av] 241 [lb_av] eC W1 ([facility]) Diastolic blood pressure 76 mm[Hg] 76 mm[Hg] eCW1 ([facility]) Systolic blood pressure 118 mm[Hg] 118 mm[Hg] e CW1 ([facility]) Body temperature 98.6 [degF] 98.6 [degF] eCW1 ( [facility]) Respiratory rate 18 /min 18 /min eCW1 ([facility]) Heart rate 120 /min 120 /min eCW1 ([facility]) Body mass index (BMI) [Ratio] 36.31 kg/m2 36.31 kg/m2 eCW1 ([facility]) Body height 68 [in_us] 68 [in_us] eCW1 ([facility]) Body weight Measured 238.8 [lb_av] 238.8 [lb_av ] eCW1 ([facility]) Patient Treatment Plan of Care Planned Activity Planned Date Details Description Data Source (s) Tretinoin 0.25 MG/ML Topical Cream 10/09/2019 12:00:00 AM EST eCW1 ([facility])
[2020-11-08 18:23] VITALS: BP 138/78
== END 2020-11-08 18:25 | disposition home or self-care (01) ==
LOC: M ED 15:40
DX: F20.9 Schizophrenia, unspecified (principal); Z79.899 Other long term (current) drug therapy

== ENCOUNTER 2020-11-10 10:32 | Emergency (ER) | payer MEDICARE, MEDICAID ==
[~2020-11-10] VITALS: Ht 172.7 cm; Wt 111.7 kg
[2020-11-10 10:35] VITALS: BP 121/92
--- OUTSIDE RECORDS SUMMARY | 2020-11-10 10:42 | CCD ---
Author Author [facility] Organization [facility] Address Unknown Phone Unavailable Support Name Relationship Address Phone YVONNE BARRY Next Of Kin [address] [place], [place] [address] UE Next Of Kin Unknown Unavailable UN Next Of Kin Unknown Unavailable SHON BARRY Next Of Kin [address] [place], [place] [id number] SHON BARRY ECON [address] [place] [address] [phone] Re-disclosure Warning The records that you are [...] is protected by Article 27-F of the [facility] Public Health law. If you continue you may have access to information: Regarding HIV / AIDS; Provided by facilities licensed or operated by the [facility] Office of Mental Health; or Provided by the [facility] Office for People With Developmental Disabilities. If such information is present, then the following [facility] mandated warning applies: This information has been [...] law may result in a fine or usp sentence or both. A general authorization for the release of medical or other information is NOT sufficient authorization for further disc losure. Encounters Encounter Providers Location Date Indications Data Source(s ) Outpatient [address] [facility] [id number] 10/11/2020 12:00:00 AM EST eCW1 ([facility]) Unknown [address] [facility] [phone] 09/14/2020 12:00:00 AM EST eCW1 ([facility]) [facility] Dermatology Center [address] [place] [phone] 01/28/2020 12:00:00 AM EDT eCW1 ([facility]) [facility] [address] [place] [phone] 01/13/2020 12:00:00 AM EDT eCW1 ([facility]) [facility] GME Resident [address] [place] [phone] 01/01/2020 12:00:00 AM EST eCW1 ([facility]) [address] [address] 12/21/2019 12:00:00 AM EST eCW1 ([facility]) [facility] G[facility] Resident [address] [place] [phone] 12/17/2019 12:00:00 AM EST eCW1 ([facility]) [facility] [address] [place] [phone] 12/08/2019 12:00:00 AM EST eCW1 ([facility]) [address] [address] 11/25/2019 12:00:00 AM EST eCW1 ([facility]) [address] [address] 11/11/2019 12:00:00 AM EST eCW1 ([facility]) [facility] G[facility] Resident [address] [place] [address], [place] [address] 11/10/2019 12:00:00 AM EST eCW1 ([facility]) [facility] [place] [address] [facility] [address] 10/12/2019 12:00:00 AM EST eCW1 ([facility]) [facility] Resident [address] [place] [phone] 10/09/2019 12:00:00 AM EST eCW1 ([facility]) [facility] [address] [place] [address] 10/06/2019 12:00:00 AM EST eCW1 ([facility]) Immunizations Vaccine Date Status Description Data Source(s) HPV9 01/01/2020 04:17:00 PM EST completed e CW1 ([facility]) HPV9 01/01/2020 04:17:00 PM EST completed e CW1 ([facility]) HPV9 01/01/2020 04:17:00 PM EST completed e CW1 ([facility]) Medications Medication Brand Name Start Date Product Form Dose Route Admi nistrative Instructions Pharmacy Instructions Status Indications Reaction Description Data Source(s) Tretinoin 0.25 MG/ML Topical Cream Tretinoin 0.025 % Tretino in 0.025 % 10/09/2019 12:00:00 AM EST suspended 1 application in the evening to face eCW1 ([facility]) Tretinoin 0.25 MG/ML Topical Cream Tretinoin 0.025 % Tretino in 0.025 % 10/09/2019 12:00:00 AM EST suspended Tretinoin 0.025 % eCW1 ([facility]) Tretinoin 0.25 MG/ML Topical Cream Tretinoin 0.025 % Tretino in 0.025 % 10/09/2019 12:00:00 AM EST suspended Tretinoin 0.025 % eCW1 ([facility]) Tretinoin 0.25 MG/ML Topical Cream Tretinoin 0.025 % Tretino in 0.025 % 10/09/2019 12:00:00 AM EST active 1 application in the evening to face eCW1 ([facility]) Tretinoin 0.025 % UNK 10/09/2019 12:00:00 AM EST active 1 application in the evening to face eCW1 ([facility]) Insurance Providers Payer name Policy type / Coverage type Policy ID Covered alliance party ID Covered alliance party's relationship to sabillon Policy [place] Plan Information EMEDNY [id number] SP [id number] MEDICARE [id number] SP [id number] [id number] MEDICARE [id number] SP [id number] Y44 MEDICAID [id number] SP [id number] SELF PAY ONLY [id number] SP [id number] SELF PAY ONLY [id number] SP [id number] NCO EPALS [id number] SP [id number] Surgeries/Procedures Procedure Description Date Indications Data Source(s) Office Visit, Est Pt., Level 2 FC 01/01/2020 12:00:00 AM EST eCW1 ([facility]) HPV9 0.5mL (Gardasil 9) 01/01/2020 12:00:00 AM EST eCW1 ([facility]) IMMUNIZATION ADMIN 01/01/2020 12:00:00 AM EST eCW1 ([facility]) PSYTX W PT 45 MINUTES 12/21/2019 12:00:00 AM EST eCW1 ([facility]) Office Visit, Est Pt., Level 3 PC 10/09/2019 12:00:00 AM EST eCW1 ([facility]) Social History Code Duration Value Status Description Data Source(s ) Smoking 10/11/2020 12:00:00 AM EST Current Smoker completed Curre nt Smoker eCW1 ([facility]) Smoking 01/01/2020 12:00:00 AM EST Current Smoker completed Curre nt Smoker eCW1 ([facility]) Vital Signs ID Date Data Source UNK Name Value Range Interpretation Code Description Data Source(s) Diastolic blood pressure 82 mm[Hg] 82 mm[Hg] eCW1 ([facility]) Systolic blood pressure 118 mm[Hg] 118 mm[Hg] e CW1 ([facility]) Body temperature 98.1 [degF] 98.1 [degF] eCW1 ( [facility]) Respiratory rate 17 /min 17 /min eCW1 ([facility]) Heart rate 119 /min 119 /min eCW1 ([facility]) Body mass index (BMI) [Ratio] 38.01 kg/m2 38.01 kg/m2 eCW1 ([facility]) Body height 68 [in_i] 68 [in_i] eCW1 ([facility]) Body weight 250 [lb_av] 250 [lb_av] eCW1 ([facility]) Body weight 109.318 kg 109.318 kg MEDENT ([facility], ) Body mass index (BMI) [Ratio] 36.6 kg/m2 36.6 k g[facility] Body weight 241.00 [lb_av] 241.00 [lb_av] MEDEN T ([facility], ) Body height 68 [in_i] 68 [in_i] MEDENT ([facility], ) 5'8" Heart rate 79 /min 79 /min [facility], ) Diastolic blood pressure 82 mm[Hg] 82 mm[Hg] [facility] Systolic blood pressure 116 mm[Hg] 116 mm[Hg] M EDENT ([facility], ) Diastolic blood pressure 70 mm[Hg] 70 mm[Hg] eCW1 ([facility]) Systolic blood pressure 120 mm[Hg] 120 mm[Hg] e CW1 ([facility]) Body temperature 96.7 [degF] 96.7 [degF] eCW1 ( [facility]) Respiratory rate 18 /min 18 /min eCW1 ([facility]) Heart rate 84 /min 84 /min eCW1 ([facility]) Body mass index (BMI) [Ratio] 36.94 kg/m2 36.94 kg/m2 W1 ([facility]) Body height 68 [in_us] 68 [in_us] eCW1 ([facility]) Body weight Measured 243 [lb_av] 243 [lb_av] eC W1 ([facility]) Diastolic blood pressure 70 mm[Hg] 70 mm[Hg] eCW1 ([facility]) Systolic blood pressure 120 mm[Hg] 120 mm[Hg] e CW1 ([facility]) Body temperature 97 [degF] 97 [degF] eCW1 ([facility]) Respiratory rate 20 /min 20 /min eCW1 ([facility]) Heart rate 80 /min 80 /min eCW1 ([facility]) Body mass index (BMI) [Ratio] 36.64 kg/m2 36.64 kg/m2 eCW1 ([facility]) Body height 68 [in_us] 68 [in_us] eCW1 ([facility]) Body weight Measured 241 [lb_av] 241 [lb_av] eC W1 ([facility]) Diastolic blood pressure 76 mm[Hg] 76 mm[Hg] eCW1 ([facility]) Systolic blood pressure 118 mm[Hg] 118 mm[Hg] e CW1 ([facility]) Body temperature 98.6 [degF] 98.6 [degF] eCW1 ( [facility]) Respiratory rate 18 /min 18 /min eCW1 ([facility]) Heart rate 120 /min 120 /min eCW1 ([facility]) Body mass index (BMI) [Ratio] 36.31 kg/m2 36.31 kg/m2 eCW1 ([facility]) Body height 68 [in_us] 68 [in_us] eCW1 ([facility]) Body weight Measured 238.8 [lb_av] 238.8 [lb_av ] eCW1 ([facility]) Patient Treatment Plan of Care Planned Activity Planned Date Details Description Data Source (s) Tretinoin 0.25 MG/ML Topical Cream 10/09/2019 12:00:00 AM EST eCW1 ([facility])
--- OUTSIDE RECORDS SUMMARY | 2020-11-10 11:33 | CCD ---
Author Author [facility] Organization [facility] Address Unknown Phone Unavailable Support Name Relationship Address Phone YVONNE BARRY Next Of Kin [address] [place], [place] [address] UE Next Of Kin Unknown Unavailable UN Next Of Kin Unknown Unavailable SHON BARRY Next Of Kin [address] [place] [place], [place] [id number] SHON BARRY E[place] [address] [place] [address] [phone] Re-disclosure Warning The records that you are [...] is protected by Article 27-F of the [facility] Public Health law. If you continue you may have access to information: Regarding HIV / AIDS; Provided by facilities licensed or operated by the [facility] Office of Mental Health; or Provided by the [facility] Office for People With Developmental Disabilities. If such information is present, then the following [facility] mandated warning applies: This information has [...] law may result in a fine or snf sentence or both. A general authorization for the release of medical or other information is NOT sufficient authorization for further disc losure. Encounters Encounter Providers Location Date Indications Data Source(s ) Outpatient [address] [facility] [id number] 10/11/2020 12:00:00 AM EST eCW1 ([facility]) Unknown [address] [facility] [id number] 09/14/2020 12:00:00 AM EST eCW1 ([facility]) [facility] [address] [place] [phone] 01/28/2020 12:00:00 AM EDT eCW1 ([facility]) [facility] [address] [place] [phone] 01/13/2020 12:00:00 AM EDT eCW1 ([facility]) [facility] G[facility] Resident [address] [place] [phone] 01/01/2020 12:00:00 AM EST eCW1 ([facility]) [address] [address] 12/21/2019 12:00:00 AM EST eCW1 ([facility]) [facility] Resident [address] [place] [phone] 12/17/2019 12:00:00 AM EST eCW1 ([facility]) [facility] [address] [place] [phone] 12/08/2019 12:00:00 AM EST eCW1 ([facility]) [address] [address] 11/25/2019 12:00:00 AM EST eCW1 ([facility]) [address] [address] 11/11/2019 12:00:00 AM EST eCW1 ([facility]) [facility] Resident [address] [place] [address], [place] [address] 11/10/2019 12:00:00 AM EST eCW1 ([facility]) [facility] [place] [address] [facility] [address] 10/12/2019 12:00:00 AM EST eCW1 ([facility]) [facility] [address] [place] [phone] 10/09/2019 12:00:00 AM EST eCW1 ([facility]) [facility] [address] [place] [address] 10/06/2019 12:00:00 AM EST eCW1 ([facility]) Immunizations Vaccine Date Status Description Data Source(s) HPV9 01/01/2020 04:17:00 PM EST completed e CW1 ([facility]) HPV9 01/01/2020 04:17:00 PM EST completed e CW1 ([facility]) HPV9 01/01/2020 04:17:00 PM EST completed e CW1 ([facility]) Medications Medication Brand Name Start Date Product Form Dose Route Admi nistrative Instructions Pharmacy Instructions Status Indications Reaction Description Data Source(s) Tretinoin 0.25 MG/ML Topical Cream Tretinoin 0.025 % Tretino in 0.025 % 10/09/2019 12:00:00 AM EST suspended 1 application in the evening to face eCW1 ([facility]) Tretinoin 0.25 MG/ML Topical Cream Tretinoin 0.025 % Tretino in 0.025 % 10/09/2019 12:00:00 AM EST suspended Tretinoin 0.025 % eCW1 ([facility]) Tretinoin 0.25 MG/ML Topical Cream Tretinoin 0.025 % Tretino in 0.025 % 10/09/2019 12:00:00 AM EST suspended Tretinoin 0.025 % eCW1 ([facility]) Tretinoin 0.25 MG/ML Topical Cream Tretinoin 0.025 % Tretino in 0.025 % 10/09/2019 12:00:00 AM EST active 1 application in the evening to face eCW1 ([facility]) Tretinoin 0.025 % UNK 10/09/2019 12:00:00 AM EST active 1 application in the evening to face eCW1 ([facility]) Insurance Providers Payer name Policy type / Coverage type Policy ID Covered libertarian ID Covered libertarian's relationship to sabillon Policy Sabillon Plan Information EMEDNY [id number] SP [id number] MEDICARE [id number] SP [id number] [id number] MEDICARE [id number] SP [id number] Y44 MEDICAID [id number] SP [id number] SELF PAY ONLY [id number] SP [id number] SELF PAY ONLY [id number] SP [id number] NCO EPALS [id number] SP [id number] Surgeries/Procedures Procedure Description Date Indications Data Source(s) Office Visit, Est Pt., Level 2 FC 01/01/2020 12:00:00 AM EST eCW1 ([facility]) HPV9 0.5mL (Gardasil 9) 01/01/2020 12:00:00 AM EST eCW1 ([facility]) IMMUNIZATION ADMIN 01/01/2020 12:00:00 AM EST eCW1 ([facility]) PSYTX W PT 45 MINUTES 12/21/2019 12:00:00 AM EST eCW1 ([facility]) Office Visit, Est Pt., Level 3 PC 10/09/2019 12:00:00 AM EST eCW1 ([facility]) Social History Code Duration Value Status Description Data Source(s ) Smoking 10/11/2020 12:00:00 AM EST Current Smoker completed Curre nt Smoker eCW1 ([facility]) Smoking 01/01/2020 12:00:00 AM EST Current Smoker completed Curre nt Smoker eCW1 ([facility]) Vital Signs ID Date Data Source UNK Name Value Range Interpretation Code Description Data Source(s) Diastolic blood pressure 82 mm[Hg] 82 mm[Hg] eCW1 ([facility]) Systolic blood pressure 118 mm[Hg] 118 mm[Hg] e CW1 ([facility]) Body temperature 98.1 [degF] 98.1 [degF] eCW1 ( [facility]) Respiratory rate 17 /min 17 /min eCW1 ([facility]) Heart rate 119 /min 119 /min eCW1 ([facility]) Body mass index (BMI) [Ratio] 38.01 kg/m2 38.01 kg/m2 eCW1 ([facility]) Body height 68 [in_i] 68 [in_i] eCW1 ([facility]) Body weight 250 [lb_av] 250 [lb_av] eCW1 ([facility]) Body weight 109.318 kg 109.318 kg MEDENT ([facility], ) Body mass index (BMI) [Ratio] 36.6 kg/m2 36.6 k g/m2 [facility] ) Body weight 241.00 [lb_av] 241.00 [lb_av] MEDEN T ([facility], ) Body height 68 [in_i] 68 [in_i] MEDENT ([facility], ) 5'8" Heart rate 79 /min 79 /min [facility] Diastolic blood pressure 82 mm[Hg] 82 mm[Hg] [facility], ) Systolic blood pressure 116 mm[Hg] 116 mm[Hg] M EDENT ([facility], ) Diastolic blood pressure 70 mm[Hg] 70 mm[Hg] eCW1 ([facility]) Systolic blood pressure 120 mm[Hg] 120 mm[Hg] e CW1 ([facility]) Body temperature 96.7 [degF] 96.7 [degF] eCW1 ( [facility]) Respiratory rate 18 /min 18 /min eCW1 ([facility]) Heart rate 84 /min 84 /min eCW1 ([facility]) Body mass index (BMI) [Ratio] 36.94 kg/m2 36.94 kg/m2 W1 ([facility]) Body height 68 [in_us] 68 [in_us] eCW1 ([facility]) Body weight Measured 243 [lb_av] 243 [lb_av] eC W1 ([facility]) Diastolic blood pressure 70 mm[Hg] 70 mm[Hg] eCW1 ([facility]) Systolic blood pressure 120 mm[Hg] 120 mm[Hg] e CW1 ([facility]) Body temperature 97 [degF] 97 [degF] eCW1 ([facility]) Respiratory rate 20 /min 20 /min eCW1 ([facility]) Heart rate 80 /min 80 /min eCW1 ([facility]) Body mass index (BMI) [Ratio] 36.64 kg/m2 36.64 kg/m2 eCW1 ([facility]) Body height 68 [in_us] 68 [in_us] eCW1 ([facility]) Body weight Measured 241 [lb_av] 241 [lb_av] eC W1 ([facility]) Diastolic blood pressure 76 mm[Hg] 76 mm[Hg] eCW1 ([facility]) Systolic blood pressure 118 mm[Hg] 118 mm[Hg] e CW1 ([facility]) Body temperature 98.6 [degF] 98.6 [degF] eCW1 ( [facility]) Respiratory rate 18 /min 18 /min eCW1 ([facility]) Heart rate 120 /min 120 /min eCW1 ([facility]) Body mass index (BMI) [Ratio] 36.31 kg/m2 36.31 kg/m2 eCW1 ([facility]) Body height 68 [in_us] 68 [in_us] eCW1 ([facility]) Body weight Measured 238.8 [lb_av] 238.8 [lb_av ] eCW1 ([facility]) Patient Treatment Plan of Care Planned Activity Planned Date Details Description Data Source (s) Tretinoin 0.25 MG/ML Topical Cream 10/09/2019 12:00:00 AM EST eCW1 ([facility])
[2020-11-10] MEDS ORDERED: CEPH500C PO (11:55)
== END 2020-11-10 12:31 | disposition home or self-care (01) ==
LOC: M ED 10:32
DX: J02.0 Streptococcal pharyngitis (principal); F20.9 Schizophrenia, unspecified; Z79.899 Other long term (current) drug therapy; Z91.14 Patient's other noncompliance with medication regimen

== ENCOUNTER 2020-11-14 12:53 | Inpatient (IN) | payer MEDICARE, MEDICAID ==
[~2020-11-14] VITALS: Ht 172.7 cm; Wt 109.8 kg
[~2020-11-14 12:53] MED LIST changes: +CEPH500C PO
--- OUTSIDE RECORDS SUMMARY | 2020-11-14 12:59 | CCD ---
Author Author [facility] Organization [facility] Address Unknown Phone Unavailable Support Name Relationship Address Phone YVONNE BARRY Next Of Kin [address] [place], [place] [address] UE Next Of Kin Unknown Unavailable UN Next Of Kin Unknown Unavailable SHON BARRY Next Of Kin [address] [place] [address] [place] [address] [phone] Re-disclosure Warning The records that you are [...] protected by Article 27-F of the [facility] Public Health law. If you continue you may have access to information: Regarding HIV / AIDS; Provided by facilities licensed or operated by the [facility] Office of Mental Health; or Provided by the [facility] Office for People With Developmental Disabilities. If such information is present, then the following [facility] mandated warning applies: This information has [...] law may result in a fine or fci sentence or both. A general authorization for the release of medical or other information is NOT sufficient authorization for further disc losure. Encounters Encounter Providers Location Date Indications Data Source(s ) Outpatient [address] [facility] [id number] 10/11/2020 12:00:00 AM EST eCW1 ([facility]) Unknown [address] [facility] [id number] 09/14/2020 12:00:00 AM EST eCW1 ([facility]) [facility] Dermatology Center [address] [place] [phone] 01/28/2020 12:00:00 AM EDT eCW1 ([facility]) [facility] [address] [place] [phone] 01/13/2020 12:00:00 AM EDT eCW1 ([facility]) [facility] G[facility] Resident [address] [place] [phone] 01/01/2020 12:00:00 AM EST eCW1 ([facility]) [facility] [address] [phone] 12/21/2019 12:00:00 AM EST eCW1 ([facility]) [facility] Resident [address] [place] [phone] 12/17/2019 12:00:00 AM EST eCW1 ([facility]) [facility] [address] [place] [phone] 12/08/2019 12:00:00 AM EST eCW1 ([facility]) [facility] [address] [place] [phone] 11/25/2019 12:00:00 AM EST eCW1 ([facility]) [facility] [address] [place] [phone] 11/11/2019 12:00:00 AM EST eCW1 ([facility]) [facility] G[facility] Resident [address] [place] [phone] 11/10/2019 12:00:00 AM EST eCW1 ([facility]) [facility] [address] [place] [phone] 10/12/2019 12:00:00 AM EST eCW1 ([facility]) [facility] G[facility] Resident [address] [place] [phone] 10/09/2019 12:00:00 AM EST eCW1 ([facility]) [facility] [address] [place] [address] 10/06/2019 12:00:00 AM EST eCW1 ([facility]) Immunizations Vaccine Date Status Description Data Source(s) HPV9 01/01/2020 04:17:00 PM EST completed e CW1 ([facility]) HPV9 01/01/2020 04:17:00 PM EST completed e CW1 ([facility]) HPV9 01/01/2020 04:17:00 PM EST completed e CW1 ([facility]) Medications Medication Brand Name Start Date Product Form Dose Route Admi nistrative Instructions Pharmacy Instructions Status Indications Reaction Description Data Source(s) Tretinoin 0.25 MG/ML Topical Cream Tretinoin 0.025 % Tretino in 0.025 % 10/09/2019 12:00:00 AM EST suspended 1 application in the evening to face eCW1 ([facility]) Tretinoin 0.25 MG/ML Topical Cream Tretinoin 0.025 % Tretino in 0.025 % 10/09/2019 12:00:00 AM EST suspended Tretinoin 0.025 % eCW1 ([facility]) Tretinoin 0.25 MG/ML Topical Cream Tretinoin 0.025 % Tretino in 0.025 % 10/09/2019 12:00:00 AM EST suspended Tretinoin 0.025 % eCW1 ([facility]) Tretinoin 0.25 MG/ML Topical Cream Tretinoin 0.025 % Tretino in 0.025 % 10/09/2019 12:00:00 AM EST active 1 application in the evening to face eCW1 ([facility]) Tretinoin 0.025 % UNK 10/09/2019 12:00:00 AM EST active 1 application in the evening to face eCW1 ([facility]) Insurance Providers Payer name Policy type / Coverage type Policy ID Covered libertarian ID Covered libertarian's relationship to sabillon Policy Sabillon Plan Information EMEDNY [id number] SP [id number] MEDICARE [id number] SP [id number] [id number] MEDICARE [id number] SP [id number] Y44 MEDICAID [id number] SP [id number] SELF PAY ONLY [id number] SP [id number] SELF PAY ONLY [id number] SP [id number] 000 NCO EPALS [id number] SP [id number] Surgeries/Procedures Procedure Description Date Indications Data Source(s) Office Visit, Est Pt., Level 2 FC 01/01/2020 12:00:00 AM EST eCW1 ([facility]) HPV9 0.5mL (Gardasil 9) 01/01/2020 12:00:00 AM EST eCW1 ([facility]) IMMUNIZATION ADMIN 01/01/2020 12:00:00 AM EST eCW1 ([facility]) PSYTX W PT 45 MINUTES 12/21/2019 12:00:00 AM EST eCW1 ([facility]) Office Visit, Est Pt., Level 3 PC 10/09/2019 12:00:00 AM EST eCW1 ([facility]) Social History Code Duration Value Status Description Data Source(s ) Smoking 10/11/2020 12:00:00 AM EST Current Smoker completed Curre nt Smoker eCW1 ([facility]) Smoking 01/01/2020 12:00:00 AM EST Current Smoker completed Curre nt Smoker eCW1 ([facility]) Vital Signs ID Date Data Source UNK Name Value Range Interpretation Code Description Data Source(s) Diastolic blood pressure 82 mm[Hg] 82 mm[Hg] eCW1 ([facility]) Systolic blood pressure 118 mm[Hg] 118 mm[Hg] e CW1 ([facility]) Body temperature 98.1 [degF] 98.1 [degF] eCW1 ( [facility]) Respiratory rate 17 /min 17 /min eCW1 ([facility]) Heart rate 119 /min 119 /min eCW1 ([facility]) Body mass index (BMI) [Ratio] 38.01 kg/m2 38.01 kg/m2 eCW1 ([facility]) Body height 68 [in_i] 68 [in_i] eCW1 ([facility]) Body weight 250 [lb_av] 250 [lb_av] eCW1 ([facility]) Body weight 109.318 kg 109.318 kg MEDENT ([facility], ) Body mass index (BMI) [Ratio] 36.6 kg/m2 36.6 k g/m2 MEDENT ([facility], ) Body weight 241.00 [lb_av] 241.00 [lb_av] MEDEN T ([facility], ) Body height 68 [in_i] 68 [in_i] MEDENT ([facility], ) 5'8" Heart rate 79 /min 79 /min MEDENT ([facility]) Diastolic blood pressure 82 mm[Hg] 82 mm[Hg] MEDENT ([facility]) Systolic blood pressure 116 mm[Hg] 116 mm[Hg] M EDENT ([facility], ) Diastolic blood pressure 70 mm[Hg] 70 mm[Hg] eCW1 ([facility]) Systolic blood pressure 120 mm[Hg] 120 mm[Hg] e CW1 ([facility]) Body temperature 96.7 [degF] 96.7 [degF] eCW1 ( [facility]) Respiratory rate 18 /min 18 /min eCW1 ([facility]) Heart rate 84 /min 84 /min eCW1 ([facility]) Body mass index (BMI) [Ratio] 36.94 kg/m2 36.94 kg/m2 W1 ([facility]) Body height 68 [in_us] 68 [in_us] eCW1 ([facility]) Body weight Measured 243 [lb_av] 243 [lb_av] eC W1 ([facility]) Diastolic blood pressure 70 mm[Hg] 70 mm[Hg] eCW1 ([facility]) Systolic blood pressure 120 mm[Hg] 120 mm[Hg] e CW1 ([facility]) Body temperature 97 [degF] 97 [degF] eCW1 ([facility]) Respiratory rate 20 /min 20 /min eCW1 ([facility]) Heart rate 80 /min 80 /min eCW1 ([facility]) Body mass index (BMI) [Ratio] 36.64 kg/m2 36.64 kg/m2 eCW1 ([facility]) Body height 68 [in_us] 68 [in_us] eCW1 ([facility]) Body weight Measured 241 [lb_av] 241 [lb_av] eC W1 ([facility]) Diastolic blood pressure 76 mm[Hg] 76 mm[Hg] eCW1 ([facility]) Systolic blood pressure 118 mm[Hg] 118 mm[Hg] e CW1 ([facility]) Body temperature 98.6 [degF] 98.6 [degF] eCW1 ( [facility]) Respiratory rate 18 /min 18 /min eCW1 ([facility]) Heart rate 120 /min 120 /min eCW1 ([facility]) Body mass index (BMI) [Ratio] 36.31 kg/m2 36.31 kg/m2 eCW1 ([facility]) Body height 68 [in_us] 68 [in_us] eCW1 ([facility]) Body weight Measured 238.8 [lb_av] 238.8 [lb_av ] eCW1 ([facility]) Patient Treatment Plan of Care Planned Activity Planned Date Details Description Data Source (s) Tretinoin 0.25 MG/ML Topical Cream 10/09/2019 12:00:00 AM EST eCW1 ([facility])
[2020-11-14] MEDS ORDERED: HALOPERIDOL 5MG/ML VIAL (J1630 PER 1) IM ONE (14:15)
[2020-11-14] MEDS ORDERED: LORazepam 2 MG/ML VIAL IM ONE (14:15)
[2020-11-14] MEDS ORDERED: LORazepam 2 MG/ML VIAL As Ordered ONE (14:20)
[2020-11-14 14:33] LABS: HEMATOCRIT 42.3 % (36.0-47.0); HEMOGLOBIN 12.8 g/dl (12.0-15.5); MEAN CORPUSCULAR HEMOGLOBIN 26.6 pg (27.0-33.0); MEAN CORPUSCULAR HGB CONC 30.3 g/dl (32.0-36.5); MEAN CORPUSCULAR VOLUME 87.8 fl (80.0-96.0); PLATELET COUNT, AUTOMATED 305 10^3/uL (150-450); RED BLOOD COUNT 4.82 10^6/uL (4.00-5.40); WHITE BLOOD COUNT 9.3 10^3/uL (4.0-10.0)
[2020-11-14 15:04] LABS: HCG, SERUM QUALITATIVE NEGATIVE (NEGATIVE)
[2020-11-14 15:11] LABS: ALT/SGPT 17 U/L (12-78); BILIRUBIN,DIRECT 0.2 MG/DL (0.0-0.2); BILIRUBIN,TOTAL 0.6 MG/DL (0.2-1.0); BLOOD UREA NITROGEN 10 MG/DL (7-18); CALCIUM LEVEL 9.8 MG/DL (8.5-10.1); CARBON DIOXIDE LEVEL 19 MEQ/L (21-32); CHLORIDE LEVEL 106 MEQ/L (98-107); CREATININE FOR GFR 1.48 MG/DL (0.55-1.30); ETHYL ALCOHOL (ETHANOL) < 0.003 % (0.000-0.010); GLUCOSE, FASTING 107 MG/DL (70-100); POTASSIUM SERUM 3.3 MEQ/L (3.5-5.1); SALICYLATE LEVEL < 1.7 MG/DL (5.0-30.0); SODIUM LEVEL 139 MEQ/L (136-145); TOTAL PROTEIN 8.5 GM/DL (6.4-8.2)
[2020-11-14 15:12] LABS: ACETAMINOPHEN LEVEL < 2.0 UG/ML (10.0-30.0)
[2020-11-14 15:25] LABS: AMPHETAMINES LEVEL URINE NEGATIVE (NEGATIVE); BARBITURATES URINE NEGATIVE (NEGATIVE); BENZODIAZEPINES URINE NEGATIVE (NEGATIVE); CANNABINOIDS URINE NEGATIVE (NEGATIVE); COCAINE METABOLITE URINE NEGATIVE (NEGATIVE); METHADONE URINE NEGATIVE (NEGATIVE); OPIATES URINE NEGATIVE (NEGATIVE); PHENCYCLIDINE URINE NEGATIVE (NEGATIVE)
--- OUTSIDE RECORDS SUMMARY | 2020-11-14 15:28 | CCD ---
Author Author [facility] Organization [facility] Address Unknown Phone Unavailable Support Name Relationship Address Phone YVONNE BARRY Next Of Kin [address] [place], [place] [address] UE Next Of Kin Unknown Unavailable UN Next Of Kin Unknown Unavailable SHON BARRY Next Of Kin [address] [place] [address] [place] [address] [phone] Re-disclosure Warning The records that you are [...] is protected by Article 27-F of the [facility] Public Health law. If you continue you may have access to information: Regarding HIV / AIDS; Provided by facilities licensed or operated by the [facility] Office of Mental Health; or Provided by the [facility] Office for People With Developmental Disabilities. If such information is present, then the following [facility] mandated warning applies: This information has [...] law may result in a fine or fdc sentence or both. A general authorization for the release of medical or other information is NOT sufficient authorization for further disc losure. Encounters Encounter Providers Location Date Indications Data Source(s ) Outpatient [address] [facility] [id number] 10/11/2020 12:00:00 AM EST eCW1 ([facility]) Unknown [address] [facility] [id number] 09/14/2020 12:00:00 AM EST eCW1 ([facility]) [facility] Dermatology Center [address] [place] [phone] 01/28/2020 12:00:00 AM EDT eCW1 ([facility]) [facility] [address] [place] [phone] 01/13/2020 12:00:00 AM EDT eCW1 ([facility]) [facility] GME Resident [address] [place] [phone] 01/01/2020 12:00:00 AM EST eCW1 ([facility]) [facility] [address] [phone] 12/21/2019 12:00:00 AM EST eCW1 ([facility]) [facility] Resident [address] [place] [phone] 12/17/2019 12:00:00 AM EST eCW1 ([facility]) [facility] [address] [place] [phone] 12/08/2019 12:00:00 AM EST eCW1 ([facility]) [facility] [address] [place] [phone] 11/25/2019 12:00:00 AM EST eCW1 ([facility]) [facility] [address] [place] [phone] 11/11/2019 12:00:00 AM EST eCW1 ([facility]) [facility] G[facility] Resident [address] [place] [phone] 11/10/2019 12:00:00 AM EST eCW1 ([facility]) [facility] [place] [address] [place] [phone] 10/12/2019 12:00:00 AM EST eCW1 ([facility]) [facility] G[facility] Resident [address] [place] [phone] 10/09/2019 12:00:00 AM EST eCW1 ([facility]) [facility] [address] [place] [address] 10/06/2019 12:00:00 AM EST eCW1 ([facility]) Immunizations Vaccine Date Status Description Data Source(s) HPV9 01/01/2020 04:17:00 PM EST completed e CW1 ([facility]) HPV9 01/01/2020 04:17:00 PM EST completed e CW1 ([facility]) HPV9 01/01/2020 04:17:00 PM EST completed e CW1 ([facility]) Medications Medication Brand Name Start Date Product Form Dose Route Admi nistrative Instructions Pharmacy Instructions Status Indications Reaction Description Data Source(s) Tretinoin 0.25 MG/ML Topical Cream Tretinoin 0.025 % Tretino in 0.025 % 10/09/2019 12:00:00 AM EST suspended 1 application in the evening to face eCW1 ([facility]) Tretinoin 0.25 MG/ML Topical Cream Tretinoin 0.025 % Tretino in 0.025 % 10/09/2019 12:00:00 AM EST suspended Tretinoin 0.025 % eCW1 ([facility]) Tretinoin 0.25 MG/ML Topical Cream Tretinoin 0.025 % Tretino in 0.025 % 10/09/2019 12:00:00 AM EST suspended Tretinoin 0.025 % eCW1 ([facility]) Tretinoin 0.25 MG/ML Topical Cream Tretinoin 0.025 % Tretino in 0.025 % 10/09/2019 12:00:00 AM EST active 1 application in the evening to face eCW1 ([facility]) Tretinoin 0.025 % UNK 10/09/2019 12:00:00 AM EST active 1 application in the evening to face eCW1 ([facility]) Insurance Providers Payer name Policy type / Coverage type Policy ID Covered constitution party ID Covered constitution party's relationship to sabillon Policy Sabillon Plan Information EMEDNY [id number] SP [id number] MEDICARE [id number] SP [id number] [id number] MEDICARE [id number] SP [id number] Y44 MEDICAID [id number] SP [id number] SELF PAY ONLY [id number] SP [id number] SELF PAY ONLY [id number] SP [id number] NCO EPALS [id number] SP [id number] Surgeries/Procedures Procedure Description Date Indications Data Source(s) Office Visit, Est Pt., Level 2 FC 01/01/2020 12:00:00 AM EST eCW1 ([facility]) HPV9 0.5mL (Gardasil 9) 01/01/2020 12:00:00 AM EST eCW1 ([facility]) IMMUNIZATION ADMIN 01/01/2020 12:00:00 AM EST eCW1 ([facility]) PSYTX W PT 45 MINUTES 12/21/2019 12:00:00 AM EST eCW1 ([facility]) Office Visit, Est Pt., Level 3 PC 10/09/2019 12:00:00 AM EST eCW1 ([facility]) Social History Code Duration Value Status Description Data Source(s ) Smoking 10/11/2020 12:00:00 AM EST Current Smoker completed Curre nt Smoker eCW1 ([facility]) Smoking 01/01/2020 12:00:00 AM EST Current Smoker completed Curre nt Smoker eCW1 ([facility]) Vital Signs ID Date Data Source UNK Name Value Range Interpretation Code Description Data Source(s) Diastolic blood pressure 82 mm[Hg] 82 mm[Hg] eCW1 ([facility]) Systolic blood pressure 118 mm[Hg] 118 mm[Hg] e CW1 ([facility]) Body temperature 98.1 [degF] 98.1 [degF] eCW1 ( [facility]) Respiratory rate 17 /min 17 /min eCW1 ([facility]) Heart rate 119 /min 119 /min eCW1 ([facility]) Body mass index (BMI) [Ratio] 38.01 kg/m2 38.01 kg/m2 eCW1 ([facility]) Body height 68 [in_i] 68 [in_i] eCW1 ([facility]) Body weight 250 [lb_av] 250 [lb_av] eCW1 ([facility]) Body weight 109.318 kg 109.318 kg MEDENT ([facility], ) Body mass index (BMI) [Ratio] 36.6 kg/m2 36.6 k g/m2 MEDENT ([facility], ) Body weight 241.00 [lb_av] 241.00 [lb_av] MEDEN T ([facility], ) Body height 68 [in_i] 68 [in_i] MEDENT ([facility], ) 5'8" Heart rate 79 /min 79 /min MEDENT ([facility]) Diastolic blood pressure 82 mm[Hg] 82 mm[Hg] MEDENT ([facility]) Systolic blood pressure 116 mm[Hg] 116 mm[Hg] M EDENT ([facility], ) Diastolic blood pressure 70 mm[Hg] 70 mm[Hg] eCW1 ([facility]) Systolic blood pressure 120 mm[Hg] 120 mm[Hg] e CW1 ([facility]) Body temperature 96.7 [degF] 96.7 [degF] eCW1 ( [facility]) Respiratory rate 18 /min 18 /min eCW1 ([facility]) Heart rate 84 /min 84 /min eCW1 ([facility]) Body mass index (BMI) [Ratio] 36.94 kg/m2 36.94 kg/m2 W1 ([facility]) Body height 68 [in_us] 68 [in_us] eCW1 ([facility]) Body weight Measured 243 [lb_av] 243 [lb_av] eC W1 ([facility]) Diastolic blood pressure 70 mm[Hg] 70 mm[Hg] eCW1 ([facility]) Systolic blood pressure 120 mm[Hg] 120 mm[Hg] e CW1 ([facility]) Body temperature 97 [degF] 97 [degF] eCW1 ([facility]) Respiratory rate 20 /min 20 /min eCW1 ([facility]) Heart rate 80 /min 80 /min eCW1 ([facility]) Body mass index (BMI) [Ratio] 36.64 kg/m2 36.64 kg/m2 eCW1 ([facility]) Body height 68 [in_us] 68 [in_us] eCW1 ([facility]) Body weight Measured 241 [lb_av] 241 [lb_av] eC W1 ([facility]) Diastolic blood pressure 76 mm[Hg] 76 mm[Hg] eCW1 ([facility]) Systolic blood pressure 118 mm[Hg] 118 mm[Hg] e CW1 ([facility]) Body temperature 98.6 [degF] 98.6 [degF] eCW1 ( [facility]) Respiratory rate 18 /min 18 /min eCW1 ([facility]) Heart rate 120 /min 120 /min eCW1 ([facility]) Body mass index (BMI) [Ratio] 36.31 kg/m2 36.31 kg/m2 eCW1 ([facility]) Body height 68 [in_us] 68 [in_us] eCW1 ([facility]) Body weight Measured 238.8 [lb_av] 238.8 [lb_av ] eCW1 ([facility]) Patient Treatment Plan of Care Planned Activity Planned Date Details Description Data Source (s) Tretinoin 0.25 MG/ML Topical Cream 10/09/2019 12:00:00 AM EST eCW1 ([facility])
[2020-11-14] MEDS ORDERED: POTASSIUM CHLORIDE 10 MEQ SR TABLET PO ONE (15:30)
[2020-11-14] MEDS ORDERED: ACETAMINOPHEN TAB 650MG DOSE (2X325MG) PO ONE (15:30)
[2020-11-14 22:15] LABS: RSV AMPLIFICATION NEGATIVE (NEGATIVE)
--- NOTE | 2020-11-15 08:12 | ECGEPIP ---
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
[2020-11-15] MEDS ORDERED: ACETAMINOPHEN TAB 650MG DOSE (2X325MG) PO PRN (17:45)
[2020-11-15] MEDS ORDERED: diphenhydrAMINE 25MG CAP PO PRN (17:45)
[2020-11-15] MEDS ORDERED: MOM 30ML SUSPENSION UDC PO PRN (17:45)
[2020-11-15] MEDS ORDERED: LORazepam 1 MG TAB PO PRN (17:45)
[2020-11-15] MEDS ORDERED: MAALOX 30 ML SUSP *UDC PO PRN (17:45)
--- OUTSIDE RECORDS SUMMARY | 2020-11-15 18:05 | CCD ---
Author Author [facility] Organization [facility] Address Unknown Phone Unavailable Support Name Relationship Address Phone YVONNE BARRY Next Of Kin [address] [place], [place] [address] UE Next Of Kin Unknown Unavailable UN Next Of Kin Unknown Unavailable SHON BARRY Next Of Kin [address] [place] [address] [place] [address] [phone] Re-disclosure Warning The records that you are [...] is protected by Article 27-F of the [facility] Public Health law. If you continue you may have access to information: Regarding HIV / AIDS; Provided by facilities licensed or operated by the [facility] Office of Mental Health; or Provided by the [facility] Office for People With Developmental Disabilities. If such information is present, then the following [facility] mandated warning applies: This information has [...] law may result in a fine or group home sentence or both. A general authorization for the release of medical or other information is NOT sufficient authorization for further disc losure. Encounters Encounter Providers Location Date Indications Data Source(s ) Outpatient [address] [facility] [id number] 10/11/2020 12:00:00 AM EST eCW1 ([facility]) Unknown [address] [facility] [id number] 09/14/2020 12:00:00 AM EST eCW1 ([facility]) [facility] Dermatology Center [address] [place] [phone] 01/28/2020 12:00:00 AM EDT eCW1 ([facility]) [facility] [address] [place] [phone] 01/13/2020 12:00:00 AM EDT eCW1 ([facility]) [facility] GME Resident [address] [place] [phone] 01/01/2020 12:00:00 AM EST eCW1 ([facility]) [facility] [address] [phone] 12/21/2019 12:00:00 AM EST eCW1 ([facility]) [facility] G[facility] Resident [address] [place] [phone] 12/17/2019 12:00:00 AM EST eCW1 ([facility]) [facility] [address] [place] [phone] 12/08/2019 12:00:00 AM EST eCW1 ([facility]) [facility] [address] [place] [phone] 11/25/2019 12:00:00 AM EST eCW1 ([facility]) [facility] [address] [place] [phone] 11/11/2019 12:00:00 AM EST eCW1 ([facility]) [facility] GME Resident [address] [place] [phone] 11/10/2019 12:00:00 AM EST eCW1 ([facility]) [facility] [place] [address] [place] [phone] 10/12/2019 12:00:00 AM EST eCW1 ([facility]) [facility] GME Resident [address] [place] [phone] 10/09/2019 12:00:00 AM EST eCW1 ([facility]) [facility] [address] [place] [address] 10/06/2019 12:00:00 AM EST eCW1 ([facility]) Immunizations Vaccine Date Status Description Data Source(s) HPV9 01/01/2020 04:17:00 PM EST completed e CW1 ([facility]) HPV9 01/01/2020 04:17:00 PM EST completed e CW1 ([facility]) HPV9 01/01/2020 04:17:00 PM EST completed e CW1 ([facility]) Medications Medication Brand Name Start Date Product Form Dose Route Admi nistrative Instructions Pharmacy Instructions Status Indications Reaction Description Data Source(s) Tretinoin 0.25 MG/ML Topical Cream Tretinoin 0.025 % Tretino in 0.025 % 10/09/2019 12:00:00 AM EST suspended 1 application in the evening to face eCW1 ([facility]) Tretinoin 0.25 MG/ML Topical Cream Tretinoin 0.025 % Tretino in 0.025 % 10/09/2019 12:00:00 AM EST suspended Tretinoin 0.025 % eCW1 ([facility]) Tretinoin 0.25 MG/ML Topical Cream Tretinoin 0.025 % Tretino in 0.025 % 10/09/2019 12:00:00 AM EST suspended Tretinoin 0.025 % eCW1 ([facility]) Tretinoin 0.25 MG/ML Topical Cream Tretinoin 0.025 % Tretino in 0.025 % 10/09/2019 12:00:00 AM EST active 1 application in the evening to face eCW1 ([facility]) Tretinoin 0.025 % UNK 10/09/2019 12:00:00 AM EST active 1 application in the evening to face eCW1 ([facility]) Insurance Providers Payer name Policy type / Coverage type Policy ID Covered democrat ID Covered democrat's relationship to sabillon Policy Sab[place] Plan Information EMEDNY [id number] SP [id number] MEDICARE [id number] SP [id number] MEDICARE [id number] SP [id number] [id number] MEDICAID [id number] SP [id number] SELF PAY ONLY [id number] SP [id number] SELF PAY ONLY [id number] SP [id number] NCO EPALS [id number] SP [id number] Surgeries/Procedures Procedure Description Date Indications Data Source(s) Office Visit, Est Pt., Level 2 FC 01/01/2020 12:00:00 AM EST eCW1 ([facility]) HPV9 0.5mL (Gardasil 9) 01/01/2020 12:00:00 AM EST eCW1 ([facility]) IMMUNIZATION ADMIN 01/01/2020 12:00:00 AM EST eCW1 ([facility]) PSYTX W PT 45 MINUTES 12/21/2019 12:00:00 AM EST eCW1 ([facility]) Office Visit, Est Pt., Level 3 PC 10/09/2019 12:00:00 AM EST eCW1 ([facility]) Social History Code Duration Value Status Description Data Source(s ) Smoking 10/11/2020 12:00:00 AM EST Current Smoker completed Curre nt Smoker eCW1 ([facility]) Smoking 01/01/2020 12:00:00 AM EST Current Smoker completed Curre nt Smoker eCW1 ([facility]) Vital Signs ID Date Data Source UNK Name Value Range Interpretation Code Description Data Source(s) Diastolic blood pressure 82 mm[Hg] 82 mm[Hg] eCW1 ([facility]) Systolic blood pressure 118 mm[Hg] 118 mm[Hg] e CW1 ([facility]) Body temperature 98.1 [degF] 98.1 [degF] eCW1 ( [facility]) Respiratory rate 17 /min 17 /min eCW1 ([facility]) Heart rate 119 /min 119 /min eCW1 ([facility]) Body mass index (BMI) [Ratio] 38.01 kg/m2 38.01 kg/m2 eCW1 ([facility]) Body height 68 [in_i] 68 [in_i] eCW1 ([facility]) Body weight 250 [lb_av] 250 [lb_av] eCW1 ([facility]) Body weight 109.318 kg 109.318 kg MEDENT ([facility], ) Body mass index (BMI) [Ratio] 36.6 kg/m2 36.6 k g/m2 MEDENT ([facility], ) Body weight 241.00 [lb_av] 241.00 [lb_av] MEDEN T ([facility], ) Body height 68 [in_i] 68 [in_i] MEDENT ([facility], ) 5'8" Heart rate 79 /min 79 /min MEDENT ([facility]) Diastolic blood pressure 82 mm[Hg] 82 mm[Hg] MEDENT ([facility]) Systolic blood pressure 116 mm[Hg] 116 mm[Hg] M EDENT ([facility], ) Diastolic blood pressure 70 mm[Hg] 70 mm[Hg] eCW1 ([facility]) Systolic blood pressure 120 mm[Hg] 120 mm[Hg] e CW1 ([facility]) Body temperature 96.7 [degF] 96.7 [degF] eCW1 ( [facility]) Respiratory rate 18 /min 18 /min eCW1 ([facility]) Heart rate 84 /min 84 /min eCW1 ([facility]) Body mass index (BMI) [Ratio] 36.94 kg/m2 36.94 kg/m2 W1 ([facility]) Body height 68 [in_us] 68 [in_us] eCW1 ([facility]) Body weight Measured 243 [lb_av] 243 [lb_av] eC W1 ([facility]) Diastolic blood pressure 70 mm[Hg] 70 mm[Hg] eCW1 ([facility]) Systolic blood pressure 120 mm[Hg] 120 mm[Hg] e CW1 ([facility]) Body temperature 97 [degF] 97 [degF] eCW1 ([facility]) Respiratory rate 20 /min 20 /min eCW1 ([facility]) Heart rate 80 /min 80 /min eCW1 ([facility]) Body mass index (BMI) [Ratio] 36.64 kg/m2 36.64 kg/m2 eCW1 ([facility]) Body height 68 [in_us] 68 [in_us] eCW1 ([facility]) Body weight Measured 241 [lb_av] 241 [lb_av] eC W1 ([facility]) Diastolic blood pressure 76 mm[Hg] 76 mm[Hg] eCW1 ([facility]) Systolic blood pressure 118 mm[Hg] 118 mm[Hg] e CW1 ([facility]) Body temperature 98.6 [degF] 98.6 [degF] eCW1 ( [facility]) Respiratory rate 18 /min 18 /min eCW1 ([facility]) Heart rate 120 /min 120 /min eCW1 ([facility]) Body mass index (BMI) [Ratio] 36.31 kg/m2 36.31 kg/m2 eCW1 ([facility]) Body height 68 [in_us] 68 [in_us] eCW1 ([facility]) Body weight Measured 238.8 [lb_av] 238.8 [lb_av ] eCW1 ([facility]) Patient Treatment Plan of Care Planned Activity Planned Date Details Description Data Source (s) Tretinoin 0.25 MG/ML Topical Cream 10/09/2019 12:00:00 AM EST eCW1 ([facility])
[2020-11-15] MEDS: haloperidoL 5 MG TAB PO SCH (21:00)
[2020-11-16] MEDS: haloperidoL 5 MG TAB PO SCH ×3 (08:39→21:00)
[2020-11-16] MEDS ORDERED: diphenhydrAMINE 50MG CAP PO STA (14:05)
[2020-11-16] MEDS ORDERED: LORazepam 2 MG TAB PO STA (14:05)
--- NOTE | 2020-11-16 15:42 | MHHPEPDOC ---
General Date Of Admission: Nov 15, 2020 Legal Status: 9.39 Chief Complaint Patient refused to be interviewed today for the psychiatric evaluation, but has been seen in the ED on 11/10. 11/11 and 11/14 for multiple somatic complaints and initially denied need for admission. History of Present Illness HISTORY OF THE PRESENT ILLNESS: Patient is a 25 -year-old Single, Disabled, Domiciled, Female, who initially presented to the ED with multiple somatic complaints and requesting to speak to someone. She was multiple times this week 11/10/20, 11/11/20, and 11/14/20. She was complaining about a sore throat on 11/10/20 and had endorse increase perceptual disturbances. She declined a formal mental health evaluation at the time and requested an outpatient referral on that visit. On this occasion, she was complaining of increased auditory and visual hallucinations but minimized her hallucinations and was avoiding being admitted/ During the ER visit she was disorganized and scattered in her thinking and it was clear that she was having difficulty her thought processes. Collateral information was obtained from her father, Eulogio who reports that she has not been taking her medications for the past 6 months. She is progressively worse for the past 6 months. She is religiously preoccupied, talking about Neil, writing to Neil and having his babies. She has episodes of crying profusely for long periods of time. She has been verbally and physically aggressive and he states that this is a presentation that he has seen in the past. She will deny her name is Jennifer as well as deny the /. Patient refused to meet with this provider, but staff reports continued delusional and bizarre behaviors. This psychiatric evaluation will be obtained from ED summation and prior admission records. Psychiatric Review of Systems Depression (2 or more weeks): denies Vianey (4 or more days of): denies Psychosis: auditory hallucination, visual hallucination, paranoia, disor ganization PTSD: denies Anxiety: denies Past Psychiatric History Previous Psychiatric Diagnosis: Schizophrenia Previous Psychiatric Admissions: Multiple Psychiatric admissions due to poor medication compliance per old chart Suicide Attempts: Unknown Psychiatric Follow-up: Unknown Psychiatric medications: Has had Haldol in the past. Past Medical History Medical Problems Unremarkable Head Injury: No Seizures: No Hospitalizations: Yes Surgeries: No Family Medical/Psychiatric HX Medical Problems Unknown Addiction History other (Unable to obtaine information) Social History Childhood: Patient grew up in [place] and lived with her Grandmother, patient moved to [place] approximately in 2019, her mother was stationed at [place] at the time. Collateral was received from her father Abuse/Trauma:. Current Living Situation: Possibly living with her father Education: Employment: . Social Support: . Legal: . Marital: . Mental Status Examination General Appearance: disheveled, hospital scubs/clothing Build: overweight Demeanor: hostile, mistrustful, guarded Eye Contact: intense Activity: agitated, hostile Behavior: agitated Mood: irritable Affect: flat, labile, hostile, disorganized Thought Content (Delusions): bizarre, paranoia, delusions Thought Content (Other): guarded, appears paranoid Thought Content (Aggressive): none reported Perception (Hallucinations): auditory, visual Perception (Other): none reported Cognition (Impairment of): none reported Cognition(Intelligence Est.): average Oriented: Awake, Alert Insight: poor Judgment: Poor Psychosis: Psychotic Perceptions (yazidism preoccupation, delusional statements) Diagnoses Unspecified Psychotic Disorder Schizoaffective Disorder per history A-FIB/CHADSVASC A-FIB History Current/History of A-Fib/PAF?: No Assessment Patient has refused to meet with this provider. It is difficult to make determinations about this patient but she is observed as aggressive, having delusional thinking, verbally aggressive and remains dismissive. We will start her on Haldol 5 mg TID and encouraged Haldol Decanoate which she has had in the past. She has had multiple psychiatric admissions in [place] and this facility, previous reports are that she is admitted for very psychotic symptoms, she refuses to take medications initially but eventually agrees to take them and is ultimately discharged to home. At this time we will actively reinforce need for anti-psychotic medications and medicate for those symptoms. She remains psy chotic, having yazidism preoccupations that she and Neil are on very close relationship. She reports that she is having daily visits from him. Patient appears very aggressive. Initial Treatment Plan 1. Patient was admitted on a [9.39] status. 2. Complete history was obtained. 3. With patients permission, family will be contacted and database will be expa nded. 4. Patients medication regimen will be reviewed and changed accordingly. 5. Patient will be provided with protected environment. 6. Patient will be treated with individual, group, and milieu therapies. 7. Patient will receive supportive psych-education. 8. Discharge planning will commence immediately. 9. Outpatient follow-up treatment will be strongly recommended. 10. The initial treatment plan will focus initially on: * altered thoughts * poor adherence to medications/treatment ESTIMATED LENGTH OF STAY: 5-7 DAYS. TIME SPENT COUNSELING AND COORDINATING INITIAL CARE: 60 minutes. Vital Signs Vital Signs Date Time Temp Pulse Resp B/P (MAP) Pulse Ox O2 Delivery O2 Flow Rate FiO2 11/15/20 06:21 98.1 71 16 125/58 (80) 100 Room Air Medications No Active Prescriptions or Reported Meds Allergies Coded Allergies: No Known Drug Allergies (Verified Allergy, Unknown, 04/13/20) JESSI SIMMS NP Nov 16, 2020 14:05
[2020-11-16] MEDS ORDERED: haloperidoL 5 MG TAB PO PRN (16:15)
[2020-11-16 16:24] VITALS: BP 134/85
--- NOTE | 2020-11-16 18:32 | HPEPDOC ---
[facility] Medical History & Physical Date of Admission Nov 16, 2020 Date of Service: Nov 16, 2020 Attending Physician: ALKA ECHEVERRIA MD History and Physical CHIEF COMPLAINT: Admitted to [facility]ED[facility] AT THE [facility] for alba psychosis HISTORY OF PRESENT ILLNESS: 25 yo W with a history of obesity and schizophrenia with medication non- compliance who is admitted to the [facility] BEDS AT THE [facility] after presenting to the ED reporting that she is Neil's spouse and reporting non-compliance with haldol because she does not believe that she needs it because she does not believe that she has schizophrenia. She reports no recent fever, chills, diarrhea, chest pain, extremity swelling, shortness of breath or palpitations. She denies recreational drug use, alcohol or nicotine use. ED workup was unremarkable except for slightly elevated Cr. She otherwise today reports some L ankle pain and L dorsal arm pain close to the wrist for which she declines pills and will pray about it. PMHx: per HPI Surgical Hx: None SOCIAL HISTORY: She is single. She was recently discharged from an unknown hospital in [place], 06/08/2019. She has a history of schizophrenia. She has been staying with her grandmother and has moved now to the [facility] in the last three days with her mother who is apparently stationed at [place]. Ethyl alcohol (EtOH): She does not drink alcohol. She does not smoke cigarettes. She does not use recreational drugs. LABORATORY STUDIES: summarized above FAMILY HISTORY: Unknown. HOME MEDICATIONS: Haloperidol PHYSICAL EXAMINATION: General: Obese, pleasant, labile mood, cries at one point after I toucher her arm, otherwise in NAD Head: NCAT Eyes: EOMI, PERRLA, anicteric ENT: MMM Neck: supple Chest: CTAB Cardiac: RRR, no mrg Abd: soft, normoactive sounds, NTND Ext: WWP, no LE edema, full range of motion of ankles Neuro: normal gait, AOx3, clear speech, CN2-12 intact Psych: AOx3 25 yo W with schizophrenia admitted for psychosis i/s/o medication non- compliance. PLAN: Psychiatric plan per psychiatry. No acute medical issues. Medicine will sign off at this time. Vital Signs Vital Signs Date Time Temp Pulse Resp B/P (MAP) Pulse Ox O2 Delivery O2 Flow Rate FiO2 11/16/20 16:24 98.1 58 18 134/85 (101) 100 Room Air Home Medications No Active Prescriptions or Reported Meds Allergies Coded Allergies: No Known Drug Allergies (Verified Allergy, Unknown, 04/13/20) A-FIB/CHADSVASC A-FIB History Current/History of A-Fib/PAF?: No Current PO Anticoag Therapy: No Age/Risk Factor Scoring CHADSVASC: CHADSVASC Response (Comments) Value Age Risk Factor Age < 65 years old 0 Gender Risk Factor Female 1 Hx of CHF No 0 Hx of HTN No 0 Hx of Stroke/TIA/or VTE No 0 Hx of Diabetes No 0 Hx of Vascular Disease No 0 Total 1 Treatment Treatment ordered: NONE Reason Anticoagulant not given: Not indicated/[id number] ALKA ECHEVERRIA MD Nov 16, 2020 18:32
[2020-11-17 07:15] VITALS: BP 139/89
[2020-11-17] MEDS ORDERED: HALOPERIDOL 5MG/ML VIAL (J1630 PER 1) IM STA (07:17)
[2020-11-17] MEDS ORDERED: LORazepam 2 MG/ML VIAL IM STA ×2 (07:17→09:08)
[2020-11-17] MEDS ORDERED: diphenhydrAMINE 50MG/ML VIAL (J1200) IM STA ×2 (07:17→09:08)
[2020-11-17 07:30] VITALS: BP 131/80
[2020-11-17 07:45] VITALS: BP 134/83
[2020-11-17] MEDS: haloperidoL 5 MG TAB PO SCH ×3 (09:00→21:00)
--- NOTE | 2020-11-17 16:39 | MHIPNPDOC ---
[facility] Progress Note Progress Note DATE OF SERVICE: 11/17/20 HISTORY: Patient is a 25-year-old single, disabled domiciles, -Montenegr[place] female who initially presented to the ED with multiple somatic complaints and r equesting to speak to someone. She was seen T this facility on 2 different occasions on 11/10/2020, 11/11/2020 and 11/14/2020. She had multiple somatic complaints such as a sore throat on 11/10/2020. She endorsed increased perceptual disturbances. She declined a formal mental health evaluation at that time and requested an outpatient referral on that visit. On this occasion, she w as complaining of increased auditory and visual hallucinations but minimized her hallucinations and was avoiding being admitted during the ER visit she was disorganized and scattered and it was clear that she was having difficulty and her thought processes collateral information was obtained from her father. Eulogio who reports that she had not been taking her medications for the past 6 months. She is progressively worse for the past 6 months, has not been taking her meds religiously preoccupied, talking about Neil writing to cheeses and reports having his baby's. She has episodes of crying profusely for long periods of time. She had been verbally and physically aggressive and he states that this is a presentation that he is seen in the past. She often will deny that her name is Kathy, as well as deny auditory and visual hallucinations and he states that he has observed her presentation. Patient has a history of schizophrenia according to old reports, and she was admitted to a hospital in [place] on 06/08/2019. She has a history of getting Haldol to 10 aware and a long history of being aggressive with her family. VITAL SIGNS: See below. CURRENT MEDICATIONS: See below. MENTAL STATUS EXAMINATION: Patient is a 25-year old single, disabled domiciles, -[place]enegr[place] female, who is admitted to [facility] on a 939 for psychotic symptoms due to poor adherence to medications., According to her father. Patient has not been taking medications for the past 6 months. In today's interview, patient is dressed appropriately in hospital scrubs. Her hygiene and grooming is fair. . Eye contact is intermittent. She is not observed with any psychomotor agitation or retardation. It should be noted that the patient was medicated prior to this provider coming into the hospital. She was extremely aggressive and agitated with staff, primary, RN called for stat orders for emergency medications Speech: Is speech is normal rate, tone and volume. Language skills are. Intact. Thought processes including: Loose associations, not reality based. Delusional thinking. Thought content: Denies depression and anxiety. Denies suicidality or homicidality. Denies that she has auditory or visual hallucinations. Abstract reasoning, and computation:. Poor. Description of associations: Patient believes that she has a very close relationship with Neil states that he hasn't talked to her in a long time but that she and he have a relationship in which she is waiting for him. Description of abnormal or psychotic thoughts:. Delusional thought religiously preoccupied. Judgment:, Poor. Insight:, Poor. Orientation:. Alert and oriented to person and place. Recent and remote memory:. Unable to obtain. Attention span and concentration: , Poor. Language: Minimal expressions. Fund of knowledge:, Average. Mood:, Labile, aggressive. Affect:, Flat, congruent. DIAGNOSES: 1., Unspecified, psychotic disorder. 2. Per old chart. Schizophrenia disorder. ASSESSMENT:Patient seen today, she was awakened from her morning nap, patient had been previously medicated for aggressive and agitated behaviors. She was threatening staff. On interview today patient was tearful, reporting that she feels badly that she hasn't been able to speak with Neil. . Her presentation is that she predominantly has the psychotic and anabaptism preoccupation with Neil. She reported to me that she did not want to speak to me. Stated that she didn't trust this provider. Patient continues to be observed with auditory hallucinations. Has some behaviors in which she is responding to internal stimuli MANAGEMENT PLAN: . Continue all medications. TIME SPENT: 25 minute minutes. Vital Signs Vital Signs Date Time Temp Pulse Resp B/P (MAP) Pulse Ox O2 Delivery O2 Flow Rate FiO2 11/17/20 07:45 97.4 68 16 134/83 Room Air 11/16/20 16:24 100 Current Medications Current Medications Medications (Trade) Dose Ordered Sig/Ben Route PRN Reason Start Time Stop Time Status Last Admin Dose Admin Acetaminophen (Tylenol Tab) 650 mg Q6HP PRN PO HEADACHE or DISCOMFORT 11/15/20 17:45 Al Hydrox/Mg Hydrox/Simethicone (Mylanta) 30 ml Q4HP PRN PO HEARTBURN/INDIGESTION 11/15/20 17:45 Diphenhydramine HCl (Benadryl) 50 mg QHSP PRN PO SEE LABEL COMMENTS 11/15/20 17:45 Diphenhydramine HCl (Benadryl) 50 mg STAT STAT IM 11/17/20 07:17 11/17/20 07:20 DC 11/17/20 07:29 Diphenhydramine HCl (Benadryl) 50 mg STAT STAT IM 11/17/20 09:08 11/17/20 09:09 DC 11/17/20 09:40 Diphenhydramine HCl (Benadryl) 50 mg STAT STAT PO 11/16/20 14:05 11/16/20 14:07 DC Haloperidol (Haldol) 5 mg Q6HP PRN PO AGITATION 11/16/20 16:15 Haloperidol (Haldol) 5 mg TID PO 11/15/20 21:00 Haloperidol (Haldol) 10 mg STAT STAT IM 11/17/20 07:17 11/17/20 07:20 DC 11/17/20 07:29 Haloperidol (Haldol) 10 mg STAT STAT PO 11/16/20 14:05 11/16/20 14:07 DC Home Med (Med Rec Complete!) ASDIRECTED XX 11/14/20 19:00 11/14/20 18:59 DC Lorazepam (Ativan) 1 mg BIDP PRN PO SEVERE ANXIETY 11/15/20 17:45 Lorazepam (Ativan) 1 mg STAT STAT IM 11/17/20 09:08 11/17/20 09:09 DC 11/17/20 09:41 Lorazepam (Ativan) 2 mg STAT STAT IM 11/17/20 07:17 11/17/20 07:20 DC 11/17/20 07:28 Lorazepam (Ativan) 2 mg STAT STAT PO 11/16/20 14:05 11/16/20 14:07 DC Magnesium Hydroxide (Milk Of Magnesia) 30 ml DAILYPRN PRN PO CONSTIPATION 11/15/20 17:45 Trazodone HCl (Desyrel) 50 mg QHSP PRN PO INSOMNIA 11/15/20 17:45 Allergies Coded Allergies: No Known Drug Allergies (Verified Allergy, Unknown, 04/13/20) JESSI SIMMS NP Nov 17, 2020 16:39
[2020-11-17 17:53] VITALS: BP 137/79
[2020-11-18 06:00] VITALS: BP 103/93
[2020-11-18] MEDS: haloperidoL 5 MG TAB PO SCH ×3 (09:00→21:00)
--- NOTE | 2020-11-18 11:50 | MHIPNPDOC ---
[facility] Progress Note Progress Note DATE OF SERVICE: 11/18/20 HISTORY: Patient is a 25-year-old single, disabled domiciles, -[place]ian female who initially presented to the ED with multiple somatic complaints and r equesting to speak to someone. She was seen T this facility on 2 different occasions on 11/10/2020, 11/11/2020 and 11/14/2020. She had multiple somatic complaints such as a sore throat on 11/10/2020. She endorsed increased perceptual disturbances. She declined a formal mental health evaluation at that time and requested an outpatient referral on that visit. On this occasion, she w as complaining of increased auditory and visual hallucinations but minimized her hallucinations and was avoiding being admitted during the ER visit she was disorganized and scattered and it was clear that she was having difficulty and her thought processes collateral information was obtained from her father. Eulogio who reports that she had not been taking her medications for the past 6 months. She is progressively worse for the past 6 months, has not been taking her meds religiously preoccupied, talking about Neil writing to cheeses and reports having his baby's. She has episodes of crying profusely for long periods of time. She had been verbally and physically aggressive and he states that this is a presentation that he is seen in the past. She often will deny that her name is Kathy, as well as deny auditory and visual hallucinations and he states that he has observed her presentation. Patient has a history of schizophrenia according to old reports, and she was admitted to a hospital in [place] on 06/08/2019. She has a history of getting Haldol to 10 aware and a long history of being aggressive with her family. VITAL SIGNS: See below. CURRENT MEDICATIONS: See below. MENTAL STATUS EXAMINATION: Patient is a 25-year old single, disabled domiciles, -[place] female, who [facility] psychotic symptoms due to poor adherence to medications., According to her father. Patient has not been taking medications for the past 6 months. In today's interview, patient is dressed appropriately in hospital scrubs. Her hygiene and grooming is fair. . Eye contact is intermittent. Speech: Is speech is normal rate, tone and volume. Language skills are. Intact. Thought processes including: not reality based. Delusional thinking. Thought content: Denies depression and anxiety. Denies suicidality or homicidality. Denies that she has auditory or visual hallucinations. Abstract reasoning, and computation:. Poor. Description of associations: Patient believes that she has a very close relationship with Neil states that he hasn't talked to her in a long time but that she and he have a relationship in which she is waiting for him. Description of abnormal or psychotic thoughts:. Delusional thoughts religiously preoccupied. Judgment:, Poor. Insight:, Poor. Orientation:. Alert and oriented to person and place. Recent and remote memory:. Unable to obtain. Attention span and concentration: , Poor. Language: Minimal expressions. Fund of knowledge:, Average. Mood:, Labile, tearful. Affect:, Flat, congruent. DIAGNOSES: 1., Unspecified, psychotic disorder. 2. Per old chart. Schizophrenia disorder. ASSESSMENT: In today's session, patient was agreeable to meeting. She begins with light conversation with no observations to any psychosis, later in the conversation she begins to speak about Curtis, Neil, Nai and her mandaeism of these people. She refuses all medications stating that she has no need for them, that they do not help her and that she has been fine without them. When asked about her Father Eulogio, she stated that this person was someone she lives with but denies that there is any relation. She feels that any aggression that she may display is defensive rationality here. She remains quite delusional and religiously preoccupied, this her unpredictable behaviors and reported aggressive behaviors at home are critical rationale for her continued hospitalization. Due to her psychotic symptoms she continues to be a danger to other people secondary to severely poor insight and judgment. MANAGEMENT PLAN: . Continue all medications. We will discharge when stable. Patient at this writing has been refusing to take any medications. 2 PC con version will be pursued with probably treatment over objection. TIME SPENT: 25 minute minutes. Vital Signs Vital Signs Date Time Temp Pulse Resp B/P (MAP) Pulse Ox O2 Delivery O2 Flow Rate FiO2 11/18/20 06:00 96.6 118 16 103/93 (96) 98 11/17/20 07:45 Room Air Current Medications Current Medications Medications (Trade) Dose Ordered Sig/Ben Route PRN Reason Start Time Stop Time Status Last Admin Dose Admin Acetaminophen (Tylenol Tab) 650 mg Q6HP PRN PO HEADACHE or DISCOMFORT 11/15/20 17:45 Al Hydrox/Mg Hydrox/Simethicone (Mylanta) 30 ml Q4HP PRN PO HEARTBURN/INDIGESTION 11/15/20 17:45 Diphenhydramine HCl (Benadryl) 50 mg QHSP PRN PO SEE LABEL COMMENTS 11/15/20 17:45 Diphenhydramine HCl (Benadryl) 50 mg STAT STAT IM 11/17/20 07:17 11/17/20 07:20 DC 11/17/20 07:29 Diphenhydramine HCl (Benadryl) 50 mg STAT STAT IM 11/17/20 09:08 11/17/20 09:09 DC 11/17/20 09:40 Diphenhydramine HCl (Benadryl) 50 mg STAT STAT PO 11/16/20 14:05 11/16/20 14:07 DC Haloperidol (Haldol) 5 mg Q6HP PRN PO AGITATION 11/16/20 16:15 Haloperidol (Haldol) 5 mg TID PO 11/15/20 21:00 Haloperidol (Haldol) 10 mg STAT STAT IM 11/17/20 07:17 11/17/20 07:20 DC 11/17/20 07:29 Haloperidol (Haldol) 10 mg STAT STAT PO 11/16/20 14:05 11/16/20 14:07 DC Home Med (Med Rec Complete!) ASDIRECTED XX 11/14/20 19:00 11/14/20 18:59 DC Lorazepam (Ativan) 1 mg BIDP PRN PO SEVERE ANXIETY 11/15/20 17:45 Lorazepam (Ativan) 1 mg STAT STAT IM 11/17/20 09:08 11/17/20 09:09 DC 11/17/20 09:41 Lorazepam (Ativan) 2 mg STAT STAT IM 11/17/20 07:17 11/17/20 07:20 DC 11/17/20 07:28 Lorazepam (Ativan) 2 mg STAT STAT PO 11/16/20 14:05 11/16/20 14:07 DC Magnesium Hydroxide (Milk Of Magnesia) 30 ml DAILYPRN PRN PO CONSTIPATION 11/15/20 17:45 Trazodone HCl (Desyrel) 50 mg QHSP PRN PO INSOMNIA 11/15/20 17:45 Allergies Coded Allergies: No Known Drug Allergies (Verified Allergy, Unknown, 04/13/20) JESSI SIMMS NP Nov 18, 2020 11:31
[2020-11-19] MEDS: haloperidoL 5 MG TAB PO SCH ×2 (09:00→16:00)
[2020-11-19 16:26] VITALS: BP 138/92
--- NOTE | 2020-11-19 19:35 | MHIPNPDOC ---
[facility] Progress Note Progress Note Subjective: Jennifer is a 25 year old female with a history of Schizophrenia who was brought into the [facility] ED and admitted to the [facility] following a decompensation from her baseline, due to being non-compliant with her psychotropic regimen. Jennifer did not have any episodes of aggression or self- injury today, however, she still visibly appears psychotic, internally preoccupied, responding to internal stimuli. She paces the unit, primarily alone; She can be found having self-conversation with furniture and tapia. She does not readily participate in the assessment and appears, almost, catatonic, where she did not respond to the majority of the questions asked, and when replying, answers with great latency of speech. Nursing staff states that she has been compliant with her current psychotropic regimen. Sleep is fair; some initial insomnia, appetite is good. Objective: She was seen and evaluated, alert and oriented times three, cognition poor, appears psychomotor retarded; she has a tall stature, wearing casual clothes, appears younger than stated age; speech is minimal in production, soft in volume and slow in rate, with latency present; Mood: what? Affect: bizarre/constricted; Thought processes are slowed, disorganized; Thought content contains paranoid delusional themes; denies any passive/active S/H/I/I/P; she denies AH/VH/TH but appears visibly internally preoccupied, responding to internal stimuli; insight, impulse control and judgment are poor. Diagnosis: Schizophrenia A/P: Jennifer is a 25 year old female with a history of Schizophrenia who was brought into the [facility] ED and admitted to the [facility] following a decompensation from her baseline, due to being non-compliant with her psychotropic regimen. 1) Due to her refractory psychotic symptoms, increased her Haldol today to 10 mg twice daily to better alleviate these symptoms; started Cogentin 0.5 mg twi ce daily to prevent any EPS; Due to her poor insight and poor compliance, she would greatly benefit from a Haldol long acting injectable in 5-7 days. (200 mg IM q 4 weeks) 2) Continue to collaborate with treatment team and Hospitalist. 3) Q 15 min checks 4) Collaborate with discharge planners for the safest, most optimal, discharge, upon her clinical stabilization. Vital Signs Vital Signs Date Time Temp Pulse Resp B/P (MAP) Pulse Ox O2 Delivery O2 Flow Rate FiO2 11/19/20 16:26 98.6 98 18 138/92 (107) 100 Room Air Current Medications Current Medications Medications (Trade) Dose Ordered Sig/Ben Route PRN Reason Start Time Stop Time Status Last Admin Dose Admin Acetaminophen (Tylenol Tab) 650 mg Q6HP PRN PO HEADACHE or DISCOMFORT 11/15/20 17:45 Al Hydrox/Mg Hydrox/Simethicone (Mylanta) 30 ml Q4HP PRN PO HEARTBURN/INDIGESTION 11/15/20 17:45 Benztropine Mesylate (Cogentin) 0.5 mg BID PO 11/19/20 21:00 Diphenhydramine HCl (Benadryl) 50 mg QHSP PRN PO SEE LABEL COMMENTS 11/15/20 17:45 Diphenhydramine HCl (Benadryl) 50 mg STAT STAT IM 11/17/20 07:17 11/17/20 07:20 DC 11/17/20 07:29 Diphenhydramine HCl (Benadryl) 50 mg STAT STAT IM 11/17/20 09:08 11/17/20 09:09 DC 11/17/20 09:40 Diphenhydramine HCl (Benadryl) 50 mg STAT STAT PO 11/16/20 14:05 11/16/20 14:07 DC Haloperidol (Haldol) 5 mg Q6HP PRN PO AGITATION 11/16/20 16:15 Haloperidol (Haldol) 5 mg TID PO 11/15/20 21:00 11/19/20 16:00 DC Haloperidol (Haldol) 10 mg BID PO 11/19/20 21:00 Haloperidol (Haldol) 10 mg STAT STAT IM 11/17/20 07:17 11/17/20 07:20 DC 11/17/20 07:29 Haloperidol (Haldol) 10 mg STAT STAT PO 11/16/20 14:05 11/16/20 14:07 DC Home Med (Med Rec Complete!) ASDIRECTED XX 11/14/20 19:00 11/14/20 18:59 DC Lorazepam (Ativan) 1 mg BIDP PRN PO SEVERE ANXIETY 11/15/20 17:45 Lorazepam (Ativan) 1 mg STAT STAT IM 11/17/20 09:08 11/17/20 09:09 DC 11/17/20 09:41 Lorazepam (Ativan) 2 mg STAT STAT IM 11/17/20 07:17 11/17/20 07:20 DC 11/17/20 07:28 Lorazepam (Ativan) 2 mg STAT STAT PO 11/16/20 14:05 11/16/20 14:07 DC Magnesium Hydroxide (Milk Of Magnesia) 30 ml DAILYPRN PRN PO CONSTIPATION 11/15/20 17:45 Trazodone HCl (Desyrel) 50 mg QHSP PRN PO INSOMNIA 11/15/20 17:45 Allergies Coded Allergies: No Known Drug Allergies (Verified Allergy, Unknown, 04/13/20) MARIA ESTHER JUSTIN MD Nov 19, 2020 19:35
[2020-11-19] MEDS: BENZTROPINE 0.5 MG TAB PO SCH (21:00)
[2020-11-20] MEDS ORDERED: HALOPERIDOL 5MG/ML VIAL (J1630 PER 1) IM STA (01:27)
[2020-11-20] MEDS ORDERED: LORazepam 2 MG/ML VIAL IM STA (01:27)
[2020-11-20] MEDS ORDERED: HALOPERIDOL 5MG/ML VIAL (J1630 PER 1) As Ordered ONE (01:28)
--- NOTE | 2020-11-20 01:51 | IPNPDOC ---
Text Note Date of Service The patient was seen on 11/20/20. NOTE PSYCH CERTIFICATION FACE TO FACE: yes PHYSICIAN ASSESSMENT: Per d/w the nursing staff the patient was agitated, rubbing her body in sexual manner and not following verbal instructions Vital Signs Date Time Temp Pulse Resp B/P (MAP) Pulse Ox O2 Delivery O2 Flow Rate FiO2 11/19/20 16:26 98.6 98 18 138/92 (107) 100 Room Air GEN: irritable / yelling REASON FOR RESTRAINT: The patient was a danger to the staff. DE-ESCALATION INTERVENTIONS ATTEMPTED BEFORE USE OF RESTRAINTS: verbal redirection [MECHANICAL AND/OR CHEMICAL] RESTRAINTS USED: Both LENGTH OF TIME ORDERED IN RESTRAINTS: 4 hours WHEN TO DISCONTINUE RESTRAINTS: When the patient is no longer a threat to herself or others Post evaluation of restraint due in 24 hours. VS,Fishbone, I+O VS, Fishbone, I+O Vital Signs Date Time Temp Pulse Resp B/P (MAP) Pulse Ox O2 Delivery O2 Flow Rate FiO2 11/19/20 16:26 98.6 98 18 138/92 (107) 100 Room Air VINCE DIAZ MD Nov 20, 2020 01:51
[2020-11-20 02:30] VITALS: BP 125/76
[2020-11-20] MEDS: BENZTROPINE 0.5 MG TAB PO SCH ×5 (09:00→22:51)
[2020-11-20] MEDS: LORazepam 1 MG TAB PO SCH ×4 (12:45→22:51)
--- NOTE | 2020-11-20 14:21 | MHIPNPDOC ---
[facility] Progress Note Progress Note Subjective: Jennifer is a 25 year old female with a history of Schizophrenia who was brought into the [facility] ED and admitted to the [facility] following a decompensation from her baseline, due to being non-compliant with her psychotropic regimen. Jennifer was pacing the floors and was increasingly psychotic and agitated late in the evening yesterday; She appeared visibly internally preoccupied, responding to internal stimuli; she started threatening staff and due to being an imminent danger to others, she required a period of 4 point restraints and received Haldol 10 mg/Ativan 2 mg IM STAT for psychotic agitation/anxiety. She slept well overnight. Continues to display catatonic like movements while walking throughout the unit. She is isolative and does not participate in group programming; she does not interact with staff or peers. Objective: She was seen and evaluated, alert and oriented times three, cognition poor, appears psychomotor retarded with catatonic like movements; she has a tall stature, wearing casual clothes, appears younger than stated age; speech is minimal in production, soft in volume and slow in rate, with latency present; Mood: the alejandro Affect: blunted; Thought processes are slowed, disorganized, tangential; Thought content contains paranoid and persecutory delusional themes; denies any passive/active S/H/I/I/P; she denies AH/VH/TH but appears visibly internally preoccupied, responding to internal stimuli; insight, impulse control and judgment are poor. Diagnosis: Schizophrenia A/P: Jennifer is a 25 year old female with a history of Schizophrenia who was brought into the [facility] ED and admitted to the [facility] following a decompensation from her baseline, due to being non-compliant with her psychotropic regimen. 1) Continued Haldol at 10 mg twice daily to better alleviate these symptoms; Continued Cogentin 0.5 mg twice daily to prevent any EPS; Due to her poor insight and poor compliance, she would greatly benefit from a Haldol long acting injectable in 5-7 days. (200 mg IM q 4 weeks) Started Ativan 1 mg twice daily to alleviate catatonic symptoms. 2) Continue to collaborate with treatment team and Hospitalist. 3) Q 15 min checks 4) Collaborate with discharge planners for the safest, most optimal, discharge, upon her clinical stabilization. 5) Continue to encourage participation with group programming and activities on the unit. Total time spent: 30 minutes Vital Signs Vital Signs Date Time Temp Pulse Resp B/P (MAP) Pulse Ox O2 Delivery O2 Flow Rate FiO2 11/20/20 09:00 Room Air 11/20/20 02:30 98.4 79 14 125/76 97 Current Medications Current Medications Medications (Trade) Dose Ordered Sig/Ben Route PRN Reason Start Time Stop Time Status Last Admin Dose Admin Acetaminophen (Tylenol Tab) 650 mg Q6HP PRN PO HEADACHE or DISCOMFORT 11/15/20 17:45 Al Hydrox/Mg Hydrox/Simethicone (Mylanta) 30 ml Q4HP PRN PO HEARTBURN/INDIGESTION 11/15/20 17:45 Benztropine Mesylate (Cogentin) 0.5 mg BID PO 11/19/20 21:00 11/20/20 12:53 Diphenhydramine HCl (Benadryl) 50 mg QHSP PRN PO SEE LABEL COMMENTS 11/15/20 17:45 Diphenhydramine HCl (Benadryl) 50 mg STAT STAT IM 11/17/20 07:17 11/17/20 07:20 DC 11/17/20 07:29 Diphenhydramine HCl (Benadryl) 50 mg STAT STAT IM 11/17/20 09:08 11/17/20 09:09 DC 11/17/20 09:40 Diphenhydramine HCl (Benadryl) 50 mg STAT STAT PO 11/16/20 14:05 11/16/20 14:07 DC Haloperidol (Haldol) 5 mg Q6HP PRN PO AGITATION 11/16/20 16:15 Haloperidol (Haldol) 5 mg TID PO 11/15/20 21:00 11/19/20 16:00 DC Haloperidol (Haldol) 10 mg BID PO 11/19/20 21:00 11/20/20 12:53 Haloperidol (Haldol) 10 mg STAT STAT IM 11/17/20 07:17 11/17/20 07:20 DC 11/17/20 07:29 Haloperidol (Haldol) 10 mg STAT STAT IM 11/20/20 01:27 11/20/20 01:31 DC 11/20/20 01:44 Haloperidol (Haldol) 10 mg STAT STAT PO 11/16/20 14:05 11/16/20 14:07 DC Home Med (Med Rec Complete!) ASDIRECTED XX 11/14/20 19:00 11/14/20 18:59 DC Lorazepam (Ativan) 1 mg BID PO 11/20/20 13:00 11/20/20 12:45 Lorazepam (Ativan) 1 mg BIDP PRN PO SEVERE ANXIETY 11/15/20 17:45 Lorazepam (Ativan) 1 mg STAT STAT IM 11/17/20 09:08 11/17/20 09:09 DC 11/17/20 09:41 Lorazepam (Ativan) 2 mg STAT STAT IM 11/17/20 07:17 11/17/20 07:20 DC 11/17/20 07:28 Lorazepam (Ativan) 2 mg STAT STAT PO 11/16/20 14:05 11/16/20 14:07 DC Lorazepam (Ativan) 4 mg STAT STAT IM 11/20/20 01:27 11/20/20 01:31 DC 11/20/20 01:44 Magnesium Hydroxide (Milk Of Magnesia) 30 ml DAILYPRN PRN PO CONSTIPATION 11/15/20 17:45 Trazodone HCl (Desyrel) 50 mg QHSP PRN PO INSOMNIA 11/15/20 17:45 Allergies Coded Allergies: No Known Drug Allergies (Verified Allergy, Unknown, 04/13/20) MARIA ESTHER JUSTIN MD Nov 20, 2020 14:21
[2020-11-20 16:18] VITALS: BP 158/92
[2020-11-21] MEDS: LORazepam 1 MG TAB PO SCH ×2 (09:01→20:30)
[2020-11-21] MEDS: BENZTROPINE 0.5 MG TAB PO SCH ×2 (09:01→20:30)
--- NOTE | 2020-11-21 12:42 | MHIPNPDOC ---
[facility] Progress Note Progress Note DATE OF SERVICE: 11/21/20 HISTORY:Patient is a 25 year old female with a history of Schizophrenia who was brought into the [facility] ED and admitted to the [facility] following a decompensation from her baseline, due to being non-compliant with her psychotropic regimen. VITAL SIGNS: See below. CURRENT MEDICATIONS: See below. MENTAL STATUS EXAMINATION: Patient is a 25-year old single, disabled domiciles, -[place] female, who is admitted to [facility] on a 939 for psychotic symptoms due to poor adherence to medications., According to her father. Patient has not been taking medications for the past 6 months. She appears her stated age, patient is dressed appropriately in hospital scrubs. Her hygiene and grooming is fair. Eye contact is intermittent and at times closed in the interview. Speech: Is speech is normal rate, tone and volume. Language skills are. Intact. Thought processes including: not reality based. disorganized, delusional thinking Thought content: Denies depression and anxiety. Denies suicidality or homicidality. Denies that she has auditory or visual hallucinations. But has delayed responses appearing to be responding to internal stimuli Abstract reasoning, and computation:. Poor. Description of associations: Denies having any lutheran preoccupations today Description of abnormal or psychotic thoughts:. appears to be responding to internal stimuli Judgment:, Poor. Insight:, Poor. Orientation:. Alert and oriented to person and place. Recent and remote memory:. Unable to obtain. Attention span and concentration: , Poor. Language: Minimal expressions. Fund of knowledge:, Average. Mood:, Labile, tearful. Affect:, Flat, congruent. DIAGNOSES: 1., Unspecified, psychotic disorder. 2. Per old chart. Schizophrenia disorder. ASSESSMENT: In today's session, patient was agreeable to meeting. Patient stated in today's interview that she "had a great weekend, I can't complain, I did activities, ate food and ate more food, watched TC and walked around." She initially was quite pleasant in the interview and midway and at the end of the interview she had her eyes closed and having her conversations with this provider without looking at me. When asked why she had her eyes closed, she hesitated to answer and did not respond. She then became quite tearful and denied that she was sad. Patient continues to be disorganized and has delusional thoughts, not stable for discharge as she continues to have poor insight and poor judgment. She continues to refuse medications. MANAGEMENT PLAN: . Continue all medications. We will discharge when stable. Patient at this writing has been refusing to take any medications. 2 PC conversion will be pursued with probably treatment over objection. TIME SPENT: 25 minute minutes. Vital Signs Vital Signs Date Time Temp Pulse Resp B/P (MAP) Pulse Ox O2 Delivery O2 Flow Rate FiO2 11/20/20 16:18 97.7 112 14 158/92 (114) 100 Room Air Current Medications Current Medications Medications (Trade) Dose Ordered Sig/Ben Route PRN Reason Start Time Stop Time Status Last Admin Dose Admin Acetaminophen (Tylenol Tab) 650 mg Q6HP PRN PO HEADACHE or DISCOMFORT 11/15/20 17:45 Al Hydrox/Mg Hydrox/Simethicone (Mylanta) 30 ml Q4HP PRN PO HEARTBURN/INDIGESTION 11/15/20 17:45 Benztropine Mesylate (Cogentin) 0.5 mg BID PO 11/19/20 21:00 11/21/20 09:01 Diphenhydramine HCl (Benadryl) 50 mg QHSP PRN PO SEE LABEL COMMENTS 11/15/20 17:45 Diphenhydramine HCl (Benadryl) 50 mg STAT STAT IM 11/17/20 07:17 11/17/20 07:20 DC 11/17/20 07:29 Diphenhydramine HCl (Benadryl) 50 mg STAT STAT IM 11/17/20 09:08 11/17/20 09:09 DC 11/17/20 09:40 Diphenhydramine HCl (Benadryl) 50 mg STAT STAT PO 11/16/20 14:05 11/16/20 14:07 DC Haloperidol (Haldol) 5 mg Q6HP PRN PO AGITATION 11/16/20 16:15 Haloperidol (Haldol) 5 mg TID PO 11/15/20 21:00 11/19/20 16:00 DC Haloperidol (Haldol) 10 mg BID PO 11/19/20 21:00 11/21/20 09:01 Haloperidol (Haldol) 10 mg STAT STAT IM 11/17/20 07:17 11/17/20 07:20 DC 11/17/20 07:29 Haloperidol (Haldol) 10 mg STAT STAT IM 11/20/20 01:27 11/20/20 01:31 DC 11/20/20 01:44 Haloperidol (Haldol) 10 mg STAT STAT PO 11/16/20 14:05 11/16/20 14:07 DC Home Med (Med Rec Complete!) ASDIRECTED XX 11/14/20 19:00 11/14/20 18:59 DC Lorazepam (Ativan) 1 mg BID PO 11/20/20 13:00 11/21/20 09:01 Lorazepam (Ativan) 1 mg BIDP PRN PO SEVERE ANXIETY 11/15/20 17:45 Lorazepam (Ativan) 1 mg STAT STAT IM 11/17/20 09:08 11/17/20 09:09 DC 11/17/20 09:41 Lorazepam (Ativan) 2 mg STAT STAT IM 11/17/20 07:17 11/17/20 07:20 DC 11/17/20 07:28 Lorazepam (Ativan) 2 mg STAT STAT PO 11/16/20 14:05 11/16/20 14:07 DC Lorazepam (Ativan) 4 mg STAT STAT IM 11/20/20 01:27 11/20/20 01:31 DC 11/20/20 01:44 Magnesium Hydroxide (Milk Of Magnesia) 30 ml DAILYPRN PRN PO CONSTIPATION 11/15/20 17:45 Trazodone HCl (Desyrel) 50 mg QHSP PRN PO INSOMNIA 11/15/20 17:45 Allergies Coded Allergies: No Known Drug Allergies (Verified Allergy, Unknown, 04/13/20) JESSI SIMMS NP Nov 21, 2020 12:42
[2020-11-21 18:03] VITALS: BP 148/88
[2020-11-21] MEDS: traZODone 50 MG TAB PO PRN (20:30)
[2020-11-22 06:00] VITALS: BP 133/81
[2020-11-22] MEDS: LORazepam 1 MG TAB PO SCH ×2 (09:14→20:47)
[2020-11-22] MEDS: BENZTROPINE 0.5 MG TAB PO SCH ×2 (09:14→20:46)
--- NOTE | 2020-11-22 13:15 | MHIPNPDOC ---
[facility] Progress Note Progress Note DATE OF SERVICE: 11/22/20 HISTORY:Patient is a 25 year old female with a history of Schizophrenia who was brought into the [facility] ED and admitted to the [facility] following a decompensation from her baseline, due to being non-compliant with her psychotropic regimen. VITAL SIGNS: See below. CURRENT MEDICATIONS: See below. MENTAL STATUS EXAMINATION: Patient is a 25-year old single, disabled domiciles, -[place]unisian female, who is admitted to [facility] on a 939 for psychotic symptoms due to poor adherence to medications., According to her father, patient has not been taking medications for the past 6 months. She appears her stated age, patient is dressed appropriately in hospital scrubs. Her hygiene and grooming is fair. Eye contact is intermittent and at times closed in the interview. Speech: Is speech is normal rate, tone and volume. Language skills Intact. Thought processes including: not reality based. disorganized, delusional thinking Thought content: Denies depression and anxiety. Denies suicidality or homicidality. Denies that she has auditory or visual hallucinations. But has delayed responses appearing to be responding to internal stimuli Abstract reasoning, and computation:. Poor. Description of associations: Denies having any zoroastrian preoccupations today Description of abnormal or psychotic thoughts:. appears to be responding to internal stimuli Judgment: Poor. Insight:, Poor. Orientation:. Alert and oriented to person and place. Recent and remote memory:. Unable to obtain. Attention span and concentration: Poor. Language: Minimal expressions. Fund of knowledge:, Average. Mood: euphoric Affect:, congruent with mood, smiling inappropriately, bizarre DIAGNOSES: 1., Unspecified, psychotic disorder. 2. Per old chart. Schizophrenia disorder. ASSESSMENT: Patient was approached in maldonado, smiling inappropriately and staring at the ceiling. She did not answer this script writer when discussing if she would like to meet but did follow into the interview room. She is smiling inappropriately throughout the entire interview, appears euphoric, almost as if she is on the verge of laughing. She reports that she feels "great." she denies ah/vh but appears to be responding to internal stimuli, as she is slow and hesitant to respond and is observed looking to the side before she answers certain questions. She reports she is taking medications and attending groups, states "I am doing everything that you guys want me to do." When asked if she wanted to discuss anything, she began to say something, then hesitated, looked at the side and stated with a wide grin, "nevermind, everything is fine." She then left the interview. MANAGEMENT PLAN: Continue all medications. Convert 2pc We will discharge when stable TIME SPENT: 25 minute minutes. Vital Signs Vital Signs Date Time Temp Pulse Resp B/P (MAP) Pulse Ox O2 Delivery O2 Flow Rate FiO2 11/22/20 06:00 98.6 90 18 133/81 (98) 99 Room Air Current Medications Current Medications Medications (Trade) Dose Ordered Sig/Ben Route PRN Reason Start Time Stop Time Status Last Admin Dose Admin Acetaminophen (Tylenol Tab) 650 mg Q6HP PRN PO HEADACHE or DISCOMFORT 11/15/20 17:45 11/21/20 21:00 Al Hydrox/Mg Hydrox/Simethicone (Mylanta) 30 ml Q4HP PRN PO HEARTBURN/INDIGESTION 11/15/20 17:45 Benztropine Mesylate (Cogentin) 0.5 mg BID PO 11/19/20 21:00 11/22/20 09:14 Diphenhydramine HCl (Benadryl) 50 mg QHSP PRN PO SEE LABEL COMMENTS 11/15/20 17:45 Diphenhydramine HCl (Benadryl) 50 mg STAT STAT IM 11/17/20 07:17 11/17/20 07:20 DC 11/17/20 07:29 Diphenhydramine HCl (Benadryl) 50 mg STAT STAT IM 11/17/20 09:08 11/17/20 09:09 DC 11/17/20 09:40 Diphenhydramine HCl (Benadryl) 50 mg STAT STAT PO 11/16/20 14:05 11/16/20 14:07 DC Haloperidol (Haldol) 5 mg Q6HP PRN PO AGITATION 11/16/20 16:15 Haloperidol (Haldol) 5 mg TID PO 11/15/20 21:00 11/19/20 16:00 DC Haloperidol (Haldol) 10 mg BID PO 11/19/20 21:00 11/22/20 09:14 Haloperidol (Haldol) 10 mg STAT STAT IM 11/17/20 07:17 11/17/20 07:20 DC 11/17/20 07:29 Haloperidol (Haldol) 10 mg STAT STAT IM 11/20/20 01:27 11/20/20 01:31 DC 11/20/20 01:44 Haloperidol (Haldol) 10 mg STAT STAT PO 11/16/20 14:05 11/16/20 14:07 DC Home Med (Med Rec Complete!) ASDIRECTED XX 11/14/20 19:00 11/14/20 18:59 DC Lorazepam (Ativan) 1 mg BID PO 11/20/20 13:00 11/22/20 09:14 Lorazepam (Ativan) 1 mg BIDP PRN PO SEVERE ANXIETY 11/15/20 17:45 Lorazepam (Ativan) 1 mg STAT STAT IM 11/17/20 09:08 11/17/20 09:09 DC 11/17/20 09:41 Lorazepam (Ativan) 2 mg STAT STAT IM 11/17/20 07:17 11/17/20 07:20 DC 11/17/20 07:28 Lorazepam (Ativan) 2 mg STAT STAT PO 11/16/20 14:05 11/16/20 14:07 DC Lorazepam (Ativan) 4 mg STAT STAT IM 11/20/20 01:27 11/20/20 01:31 DC 11/20/20 01:44 Magnesium Hydroxide (Milk Of Magnesia) 30 ml DAILYPRN PRN PO CONSTIPATION 11/15/20 17:45 Miscellaneous (Unresolved Clarification Entry) SEE LABEL COMMENTS DAILY XX 11/22/20 09:00 Trazodone HCl (Desyrel) 50 mg QHSP PRN PO INSOMNIA 11/15/20 17:45 11/21/20 20:30 Allergies Coded Allergies: No Known Drug Allergies (Verified Allergy, Unknown, 04/13/20) JESSI SIMSM [employer] ARCHITECT Nov 22, 2020 13:15
[2020-11-22 17:50] VITALS: BP 146/93
[2020-11-23 05:54] VITALS: BP 137/63
[2020-11-23] MEDS: BENZTROPINE 0.5 MG TAB PO SCH ×2 (08:42→20:10)
[2020-11-23] MEDS: LORazepam 1 MG TAB PO SCH ×2 (08:42→20:10)
--- NOTE | 2020-11-23 13:47 | MHIPNPDOC ---
[facility] Progress Note Progress Note DATE OF SERVICE: 11/23/20 STORY:Patient is a 25 year old female with a history of Schizophrenia who was brought into the [facility] ED and admitted to the [facility] following a decompensation from her baseline, due to being non-compliant with her psychotropic regimen. VITAL SIGNS: See below. CURRENT MEDICATIONS: See below. MENTAL STATUS EXAMINATION: Patient is a 25-year old single, disabled domiciles, -Georgian female, who is admitted to [facility] on a 939 for psychotic symptoms due to poor adherence to medications., According to her father, patient has not been taking medications for the past 6 months. She appears her stated age, patient is dressed appropriately in hospital scrubs. Her hygiene and grooming is fair. Eye contact is intermittent and at times closed in the interview. Speech: Is speech is normal rate, tone and volume. Language skills Intact. Thought processes including: not reality based. disorganized, delusional thinking Thought content: Denies depression and anxiety. Denies suicidality or homicidality. Denies that she has auditory or visual hallucinations. But has delayed responses appearing to be responding to internal stimuli Abstract reasoning, and computation:. Poor. Description of associations: Denies having any mandaeism preoccupations today Description of abnormal or psychotic thoughts:. appears to be responding to internal stimuli Judgment: Poor. Insight:, Poor. Orientation:. Alert and oriented to person and place. Recent and remote memory:. Unable to obtain. Attention span and concentration: Poor. Language: Minimal expressions. Fund of knowledge:, Average. Mood: euphoric Affect:, congruent with mood, smiling inappropriately, bizarre DIAGNOSES: 1., Unspecified, psychotic disorder. 2. Per old chart. Schizophrenia disorder. ASSESSMENT: Patient was agreeable to meet for today's session. She is bizarre and euphoric, smiling with eyes squinted during the interview. She reports she is doing well and feels "happy" because "Neil makes me happy." She states that she has been going to groups and taking her medications and states that she feels better on her medications, as she reports "I'm sleeping better and my thou ghts are clearer." She states that she has not talked to any of her friends or family since she has been here. She denies ah/vh but appears to be responding to stimuli, as there are times in the interview where she is laughing inappropriately, is hesitant to respond, or begins to say something then looks to the side and says, "nevermind." She was encouraged to keep taking the medic ations. MANAGEMENT PLAN: Continue all medications. Convert 2pc We will discharge when stable TIME SPENT: 25 minute minutes. Vital Signs Vital Signs Date Time Temp Pulse Resp B/P (MAP) Pulse Ox O2 Delivery O2 Flow Rate FiO2 11/23/20 05:54 97.8 90 18 137/63 (87) 99 Room Air Current Medications Current Medications Medications (Trade) Dose Ordered Sig/Ben Route PRN Reason Start Time Stop Time Status Last Admin Dose Admin Acetaminophen (Tylenol Tab) 650 mg Q6HP PRN PO HEADACHE or DISCOMFORT 11/15/20 17:45 11/21/20 21:00 Al Hydrox/Mg Hydrox/Simethicone (Mylanta) 30 ml Q4HP PRN PO HEARTBURN/INDIGESTION 11/15/20 17:45 Benztropine Mesylate (Cogentin) 0.5 mg BID PO 11/19/20 21:00 11/23/20 08:42 Diphenhydramine HCl (Benadryl) 50 mg QHSP PRN PO SEE LABEL COMMENTS 11/15/20 17:45 Diphenhydramine HCl (Benadryl) 50 mg STAT STAT IM 11/17/20 07:17 11/17/20 07:20 DC 11/17/20 07:29 Diphenhydramine HCl (Benadryl) 50 mg STAT STAT IM 11/17/20 09:08 11/17/20 09:09 DC 11/17/20 09:40 Diphenhydramine HCl (Benadryl) 50 mg STAT STAT PO 11/16/20 14:05 11/16/20 14:07 DC Haloperidol (Haldol) 5 mg Q6HP PRN PO AGITATION 11/16/20 16:15 Haloperidol (Haldol) 5 mg TID PO 11/15/20 21:00 11/19/20 16:00 DC Haloperidol (Haldol) 10 mg BID PO 11/19/20 21:00 11/23/20 08:42 Haloperidol (Haldol) 10 mg STAT STAT IM 11/17/20 07:17 11/17/20 07:20 DC 11/17/20 07:29 Haloperidol (Haldol) 10 mg STAT STAT IM 11/20/20 01:27 11/20/20 01:31 DC 11/20/20 01:44 Haloperidol (Haldol) 10 mg STAT STAT PO 11/16/20 14:05 11/16/20 14:07 DC Home Med (Med Rec Complete!) ASDIRECTED XX 11/14/20 19:00 11/14/20 18:59 DC Lorazepam (Ativan) 1 mg BID PO 11/20/20 13:00 11/23/20 08:42 Lorazepam (Ativan) 1 mg BIDP PRN PO SEVERE ANXIETY 11/15/20 17:45 Lorazepam (Ativan) 1 mg STAT STAT IM 11/17/20 09:08 11/17/20 09:09 DC 11/17/20 09:41 Lorazepam (Ativan) 2 mg STAT STAT IM 11/17/20 07:17 11/17/20 07:20 DC 11/17/20 07:28 Lorazepam (Ativan) 2 mg STAT STAT PO 11/16/20 14:05 11/16/20 14:07 DC Lorazepam (Ativan) 4 mg STAT STAT IM 11/20/20 01:27 11/20/20 01:31 DC 11/20/20 01:44 Magnesium Hydroxide (Milk Of Magnesia) 30 ml DAILYPRN PRN PO CONSTIPATION 11/15/20 17:45 Miscellaneous (Unresolved Clarification Entry) SEE LABEL COMMENTS DAILY XX 11/22/20 09:00 11/22/20 15:21 DC Trazodone HCl (Desyrel) 50 mg QHSP PRN PO INSOMNIA 11/15/20 17:45 11/21/20 20:30 Allergies Coded Allergies: No Known Drug Allergies (Verified Allergy, Unknown, 04/13/20) JESSI SIMMS CHIEF CLINICAL DIETITIAN Nov 23, 2020 13:47
[2020-11-24] MEDS: BENZTROPINE 0.5 MG TAB PO SCH ×2 (08:22→20:01)
[2020-11-24] MEDS: LORazepam 1 MG TAB PO SCH (08:22)
[2020-11-24] MEDS ORDERED: LORazepam 0.5 MG TAB PO SCH (09:00)
--- NOTE | 2020-11-24 15:31 | MHIPNPDOC ---
[facility] Progress Note Progress Note DATE OF SERVICE: 11/24/20 STORY:Patient is a 25 year old female with a history of Schizophrenia who was brought into the [facility] ED and [facility] following a decompensation from her baseline, due to being non-compliant with her psychotropic regimen. VITAL SIGNS: See below. CURRENT MEDICATIONS: See below. MENTAL STATUS EXAMINATION: Patient is a 25-year old single, disabled domiciles, -Kosovan female, who is [facility] for psychotic symptoms due to poor adherence to medications., According to her father, patient has not been taking medications for the past 6 months. She appears her stated age, patient is dressed appropriately in hospital scrubs. Her hygiene and grooming is fair. Eye contact is intermittent and at times closed in the interview. Speech: Is speech is normal rate, tone and volume. Language skills Intact. Thought processes including: not reality based. disorganized, delusional thinking Thought content: Denies depression and anxiety. Denies suicidality or homicidality. Denies that she has auditory or visual hallucinations. But has delayed responses appearing to be responding to internal stimuli Abstract reasoning, and computation:. Poor. Description of associations: Denies having any yarsani preoccupations today Description of abnormal or psychotic thoughts:. appears to be responding to internal stimuli Judgment: Poor. Insight:, Poor. Orientation:. Alert and oriented to person and place. Recent and remote memory:. Unable to obtain. Attention span and concentration: Poor. Language: Minimal expressions. Fund of knowledge:, Average. Mood: euphoric Affect:, congruent with mood, smiling inappropriately, bizarre DIAGNOSES: 1., Unspecified, psychotic disorder. 2. Per old chart. Schizophrenia disorder. ASSESSMENT: Patient was agreeable to meet for today's session. She remains bizarre and euphoric, smiling with eyes squinted throughout the entire interview. She continues to reports that she is "always happy." and that she feels she is doing well. Jennifer reports she has talked to her mom since she has been here, not for long as she states her mother is in [place] but that, "my mom wishes me well and hopes I get better." When asked if she has spoken to her father, she begins to speak but then becomes hesitant and looks to the side, as if she is hearing voices and says "no I haven't". She denies ah/vh but appears to be responding to stimuli. Attempted to discuss with patient the benefits of a long acting injectable, to which she reported she doesn't like t hem. She states she has been on haldol decanoate previously, but would rather take a pill. However, she stated she would consider it and tell this physician underwriter tomorrow. Per staff and through observation, patient is seen in the [facility] sexually preoccupied with male peers and has been following them around the unit She has multiple posters with yarsani saying on them taped to her tapia in her room. MANAGEMENT PLAN: Continue all medications. Convert 2pc We will discharge when stable TIME SPENT: 25 minute minutes. Vital Signs Vital Signs Date Time Temp Pulse Resp B/P (MAP) Pulse Ox O2 Delivery O2 Flow Rate FiO2 11/23/20 05:54 97.8 90 18 137/63 (87) 99 Room Air Current Medications Current Medications Medications (Trade) Dose Ordered Sig/Ben Route PRN Reason Start Time Stop Time Status Last Admin Dose Admin Acetaminophen (Tylenol Tab) 650 mg Q6HP PRN PO HEADACHE or DISCOMFORT 11/15/20 17:45 11/21/20 21:00 Al Hydrox/Mg Hydrox/Simethicone (Mylanta) 30 ml Q4HP PRN PO HEARTBURN/INDIGESTION 11/15/20 17:45 Benztropine Mesylate (Cogentin) 0.5 mg BID PO 11/19/20 21:00 11/24/20 08:22 Diphenhydramine HCl (Benadryl) 50 mg QHSP PRN PO SEE LABEL COMMENTS 11/15/20 17:45 Diphenhydramine HCl (Benadryl) 50 mg STAT STAT IM 11/17/20 07:17 11/17/20 07:20 DC 11/17/20 07:29 Diphenhydramine HCl (Benadryl) 50 mg STAT STAT IM 11/17/20 09:08 11/17/20 09:09 DC 11/17/20 09:40 Diphenhydramine HCl (Benadryl) 50 mg STAT STAT PO 11/16/20 14:05 11/16/20 14:07 DC Haloperidol (Haldol) 5 mg Q6HP PRN PO AGITATION 11/16/20 16:15 Haloperidol (Haldol) 5 mg TID PO 11/15/20 21:00 11/19/20 16:00 DC Haloperidol (Haldol) 10 mg BID PO 11/19/20 21:00 11/24/20 08:22 Haloperidol (Haldol) 10 mg STAT STAT IM 11/17/20 07:17 11/17/20 07:20 DC 11/17/20 07:29 Haloperidol (Haldol) 10 mg STAT STAT IM 11/20/20 01:27 11/20/20 01:31 DC 11/20/20 01:44 Haloperidol (Haldol) 10 mg STAT STAT PO 11/16/20 14:05 11/16/20 14:07 DC Home Med (Med Rec Complete!) ASDIRECTED XX 11/14/20 19:00 11/14/20 18:59 DC Lorazepam (Ativan) 0.5 mg BID PO 11/24/20 09:00 11/24/20 09:37 DC Lorazepam (Ativan) 0.5 mg BID PO 11/24/20 21:00 Lorazepam (Ativan) 1 mg BID PO 11/20/20 13:00 11/24/20 09:34 DC 11/24/20 08:22 Lorazepam (Ativan) 1 mg BIDP PRN PO SEVERE ANXIETY 11/15/20 17:45 Lorazepam (Ativan) 1 mg STAT STAT IM 11/17/20 09:08 11/17/20 09:09 DC 11/17/20 09:41 Lorazepam (Ativan) 2 mg STAT STAT IM 11/17/20 07:17 11/17/20 07:20 DC 11/17/20 07:28 Lorazepam (Ativan) 2 mg STAT STAT PO 11/16/20 14:05 11/16/20 14:07 DC Lorazepam (Ativan) 4 mg STAT STAT IM 11/20/20 01:27 11/20/20 01:31 DC 11/20/20 01:44 Magnesium Hydroxide (Milk Of Magnesia) 30 ml DAILYPRN PRN PO CONSTIPATION 11/15/20 17:45 Miscellaneous (Unresolved Clarification Entry) SEE LABEL COMMENTS DAILY XX 11/22/20 09:00 11/22/20 15:21 DC Trazodone HCl (Desyrel) 50 mg QHSP PRN PO INSOMNIA 11/15/20 17:45 11/21/20 20:30 Allergies Coded Allergies: No Known Drug Allergies (Verified Allergy, Unknown, 04/13/20) JESSI SIMMS NP Nov 24, 2020 15:31
[2020-11-24] MEDS: LORazepam 0.5 MG TAB PO SCH (20:01)
[2020-11-25] MEDS: BENZTROPINE 0.5 MG TAB PO SCH ×2 (09:13→19:40)
[2020-11-25] MEDS: LORazepam 0.5 MG TAB PO SCH ×2 (09:13→19:40)
--- NOTE | 2020-11-25 13:53 | MHIPNPDOC ---
[facility] Progress Note Progress Note DATE OF SERVICE: 11/25/20 HISTORY:Patient is a 25 year old female with a history of Schizophrenia who was brought into the [facility] ED and admitted to the [facility] following a decompensation from her baseline, due to being non-compliant with her psychotropic regimen. VITAL SIGNS: See below. CURRENT MEDICATIONS: See below. MENTAL STATUS EXAMINATION: Patient is a 25-year old single, disabled domiciles, -Togolese female, who is admitted to [facility] on a 939 for psychotic symptoms due to poor adherence to medications., According to her father, patient has not been taking medications for the past 6 months. She appears her stated age, patient is dressed appropriately in hospital scrubs. Her hygiene and grooming is fair. Speech: Is speech is normal rate, tone and volume. Language skills Intact. Thought processes including: not reality based. disorganized, delusional thinking Thought content: Denies depression and anxiety. Denies suicidality or homicidality. Denies that she has auditory or visual hallucinations. But has delayed responses appearing to be responding to internal stimuli Abstract reasoning, and computation:. Poor. Description of associations: Denies having any jehovah's witness preoccupations today Description of abnormal or psychotic thoughts:. appears to be responding to internal stimuli Judgment: Poor. Insight:, Poor. Orientation:. Alert and oriented to person and place. Recent and remote memory:. Unable to obtain. Attention span and concentration: Poor. Language: Minimal expressions. Fund of knowledge:, Average. Mood: depressed Affect:, congruent with mood. DIAGNOSES: 1., Unspecified, psychotic disorder. 2. Per old chart. Schizophrenia disorder. ASSESSMENT: Jennifer was yelling in the halls earlier, reports that someone was too close to her. She was approached multiple times for interview, but makes up excuses on why she can't meet. For example, she reports that she has to use the bathroom, or that she has to eat her lunch (even though it was gone). When asked again to meet, she said not right now. Earlier, it appeared like she was visibly upset and had been crying. When asked what was wrong, she stated she was hesitant, looked to the side as if she was responding to internal stimuli but she stated she was "ok," denied crying, was smiling at this designer/writer during the interaction. However, after interaction, she was observed to be staring at another peer, looked angry, but again stated she was ok. MANAGEMENT PLAN: Continue all medications. Convert 2pc We will discharge when stable TIME SPENT: 25 minute minutes. Vital Signs Vital Signs Date Time Temp Pulse Resp B/P (MAP) Pulse Ox O2 Delivery O2 Flow Rate FiO2 11/23/20 05:54 97.8 90 18 137/63 (87) 99 Room Air Current Medications Current Medications Medications (Trade) Dose Ordered Sig/Ben Route PRN Reason Start Time Stop Time Status Last Admin Dose Admin Acetaminophen (Tylenol Tab) 650 mg Q6HP PRN PO HEADACHE or DISCOMFORT 11/15/20 17:45 11/21/20 21:00 Al Hydrox/Mg Hydrox/Simethicone (Mylanta) 30 ml Q4HP PRN PO HEARTBURN/INDIGESTION 11/15/20 17:45 Benztropine Mesylate (Cogentin) 0.5 mg BID PO 11/19/20 21:00 11/25/20 09:13 Diphenhydramine HCl (Benadryl) 50 mg QHSP PRN PO SEE LABEL COMMENTS 11/15/20 17:45 Diphenhydramine HCl (Benadryl) 50 mg STAT STAT IM 11/17/20 07:17 11/17/20 07:20 DC 11/17/20 07:29 Diphenhydramine HCl (Benadryl) 50 mg STAT STAT IM 11/17/20 09:08 11/17/20 09:09 DC 11/17/20 09:40 Diphenhydramine HCl (Benadryl) 50 mg STAT STAT PO 11/16/20 14:05 11/16/20 14:07 DC Haloperidol (Haldol) 5 mg Q6HP PRN PO AGITATION 11/16/20 16:15 Haloperidol (Haldol) 5 mg TID PO 11/15/20 21:00 11/19/20 16:00 DC Haloperidol (Haldol) 10 mg BID PO 11/19/20 21:00 11/25/20 09:13 Haloperidol (Haldol) 10 mg STAT STAT IM 11/17/20 07:17 11/17/20 07:20 DC 11/17/20 07:29 Haloperidol (Haldol) 10 mg STAT STAT IM 11/20/20 01:27 11/20/20 01:31 DC 11/20/20 01:44 Haloperidol (Haldol) 10 mg STAT STAT PO 11/16/20 14:05 11/16/20 14:07 DC Home Med (Med Rec Complete!) ASDIRECTED XX 11/14/20 19:00 11/14/20 18:59 DC Lorazepam (Ativan) 0.5 mg BID PO 11/24/20 09:00 11/24/20 09:37 DC Lorazepam (Ativan) 0.5 mg BID PO 11/24/20 21:00 11/25/20 09:13 Lorazepam (Ativan) 1 mg BID PO 11/20/20 13:00 11/24/20 09:34 DC 11/24/20 08:22 Lorazepam (Ativan) 1 mg BIDP PRN PO SEVERE ANXIETY 11/15/20 17:45 Lorazepam (Ativan) 1 mg STAT STAT IM 11/17/20 09:08 11/17/20 09:09 DC 11/17/20 09:41 Lorazepam (Ativan) 2 mg STAT STAT IM 11/17/20 07:17 11/17/20 07:20 DC 11/17/20 07:28 Lorazepam (Ativan) 2 mg STAT STAT PO 11/16/20 14:05 11/16/20 14:07 DC Lorazepam (Ativan) 4 mg STAT STAT IM 11/20/20 01:27 11/20/20 01:31 DC 11/20/20 01:44 Magnesium Hydroxide (Milk Of Magnesia) 30 ml DAILYPRN PRN PO CONSTIPATION 11/15/20 17:45 Miscellaneous (Unresolved Clarification Entry) SEE LABEL COMMENTS DAILY XX 11/22/20 09:00 11/22/20 15:21 DC Trazodone HCl (Desyrel) 50 mg QHSP PRN PO INSOMNIA 11/15/20 17:45 11/21/20 20:30 Allergies Coded Allergies: No Known Drug Allergies (Verified Allergy, Unknown, 04/13/20) JESSI SIMMS NP Nov 25, 2020 12:32
[2020-11-26] MEDS: BENZTROPINE 0.5 MG TAB PO SCH ×2 (08:20→21:00)
[2020-11-26] MEDS: LORazepam 0.5 MG TAB PO SCH ×2 (08:21→21:00)
[2020-11-27] MEDS: LORazepam 0.5 MG TAB PO SCH ×3 (01:14→20:21)
[2020-11-27] MEDS: traZODone 50 MG TAB PO PRN (01:14)
[2020-11-27] MEDS: BENZTROPINE 0.5 MG TAB PO SCH ×3 (01:14→20:21)
[2020-11-28] MEDS: BENZTROPINE 0.5 MG TAB PO SCH ×2 (07:58→21:00)
[2020-11-28] MEDS: LORazepam 0.5 MG TAB PO SCH ×2 (07:58→21:00)
--- NOTE | 2020-11-28 14:55 | MHIPNPDOC ---
[facility] Progress Note Progress Note DATE OF SERVICE: 11/28/20 HISTORY:Patient is a 25 year old female with a history of Schizophrenia who was brought into the [facility] ED and admitted to the [facility] following a decompensation from her baseline, due to being non-compliant with her psychotropic regimen. VITAL SIGNS: See below. CURRENT MEDICATIONS: See below. MENTAL STATUS EXAMINATION: Patient is a 25-year old single, disabled domiciles, -Emirati female, who is admitted to [facility] on a 939 for psychotic symptoms due to poor adherence to medications., According to her father, patient has not been taking medications for the past 6 months. She appears her stated age, patient is dressed appropriately in hospital scrubs. Her hygiene and grooming is fair. Speech: Is speech is normal rate, tone and volume. Language skills Intact. Thought processes including: not reality based. disorganized, delusional thinking Thought content: Denies depression and anxiety. Denies suicidality or homicidality. Denies that she has auditory or visual hallucinations. But has delayed responses appearing to be responding to internal stimuli Abstract reasoning, and computation:. Poor. Description of associations: Denies having any taoist preoccupations today Description of abnormal or psychotic thoughts:. appears to be responding to internal stimuli Judgment: Poor. Insight:, Poor. Orientation:. Alert and oriented to person and place. Recent and remote memory:. Unable to obtain. Attention span and concentration: Poor. Language: Minimal expressions. Fund of knowledge:, Average. Mood: depressed Affect:, congruent with mood. DIAGNOSES: 1., Unspecified, psychotic disorder. 2. Per old chart. Schizophrenia disorder. ASSESSMENT: Jennifer was not receptive to meet for the interview. She was ambulating in the halls when approached for the interview and refused to come to office, answer questions or make eye contact. Per notes from this past weekend, patient denies si/hi/avh but has delayed, hesitant responses, frequently looks at ceilings and tapia before answering. She is compliant with medications at this time. MANAGEMENT PLAN: continue all medications TIME SPENT: 25 minutes. Vital Signs Vital Signs Date Time Temp Pulse Resp B/P (MAP) Pulse Ox O2 Delivery O2 Flow Rate FiO2 11/28/20 07:01 96.9 103 20 97 Room Air 11/23/20 05:54 137/63 (87) Current Medications Current Medications Medications (Trade) Dose Ordered Sig/Ben Route PRN Reason Start Time Stop Time Status Last Admin Dose Admin Acetaminophen (Tylenol Tab) 650 mg Q6HP PRN PO HEADACHE or DISCOMFORT 11/15/20 17:45 11/21/20 21:00 Al Hydrox/Mg Hydrox/Simethicone (Mylanta) 30 ml Q4HP PRN PO HEARTBURN/INDIGESTION 11/15/20 17:45 Benztropine Mesylate (Cogentin) 0.5 mg BID PO 11/19/20 21:00 11/28/20 07:58 Diphenhydramine HCl (Benadryl) 50 mg QHSP PRN PO SEE LABEL COMMENTS 11/15/20 17:45 Diphenhydramine HCl (Benadryl) 50 mg STAT STAT IM 11/17/20 07:17 11/17/20 07:20 DC 11/17/20 07:29 Diphenhydramine HCl (Benadryl) 50 mg STAT STAT IM 11/17/20 09:08 11/17/20 09:09 DC 11/17/20 09:40 Diphenhydramine HCl (Benadryl) 50 mg STAT STAT PO 11/16/20 14:05 11/16/20 14:07 DC Haloperidol (Haldol) 5 mg Q6HP PRN PO AGITATION 11/16/20 16:15 Haloperidol (Haldol) 5 mg TID PO 11/15/20 21:00 11/19/20 16:00 DC Haloperidol (Haldol) 10 mg BID PO 11/19/20 21:00 11/28/20 07:58 Haloperidol (Haldol) 10 mg STAT STAT IM 11/17/20 07:17 11/17/20 07:20 DC 11/17/20 07:29 Haloperidol (Haldol) 10 mg STAT STAT IM 11/20/20 01:27 11/20/20 01:31 DC 11/20/20 01:44 Haloperidol (Haldol) 10 mg STAT STAT PO 11/16/20 14:05 11/16/20 14:07 DC Home Med (Med Rec Complete!) ASDIRECTED XX 11/14/20 19:00 11/14/20 18:59 DC Lorazepam (Ativan) 0.5 mg BID PO 11/24/20 09:00 11/24/20 09:37 DC Lorazepam (Ativan) 0.5 mg BID PO 11/24/20 21:00 2 07:58 Lorazepam (Ativan) 1 mg BID PO 11/20/20 13:00 11/24/20 09:34 DC 11/24/20 08:22 Lorazepam (Ativan) 1 mg BIDP PRN PO SEVERE ANXIETY 11/15/20 17:45 Lorazepam (Ativan) 1 mg STAT STAT IM 11/17/20 09:08 11/17/20 09:09 DC 11/17/20 09:41 Lorazepam (Ativan) 2 mg STAT STAT IM 11/17/20 07:17 11/17/20 07:20 DC 11/17/20 07:28 Lorazepam (Ativan) 2 mg STAT STAT PO 11/16/20 14:05 11/16/20 14:07 DC Lorazepam (Ativan) 4 mg STAT STAT IM 11/20/20 01:27 11/20/20 01:31 DC 11/20/20 01:44 Magnesium Hydroxide (Milk Of Magnesia) 30 ml DAILYPRN PRN PO CONSTIPATION 11/15/20 17:45 Miscellaneous (Unresolved Clarification Entry) SEE LABEL COMMENTS DAILY XX 11/22/20 09:00 11/22/20 15:21 DC Trazodone HCl (Desyrel) 50 mg QHSP PRN PO INSOMNIA 11/15/20 17:45 11/27/20 01:14 Allergies Coded Allergies: No Known Drug Allergies (Verified Allergy, Unknown, 04/13/20) JESSI SIMMS NP Nov 28, 2020 14:55
[2020-11-28] MEDS ORDERED: HALOPERIDOL 5MG/ML VIAL (J1630 PER 1) IM STA (18:57)
[2020-11-28] MEDS ORDERED: LORazepam 2 MG/ML VIAL IM STA (18:57)
[2020-11-29] MEDS: BENZTROPINE 0.5 MG TAB PO SCH ×2 (08:56→20:18)
[2020-11-29] MEDS: LORazepam 0.5 MG TAB PO SCH (08:56)
[2020-11-29] MEDS ORDERED: PPD DOCUMENTATION ENTRY MISC XX ONE (10:00)
[2020-11-29] MEDS ORDERED: TUBERCULIN PPD 5 UNITS/0.1 ML ID ONE ×3 (10:00→11:00)
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
[2020-11-29 16:15] VITALS: BP 134/70
[2020-11-30] MEDS: BENZTROPINE 0.5 MG TAB PO SCH ×2 (07:46→21:00)
[2020-11-30] MEDS: TUBERCULIN PPD 5 UNITS/0.1 ML ID SCH (07:47)
--- NOTE | 2020-11-30 13:44 | MHIPNPDOC ---
[facility] Progress Note Progress Note DATE OF SERVICE: 11/30/20 HISTORY:Patient is a 25 year old female with a history of Schizophrenia who was brought into the [facility] ED and admitted to the [facility] following a decompensation from her baseline, due to being non-compliant with her psychotropic regimen. VITAL SIGNS: See below. CURRENT MEDICATIONS: See below. MENTAL STATUS EXAMINATION: Patient is a 25-year old single, disabled domiciles, -H[place]er female, who is admitted to [facility] on a 939 for psychotic symptoms due to poor adherence to medications., According to her father, patient has not been taking medications for the past 6 months. She appears her stated age, patient is dressed appropriately in hospital scrubs. Her hygiene and grooming is fair. Speech: Is speech is normal rate, tone and volume. Language skills Intact. Thought processes including: not reality based. disorganized, delusional thinking Thought content: Denies depression and anxiety. Denies suicidality or homicidality. Denies that she has auditory or visual hallucinations. But has delayed responses appearing to be responding to internal stimuli Abstract reasoning, and computation: Poor. Description of associations: Denies having any christianity preoccupations today Description of abnormal or psychotic thoughts:. appears to be responding to internal stimuli Judgment: Poor. Insight:, Poor. Orientation:. Alert and oriented to person and place. Recent and remote memory:. Unable to obtain. Attention span and concentration: Poor. Language: Minimal expressions. Fund of knowledge:, Average. Mood: depressed Affect:, congruent with mood. DIAGNOSES: 1., Unspecified, psychotic disorder. 2. Per old chart. Schizophrenia disorder. ASSESSMENT: Jennifer was not receptive to meet for the interview. She was laying in bed, declined meeting in office and in her room, states "no thank you, not right now." Her back was toward this food writer and she did not make eye contact. She remains compliant with medications but has shown minimal improvement,. Per staff notes, she has also had minimal interactions with nursing staff. MANAGEMENT PLAN: continue all medications Transfer to [facility] Vital Signs Vital Signs Date Time Temp Pulse Resp B/P (MAP) Pulse Ox O2 Delivery O2 Flow Rate FiO2 11/29/20 16:15 97.6 88 16 134/70 (91) 100 Room Air Current Medications Current Medications Medications (Trade) Dose Ordered Sig/Ben Route PRN Reason Start Time Stop Time Status Last Admin Dose Admin Acetaminophen (Tylenol Tab) 650 mg Q6HP PRN PO HEADACHE or DISCOMFORT 11/15/20 17:45 11/21/20 21:00 Al Hydrox/Mg Hydrox/Simethicone (Mylanta) 30 ml Q4HP PRN PO HEARTBURN/INDIGESTION 11/15/20 17:45 Benztropine Mesylate (Cogentin) 0.5 mg BID PO 11/19/20 21:00 11/30/20 07:46 Diphenhydramine HCl (Benadryl) 50 mg QHSP PRN PO SEE LABEL COMMENTS 11/15/20 17:45 Diphenhydramine HCl (Benadryl) 50 mg STAT STAT IM 11/17/20 07:17 11/17/20 07:20 DC 11/17/20 07:29 Diphenhydramine HCl (Benadryl) 50 mg STAT STAT IM 11/17/20 09:08 11/17/20 09:09 DC 11/17/20 09:40 Diphenhydramine HCl (Benadryl) 50 mg STAT STAT PO 11/16/20 14:05 11/16/20 14:07 DC Haloperidol (Haldol) 5 mg Q6HP PRN PO AGITATION 11/16/20 16:15 Haloperidol (Haldol) 5 mg STAT STAT IM 11/28/20 18:57 11/28/20 19:02 DC 11/28/20 19:05 Haloperidol (Haldol) 5 mg TID PO 11/15/20 21:00 11/19/20 16:00 DC Haloperidol (Haldol) 10 mg BID PO 11/19/20 21:00 11/30/20 07:46 Haloperidol (Haldol) 10 mg STAT STAT IM 11/17/20 07:17 11/17/20 07:20 DC 11/17/20 07:29 Haloperidol (Haldol) 10 mg STAT STAT IM 11/20/20 01:27 11/20/20 01:31 DC 11/20/20 01:44 Haloperidol (Haldol) 10 mg STAT STAT PO 11/16/20 14:05 11/16/20 14:07 DC Home Med (Med Rec Complete!) ASDIRECTED XX 11/14/20 19:00 11/14/20 18:59 DC Lorazepam (Ativan) 0.5 mg BID PO 11/24/20 09:00 11/24/20 09:37 DC Lorazepam (Ativan) 0.5 mg BID PO 11/24/20 21:00 11/29/20 13:45 DC 11/29/20 08:56 Lorazepam (Ativan) 1 mg BID PO 11/20/20 13:00 11/24/20 09:34 DC 11/24/20 08:22 Lorazepam (Ativan) 1 mg BIDP PRN PO SEVERE ANXIETY 11/15/20 17:45 Lorazepam (Ativan) 1 mg STAT STAT IM 11/17/20 09:08 11/17/20 09:09 DC 11/17/20 09:41 Lorazepam (Ativan) 1 mg STAT STAT IM 11/28/20 18:57 11/28/20 19:02 DC 11/28/20 19:05 Lorazepam (Ativan) 2 mg STAT STAT IM 11/17/20 07:17 11/17/20 07:20 DC 11/17/20 07:28 Lorazepam (Ativan) 2 mg STAT STAT PO 11/16/20 14:05 11/16/20 14:07 DC Lorazepam (Ativan) 4 mg STAT STAT IM 11/20/20 01:27 11/20/20 01:31 DC 11/20/20 01:44 Magnesium Hydroxide (Milk Of Magnesia) 30 ml DAILYPRN PRN PO CONSTIPATION 11/15/20 17:45 Miscellaneous (Unresolved Clarification Entry) SEE LABEL COMMENTS DAILY XX 11/22/20 09:00 11/22/20 15:21 DC Non-Formulary Medication ( See Comment Field Below ) Continue to offer un... 1T@10 ID 12/01/20 10:00 11/29/20 08:52 DC Trazodone HCl (Desyrel) 50 mg QHSP PRN PO INSOMNIA 11/15/20 17:45 11/27/20 01:14 Tuberculin PPD (Aplisol, Ppd) 5 units DAILY ID 11/30/20 09:00 Allergies Coded Allergies: No Known Drug Allergies (Verified Allergy, Unknown, 04/13/20) JESSI SIMMS NP Nov 30, 2020 13:44
[2020-12-01] MEDS: BENZTROPINE 0.5 MG TAB PO SCH ×2 (08:25→21:00)
[2020-12-01] MEDS: TUBERCULIN PPD 5 UNITS/0.1 ML ID SCH (08:26)
[2020-12-01] MEDS ORDERED: PPD DOCUMENTATION ENTRY MISC ID SCH (10:00)
[2020-12-01 10:18] VITALS: BP 0/0
[2020-12-01] MEDS ORDERED: PPD DOCUMENTATION ENTRY MISC XX ONE (11:00)
[2020-12-01] MEDS ORDERED: LORazepam 2 MG TAB PO ONE (14:15)
[2020-12-01] MEDS ORDERED: PILL CUTTER 1 EACH XX PRN (14:15)
--- NOTE | 2020-12-01 16:12 | MHIPNPDOC ---
[facility] Progress Note Progress Note DATE OF SERVICE: 12/01/20 HISTORY:Patient is a 25 year old female with a history of Schizophrenia who was brought into the [facility] ED and admitted to the [facility] following a decompensation from her baseline, due to being non-compliant with her psychotropic regimen. VITAL SIGNS: See below. CURRENT MEDICATIONS: See below. MENTAL STATUS EXAMINATION: Patient is a 25-year old single, disabled domiciles, -Swedish female, who is admitted to [facility] on a 939 for psychotic symptoms due to poor adherence to medications., According to her father, patient has not been taking medications for the past 6 months. She appears her stated age, patient is dressed appropriately in hospital scrubs. Her hygiene and grooming is fair. Speech: Is not speaking Language skills Intact. Thought processes including: not reality based. disorganized, delusional thinking Thought content: unknown about depression and anxiety. Unknown suicidality or homicidality. Is observed with auditory and possibly visual hallucinations. But has delayed responses appearing to be responding to internal stimuli Abstract reasoning, and computation: Poor. Description of associations: Denies having any episcopalian preoccupations today Description of abnormal or psychotic thoughts:. appears to be responding to internal stimuli Judgment: Poor. Insight:, Poor. Orientation:. Alert and oriented to person and place. Recent and remote memory:. Unable to obtain. Attention span and concentration: Poor. Language: Minimal expressions. Fund of knowledge:, Average. Mood: labile Affect:, congruent with mood. DIAGNOSES: 1., Unspecified, psychotic disorder. 2. Per old chart. Schizophrenia disorder. ASSESSMENT: Patient was found in the dining room. She did not meet eye contact, was observed with internal stimuli. Refused to speak or engage in any meaningful conversation. Per staff, patient's psychosis is increased, she is not engaged in the milieu, can't participate in the groups, when she is with peers she is often in appropriate (overly friendly) Her behavior this morning was labile, was agreeable to RN but was dismissive to a safety security officer. MANAGEMENT PLAN: continue all medications - Haldol increased to 15 mg HS and Haldol continued at 10 mg in AM, continuing to encourage Haldol Decanoate Transfer to [facility] Time Spent: 25 minutes Vital Signs Vital Signs Date Time Temp Pulse Resp B/P (MAP) Pulse Ox O2 Delivery O2 Flow Rate FiO2 12/01/20 10:18 97.6 0 0 0/0 0 Room Air Current Medications Current Medications Medications (Trade) Dose Ordered Sig/Ben Route PRN Reason Start Time Stop Time Status Last Admin Dose Admin Acetaminophen (Tylenol Tab) 650 mg Q6HP PRN PO HEADACHE or DISCOMFORT 11/15/20 17:45 11/21/20 21:00 Al Hydrox/Mg Hydrox/Simethicone (Mylanta) 30 ml Q4HP PRN PO HEARTBURN/INDIGESTION 11/15/20 17:45 Benztropine Mesylate (Cogentin) 0.5 mg BID PO 11/19/20 21:00 12/01/20 08:25 Diphenhydramine HCl (Benadryl) 50 mg QHSP PRN PO SEE LABEL COMMENTS 11/15/20 17:45 Diphenhydramine HCl (Benadryl) 50 mg STAT STAT IM 11/17/20 07:17 11/17/20 07:20 DC 11/17/20 07:29 Diphenhydramine HCl (Benadryl) 50 mg STAT STAT IM 11/17/20 09:08 11/17/20 09:09 DC 11/17/20 09:40 Diphenhydramine HCl (Benadryl) 50 mg STAT STAT PO 11/16/20 14:05 11/16/20 14:07 DC Haloperidol (Haldol) 5 mg Q6HP PRN PO AGITATION 11/16/20 16:15 Haloperidol (Haldol) 5 mg STAT STAT IM 11/28/20 18:57 11/28/20 19:02 DC 11/28/20 19:05 Haloperidol (Haldol) 5 mg TID PO 11/15/20 21:00 11/19/20 16:00 DC Haloperidol (Haldol) 10 mg BID PO 11/19/20 21:00 12/01/20 08:25 Haloperidol (Haldol) 10 mg STAT STAT IM 11/17/20 07:17 11/17/20 07:20 DC 11/17/20 07:29 Haloperidol (Haldol) 10 mg STAT STAT IM 11/20/20 01:27 11/20/20 01:31 DC 11/20/20 01:44 Haloperidol (Haldol) 10 mg STAT STAT PO 11/16/20 14:05 11/16/20 14:07 DC Home Med (Med Rec Complete!) ASDIRECTED XX 11/14/20 19:00 11/14/20 18:59 DC Lorazepam (Ativan) 0.5 mg BID PO 11/24/20 09:00 11/24/20 09:37 DC Lorazepam (Ativan) 0.5 mg BID PO 11/24/20 21:00 11/29/20 13:45 DC 11/29/20 08:56 Lorazepam (Ativan) 1 mg BID PO 11/20/20 13:00 11/24/20 09:34 DC 11/24/20 08:22 Lorazepam (Ativan) 1 mg BIDP PRN PO SEVERE ANXIETY 11/15/20 17:45 Lorazepam (Ativan) 1 mg STAT STAT IM 11/17/20 09:08 11/17/20 09:09 DC 11/17/20 09:41 Lorazepam (Ativan) 1 mg STAT STAT IM 11/28/20 18:57 11/28/20 19:02 DC 11/28/20 19:05 Lorazepam (Ativan) 2 mg STAT STAT IM 11/17/20 07:17 11/17/20 07:20 DC 11/17/20 07:28 Lorazepam (Ativan) 2 mg STAT STAT PO 11/16/20 14:05 11/16/20 14:07 DC Lorazepam (Ativan) 4 mg STAT STAT IM 11/20/20 01:27 11/20/20 01:31 DC 11/20/20 01:44 Magnesium Hydroxide (Milk Of Magnesia) 30 ml DAILYPRN PRN PO CONSTIPATION 11/15/20 17:45 Miscellaneous (Unresolved Clarification Entry) SEE LABEL COMMENTS DAILY XX 11/22/20 09:00 11/22/20 15:21 DC Non-Formulary Medication ( See Comment Field Below ) Continue to offer un... 1T@10 ID 12/01/20 10:00 11/29/20 08:52 DC Trazodone HCl (Desyrel) 50 mg QHSP PRN PO INSOMNIA 11/15/20 17:45 11/27/20 01:14 Tuberculin PPD (Aplisol, Ppd) 5 units DAILY ID 11/30/20 09:00 Allergies Coded Allergies: No Known Drug Allergies (Verified Allergy, Unknown, 04/13/20) JESSI SIMMS NP Dec 01, 2020 14:10
[2020-12-01] MEDS ORDERED: HALOPERIDOL 5MG/ML VIAL (J1630 PER 1) IM STA (20:15)
[2020-12-01] MEDS ORDERED: LORazepam 2 MG/ML VIAL IM STA (20:15)
[2020-12-02] MEDS: TUBERCULIN PPD 5 UNITS/0.1 ML ID SCH (10:14)
[2020-12-02] MEDS: BENZTROPINE 0.5 MG TAB PO SCH ×4 (10:14→21:00)
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
[2020-12-03] MEDS: BENZTROPINE 0.5 MG TAB PO SCH ×2 (09:00→21:00)
[2020-12-03] MEDS: TUBERCULIN PPD 5 UNITS/0.1 ML ID SCH (09:00)
[2020-12-03] MEDS ORDERED: diphenhydrAMINE 50MG/ML VIAL (J1200) IM STA ×2 (17:51→19:22)
[2020-12-03] MEDS ORDERED: LORazepam 2 MG/ML VIAL IM STA ×2 (17:51→19:22)
[2020-12-03] MEDS ORDERED: HALOPERIDOL 5MG/ML VIAL (J1630 PER 1) IM STA ×2 (17:51→19:22)
--- NOTE | 2020-12-03 19:18 | IPN ---
PROGRESS NOTE DATE: 12/03/2020 Code 25 was called on Jennifer Guillen. Hospitalist admitted her. I was asked to evaluate the patient with [id number]. She was in a restraint room, was alert, following commands. Airway was unremarkable. Breathing was unlabored. Lungs were clear. Heart regular rhythm. Abdomen soft, nontender. No musculoskeletal trauma noted. IMPRESSION: Unremarkable [id number] evaluation after Code 25.
[2020-12-04] MEDS: BENZTROPINE 0.5 MG TAB PO SCH ×2 (09:00→21:00)
[2020-12-04] MEDS: TUBERCULIN PPD 5 UNITS/0.1 ML ID SCH (09:00)
[2020-12-05] MEDS: BENZTROPINE 0.5 MG TAB PO SCH ×2 (09:00→21:00)
[2020-12-05] MEDS: TUBERCULIN PPD 5 UNITS/0.1 ML ID SCH (09:00)
--- NOTE | 2020-12-05 12:56 | MHIPNPDOC ---
[facility] Progress Note Progress Note DATE OF SERVICE: 12/05/20 HISTORY:Patient is a 25 year old female with a history of Schizophrenia who was brought into the [facility] ED and admitted to the [facility] following a decompensation from her baseline, due to being non-compliant with her psychotropic regimen. VITAL SIGNS: See below. CURRENT MEDICATIONS: See below. MENTAL STATUS EXAMINATION: Patient is a 25-year old single, disabled domiciles, -[place] female, who is admitted to [facility] on a 939 for psychotic symptoms due to poor adherence to medications., According to her father, patient has not been taking medications for the past 6 months. She appears her stated age, patient is dressed appropriately in hospital scrubs. Her hygiene and grooming is fair. Speech: normal rate, tone and volume Language skills Intact. Thought processes including: not reality based. disorganized, Thought content: unknown about depression and anxiety. Unknown suicidality or homicidality. Is observed with auditory and possibly visual hallucinations. Denying that she has any psychotic symptoms Abstract reasoning, and computation: Poor. Description of associations: Denies having any lutheran preoccupations today Description of abnormal or psychotic thoughts:. appears to be responding to internal stimuli Judgment: Poor. Insight:, Poor. Orientation:. Alert and oriented to person and place. Recent and remote memory:. Unable to obtain. Attention span and concentration: Poor. Language: Minimal expressions. Fund of knowledge:, Average. Mood: Euphoric, smiling inappropriately Affect:, congruent with mood. DIAGNOSES: 1. Schizophrenia disorder. ASSESSMENT: Patient was found in hallway, approached her to allow for interview with this provider and medical student. She stared at medical student, smiled coyishly and stated she would like to meet. She reports that she has been compliant with medications, but she has not taken medications over the weekend. Per staff she was coded over the weekend due to her threatening behaviors. In the interview, patient stated that she thinks she is ready for discharge and that we should talk to her mother about it. Patient continues to demonstrate poor insight and judgement. She lacks capacity to make good and sound decisions. She is not stable for discharge due to her threatening behaviors, her poor adherence to treatment regimen, refusing medications now. We may have to consider treatment over objection if she continues with being non-compliant. MANAGEMENT PLAN: continue all medications - continuing to encourage Haldol Decanoate it has not been ordered but patient has had this in the past and has not been compliant in the community Transfer to [facility] Time Spent: 25 minutes Vital Signs Vital Signs Date Time Temp Pulse Resp B/P (MAP) Pulse Ox O2 Delivery O2 Flow Rate FiO2 12/01/20 22:15 16 12/01/20 10:18 97.6 0 0/0 0 Room Air Current Medications Current Medications Medications (Trade) Dose Ordered Sig/Ben Route PRN Reason Start Time Stop Time Status Last Admin Dose Admin Acetaminophen (Tylenol Tab) 650 mg Q6HP PRN PO HEADACHE or DISCOMFORT 11/15/20 17:45 11/21/20 21:00 Al Hydrox/Mg Hydrox/Simethicone (Mylanta) 30 ml Q4HP PRN PO HEARTBURN/INDIGESTION 11/15/20 17:45 Benztropine Mesylate (Cogentin) 0.5 mg BID PO 11/19/20 21:00 12/02/20 10:16 Diphenhydramine HCl (Benadryl) 50 mg QHSP PRN PO SEE LABEL COMMENTS 11/15/20 17:45 Diphenhydramine HCl (Benadryl) 50 mg STAT STAT IM 11/17/20 07:17 11/17/20 07:20 DC 11/17/20 07:29 Diphenhydramine HCl (Benadryl) 50 mg STAT STAT IM 11/17/20 09:08 11/17/20 09:09 DC 11/17/20 09:40 Diphenhydramine HCl (Benadryl) 50 mg STAT STAT IM 12/03/20 17:51 12/03/20 17:55 DC 12/03/20 17:59 Diphenhydramine HCl (Benadryl) 50 mg STAT STAT IM 12/03/20 19:22 12/03/20 19:27 DC 12/03/20 19:31 Diphenhydramine HCl (Benadryl) 50 mg STAT STAT PO 11/16/20 14:05 11/16/20 14:07 DC Haloperidol (Haldol) 5 mg Q6HP PRN PO AGITATION 11/16/20 16:15 Haloperidol (Haldol) 5 mg STAT STAT IM 11/28/20 18:57 11/28/20 19:02 DC 11/28/20 19:05 Haloperidol (Haldol) 5 mg STAT STAT IM 12/01/20 20:15 12/01/20 20:18 DC 12/01/20 20:34 Haloperidol (Haldol) 5 mg STAT STAT IM 12/03/20 19:22 12/03/20 19:27 DC 12/03/20 19:31 Haloperidol (Haldol) 5 mg TID PO 11/15/20 21:00 11/19/20 16:00 DC Haloperidol (Haldol) 10 mg BID PO 11/19/20 21:00 12/01/20 14:08 DC 12/01/20 08:25 Haloperidol (Haldol) 10 mg QAM PO 12/02/20 09:00 12/02/20 10:16 Haloperidol (Haldol) 10 mg STAT STAT IM 11/17/20 07:17 11/17/20 07:20 DC 11/17/20 07:29 Haloperidol (Haldol) 10 mg STAT STAT IM 11/20/20 01:27 11/20/20 01:31 DC 11/20/20 01:44 Haloperidol (Haldol) 10 mg STAT STAT IM 12/03/20 17:51 12/03/20 17:55 DC 12/03/20 18:00 Haloperidol (Haldol) 10 mg STAT STAT PO 11/16/20 14:05 11/16/20 14:07 DC Haloperidol (Haldol) 15 mg QHS PO 12/01/20 21:00 Home Med (Med Rec Complete!) ASDIRECTED XX 11/14/20 19:00 11/14/20 18:59 DC Lorazepam (Ativan) 0.5 mg BID PO 11/24/20 09:00 11/24/20 09:37 DC Lorazepam (Ativan) 0.5 mg BID PO 11/24/20 21:00 11/29/20 13:45 DC 11/29/20 08:56 Lorazepam (Ativan) 1 mg BID PO 11/20/20 13:00 11/24/20 09:34 DC 11/24/20 08:22 Lorazepam (Ativan) 1 mg BIDP PRN PO SEVERE ANXIETY 11/15/20 17:45 Lorazepam (Ativan) 1 mg STAT STAT IM 11/17/20 09:08 11/17/20 09:09 DC 11/17/20 09:41 Lorazepam (Ativan) 1 mg STAT STAT IM 11/28/20 18:57 11/28/20 19:02 DC 11/28/20 19:05 Lorazepam (Ativan) 1 mg STAT STAT IM 12/01/20 20:15 12/01/20 20:18 DC 12/01/20 20:35 Lorazepam (Ativan) 2 mg STAT STAT IM 11/17/20 07:17 11/17/20 07:20 DC 11/17/20 07:28 Lorazepam (Ativan) 2 mg STAT STAT IM 12/03/20 17:51 12/03/20 17:55 DC 12/03/20 17:59 Lorazepam (Ativan) 2 mg STAT STAT IM 12/03/20 19:22 12/03/20 19:27 DC 12/03/20 19:31 Lorazepam (Ativan) 2 mg STAT STAT PO 11/16/20 14:05 11/16/20 14:07 DC Lorazepam (Ativan) 4 mg STAT STAT IM 11/20/20 01:27 11/20/20 01:31 DC 11/20/20 01:44 Magnesium Hydroxide (Milk Of Magnesia) 30 ml DAILYPRN PRN PO CONSTIPATION 11/15/20 17:45 Miscellaneous (Unresolved Clarification Entry) SEE LABEL COMMENTS DAILY XX 11/22/20 09:00 11/22/20 15:21 DC Miscellaneous (Unresolved Clarification Entry) SEE LABEL COMMENTS DAILY XX 12/04/20 09:00 12/04/20 12:01 DC Non-Formulary Medication ( See Comment Field Below ) Continue to offer un... 1T@10 ID 12/01/20 10:00 11/29/20 08:52 DC Trazodone HCl (Desyrel) 50 mg QHSP PRN PO INSOMNIA 11/15/20 17:45 11/27/20 01:14 Tuberculin PPD (Aplisol, Ppd) 5 units DAILY ID 11/30/20 09:00 Allergies Coded Allergies: No Known Drug Allergies (Verified Allergy, Unknown, 04/13/20) JESSI SIMMS NP Dec 05, 2020 12:56
[2020-12-05] MEDS ORDERED: LORazepam 2 MG/ML VIAL IM STA (22:53)
[2020-12-05] MEDS ORDERED: diphenhydrAMINE 50MG/ML VIAL (J1200) IM STA (22:53)
[2020-12-05] MEDS ORDERED: HALOPERIDOL 5MG/ML VIAL (J1630 PER 1) IM STA (22:53)
[2020-12-05] MEDS ORDERED: HALOPERIDOL 5MG/ML VIAL (J1630 PER 1) As Ordered ONE (22:55)
[2020-12-05] MEDS ORDERED: diphenhydrAMINE 50MG/ML VIAL (J1200) As Ordered ONE (22:56)
[2020-12-05] MEDS ORDERED: LORazepam 2 MG/ML VIAL As Ordered ONE (22:57)
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
[2020-12-06] MEDS: BENZTROPINE 0.5 MG TAB PO SCH ×2 (09:00→21:00)
[2020-12-06] MEDS: TUBERCULIN PPD 5 UNITS/0.1 ML ID SCH (09:00)
--- NOTE | 2020-12-06 13:29 | MHIPN ---
[facility] PROGRESS NOTE POST PHYSICAL AND CHEMICAL RESTRAINT NOTE DATE: 12/04/2020 The patient became very aggressive yesterday. She was lying on the floor, spitting, and when staff asked her to get up she would not. They attempted to put her on a blanket and to pick her up from the floor, and then she became aggressive at that point, and so the patient was treated with physical restraints and also given Haldol 10 mg, Benadryl 50 mg, Ativan 2 mg intramuscular (IM). Today the patient refused to talk to me. She kept walking past me in the hallway and would not even acknowledge that I wanted to talk to her. So far she seems to be not exhibiting any aggressive symptoms this morning, and so I feel that the restraints last night were necessary, and I do not see any evidence that she had any bad consequences from the restraint.
[2020-12-07] MEDS: BENZTROPINE 0.5 MG TAB PO SCH ×2 (08:55→22:00)
[2020-12-07] MEDS: TUBERCULIN PPD 5 UNITS/0.1 ML ID SCH (08:55)
[2020-12-08] MEDS: BENZTROPINE 0.5 MG TAB PO SCH ×3 (09:00→21:00)
[2020-12-08] MEDS: TUBERCULIN PPD 5 UNITS/0.1 ML ID SCH (09:00)
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
[2020-12-08] MEDS ORDERED: HALOPERIDOL DECANOATE 100 MG/ML VIAL (J1631) IM ONE (16:00)
[2020-12-08 16:17] VITALS: BP 138/84
[2020-12-09] MEDS: TUBERCULIN PPD 5 UNITS/0.1 ML ID SCH (09:00)
[2020-12-09] MEDS: BENZTROPINE 0.5 MG TAB PO SCH ×2 (09:00→21:00)
--- NOTE | 2020-12-09 17:32 | MHIPN ---
COUNTS INCLUDE 234 BEDS AT THE [facility] PROGRESS NOTE DATE: 12/06/2020 The patient today is basically lying in bed. She said she was sleepy. The patient actually would not look up, and apparently she has been isolating to her room. MENTAL STATUS EXAMINATION: She is alert to person, but other than that I am not able to do mental status exam, as she will not talk to us. DIAGNOSIS: Schizophrenia. TREATMENT PLAN: We will continue to monitor the patient for acute psychotic symptoms. The patient continues to refuse to take medications. We will continue to encourage her to start taking medicines. HARRIETT
--- NOTE | 2020-12-09 18:04 | MHIPN ---
PENDING SALE TO [facility] PROGRESS NOTE DATE: 12/07/2020 The patient today again is lying in bed. She refuses to talk to me or look at me. She is seen via telepsychiatry due to the current coronavirus pandemic. The patient is not eating or drinking much today, and she continues not to take medications. MENTAL STATUS EXAMINATION: We will continue to monitor the patient, but I am not really able to do a Mental Status Exam, as the patient would not even talk to us. DIAGNOSIS: Schizophrenia. TREATMENT PLAN: We will continue to monitor the patient and encourage her to start taking her medications. She is acutely psychotic, and we will try to encourage her to eat and drink and advise staff to try to give her some fluids that are prepackaged in case the reason why she is not eating is that she is paranoid about food now.
[2020-12-10] MEDS: TUBERCULIN PPD 5 UNITS/0.1 ML ID SCH (09:00)
[2020-12-10] MEDS: BENZTROPINE 0.5 MG TAB PO SCH ×2 (09:00→20:37)
[2020-12-11] MEDS: BENZTROPINE 0.5 MG TAB PO SCH ×2 (08:40→21:00)
[2020-12-11] MEDS: TUBERCULIN PPD 5 UNITS/0.1 ML ID SCH (08:40)
--- NOTE | 2020-12-11 21:03 | MHIPN ---
[facility] PROGRESS NOTE DATE: 12/08/2020 The patient today did take her Haldol and then subsequent to that, she became very angry while she was on the phone with her mother, but by the time that I saw her she appeared to be in a very happy mood. She told me she remembered that she used to see me in the clinic and she agreed to get back on her Haldol decanoate. She was still very vague about any symptoms however, basically telling me that she was doing all right. MENTAL STATUS EXAMINATION: She was alert and she was oriented times three. Eye contact was good, as I said she was smiling, verbally spontaneous. No formal thought disorder was noted. She told me she was okay. Her affect was appropriate to mood, if anything her mood appeared to be somewhat manic or hypomanic. I did not elicit any psychotic symptoms but I suspect that she still does have some, but I think she was being guarded with me. She is not suicidal or homicidal. Concentration is fair. Memory intact. Insight and judgment is poor. DIAGNOSES: Schizophrenia. TREATMENT PLAN: The patient is willing to start back on her Haldol decanoate 200 mg intramuscular (IM) every month and so we will order the medication. Also, the patient's behavior is more appropriate and so we will not continue her on one-to-one observation level.
--- NOTE | 2020-12-11 21:15 | MHIPN ---
[facility] PROGRESS NOTE DATE: 12/09/2020 Today, the patient was just standing in the hallway. She refused to open her eyes or talk to me. This morning, she apparently refused her medications and so her behavior is totally the opposite of what it was yesterday when she was very verbal and spontaneous and receptive to talking to me. She did take her Haldol decanoate yesterday which was good. MENTAL STATUS EXAMINATION: Unable to complete as the patient would not talk to me. DIAGNOSIS: Schizophrenia. TREATMENT PLAN: At this point, the patient will continue to be monitored for psychotic symptoms. She refused to take her medication today, but at least she did take her Haldol decanoate injection yesterday which is a long acting injection which will hopefully start helping her with her psychotic symptoms soon.
[2020-12-12] MEDS: BENZTROPINE 0.5 MG TAB PO SCH ×2 (09:00→21:00)
[2020-12-12] MEDS: TUBERCULIN PPD 5 UNITS/0.1 ML ID SCH (09:00)
[2020-12-13] MEDS: BENZTROPINE 0.5 MG TAB PO SCH ×2 (09:00→21:00)
[2020-12-13] MEDS: TUBERCULIN PPD 5 UNITS/0.1 ML ID SCH (09:00)
[2020-12-13 16:13] VITALS: BP 118/66
--- NOTE | 2020-12-13 17:17 | IPNPDOC ---
Text Note Date of Service The patient was seen on 12/13/20. NOTE Psych team asked hospitalist service to evaluate the patient due to possible dehydration and declining kidney function. I ordered labs, however patient refused it. When I saw her patient refused to communicate with me and refused physical exam. Please contact hospitalist service when patient will be mentally stabilized. VS,Fishbone, I+O VS, Fishbone, I+O Vital Signs Date Time Temp Pulse Resp B/P (MAP) Pulse Ox O2 Delivery O2 Flow Rate FiO2 12/11/20 08:30 Room Air 12/08/20 16:17 98.3 109 18 138/84 (102) 100 EVAN MACK DO Dec 13, 2020 17:17
[2020-12-14] MEDS: BENZTROPINE 0.5 MG TAB PO SCH ×2 (09:00→21:00)
[2020-12-14] MEDS: TUBERCULIN PPD 5 UNITS/0.1 ML ID SCH (09:00)
--- NOTE | 2020-12-14 09:23 | MHIPN ---
[facility] PROGRESS NOTE DATE: 12/12/2020 The patient is seen via telepsychiatry due to the current Coronavirus crisis. The patient is laying in bed and the staff tried to wake her up and she responded that she was sleeping and she would not turn her face to look at me. MENTAL STATUS EXAMINATION: Unable to do the mental status exam as the patient would not cooperate. DIAGNOSES: Schizophrenia. TREATMENT PLAN: We will continue to monitor the patient for psychotic symptoms. She did receive her long acting Haldol decanoate 200 mg intramuscular (IM) about a week ago, so hopefully we will start seeing some improvement in this patient's mental status.
--- NOTE | 2020-12-14 19:23 | MHIPNPDOC ---
[facility] Progress Note Progress Note DATE OF SERVICE: 12/14/20 History: This 25-year-old female has a long history of chronic schizophrenia VITAL SIGNS: See below. NEW TEST RESULTS: None. CURRENT MEDICATIONS: See below. MENTAL STATUS EXAMINATION: Patient is a 25-year-old female-year old female, who is suffering from schizophrenia. Speech: Is, poor, as patient unwilling to talk. Language skills are impossible to determine. Thought processes including: Cannot be determined. Thought content: Cannot be determined. Abstract reasoning, and computation: Cannot be determined. Description of associations: Cannot be determined. Description of abnormal or psychotic thoughts: Not expressing thoughts to examiner. Judgment: Cannot be determined. Insight:, Poor. Orientation: Cannot be determined. Recent and remote memory: Cannot be determined. Attention span and concentration: Cannot be determined. Language:. Unclear at this time. Fund of knowledge:. Unclear at this time. Mood: Unclear. Affect: Banks and flat. DIAGNOSES: 1. Paranoid schizophrenia. ASSESSMENT: 25-year-old female with chronic schizophrenia MANAGEMENT PLAN: Evaluate present medications. Attempt to communicate with patient and develop treatment plan TIME SPENT: 30 minutes. Vital Signs Vital Signs Date Time Temp Pulse Resp B/P (MAP) Pulse Ox O2 Delivery O2 Flow Rate FiO2 12/11/20 08:30 Room Air 12/08/20 16:17 98.3 109 18 138/84 (102) 100 Current Medications Current Medications Medications (Trade) Dose Ordered Sig/Ben Route PRN Reason Start Time Stop Time Status Last Admin Dose Admin Acetaminophen (Tylenol Tab) 650 mg Q6HP PRN PO HEADACHE or DISCOMFORT 11/15/20 17:45 11/21/20 21:00 Al Hydrox/Mg Hydrox/Simethicone (Mylanta) 30 ml Q4HP PRN PO HEARTBURN/INDIGESTION 11/15/20 17:45 Benztropine Mesylate (Cogentin) 0.5 mg BID PO 11/19/20 21:00 12/08/20 10:54 Diphenhydramine HCl (Benadryl) 50 mg QHSP PRN PO SEE LABEL COMMENTS 11/15/20 17:45 Diphenhydramine HCl (Benadryl) 50 mg STAT STAT IM 11/17/20 07:17 11/17/20 07:20 DC 11/17/20 07:29 Diphenhydramine HCl (Benadryl) 50 mg STAT STAT IM 11/17/20 09:08 11/17/20 09:09 DC 11/17/20 09:40 Diphenhydramine HCl (Benadryl) 50 mg STAT STAT IM 12/03/20 17:51 12/03/20 17:55 DC 12/03/20 17:59 Diphenhydramine HCl (Benadryl) 50 mg STAT STAT IM 12/03/20 19:22 12/03/20 19:27 DC 12/03/20 19:31 Diphenhydramine HCl (Benadryl) 50 mg STAT STAT IM 12/05/20 22:53 12/05/20 22:57 DC 12/05/20 23:09 Diphenhydramine HCl (Benadryl) 50 mg STAT STAT PO 11/16/20 14:05 11/16/20 14:07 DC Haloperidol (Haldol) 5 mg Q6HP PRN PO AGITATION 11/16/20 16:15 Haloperidol (Haldol) 5 mg STAT STAT IM 11/28/20 18:57 11/28/20 19:02 DC 11/28/20 19:05 Haloperidol (Haldol) 5 mg STAT STAT IM 12/01/20 20:15 12/01/20 20:18 DC 12/01/20 20:34 Haloperidol (Haldol) 5 mg STAT STAT IM 12/03/20 19:22 12/03/20 19:27 DC 12/03/20 19:31 Haloperidol (Haldol) 5 mg TID PO 11/15/20 21:00 11/19/20 16:00 DC Haloperidol (Haldol) 10 mg BID PO 11/19/20 21:00 12/01/20 14:08 DC 12/01/20 08:25 Haloperidol (Haldol) 10 mg QAM PO 12/02/20 09:00 12/08/20 10:54 Haloperidol (Haldol) 10 mg STAT STAT IM 11/17/20 07:17 11/17/20 07:20 DC 11/17/20 07:29 Haloperidol (Haldol) 10 mg STAT STAT IM 11/20/20 01:27 11/20/20 01:31 DC 11/20/20 01:44 Haloperidol (Haldol) 10 mg STAT STAT IM 12/03/20 17:51 12/03/20 17:55 DC 12/03/20 18:00 Haloperidol (Haldol) 10 mg STAT STAT IM 12/05/20 22:53 12/05/20 22:57 DC 12/05/20 23:09 Haloperidol (Haldol) 10 mg STAT STAT PO 11/16/20 14:05 11/16/20 14:07 DC Haloperidol (Haldol) 15 mg QHS PO 12/01/20 21:00 Home Med (Med Rec Complete!) ASDIRECTED XX 11/14/20 19:00 11/14/20 18:59 DC Lorazepam (Ativan) 0.5 mg BID PO 11/24/20 09:00 11/24/20 09:37 DC Lorazepam (Ativan) 0.5 mg BID PO 11/24/20 21:00 11/29/20 13:45 DC 11/29/20 08:56 Lorazepam (Ativan) 1 mg BID PO 11/20/20 13:00 11/24/20 09:34 DC 11/24/20 08:22 Lorazepam (Ativan) 1 mg BIDP PRN PO SEVERE ANXIETY 11/15/20 17:45 Lorazepam (Ativan) 1 mg STAT STAT IM 11/17/20 09:08 11/17/20 09:09 DC 11/17/20 09:41 Lorazepam (Ativan) 1 mg STAT STAT IM 11/28/20 18:57 11/28/20 19:02 DC 11/28/20 19:05 Lorazepam (Ativan) 1 mg STAT STAT IM 12/01/20 20:15 12/01/20 20:18 DC 12/01/20 20:35 Lorazepam (Ativan) 2 mg STAT STAT IM 11/17/20 07:17 11/17/20 07:20 DC 11/17/20 07:28 Lorazepam (Ativan) 2 mg STAT STAT IM 12/03/20 17:51 12/03/20 17:55 DC 12/03/20 17:59 Lorazepam (Ativan) 2 mg STAT STAT IM 12/03/20 19:22 12/03/20 19:27 DC 12/03/20 19:31 Lorazepam (Ativan) 2 mg STAT STAT IM 12/05/20 22:53 12/05/20 22:57 DC 12/05/20 23:10 Lorazepam (Ativan) 2 mg STAT STAT PO 11/16/20 14:05 11/16/20 14:07 DC Lorazepam (Ativan) 4 mg STAT STAT IM 11/20/20 01:27 11/20/20 01:31 DC 11/20/20 01:44 Magnesium Hydroxide (Milk Of Magnesia) 30 ml DAILYPRN PRN PO CONSTIPATION 11/15/20 17:45 Miscellaneous (Unresolved Clarification Entry) SEE LABEL COMMENTS DAILY XX 11/22/20 09:00 11/22/20 15:21 DC Miscellaneous (Unresolved Clarification Entry) SEE LABEL COMMENTS DAILY XX 12/10/20 09:00 12/14/20 18:25 DC Miscellaneous (Unresolved Clarification Entry) SEE LABEL COMMENTS DAILY XX 12/14/20 09:00 Miscellaneous (Unresolved Clarification Entry) SEE LABEL COMMENTS DAILY XX 12/04/20 09:00 12/04/20 12:01 DC Non-Formulary Medication ( See Comment Field Below ) Continue to offer un... 1T@10 ID 12/01/20 10:00 11/29/20 08:52 DC Trazodone HCl (Desyrel) 50 mg QHSP PRN PO INSOMNIA 11/15/20 17:45 11/27/20 01:14 Tuberculin PPD (Aplisol, Ppd) 5 units DAILY ID 11/30/20 09:00 Allergies Coded Allergies: No Known Drug Allergies (Verified Allergy, Unknown, 04/13/20) FAYE FIGUEROA MD Dec 14, 2020 19:23
[2020-12-15 00:01] VITALS: BP 118/72
[2020-12-15 00:28] LABS: BASO % 0.2 % (0.0-1.0); EOS % 0.2 % (0.0-3.0); HEMATOCRIT 41.5 % (36.0-47.0); HEMOGLOBIN 12.7 g/dl (12.0-15.5); LYMPH # 1.9 10^3/uL (1.5-5.0); LYMPH % 22.7 % (24.0-44.0); MEAN CORPUSCULAR HEMOGLOBIN 26.2 pg (27.0-33.0); MEAN CORPUSCULAR HGB CONC 30.6 g/dl (32.0-36.5); MEAN CORPUSCULAR VOLUME 85.7 fl (80.0-96.0); MONO # 0.8 10^3/uL (0.0-0.8); NEUTROPHILS # 5.6 10^3/uL (1.5-8.5); NEUTROPHILS % 67.4 % (36.0-66.0); PLATELET COUNT, AUTOMATED 236 10^3/uL (150-450); RED BLOOD COUNT 4.84 10^6/uL (4.00-5.40); WHITE BLOOD COUNT 8.3 10^3/uL (4.0-10.0)
[2020-12-15 00:41] LABS: BLOOD UREA NITROGEN 12 MG/DL (7-18); CALCIUM LEVEL 9.7 MG/DL (8.5-10.1); CARBON DIOXIDE LEVEL 22 MEQ/L (21-32); CHLORIDE LEVEL 100 MEQ/L (98-107); CREATININE FOR GFR 1.08 MG/DL (0.55-1.30); GLOMERULAR FILTRATION RATE > 60.0 (>60); GLUCOSE, FASTING 78 MG/DL (70-100); MAGNESIUM LEVEL 1.9 MG/DL (1.8-2.4); POTASSIUM SERUM 4.4 MEQ/L (3.5-5.1); SODIUM LEVEL 134 MEQ/L (136-145)
[2020-12-15] MEDS: LORazepam 1 MG TAB PO SCH ×5 (01:24→17:33)
[2020-12-15] MEDS: BENZTROPINE 0.5 MG TAB PO SCH ×2 (08:55→20:19)
[2020-12-15] MEDS: TUBERCULIN PPD 5 UNITS/0.1 ML ID SCH (08:55)
--- NOTE | 2020-12-15 10:14 | MHIPNPDOC ---
[facility] Progress Note Progress Note DATE OF SERVICE: 12/15/20 HISTORY: 25-year-old female admitted with numerous psychotic symptoms who has been receiving Haldol Decanoate but refusing oral Haldol. I spoke with patient this morning and she was cheerful and discussed her interest in Neil. After speaking with me. She left the room, smiling inappropriately. Staff discussed the patient can change moods rapidly. She very well may be responding to internal stimulation. I may choose to add a mood stabilizer to her regimen, although she has been noncompliant with meds. According to history, she has been noncompliant for quite a long time prior to this admission. VITAL SIGNS: See below. NEW TEST RESULTS: None. CURRENT MEDICATIONS: See below. MENTAL STATUS EXAMINATION: Patient is a 25-year old female, who is with a history of noncompliance and psychosis. Speech: Is, childlike. Language skills are, normal. Thought processes including: Religiosity. Thought content:, Samaritan thought today. Abstract reasoning, and computation:. Not apparent. Description of associations:. No loose association. Description of abnormal or psychotic thoughts: By history though not apparent today. Judgment: Poor Insight:, Poor. Orientation: 3. Recent and remote memory:. Not measured today. Attention span and concentration:. Variable. Language: No disturbance. Fund of knowledge: Not measured today. Mood:. Variable. Affect: Labile. DIAGNOSES: 1. Schizoaffective disorder. 2. None. 3. None. ASSESSMENT: 25-year-old female with long history of psychosis and noncompliance with medication. Presently refusing oral medication but having received a Haldol Decanoate injection of 200 mg MANAGEMENT PLAN: May add mood stabilizer.. TIME SPENT: minutes. Vital Signs Vital Signs Date Time Temp Pulse Resp B/P (MAP) Pulse Ox O2 Delivery O2 Flow Rate FiO2 12/15/20 00:01 98.8 88 16 118/72 (87) 100 Room Air Laboratory Data 24H Labs Laboratory Tests 2 12/14/20 23:58: Immature Granulocyte % (Auto) 0.5, Neutrophils (%) (Auto) 67.4H, Lymphocytes (%) (Auto) 22.7L, Monocytes (%) (Auto) 9.0H, Eosinophils (%) (Auto) 0.2, Basophils (%) (Auto) 0.2, Neutrophils # (Auto) 5.6, Lymphocytes # (Auto) 1.9, Monocytes # (Auto) 0.8, Eosinophils # (Auto) 0.0, Basophils # (Auto) 0.0, Nucleated Red Blood Cells % (auto) 0.0, Anion Gap 12, Glomerular Filtration Rate > 60.0, Calcium Level 9.7, Magnesium Level 1.9 CBC/BMP Laboratory Tests 12/14/20 23:58 Current Medications Current Medications Medications (Trade) Dose Ordered Sig/Ben Route PRN Reason Start Time Stop Time Status Last Admin Dose Admin Acetaminophen (Tylenol Tab) 650 mg Q6HP PRN PO HEADACHE or DISCOMFORT 11/15/20 17:45 11/21/20 21:00 Al Hydrox/Mg Hydrox/Simethicone (Mylanta) 30 ml Q4HP PRN PO HEARTBURN/INDIGESTION 11/15/20 17:45 Benztropine Mesylate (Cogentin) 0.5 mg BID PO 11/19/20 21:00 12/08/20 10:54 Diphenhydramine HCl (Benadryl) 50 mg QHSP PRN PO SEE LABEL COMMENTS 11/15/20 17:45 Diphenhydramine HCl (Benadryl) 50 mg STAT STAT IM 11/17/20 07:17 11/17/20 07:20 DC 11/17/20 07:29 Diphenhydramine HCl (Benadryl) 50 mg STAT STAT IM 11/17/20 09:08 11/17/20 09:09 DC 11/17/20 09:40 Diphenhydramine HCl (Benadryl) 50 mg STAT STAT IM 12/03/20 17:51 12/03/20 17:55 DC 12/03/20 17:59 Diphenhydramine HCl (Benadryl) 50 mg STAT STAT IM 12/03/20 19:22 12/03/20 19:27 DC 12/03/20 19:31 Diphenhydramine HCl (Benadryl) 50 mg STAT STAT IM 12/05/20 22:53 12/05/20 22:57 DC 12/05/20 23:09 Diphenhydramine HCl (Benadryl) 50 mg STAT STAT PO 11/16/20 14:05 11/16/20 14:07 DC Haloperidol (Haldol) 5 mg Q6HP PRN PO AGITATION 11/16/20 16:15 Haloperidol (Haldol) 5 mg STAT STAT IM 11/28/20 18:57 11/28/20 19:02 DC 11/28/20 19:05 Haloperidol (Haldol) 5 mg STAT STAT IM 12/01/20 20:15 12/01/20 20:18 DC 12/01/20 20:34 Haloperidol (Haldol) 5 mg STAT STAT IM 12/03/20 19:22 12/03/20 19:27 DC 12/03/20 19:31 Haloperidol (Haldol) 5 mg TID PO 11/15/20 21:00 11/19/20 16:00 DC Haloperidol (Haldol) 10 mg BID PO 11/19/20 21:00 12/01/20 14:08 DC 12/01/20 08:25 Haloperidol (Haldol) 10 mg QAM PO 12/02/20 09:00 12/08/20 10:54 Haloperidol (Haldol) 10 mg STAT STAT IM 11/17/20 07:17 11/17/20 07:20 DC 11/17/20 07:29 Haloperidol (Haldol) 10 mg STAT STAT IM 11/20/20 01:27 11/20/20 01:31 DC 11/20/20 01:44 Haloperidol (Haldol) 10 mg STAT STAT IM 12/03/20 17:51 12/03/20 17:55 DC 12/03/20 18:00 Haloperidol (Haldol) 10 mg STAT STAT IM 12/05/20 22:53 12/05/20 22:57 DC 12/05/20 23:09 Haloperidol (Haldol) 10 mg STAT STAT PO 11/16/20 14:05 11/16/20 14:07 DC Haloperidol (Haldol) 15 mg QHS PO 12/01/20 21:00 Home Med (Med Rec Complete!) ASDIRECTED XX 11/14/20 19:00 11/14/20 18:59 DC Lorazepam (Ativan) 0.5 mg BID PO 11/24/20 09:00 11/24/20 09:37 DC Lorazepam (Ativan) 0.5 mg BID PO 11/24/20 21:00 11/29/20 13:45 DC 11/29/20 08:56 Lorazepam (Ativan) 1 mg BID PO 11/20/20 13:00 11/24/20 09:34 DC 11/24/20 08:22 Lorazepam (Ativan) 1 mg BIDP PRN PO SEVERE ANXIETY 11/15/20 17:45 Lorazepam (Ativan) 1 mg Q6H PO 12/15/20 00:00 12/15/20 06:29 Lorazepam (Ativan) 1 mg STAT STAT IM 11/17/20 09:08 11/17/20 09:09 DC 11/17/20 09:41 Lorazepam (Ativan) 1 mg STAT STAT IM 11/28/20 18:57 11/28/20 19:02 DC 11/28/20 19:05 Lorazepam (Ativan) 1 mg STAT STAT IM 12/01/20 20:15 12/01/20 20:18 DC 12/01/20 20:35 Lorazepam (Ativan) 2 mg STAT STAT IM 11/17/20 07:17 11/17/20 07:20 DC 11/17/20 07:28 Lorazepam (Ativan) 2 mg STAT STAT IM 12/03/20 17:51 12/03/20 17:55 DC 12/03/20 17:59 Lorazepam (Ativan) 2 mg STAT STAT IM 12/03/20 19:22 12/03/20 19:27 DC 12/03/20 19:31 Lorazepam (Ativan) 2 mg STAT STAT IM 12/05/20 22:53 12/05/20 22:57 DC 12/05/20 23:10 Lorazepam (Ativan) 2 mg STAT STAT PO 11/16/20 14:05 11/16/20 14:07 DC Lorazepam (Ativan) 4 mg STAT STAT IM 11/20/20 01:27 11/20/20 01:31 DC 11/20/20 01:44 Magnesium Hydroxide (Milk Of Magnesia) 30 ml DAILYPRN PRN PO CONSTIPATION 11/15/20 17:45 Miscellaneous (Unresolved Clarification Entry) SEE LABEL COMMENTS DAILY XX 11/22/20 09:00 11/22/20 15:21 DC Miscellaneous (Unresolved Clarification Entry) SEE LABEL COMMENTS DAILY XX 12/10/20 09:00 12/14/20 18:25 DC Miscellaneous (Unresolved Clarification Entry) SEE LABEL COMMENTS DAILY XX 12/14/20 09:00 12/15/20 07:11 DC Miscellaneous (Unresolved Clarification Entry) SEE LABEL COMMENTS DAILY XX 12/04/20 09:00 12/04/20 12:01 DC Non-Formulary Medication ( See Comment Field Below ) Continue to offer un... 1T@10 ID 12/01/20 10:00 11/29/20 08:52 DC Trazodone HCl (Desyrel) 50 mg QHSP PRN PO INSOMNIA 11/15/20 17:45 11/27/20 01:14 Tuberculin PPD (Aplisol, Ppd) 5 units DAILY ID 11/30/20 09:00 Allergies Coded Allergies: No Known Drug Allergies (Verified Allergy, Unknown, 04/13/20) FAYE FIGUEROA MD Dec 15, 2020 10:14
[2020-12-15 19:08] VITALS: BP 138/79
[2020-12-16] MEDS: LORazepam 1 MG TAB PO SCH ×4 (05:54→17:56)
[2020-12-16 06:26] VITALS: BP 121/80
[2020-12-16] MEDS: TUBERCULIN PPD 5 UNITS/0.1 ML ID SCH (09:00)
[2020-12-16] MEDS: BENZTROPINE 0.5 MG TAB PO SCH ×2 (09:11→21:32)
--- NOTE | 2020-12-16 15:56 | MHIPNPDOC ---
[facility] Progress Note Progress Note DATE OF SERVICE: 12/16/20 HISTORY: 25-year-old female with long history of psychosis and mood instability. VITAL SIGNS: See below. NEW TEST RESULTS: . CURRENT MEDICATIONS: See below. MENTAL STATUS EXAMINATION: Patient is a, 25-year old female, who is, today, cheerful, talkative. Speech: Is, normal. Language skills are adequate. Thought processes including: Discussing her stepfather. Thought content: Not as oriental orthodox today. Abstract reasoning, and computation: For abstraction. Description of associations:, No loose association. Description of abnormal or psychotic thoughts:. Mood and behavior, extremely labile. Judgment: Poor. Insight:, Poor. Orientation: 3. Recent and remote memory:, Apparently intact. Attention span and concentration:. Fair. Language: No difficulties. Fund of knowledge: Limited. Mood: Labile. Affect:, Labile. DIAGNOSES: 1., Schizoaffective disorder, chronic. 2. None. 3. None. ASSESSMENT: Affect of component to patient's condition more notable and I will add Depakote to her Haldol. Patient has not been compliant with oral meds, but is now taking them MANAGEMENT PLAN:. Stabilization of psychosis and return home. TIME SPENT:, 35 minutes. Vital Signs Vital Signs Date Time Temp Pulse Resp B/P (MAP) Pulse Ox O2 Delivery O2 Flow Rate FiO2 12/16/20 06:26 97.5 86 16 121/80 (94) 98 Room Air Current Medications Current Medications Medications (Trade) Dose Ordered Sig/Ben Route PRN Reason Start Time Stop Time Status Last Admin Dose Admin Acetaminophen (Tylenol Tab) 650 mg Q6HP PRN PO HEADACHE or DISCOMFORT 11/15/20 17:45 11/21/20 21:00 Al Hydrox/Mg Hydrox/Simethicone (Mylanta) 30 ml Q4HP PRN PO HEARTBURN/INDIGESTION 11/15/20 17:45 Benztropine Mesylate (Cogentin) 0.5 mg BID PO 11/19/20 21:00 12/16/20 09:11 Diphenhydramine HCl (Benadryl) 50 mg QHSP PRN PO SEE LABEL COMMENTS 11/15/20 17:45 Diphenhydramine HCl (Benadryl) 50 mg STAT STAT IM 11/17/20 07:17 11/17/20 07:20 DC 11/17/20 07:29 Diphenhydramine HCl (Benadryl) 50 mg STAT STAT IM 11/17/20 09:08 11/17/20 09:09 DC 11/17/20 09:40 Diphenhydramine HCl (Benadryl) 50 mg STAT STAT IM 12/03/20 17:51 12/03/20 17:55 DC 12/03/20 17:59 Diphenhydramine HCl (Benadryl) 50 mg STAT STAT IM 12/03/20 19:22 12/03/20 19:27 DC 12/03/20 19:31 Diphenhydramine HCl (Benadryl) 50 mg STAT STAT IM 12/05/20 22:53 12/05/20 22:57 DC 12/05/20 23:09 Diphenhydramine HCl (Benadryl) 50 mg STAT STAT PO 11/16/20 14:05 11/16/20 14:07 DC Haloperidol (Haldol) 5 mg Q6HP PRN PO AGITATION 11/16/20 16:15 Haloperidol (Haldol) 5 mg STAT STAT IM 11/28/20 18:57 11/28/20 19:02 DC 11/28/20 19:05 Haloperidol (Haldol) 5 mg STAT STAT IM 12/01/20 20:15 12/01/20 20:18 DC 12/01/20 20:34 Haloperidol (Haldol) 5 mg STAT STAT IM 12/03/20 19:22 12/03/20 19:27 DC 12/03/20 19:31 Haloperidol (Haldol) 5 mg TID PO 11/15/20 21:00 11/19/20 16:00 DC Haloperidol (Haldol) 10 mg BID PO 11/19/20 21:00 12/01/20 14:08 DC 12/01/20 08:25 Haloperidol (Haldol) 10 mg QAM PO 12/02/20 09:00 12/16/20 09:11 Haloperidol (Haldol) 10 mg STAT STAT IM 11/17/20 07:17 11/17/20 07:20 DC 11/17/20 07:29 Haloperidol (Haldol) 10 mg STAT STAT IM 11/20/20 01:27 11/20/20 01:31 DC 11/20/20 01:44 Haloperidol (Haldol) 10 mg STAT STAT IM 12/03/20 17:51 12/03/20 17:55 DC 12/03/20 18:00 Haloperidol (Haldol) 10 mg STAT STAT IM 12/05/20 22:53 12/05/20 22:57 DC 12/05/20 23:09 Haloperidol (Haldol) 10 mg STAT STAT PO 11/16/20 14:05 11/16/20 14:07 DC Haloperidol (Haldol) 15 mg QHS PO 12/01/20 21:00 12/15/20 20:19 Home Med (Med Rec Complete!) ASDIRECTED XX 11/14/20 19:00 11/14/20 18:59 DC Lorazepam (Ativan) 0.5 mg BID PO 11/24/20 09:00 11/24/20 09:37 DC Lorazepam (Ativan) 0.5 mg BID PO 11/24/20 21:00 11/29/20 13:45 DC 11/29/20 08:56 Lorazepam (Ativan) 1 mg BID PO 11/20/20 13:00 11/24/20 09:34 DC 11/24/20 08:22 Lorazepam (Ativan) 1 mg BIDP PRN PO SEVERE ANXIETY 11/15/20 17:45 Lorazepam (Ativan) 1 mg Q6H PO 12/15/20 00:00 12/16/20 12:15 Lorazepam (Ativan) 1 mg STAT STAT IM 11/17/20 09:08 11/17/20 09:09 DC 11/17/20 09:41 Lorazepam (Ativan) 1 mg STAT STAT IM 11/28/20 18:57 11/28/20 19:02 DC 11/28/20 19:05 Lorazepam (Ativan) 1 mg STAT STAT IM 12/01/20 20:15 12/01/20 20:18 DC 12/01/20 20:35 Lorazepam (Ativan) 2 mg STAT STAT IM 11/17/20 07:17 11/17/20 07:20 DC 11/17/20 07:28 Lorazepam (Ativan) 2 mg STAT STAT IM 12/03/20 17:51 12/03/20 17:55 DC 12/03/20 17:59 Lorazepam (Ativan) 2 mg STAT STAT IM 12/03/20 19:22 12/03/20 19:27 DC 12/03/20 19:31 Lorazepam (Ativan) 2 mg STAT STAT IM 12/05/20 22:53 12/05/20 22:57 DC 12/05/20 23:10 Lorazepam (Ativan) 2 mg STAT STAT PO 11/16/20 14:05 11/16/20 14:07 DC Lorazepam (Ativan) 4 mg STAT STAT IM 11/20/20 01:27 11/20/20 01:31 DC 11/20/20 01:44 Magnesium Hydroxide (Milk Of Magnesia) 30 ml DAILYPRN PRN PO CONSTIPATION 11/15/20 17:45 Miscellaneous (Unresolved Clarification Entry) SEE LABEL COMMENTS DAILY XX 11/22/20 09:00 11/22/20 15:21 DC Miscellaneous (Unresolved Clarification Entry) SEE LABEL COMMENTS DAILY XX 12/10/20 09:00 12/14/20 18:25 DC Miscellaneous (Unresolved Clarification Entry) SEE LABEL COMMENTS DAILY XX 12/14/20 09:00 12/15/20 07:11 DC Miscellaneous (Unresolved Clarification Entry) SEE LABEL COMMENTS DAILY XX 12/04/20 09:00 12/04/20 12:01 DC Non-Formulary Medication ( See Comment Field Below ) Continue to offer un... 1T@10 ID 12/01/20 10:00 11/29/20 08:52 DC Trazodone HCl (Desyrel) 50 mg QHSP PRN PO INSOMNIA 11/15/20 17:45 11/27/20 01:14 Tuberculin PPD (Aplisol, Ppd) 5 units DAILY ID 11/30/20 09:00 Allergies Coded Allergies: No Known Drug Allergies (Verified Allergy, Unknown, 04/13/20) FAYE FIGUEROA MD Dec 16, 2020 15:56
[2020-12-16] MEDS: DIVALPROEX 250 MG TAB PO SCH (21:32)
[2020-12-17] MEDS: LORazepam 1 MG TAB PO SCH ×4 (06:54→17:53)
[2020-12-17] MEDS: BENZTROPINE 0.5 MG TAB PO SCH ×2 (08:56→20:37)
[2020-12-17] MEDS: DIVALPROEX 250 MG TAB PO SCH ×2 (08:56→20:37)
[2020-12-17] MEDS: TUBERCULIN PPD 5 UNITS/0.1 ML ID SCH (09:00)
[2020-12-18] MEDS: LORazepam 1 MG TAB PO SCH ×4 (00:17→18:04)
[2020-12-18] MEDS: DIVALPROEX 250 MG TAB PO SCH ×2 (08:44→20:10)
[2020-12-18] MEDS: BENZTROPINE 0.5 MG TAB PO SCH ×2 (08:44→20:11)
[2020-12-18] MEDS: TUBERCULIN PPD 5 UNITS/0.1 ML ID SCH (09:00)
[2020-12-19] MEDS: LORazepam 1 MG TAB PO SCH ×4 (06:00→17:26)
[2020-12-19 06:52] VITALS: BP 130/79
[2020-12-19] MEDS: TUBERCULIN PPD 5 UNITS/0.1 ML ID SCH (09:00)
[2020-12-19] MEDS: BENZTROPINE 0.5 MG TAB PO SCH ×2 (09:21→21:00)
[2020-12-19] MEDS: DIVALPROEX 250 MG TAB PO SCH ×3 (09:21→21:00)
--- NOTE | 2020-12-19 11:22 | MHIPNPDOC ---
[facility] Progress Note Progress Note DATE OF SERVICE: 12/19/20 HISTORY: 25-year-old female with noncompliance and significant psychotic features as well as mood instability. Patient was seen initially by me on 12/14 and appeared in a catatonic state.. She is now much more talkative but labile and we continue managing her case VITAL SIGNS: See below. NEW TEST RESULTS:. Depakote level planned for the . CURRENT MEDICATIONS: See below. MENTAL STATUS EXAMINATION: Patient is a 25-year old female, who is. Noncompliant with schizoaffective disorder. Speech: Is, normal. Language skills are intact. Thought processes including:, Less baptist and less bizarre. Thought content:, Intact. Abstract reasoning, and computation:, [place]. Description of associations:. No loose associations. Description of abnormal or psychotic thoughts: Not obvious. Judgment:, Fair. Insight: Fair. Orientation: 3. Recent and remote memory: Intact. Attention span and concentration: Poor. Language: As above. Fund of knowledge:, Limited. Mood: Labile. Affect:, Changeable. DIAGNOSES: 1. Schizoaffective disorder. 2. Noncompliance. 3. None. ASSESSMENT: Will raise patient's Depakote dose achieved. Depakote level and monitor neuroleptic dose MANAGEMENT PLAN: As above. Eventually we will plan to send home. TIME SPENT: 35 minutes. Vital Signs Vital Signs Date Time Temp Pulse Resp B/P (MAP) Pulse Ox O2 Delivery O2 Flow Rate FiO2 12/19/20 06:52 98.0 77 14 130/79 (96) 100 Room Air Current Medications Current Medications Medications (Trade) Dose Ordered Sig/Ben Route PRN Reason Start Time Stop Time Status Last Admin Dose Admin Acetaminophen (Tylenol Tab) 650 mg Q6HP PRN PO HEADACHE or DISCOMFORT 11/15/20 17:45 11/21/20 21:00 Al Hydrox/Mg Hydrox/Simethicone (Mylanta) 30 ml Q4HP PRN PO HEARTBURN/INDIGESTION 11/15/20 17:45 Benztropine Mesylate (Cogentin) 0.5 mg BID PO 11/19/20 21:00 12/19/20 09:21 Diphenhydramine HCl (Benadryl) 50 mg QHSP PRN PO SEE LABEL COMMENTS 11/15/20 17:45 Diphenhydramine HCl (Benadryl) 50 mg STAT STAT IM 11/17/20 07:17 11/17/20 07:20 DC 11/17/20 07:29 Diphenhydramine HCl (Benadryl) 50 mg STAT STAT IM 11/17/20 09:08 11/17/20 09:09 DC 11/17/20 09:40 Diphenhydramine HCl (Benadryl) 50 mg STAT STAT IM 12/03/20 17:51 12/03/20 17:55 DC 12/03/20 17:59 Diphenhydramine HCl (Benadryl) 50 mg STAT STAT IM 12/03/20 19:22 12/03/20 19:27 DC 12/03/20 19:31 Diphenhydramine HCl (Benadryl) 50 mg STAT STAT IM 12/05/20 22:53 12/05/20 22:57 DC 12/05/20 23:09 Diphenhydramine HCl (Benadryl) 50 mg STAT STAT PO 11/16/20 14:05 11/16/20 14:07 DC Divalproex Sodium (Depakote) 250 mg BID PO 12/16/20 21:00 12/19/20 09:21 Haloperidol (Haldol) 5 mg Q6HP PRN PO AGITATION 11/16/20 16:15 Haloperidol (Haldol) 5 mg STAT STAT IM 11/28/20 18:57 11/28/20 19:02 DC 11/28/20 19:05 Haloperidol (Haldol) 5 mg STAT STAT IM 12/01/20 20:15 12/01/20 20:18 DC 12/01/20 20:34 Haloperidol (Haldol) 5 mg STAT STAT IM 12/03/20 19:22 12/03/20 19:27 DC 12/03/20 19:31 Haloperidol (Haldol) 5 mg TID PO 11/15/20 21:00 11/19/20 16:00 DC Haloperidol (Haldol) 10 mg BID PO 11/19/20 21:00 12/01/20 14:08 DC 12/01/20 08:25 Haloperidol (Haldol) 10 mg QAM PO 12/02/20 09:00 12/19/20 09:21 Haloperidol (Haldol) 10 mg STAT STAT IM 11/17/20 07:17 11/17/20 07:20 DC 11/17/20 07:29 Haloperidol (Haldol) 10 mg STAT STAT IM 11/20/20 01:27 11/20/20 01:31 DC 11/20/20 01:44 Haloperidol (Haldol) 10 mg STAT STAT IM 12/03/20 17:51 12/03/20 17:55 DC 12/03/20 18:00 Haloperidol (Haldol) 10 mg STAT STAT IM 12/05/20 22:53 12/05/20 22:57 DC 12/05/20 23:09 Haloperidol (Haldol) 10 mg STAT STAT PO 11/16/20 14:05 11/16/20 14:07 DC Haloperidol (Haldol) 15 mg QHS PO 12/01/20 21:00 12/18/20 20:11 Home Med (Med Rec Complete!) ASDIRECTED XX 11/14/20 19:00 11/14/20 18:59 DC Lorazepam (Ativan) 0.5 mg BID PO 11/24/20 09:00 11/24/20 09:37 DC Lorazepam (Ativan) 0.5 mg BID PO 11/24/20 21:00 11/29/20 13:45 DC 11/29/20 08:56 Lorazepam (Ativan) 1 mg BID PO 11/20/20 13:00 11/24/20 09:34 DC 11/24/20 08:22 Lorazepam (Ativan) 1 mg BIDP PRN PO SEVERE ANXIETY 11/15/20 17:45 Cancel Lorazepam (Ativan) 1 mg Q6H PO 12/15/20 00:00 12/18/20 18:04 Lorazepam (Ativan) 1 mg STAT STAT IM 11/17/20 09:08 11/17/20 09:09 DC 11/17/20 09:41 Lorazepam (Ativan) 1 mg STAT STAT IM 11/28/20 18:57 11/28/20 19:02 DC 11/28/20 19:05 Lorazepam (Ativan) 1 mg STAT STAT IM 12/01/20 20:15 12/01/20 20:18 DC 12/01/20 20:35 Lorazepam (Ativan) 2 mg STAT STAT IM 11/17/20 07:17 11/17/20 07:20 DC 11/17/20 07:28 Lorazepam (Ativan) 2 mg STAT STAT IM 12/03/20 17:51 12/03/20 17:55 DC 12/03/20 17:59 Lorazepam (Ativan) 2 mg STAT STAT IM 12/03/20 19:22 12/03/20 19:27 DC 12/03/20 19:31 Lorazepam (Ativan) 2 mg STAT STAT IM 12/05/20 22:53 12/05/20 22:57 DC 12/05/20 23:10 Lorazepam (Ativan) 2 mg STAT STAT PO 11/16/20 14:05 11/16/20 14:07 DC Lorazepam (Ativan) 4 mg STAT STAT IM 11/20/20 01:27 11/20/20 01:31 DC 11/20/20 01:44 Magnesium Hydroxide (Milk Of Magnesia) 30 ml DAILYPRN PRN PO CONSTIPATION 11/15/20 17:45 Miscellaneous (Unresolved Clarification Entry) SEE LABEL COMMENTS DAILY XX 11/22/20 09:00 11/22/20 15:21 DC Miscellaneous (Unresolved Clarification Entry) SEE LABEL COMMENTS DAILY XX 12/10/20 09:00 12/14/20 18:25 DC Miscellaneous (Unresolved Clarification Entry) SEE LABEL COMMENTS DAILY XX 12/14/20 09:00 12/15/20 07:11 DC Miscellaneous (Unresolved Clarification Entry) SEE LABEL COMMENTS DAILY XX 12/04/20 09:00 12/04/20 12:01 DC Non-Formulary Medication ( See Comment Field Below ) Continue to offer un... 1T@10 ID 12/01/20 10:00 11/29/20 08:52 DC Trazodone HCl (Desyrel) 50 mg QHSP PRN PO INSOMNIA 11/15/20 17:45 11/27/20 01:14 Tuberculin PPD (Aplisol, Ppd) 5 units DAILY ID 11/30/20 09:00 Allergies Coded Allergies: No Known Drug Allergies (Verified Allergy, Unknown, 04/13/20) FAYE FIGUEROA MD Dec 19, 2020 11:22
[2020-12-19 18:13] VITALS: BP 125/64
[2020-12-20] MEDS: LORazepam 1 MG TAB PO SCH ×3 (05:18→11:09)
[2020-12-20 06:00] VITALS: BP 123/95
[2020-12-20] MEDS: TUBERCULIN PPD 5 UNITS/0.1 ML ID SCH (09:00)
[2020-12-20] MEDS: BENZTROPINE 0.5 MG TAB PO SCH (09:07)
[2020-12-20] MEDS: DIVALPROEX 250 MG TAB PO SCH (09:07)
[2020-12-20] MEDS ORDERED: DEPA250T32 PO (12:06)
[2020-12-20] MEDS ORDERED: BENZ0.5T23 PO (12:06)
[2020-12-20] MEDS ORDERED: HALO10TA20 PO ×2 (12:06)
--- NOTE | 2020-12-20 14:15 | MHDSPDOC ---
[facility] Discharge Summary Discharge Summary DATE OF ADMISSION: Nov 15, 2020 at 17:37 DATE OF DISCHARGE: Nov DISCHARGE DIAGNOSES: 1. Schizoaffective disorder. REASON FOR ADMISSION: Patient came to the ER and was complaining of auditory hallucinations. Patient has not been compliant with medications for many months CONSULTANTS INVOLVED: None TREATMENT AND PROGRESS ON THE UNIT :. I took over case at 12/15/2020, patient had been here since October. At the time I first saw patient, she appeared catatonic state and I was told she would not talk to me. She was noted by staff to be "affectively labile." I was able to get patient to talk to me. Medications were adjusted and patient improved for discharge. HOSPITAL COURSE: As above DISCHARGE ASSESSMENT:. Schizoaffective disorder MENTAL STATUS EXAMINATION ON DISCHARGE: Patient is a, 25-year old female, who is, in improved mood. Speech is. Normal. Language skills are normal. Thought processes including:. No psychotic thought expressed on discharge. Thought content: No evidence of psychotic thought or responding to internal stimuli. Abstract reasoning, and computation:, [place]. Description of associations:. No loose associations. Description of abnormal or psychotic thoughts:, No present psychotic thought. Judgment: Improved. Insight:, Improved. Orientation to 3. Recent and remote memory: Intact. Attention span and concentration: Improved. Language: No abnormality. Fund of knowledge: Limited. Mood: Good on discharge. Affect:, Bright. MEDICATIONS ON DISCHARGE: -, Haldol 10 in the morning and 15 mg at night for psychotic symptoms -, Haldol decanoate shot was given and will be really scheduled -Benztropine for side effects of Haldol Depakote for mood stabilization PLAN/FOLLOWUP ARRANGEMENTS: Will return home and follow up as per assistant media planner. The amount of time spent in the coordination of care for this patient was approximately 35 minutes. Vital Signs/I&Os Vital Signs Date Time Temp Pulse Resp B/P (MAP) Pulse Ox O2 Delivery O2 Flow Rate FiO2 12/20/20 06:00 97.2 112 18 123/95 (104) 98 12/19/20 06:52 Room Air Medications Scheduled Benztropine Mesylate (Benztropine Mesylate) 0.5 Mg Tablet, 0.5 MG PO BID for Akathisia, #14 Divalproex Sodium (Depakote) 250 Mg Tablet.dr, 250 MG PO TID for Mood, #30 Haloperidol (Haloperidol) 10 Mg Tablet, 5 MG PO QHS for Schizophrenia, #10 Haloperidol (Haloperidol) 10 Mg Tablet, 10 MG PO BID for Schizophrenia, #14 Allergies Coded Allergies: No Known Drug Allergies (Verified Allergy, Unknown, 04/13/20) FAYE FIGUEROA MD Dec 20, 2020 14:15
== END 2020-12-20 14:20 | disposition home or self-care (01) | DRG 885 ==
LOC: M ED 12:53 → M ED INP 11-15 17:37 → M PSY 11-15 19:59
PROVIDERS: ADMIT Psychiatry & Neurology Psychiatry; ATTEND Psychiatry & Neurology Child & Adolescent Psychiatry
DX: F25.8 Other schizoaffective disorders (principal); Z91.14 Patient's other noncompliance with medication regimen; E66.9 Obesity, unspecified

== ENCOUNTER 2021-01-13 22:32 | Inpatient (IN) | payer MEDICARE, MEDICAID ==
[~2021-01-13] VITALS: Ht 165.1 cm; Wt 106.9 kg
[~2021-01-13 22:32] MED LIST changes: +BENZ0.5T23 PO; +DEPA250T32 PO; +HALO10TA20 PO
[2021-01-13] MEDS ORDERED: HALO10AM (22:45)
[2021-01-14] MEDS ORDERED: MAALOX 30 ML SUSP *UDC PO PRN (01:40)
[2021-01-14] MEDS ORDERED: traZODone 50 MG TAB PO PRN (01:40)
[2021-01-14] MEDS ORDERED: ACETAMINOPHEN TAB 650MG DOSE (2X325MG) PO PRN (01:40)
[2021-01-14] MEDS ORDERED: MOM 30ML SUSPENSION UDC PO PRN (01:40)
[2021-01-14] MEDS ORDERED: HALO5TA PO (01:53)
[2021-01-14] MEDS ORDERED: BENZ0.5T23 PO (01:53)
[2021-01-14] MEDS ORDERED: DIVA250T67 PO (01:53)
[2021-01-14] MEDS ORDERED: HALO10TA20 PO (01:53)
[2021-01-14] MEDS ORDERED: med rec comment (01:56)
[2021-01-14 02:37] LABS: HEMOGLOBIN 11.5 g/dl (12.0-15.5); MEAN CORPUSCULAR HEMOGLOBIN 26.1 pg (27.0-33.0); MEAN CORPUSCULAR HGB CONC 30.3 g/dl (32.0-36.5); MEAN CORPUSCULAR VOLUME 86.2 fl (80.0-96.0); PLATELET COUNT, AUTOMATED 223 10^3/uL (150-450); RED BLOOD COUNT 4.41 10^6/uL (4.00-5.40); WHITE BLOOD COUNT 9.8 10^3/uL (4.0-10.0)
[2021-01-14 02:51] LABS: AMPHETAMINES LEVEL URINE NEGATIVE (NEGATIVE); BARBITURATES URINE NEGATIVE (NEGATIVE); BENZODIAZEPINES URINE NEGATIVE (NEGATIVE); CANNABINOIDS URINE NEGATIVE (NEGATIVE); COCAINE METABOLITE URINE NEGATIVE (NEGATIVE); METHADONE URINE NEGATIVE (NEGATIVE); OPIATES URINE NEGATIVE (NEGATIVE); PHENCYCLIDINE URINE NEGATIVE (NEGATIVE)
[2021-01-14 03:12] LABS: ACETAMINOPHEN LEVEL < 2.0 UG/ML (10.0-30.0); ALBUMIN 3.2 GM/DL (3.2-5.2); ALT/SGPT 15 U/L (12-78); BILIRUBIN,DIRECT < 0.1 MG/DL (0.0-0.2); BILIRUBIN,TOTAL 0.2 MG/DL (0.2-1.0); BLOOD UREA NITROGEN 11 MG/DL (7-18); CALCIUM LEVEL 8.6 MG/DL (8.5-10.1); CARBON DIOXIDE LEVEL 29 MEQ/L (21-32); CHLORIDE LEVEL 109 MEQ/L (98-107); ETHYL ALCOHOL (ETHANOL) < 0.003 % (0.000-0.010); GLOMERULAR FILTRATION RATE > 60.0 (>60); GLUCOSE, FASTING 93 MG/DL (70-100); POTASSIUM SERUM 3.7 MEQ/L (3.5-5.1); SALICYLATE LEVEL < 1.7 MG/DL (5.0-30.0); SODIUM LEVEL 142 MEQ/L (136-145); TOTAL PROTEIN 7.4 GM/DL (6.4-8.2)
[2021-01-14 03:13] LABS: RSV AMPLIFICATION NEGATIVE (NEGATIVE)
[2021-01-14 04:44] VITALS: BP 118/80
[2021-01-14] MEDS ORDERED: DIVALPROEX 250 MG TAB PO SCH (09:00)
[2021-01-14] MEDS: DIVALPROEX 250 MG TAB PO SCH (09:23)
--- NOTE | 2021-01-14 11:27 | MHHPEPDOC ---
General Date Of Admission: Jan 13, 2021 Legal Status: 9.39 Chief Complaint Demons!" History of Present Illness HISTORY OF THE PRESENT ILLNESS: Patient is a 25 -year-old Other, female, who . Chief Complaint * Pt reported to ED for having onset of hallucinations again. Pt reported that she was D/C from [facility] 3 weeks ago and felt great. within the last few days she has been hearing and seeing demons telling her to kill herself. Pt reported that when she was driving they told her to wreck her car today. Pt reported "the demons try to enter different ways" pt also reported that the demons try to choke her and make her hurt herself and that they do not like her. Pt denies SI/HI, but states that the demons tell her to kill herself often. Pt is unable to report her diagnosis. Pt was last in [facility] from 11/14/20-12/21/20. Pt asked TW if she knew who Ree was, then began to talk about demons changing the world. When asked if demons were present pt began to laugh and stated that they were there. Pt then continued to laugh and looking to the left and seemed internally preoccupied. Pt denied EOTH and Drug abuse. Interview with me: , "I took my meds like I was supposed to. Suddenly, things got different for me." I was doing fine, I was home. I was getting myself together. However, I didn't get a chance to go to [facility]. I noticed pills were making me tired and I was sleeping a lot more, but then I noticed demons were trying to harm me. Demons were changing the world. Patient denies using drugs. Denies legal problems. Denies neurological issues. Denies medical problems. She is, however, hearing voices and seeing demons. She denies suicidal or homicidal ideation and she was discharged here on Haldol Decanoate. Psychiatric Review of Systems Depression (2 or more weeks): suicidal thoughts Vianey (4 or more days of): expansive mood, talkativity, pressured Psychosis: auditory hallucination, visual hallucination PTSD: mood fluctuations Anxiety: denies Anxiety/ 6 months or more of: restlessness, keyed up Past Psychiatric History Previous Psychiatric Diagnosis: Numerous admissions, most recently 4 weeks ago [place] during that admission, patient had done quite poorly and appeared catatonic, but by December 15 or , she became more active, took her me dication and her mood improved. Previous Psychiatric Admissions:. Her diagnosis was schizophrenia. Suicide Attempts:, Gestures and ideations. Psychiatric Follow-up:. Follow-up was planned. Not only for therapy, but for her Haldol Decanoate shot. We are told her left thought was January 05. Psychiatric medications: Haldol Decanoate as well as oral Haldol. Past Medical History Medical Problems Not applicable Head Injury: No Seizures: No Hospitalizations: Yes Surgeries: No Family Medical/Psychiatric HX Psychiatric Disorders: No Addiction: No Suicide Attemps/Completions: No Addiction History denies Social History Childhood: Not applicable at this time. Abuse/Trauma:. No information at this time. Current Living Situation: Lives with stepfather. Education:, High school. Employment:. No recent employment. Social Support:.step Father. Legal:, Difficulties. Marital:, Single. Mental Status Examination Speech: clear Mood: euphoric Affect: full Thought Process: logical/linear Thought Content (Delusions): persecutory, paranoia, delusions Thought Content (Aggressive): none reported Perception (Hallucinations): auditory, visual Perception (Other): none reported Cognition (Impairment of): none reported Cognition(Intelligence Est.): average Oriented: Oriented times three Insight: fair Judgment: Fair Psychosis: Psychotic Perceptions Diagnoses Bipolar Disorder A-FIB/CHADSVASC A-FIB History Current/History of A-Fib/PAF?: No Current PO Anticoag Therapy: No Age/Risk Factor Scoring CHADSVASC: CHADSVASC Response (Comments) Value Age Risk Factor Age < 65 years old 0 Gender Risk Factor Female 1 Hx of CHF No 0 Hx of HTN No 0 Hx of Stroke/TIA/or VTE No 0 Hx of Diabetes No 0 Hx of Vascular Disease No 0 Total 1 Treatment Treatment ordered: NONE Initial Treatment Plan 1. Patient was admitted on a [9.39] status. 2. Complete history was obtained. 3. With patients permission, family will be contacted and database will be expanded. 4. Patients medication regimen will be reviewed and changed accordingly. 5. Patient will be provided with protected environment. 6. Patient will be treated with individual, group, and milieu therapies. 7. Patient will receive supportive psych-education. 8. Discharge planning will commence immediately. 9. Outpatient follow-up treatment will be strongly recommended. 10. The initial treatment plan will focus initially on: * Depression. * Risk for suicide. ESTIMATED LENGTH OF STAY: - DAYS. TIME SPENT COUNSELING AND COORDINATING INITIAL CARE: minutes. N/A-No Antipsychotics Vital Signs Vital Signs Date Time Temp Pulse Resp B/P (MAP) Pulse Ox O2 Delivery O2 Flow Rate FiO2 01/14/21 04:44 97.3 75 18 118/80 (93) 95 Room Air Laboratory Data 24H Labs Laboratory Tests 2 01/14/21 02:30: Nucleated Red Blood Cells % (auto) 0.0, Anion Gap 4L, Glomerular Filtration Rate > 60.0, Calcium Level 8.6, Total Bilirubin 0.2, Direct Bilirubin < 0.1, Aspartate Amino Transf (AST/SGOT) 10, Alanine Aminotransferase (ALT/SGPT) 15, Alkaline Phosphatase 80, Total Protein 7.4, Albumin 3.2, Albumin/Globulin Ratio 0.8L, Thyroid Stimulating Hormone (TSH) 1.540, Salicylates Level < 1.7L, Acetaminophen Level < 2.0L, Ethyl Alcohol Level < 0.003 01/14/21 02:31: Urine Opiates Screen NEGATIVE, Urine Methadone Screen NEGATIVE, Urine Barbiturates Screen NEGATIVE, Urine Phencyclidine Screen NEGATIVE, Urine Amphetamines Screen NEGATIVE, Urine Benzodiazepines Screen NEGATIVE, Urine Cocaine Metabolite Screen NEGATIVE, Urine Cannabinoids Screen NEGATIVE, Coronavirus (COVID-19)(PCR) NEGATIVE, Influenza Type A (RT-PCR) NEGATIVE, Influenza Type B (RT-PCR) NEGATIVE, Respiratory Syncytial Virus (PCR) NEGATIVE CBC/BMP Laboratory Tests 01/14/21 02:30 Medications Scheduled Benztropine Mesylate (Benztropine Mesylate) 0.5 Mg Tablet, 0.5 MG PO QHS, (Reported) Divalproex Sodium (Divalproex Sodium) 250 Mg Tablet.dr, 250 MG PO BID, (Reported) Haloperidol (Haloperidol) 10 Mg Tablet, 10 MG PO BID, (Reported) Haloperidol (Haloperidol) 5 Mg Tablet, 5 MG PO QHS, (Reported) Miscellaneous Medications [med rec comment] , (Reported) used external med history and last office visit 01/11/21 Allergies Coded Allergies: No Known Drug Allergies (Verified Allergy, Unknown, 04/13/20) FAYE FIGUEROA MD Jan 14, 2021 11:27
[2021-01-14 16:08] VITALS: BP 120/75
[2021-01-14] MEDS: BENZTROPINE 0.5 MG TAB PO SCH (21:00)
[2021-01-14] MEDS: DIVALPROEX 500 MG TAB PO SCH (21:00)
[2021-01-14] MEDS ORDERED: haloperidoL 5 MG TAB PO SCH (21:00)
[2021-01-15 06:16] VITALS: BP 128/75
[2021-01-15] MEDS: DIVALPROEX 250 MG TAB PO SCH (08:47)
--- NOTE | 2021-01-15 09:52 | HPEPDOC ---
General Date of Admission Jan 13, 2021 at 22:33 Date of Service: Jan 15, 2021 Chief Complaint The patient is a 25-year-old female admitted with a reason for visit of Schizophrenia. Source: Patient, RN/MD History of Present Illness 25 year old female with h/o schizophrenia was admitted to [facility] for auditory hallucinations. I am seeing the patient for medical history and physical. Janeth ruiz appears very child like in her voice and conversation. No complaints this morning. Home Medications Scheduled Benztropine Mesylate (Benztropine Mesylate) 0.5 Mg Tablet, 0.5 MG PO QHS, (Reported) Divalproex Sodium (Divalproex Sodium) 250 Mg Tablet.dr, 250 MG PO BID, (Reported) Haloperidol (Haloperidol) 10 Mg Tablet, 10 MG PO BID, (Reported) Haloperidol (Haloperidol) 5 Mg Tablet, 5 MG PO QHS, (Reported) Miscellaneous Medications [med rec comment] , (Reported) used external med history and last office visit 01/11/21 Allergies Coded Allergies: No Known Drug Allergies (Verified Allergy, Unknown, 04/13/20) Past Medical History Medical History Schizophrenia Surgical History None Family History Significant Family History: No pertinent family hx discussed with patient. Social History * Smoker: Denies Alcohol: Denies Drugs: denies A-FIB/CHADSVASC A-FIB History Current/History of A-Fib/PAF?: No Review of Systems Constitutional: Denies: Chills, Fever, Night Sweats Eyes: Denies: Pain, Vision change ENT: Denies: Head Aches, Ear Pain, Dysphagia Skin: Denies: Rash, Lesions, Breakdown Pulmonary: Denies: Dyspnea, Cough Cardiovascular: Denies: Chest Pain, Palpitations, Orthopnea, Paroxysmal Noc. Dyspnea, Lt Headedness Gastrointestinal: Denies: Nausea, Vomiting, Abdominal Pain, Diarrhea Genitourinary: Denies: Dysuria, Frequency, Incontinence, Retention Hematologic: Denies: Bruising, Bleeding Excessively Musculoskeletal: Denies: Neck Pain, Back Pain, Joint Pain, Muscle Pain, Spasms Neurological: Denies: Weakness, Numbness, Confusion Physical Examination General Exam: Positive: Alert, Cooperative, No Acute Distress Eye Exam: Positive: PERRLA, Conjunctiva & lids normal, EOMI; Negative: Sclera icteric ENT Exam: Positive: Atraumatic, Mucous membr. moist/pink, Pharynx Normal Neck Exam: Positive: Supple; Negative: JVD, thyromegaly Chest Exam: Positive: Clear to auscultation, Normal air movement Heart Exam: Positive: Rate Normal, Regular Rhythm, Normal S1, Normal S2; Negative: Murmurs, Rubs Abdomen Exam: Positive: Normal bowel sounds, Soft; Negative: Tenderness, Hepatospenomegaly Extremity Exam: Negative: Clubbing, Cyanosis, Edema Skin Exam: Positive: Nl turgor and temperature; Negative: Breakdown, Lesion Neuro Exam: Positive: Normal Gait, Strength at 5/5 X4 ext, Normal Tone Vital Signs Vital Signs Date Time Temp Pulse Resp B/P (MAP) Pulse Ox O2 Delivery O2 Flow Rate FiO2 01/15/21 06:16 97.3 68 17 128/75 (92) 97 Room Air Assessment/Plan 25 year old female with h/o schizophrenia was admitted to [facility] for auditory hallucinations. I am seeing the patient for medical history and physical. Schizophrenia as per psychiatry No acute medical problems at present. Plan / VTE VTE Prophylaxis Ordered?: No (freely ambulatory) YARA MAXWELL MD Jan 15, 2021 09:52
--- NOTE | 2021-01-15 15:58 | MHIPNPDOC ---
[facility] Progress Note Progress Note DATE OF SERVICE: 01/15/21 * Pt reported to ED for having onset of hallucinations again. Pt reported that she was D/C from [facility] 3 weeks ago and felt great. within the last few days she has been hearing and seeing demons telling her to kill herself. Pt reported that when she was driving they told her to wreck her car today. Pt reported "the demons try to enter different ways" pt also reported that the demons try to choke her and make her hurt herself and that they do not like her. Pt denies SI/HI, but states that the demons tell her to kill herself often. Pt is unable to report her diagnosis. Pt was last in [facility] from 11/14/20-12/21/20. Pt asked TW if she knew who Ree was, then began to talk about demons changing the world. When asked if demons were present pt began to laugh and stated that they were there. Pt then continued to laugh and looking to the left and seemed internally preoccupied. Pt denied EOTH and Drug abuse. Patient did complain that oral Haldol would make her tired, but patient seems wide-awake walking normal. Good eye contact and cheerful. This is a much different presentation than when I saw her on December 14. At that time she was catatonic and didn't speak with staff VITAL SIGNS: See below. NEW TEST RESULTS:, None. CURRENT MEDICATIONS: See below. MENTAL STATUS EXAMINATION: Patient is a 25-year old female, who is, presently on the unit, socializing with other patients walking, smiling and able talk. Speech: Is. No disturbance. Language skills are. No gross disturbance. Thought processes including: States at least today she is not hearing demons. Thought content: As above. Abstract reasoning, and computation: [place]. Description of associations:. No loose associations. Description of abnormal or psychotic thoughts:. We'll continue to examine for auditory and visual hallucinations. Judgment:, Reasonable. Insight: Limited. Orientation: 3. Recent and remote memory: Limited. Attention span and concentration: Intact. Language: No gross disturbance. Fund of knowledge: Limited. Mood: Labile. Affect: And variable. DIAGNOSES: 1. Schizophrenia. 2., None. 3. None ASSESSMENT: Significantly better on presentation than previously. Will contact the family and determine what exactly happened at home. Patient has been getting her Haldol Decanoate shots MANAGEMENT PLAN: . TIME SPENT: minutes. Vital Signs Vital Signs Date Time Temp Pulse Resp B/P (MAP) Pulse Ox O2 Delivery O2 Flow Rate FiO2 01/15/21 06:16 97.3 68 17 128/75 (92) 97 Room Air Current Medications Current Medications Medications (Trade) Dose Ordered Sig/Ben Route PRN Reason Start Time Stop Time Status Last Admin Dose Admin Acetaminophen (Tylenol Tab) 650 mg Q6HP PRN PO HEADACHE or DISCOMFORT 01/14/21 01:40 Al Hydrox/Mg Hydrox/Simethicone (Mylanta) 30 ml Q4HP PRN PO HEARTBURN/INDIGESTION 01/14/21 01:40 Benztropine Mesylate (Cogentin) 0.5 mg QHS PO 01/14/21 21:00 Divalproex Sodium (Depakote) 250 mg BID PO 01/14/21 09:00 01/14/21 08:29 DC Divalproex Sodium (Depakote) 250 mg DAILY PO 01/14/21 09:00 01/15/21 08:47 Divalproex Sodium (Depakote) 500 mg QHS PO 01/14/21 21:00 Haloperidol (Haldol) 5 mg QHS PO 01/14/21 21:00 UNV Haloperidol (Haldol) 10 mg BID PO 01/14/21 09:00 01/14/21 08:32 DC Haloperidol (Haldol) 10 mg TID PO 01/14/21 09:00 01/15/21 15:15 Home Med (Med Rec Complete!) ASDIRECTED XX 01/14/21 02:00 01/14/21 02:23 DC Magnesium Hydroxide (Milk Of Magnesia) 30 ml DAILYPRN PRN PO CONSTIPATION 01/14/21 01:40 Trazodone HCl (Desyrel) 50 mg QHSP PRN PO INSOMNIA 01/14/21 01:40 Allergies Coded Allergies: No Known Drug Allergies (Verified Allergy, Unknown, 04/13/20) FAYE FIGUEROA MD Jan 15, 2021 15:58
[2021-01-15 16:15] VITALS: BP 118/76
[2021-01-15] MEDS: DIVALPROEX 500 MG TAB PO SCH (20:46)
[2021-01-15] MEDS: BENZTROPINE 0.5 MG TAB PO SCH (20:46)
[2021-01-16 06:28] VITALS: BP 108/63
[2021-01-16] MEDS: DIVALPROEX 250 MG TAB PO SCH (08:44)
[2021-01-16] MEDS ORDERED: DEPA250T32 PO (10:33)
[2021-01-16] MEDS ORDERED: HALO10TA20 PO (10:33)
[2021-01-16] MEDS ORDERED: DEPA1TAB3 PO (10:33)
--- NOTE | 2021-01-16 11:55 | MHDSPDOC ---
[facility] Discharge Summary Discharge Summary DATE OF ADMISSION: Jan 13, 2021 at 22:33 DATE OF DISCHARGE: January 16, 2021 at 1143 DISCHARGE DIAGNOSES: Schizophrenia Disorder REASON FOR ADMISSION: Patient is a 25 year old Single, Disabled/Unemployed, Domiciled Female who is well know to this facility. She states "I took my medications like I was supposed to. Suddenly, things got different for me." I was doing fine, I was home. I was getting myself together. However, I didn't get a chance to go to [facility]. I noticed pills were making me tired and I was sleeping a lot more, but then I noticed demons were trying to harm me. Demons were changing the world. Patient denies using drugs. Denies legal pr oblems. Denies neurological issues. Denies medical problems. She is, however, hearing voices and seeing demons. She denies suicidal or homicidal ideation and she was discharged here on Haldol Decanoate. (Which she stated that she is no longer taking according to the Home Medication Reconciliation PER ED Report: Patient reported to ED for having onset of hallucinations again. Pt reported that she was D/C from [facility] 3 weeks ago and felt great. Within the last few days she has been hearing and seeing demons telling her to kill herself. Pt reported that when she was driving they told her to wreck her car today. Pt reported "the demons try to enter different ways. " Pt. also reported that the demons try to choke her and make her hurt herself and that they do not like her. Pt denies SI/HI, but states that the demons tell her to kill herself often. Pt is unable to report her diagnosis. Pt was last in [facility] from 11/14/20-12/21/20. Pt was religiously preoccupied and asked ED staff if she knew who Ree was, then began to talk about demons changing the world. When asked if demons were present pt began to laugh and stated that they were there. Pt then continued to laugh and looking to the left and seemed internally preoccupied. Pt denied EOTH and Drug abuse. CONSULTANTS INVOLVED: See Medical H + P by Hospitalist TREATMENT AND PROGRESS ON THE UNIT: Patient was admitted to the [facility] on a 9.39 legal status he was afforded the following treatment modalities: 1) Individual Therapy 2) Group Therapy 3) Medication Management 4) Milieu Therapy 5) Safe Environment HOSPITAL COURSE: Patient was admitted on 01/13/21 and seen by on-call psychiatrist. Patient was admitted to the on-call provider on her last admission and according to his notes and today's report he states that patient did very well and was likely able to be discharged today. On initial interview today, patient had reported that she had an increase in some delusions but that she was not having suicidal or homicidal ideations. She had no roman catholic preoccupations in her conversations today, she made no delusional statements in today's interview. She made no bizarre or unusual statements that would indicate extending her hospitalization. When asked about the devil/demons, she stated that she was doing better and they weren't as strong in her head. She is requesting to be discharged today. There is some question as to why she denies that she is not taking the Haldol Decanoate. Patient was prescribed this on her last admission and discharge and recovered well with this long acting injectable. DISCHARGE ASSESSMENT: In today's interview, patient is alert and oriented, pts dress is appropriate. Hygiene and grooming is well-kempt. Smiles on approach and is pleasant and engaged in the interview. Denies depression and anxiety. Denies suicidal and homicidal ideation, planning or intent. Denies and is not observed with brown, psychotic symptoms of delusions, bizarre thinking, obsessions, paranoia, ruminations illogical thoughts, flight of ideas or having poor insight and judgement. Patient does have some euphoria but this patient presents this way often times throughout her hospitalization. MENTAL STATUS EXAMINATION ON DISCHARGE: Patient is a 25 year old Single, Disabled/Unemployed, Domiciled Female who came in with delusional and bizarre thinking Speech: Is fluid, conversant, normal rate, tone and volume Language skills are intact Thought processes including: linear and goal oriented Thought content: denies depression and anxiety. Denies suicidal/homicidal ideation, planning or intent. Abstract reasoning, and computation: fair Description of associations: denies, none observed Description of abnormal or psychotic thoughts: denies, none observed. Judgment: fair Insight: fair Orientation: alert and oriented to person, place, time and situation Recent and remote memory: intact Attention span and concentration: good Language: expansive Fund of knowledge: average Mood: Euthymic Mood Affect: Euphoric MEDICATIONS ON DISCHARGE: See Medication Reconciliation PLAN/FOLLOWUP ARRANGEMENTS: See Burr Grinder's Notes and patient is being discharged home with follow up at [facility] The amount of time spent in the coordination of care for this patient was approximately minutes. ETOH/Disorder Med Rx ETOH/DRUG DISORDER RX: N/A Vital Signs/I&Os Vital Signs Date Time Temp Pulse Resp B/P (MAP) Pulse Ox O2 Delivery O2 Flow Rate FiO2 01/16/21 06:28 96.9 81 18 108/63 (78) 99 Room Air Medications Scheduled Benztropine Mesylate (Benztropine Mesylate) 0.5 Mg Tablet, 0.5 MG PO QHS, (Reported) Divalproex Sodium (Depakote) 250 Mg Tablet.dr, 250 MG PO QAM for Mood, #7 Divalproex Sodium (Depakote) 500 Mg Tablet.dr, 500 MG PO QHS for Mood, #7 Haloperidol (Haloperidol) 10 Mg Tablet, 10 MG PO TID for Hallucinations, #21 Miscellaneous Medications [med rec comment] , (Reported) used external med history and last office visit 01/11/21 Allergies Coded Allergies: No Known Drug Allergies (Verified Allergy, Unknown, 04/13/20) JESSI SIMMS NP Jan 16, 2021 11:55
[2021-01-17] MEDS ORDERED: IBUP-1022 PO (20:27)
[2021-01-17] MEDS ORDERED: AUGM875T28 PO (20:27)
== END 2021-01-16 12:30 | disposition home or self-care (01) | DRG 885 ==
LOC: M ED 22:32 → M ED INP 22:33 → M PSY 01-14 04:34
PROVIDERS: ADMIT Psychiatry & Neurology Psychiatry; ATTEND Psychiatry & Neurology Psychiatry
DX: F20.9 Schizophrenia, unspecified (principal); Z20.822 Contact with and (suspected) exposure to COVID-19; Z79.899 Other long term (current) drug therapy; Z91.14 Patient's other noncompliance with medication regimen

== ENCOUNTER 2021-01-16 14:26 | Emergency (ER) | payer MEDICARE, MEDICAID ==
[~2021-01-16] VITALS: Ht 172.7 cm; Wt 106.3 kg
[~2021-01-16 14:26] MED LIST changes: +DEPA1TAB3 PO; +DIVA250T67 PO; +HALO10AM; +HALO5TA PO; +med rec comment
[2021-01-16 15:30] VITALS: BP 135/68
[2021-01-17] MEDS ORDERED: AUGM875T28 PO (20:27)
[2021-01-17] MEDS ORDERED: IBUP-1022 PO (20:27)
== END 2021-01-16 16:51 | disposition home or self-care (01) ==
LOC: M ED 14:26
DX: F20.9 Schizophrenia, unspecified (principal); Z79.899 Other long term (current) drug therapy

== ENCOUNTER 2021-01-17 17:41 | Emergency (ER) | payer MEDICARE, MEDICAID ==
[~2021-01-17] VITALS: Ht 172.7 cm; Wt 103.7 kg
[2021-01-17 17:42] VITALS: BP 127/80
[2021-01-17] MEDS ORDERED: AUGM875T28 PO (20:27)
[2021-01-17] MEDS ORDERED: IBUP-1022 PO (20:27)
[2021-01-17] MEDS ORDERED: AUGMENTIN 875 MG TAB PO ONE (20:30)
== END 2021-01-17 20:40 | disposition home or self-care (01) ==
LOC: M ED 17:41
DX: L73.1 Pseudofolliculitis barbae (principal); R56.9 Unspecified convulsions; Z79.899 Other long term (current) drug therapy

== ENCOUNTER 2021-01-18 19:33 | Emergency (ER) | payer MEDICARE, MEDICAID ==
[~2021-01-18] VITALS: Ht 172.7 cm; Wt 103.5 kg
[~2021-01-18 19:33] MED LIST changes: +AUGM875T28 PO; +IBUP-1022 PO
[2021-01-18 22:20] LABS: HEMATOCRIT 37.1 % (36.0-47.0); HEMOGLOBIN 11.7 g/dl (12.0-15.5); MEAN CORPUSCULAR HEMOGLOBIN 26.9 pg (27.0-33.0); MEAN CORPUSCULAR HGB CONC 31.5 g/dl (32.0-36.5); MEAN CORPUSCULAR VOLUME 85.3 fl (80.0-96.0); PLATELET COUNT, AUTOMATED 218 10^3/uL (150-450); RED BLOOD COUNT 4.35 10^6/uL (4.00-5.40); WHITE BLOOD COUNT 8.6 10^3/uL (4.0-10.0)
[2021-01-18 22:39] LABS: AMPHETAMINES LEVEL URINE NEGATIVE (NEGATIVE); BARBITURATES URINE NEGATIVE (NEGATIVE); BENZODIAZEPINES URINE NEGATIVE (NEGATIVE); CANNABINOIDS URINE NEGATIVE (NEGATIVE); COCAINE METABOLITE URINE NEGATIVE (NEGATIVE); METHADONE URINE NEGATIVE (NEGATIVE); OPIATES URINE NEGATIVE (NEGATIVE); PHENCYCLIDINE URINE NEGATIVE (NEGATIVE)
[2021-01-18 22:42] LABS: HCG, SERUM QUALITATIVE NEGATIVE (NEGATIVE)
[2021-01-18 22:50] VITALS: BP 120/68
[2021-01-18 22:52] LABS: ACETAMINOPHEN LEVEL < 2.0 UG/ML (10.0-30.0); ALBUMIN 3.3 GM/DL (3.2-5.2); ALT/SGPT 12 U/L (12-78); BILIRUBIN,DIRECT < 0.1 MG/DL (0.0-0.2); BILIRUBIN,TOTAL 0.3 MG/DL (0.2-1.0); BLOOD UREA NITROGEN 12 MG/DL (7-18); CALCIUM LEVEL 8.6 MG/DL (8.5-10.1); CARBON DIOXIDE LEVEL 27 MEQ/L (21-32); CHLORIDE LEVEL 106 MEQ/L (98-107); CREATININE FOR GFR 0.88 MG/DL (0.55-1.30); ETHYL ALCOHOL (ETHANOL) < 0.003 % (0.000-0.010); GLOMERULAR FILTRATION RATE > 60.0 (>60); GLUCOSE, FASTING 86 MG/DL (70-100); POTASSIUM SERUM 3.8 MEQ/L (3.5-5.1); SALICYLATE LEVEL < 1.7 MG/DL (5.0-30.0); SODIUM LEVEL 139 MEQ/L (136-145); THYROID STIMULATING HORMONE 0.893 uIU/ML (0.358-3.740); TOTAL PROTEIN 7.5 GM/DL (6.4-8.2)
[2021-01-18 22:57] LABS: RSV AMPLIFICATION NEGATIVE (NEGATIVE)
== END 2021-01-18 22:58 | disposition home or self-care (01) ==
LOC: M ED 19:33
DX: F22 Delusional disorders (principal); F20.9 Schizophrenia, unspecified; Z79.899 Other long term (current) drug therapy

== ENCOUNTER 2021-01-19 19:49 | Inpatient (IN) | payer MEDICARE, MEDICAID ==
[~2021-01-19] VITALS: Ht 175.3 cm; Wt 103.5 kg
[2021-01-19 20:37] LABS: HEMATOCRIT 37.8 % (36.0-47.0); HEMOGLOBIN 11.9 g/dl (12.0-15.5); MEAN CORPUSCULAR HEMOGLOBIN 26.9 pg (27.0-33.0); MEAN CORPUSCULAR HGB CONC 31.5 g/dl (32.0-36.5); MEAN CORPUSCULAR VOLUME 85.3 fl (80.0-96.0); PLATELET COUNT, AUTOMATED 229 10^3/uL (150-450); RED BLOOD COUNT 4.43 10^6/uL (4.00-5.40); WHITE BLOOD COUNT 7.2 10^3/uL (4.0-10.0)
[2021-01-19 20:55] LABS: HCG, SERUM QUALITATIVE NEGATIVE (NEGATIVE)
[2021-01-19 21:07] LABS: ACETAMINOPHEN LEVEL < 2.0 UG/ML (10.0-30.0); ALBUMIN 3.4 GM/DL (3.2-5.2); ALT/SGPT 13 U/L (12-78); BILIRUBIN,DIRECT 0.1 MG/DL (0.0-0.2); BILIRUBIN,TOTAL 0.4 MG/DL (0.2-1.0); BLOOD UREA NITROGEN 7 MG/DL (7-18); CARBON DIOXIDE LEVEL 28 MEQ/L (21-32); CHLORIDE LEVEL 106 MEQ/L (98-107); CREATININE FOR GFR 0.93 MG/DL (0.55-1.30); ETHYL ALCOHOL (ETHANOL) < 0.003 % (0.000-0.010); GLOMERULAR FILTRATION RATE > 60.0 (>60); GLUCOSE, FASTING 92 MG/DL (70-100); POTASSIUM SERUM 3.7 MEQ/L (3.5-5.1); SALICYLATE LEVEL < 1.7 MG/DL (5.0-30.0); SODIUM LEVEL 141 MEQ/L (136-145); THYROID STIMULATING HORMONE 0.714 uIU/ML (0.358-3.740); TOTAL PROTEIN 7.8 GM/DL (6.4-8.2)
[2021-01-19 22:11] LABS: AMPHETAMINES LEVEL URINE NEGATIVE (NEGATIVE); BARBITURATES URINE NEGATIVE (NEGATIVE); BENZODIAZEPINES URINE NEGATIVE (NEGATIVE); CANNABINOIDS URINE NEGATIVE (NEGATIVE); COCAINE METABOLITE URINE NEGATIVE (NEGATIVE); METHADONE URINE NEGATIVE (NEGATIVE); OPIATES URINE NEGATIVE (NEGATIVE); PHENCYCLIDINE URINE NEGATIVE (NEGATIVE)
[2021-01-19 22:17] LABS: RSV AMPLIFICATION NEGATIVE (NEGATIVE)
[2021-01-19 23:37] LABS: VALPROIC ACID (DEPAKOTE) 116.2 UG/ML (50.0-100.0)
[2021-01-20] MEDS ORDERED: LORazepam 2 MG/ML VIAL IM ONE (00:05)
[2021-01-20] MEDS ORDERED: HALOPERIDOL 5MG/ML VIAL (J1630 PER 1) IM ONE (00:05)
[2021-01-20] MEDS ORDERED: diphenhydrAMINE 50MG/ML VIAL (J1200) As Ordered ONE (00:05)
[2021-01-20] MEDS ORDERED: diphenhydrAMINE 50MG/ML VIAL (J1200) IM ONE (00:05)
[2021-01-20] MEDS ORDERED: MAALOX 30 ML SUSP *UDC PO PRN (02:35)
[2021-01-20] MEDS ORDERED: ACETAMINOPHEN TAB 650MG DOSE (2X325MG) PO PRN (02:35)
[2021-01-20] MEDS ORDERED: OLANZapine ORAL DISINTEGRATING TAB 5MG PO PRN (02:35)
[2021-01-20] MEDS ORDERED: MOM 30ML SUSPENSION UDC PO PRN (02:35)
[2021-01-20] MEDS ORDERED: traZODone 50 MG TAB PO PRN (02:35)
[2021-01-20] MEDS ORDERED: DIVA250T67 PO (02:53)
[2021-01-20] MEDS ORDERED: IBUP1TAB6 PO (02:53)
[2021-01-20] MEDS ORDERED: DEPA1TAB3 PO (02:53)
[2021-01-20] MEDS ORDERED: AUGM875T28 PO (02:53)
[2021-01-20] MEDS ORDERED: HALO10TA20 PO (02:53)
[2021-01-20] MEDS ORDERED: PATIENT COMMENT (02:55)
[2021-01-20 03:20] VITALS: BP 144/98
[2021-01-20] MEDS: DIVALPROEX 250 MG TAB PO SCH (09:35)
--- NOTE | 2021-01-20 11:45 | HPEPDOC ---
[facility] Medical History & Physical Date of Admission Jan 19, 2021 Date of Service: Jan 20, 2021 Attending Physician: Viv Perez MD History and Physical MEDICAL H&P HISTORY OF PRESENT ILLNESS: [ Patient is a 25-year-old female with past medical history of schizophrenia and depression, anxiety who presented to [facility] emergency room with the chief complaint of increased visual hallucinations and bizarre behavior. The patient has a history of admission to inpatient mental health with the last one being 01/13-. She came to the ER today complaining of increased twitching, jerking increased bizarre thinking including having visual hallucinations of "demons" who would have conversations between each other but not command her to do anything. She denied auditory hallucinations, suicidal ideation, homicidal ideation. She also admits to having increased paranoia, poor sleep, poor concentration, poor appetite. On exam by myself today the patient had bizarre behavior would often stop and close her eyes and not respond her period of time. When asked again the same question she would then give answers. Many of her answers were "I don't know"," I'm not quite sure". She also refuses to have me do physical exam and stated "I really don't want anyone else touching me today". The patient denied chest pain, shortness of breath, fevers, chills, nausea, vomiting, recent illnesses, abdominal pain, diarrhea. REVIEW OF SYSTEMS: Neg except for what is mentioned above PAST MEDICAL HISTORY: schizophrenia, depression, anxiety PAST SURGICAL HISTORY: None FAMILY HISTORY: Patient was not able to recall family history SOCIAL HISTORY: Patient states she cannot remember who she lives with. She denies alcohol, smoking or drug abuse. ALLERGIES: Please see below. HOME MEDICATIONS: Please see below. PHYSICAL EXAMINATION: VS: Please see below. No actual physical exam was done as patient refused. PSYCHIATRIC: Mood and affect are abnormal LABORATORY DATA: Please see below IMAGING: None ASSESSMENT: 25-year-old female admitted to [facility] for unspecified psychotic disorder. PLAN: Unspecified psychotic disorder. -Hx of schizophrenia, depression, anxiety -Plan per psychiatry team Elevated valproic acid level -High at 116 -No concern for toxicity -Holding night valproic acid dose, c/w AM . Recommend repeat in 24 hours DISPOSITION: Thank you kindly for this consult. At this time will sign off case but if we are needed again at any time, please do not hesitate to call. Vital Signs Vital Signs Date Time Temp Pulse Resp B/P (MAP) Pulse Ox O2 Delivery O2 Flow Rate FiO2 01/20/21 03:20 97.6 88 18 144/98 (113) 97 Room Air Laboratory Data Labs 24H Laboratory Tests 2 01/19/21 20:21: Nucleated Red Blood Cells % (auto) 0.0, Anion Gap 7L, Glomerular Filtration Rate > 60.0, Calcium Level 6.0#L, Magnesium Level 2.0, Total Bilirubin 0.4, Direct Bilirubin 0.1, Aspartate Amino Transf (AST/SGOT) 7, Alanine Aminotransferase (ALT/SGPT) 13, Alkaline Phosphatase 71, Total Protein 7.8, Albumin 3.4, Albumin/Globulin Ratio 0.8L, Thyroid Stimulating Hormone (TSH) 0.714, Human Chorionic Gonadotropin, Qual NEGATIVE, Salicylates Level < 1.7L, Acetaminophen Level < 2.0L, Valproic Acid (Depakene) Level 116.2H, Ethyl Alcohol Level < 0.003 01/19/21 21:27: Urine Opiates Screen NEGATIVE, Urine Methadone Screen NEGATIVE, Urine Barbiturates Screen NEGATIVE, Urine Phencyclidine Screen NEGATIVE, Urine Amphetamines Screen NEGATIVE, Urine Benzodiazepines Screen NEGATIVE, Urine Cocaine Metabolite Screen NEGATIVE, Urine Cannabinoids Screen NEGATIVE, C oronavirus (COVID-19)(PCR) NEGATIVE, Influenza Type A (RT-PCR) NEGATIVE, Influenza Type B (RT-PCR) NEGATIVE, Respiratory Syncytial Virus (PCR) NEGATIVE 01/20/21 00:43: Calcium Level 9.2#, Whole Blood Ionized Calcium 4.5 CBC/BMP Laboratory Tests 01/19/21 20:21 Home Medications Scheduled Amoxicillin/Potassium Clav (Augmentin 875-125 Tablet) 1 Each Tablet, 875 MG PO BID STARTED 01/18/21 Benztropine Mesylate (Benztropine Mesylate) 0.5 Mg Tablet, 0.5 MG PO QHS Divalproex Sodium (Divalproex Sodium) 250 Mg Tablet.dr, 250 MG PO DAILY Divalproex Sodium (Depakote) 500 Mg Tablet.dr, 500 MG PO QHS Haloperidol (Haloperidol) 10 Mg Tablet, 10 MG PO TID Scheduled PRN Ibuprofen (Ibuprofen) 600 Mg Tablet, 600 MG PO Q6H PRN for PAIN Miscellaneous Medications [Patient Comment] MED REC COMPLETED VIA EXTERNAL MED HISTORY AND PREVIOUS DISCHARGE PAPERWORK (01/16/21) Allergies Coded Allergies: No Known Drug Allergies (Verified Allergy, Unknown, 04/13/20) A-FIB/CHADSVASC A-FIB History Current/History of A-Fib/PAF?: No Current PO Anticoag Therapy: No Age/Risk Factor Scoring CHADSVASC: CHADSVASC Response (Comments) Value Age Risk Factor Age < 65 years old 0 Gender Risk Factor Female 1 Hx of CHF No 0 Hx of HTN No 0 Hx of Stroke/TIA/or VTE No 0 Hx of Diabetes No 0 Hx of Vascular Disease No 0 Total 1 Treatment Treatment ordered: NONE Other anticoagulant ordered: none Viv Perez MD Jan 20, 2021 11:45
[2021-01-20 16:47] VITALS: BP 110/64
--- NOTE | 2021-01-20 18:12 | MHHPEPDOC ---
General Date Of Admission: Jan 20, 2021 Legal Status: 9.39 Chief Complaint "I am seeing things and it is getting worse." History of Present Illness HISTORY OF THE PRESENT ILLNESS: Patient is a 25 -year-old Single, Disabled, Domiciled, female, who has a long history of psychiatric admissions to this hospital. This would be her eighth hospitalization. Her last hospitalization was on 01/13/2021 to 01/16/2021. patient self presented to the ED requesting admission, stating that she is suffering from visual hallucinations. On this occasion. She is reporting that she is having visual hallucinations dating him seeing things and it's getting worse complained of twitching and jerking increased bizarre thinking, having visual hallucinations of demons and devils that don't necessarily have any command hallucinations. She reported increased paranoia, poor sleep, poor concentration, poor appetite and in the interview today. She had bizarre behavior, would often start a conversation and stop mid sentence and would not respond. Often. Her answers wer, "I e really know I'm not quite sure.". , She stated, "I don't really know what I'm hearing" sated that she came in because she was having a bad day Per ED report, patient self presented to the emergency department requesting admission to [facility] psychiatry due to suffering visual hallucinations. [place]an pond has a history of schizophrenia, last admitted to psychiatry on 01/13 and discharged on 01/16. . She presented to the emergency department yesterday with similar complaints. She has been seen multiple times over the past week for complaints of visual hallucination. Patient states "I'm seeing things and it's gotten worse." She is unable to describe visual hallucinations states I can't describe it. My reality is different. During interview patient began twitching her eyes and started jerking body movement were about 15 seconds and then stated I can't remember what happened. Stated that she is hears demons, but denies command hallucinations. His Ibarra and auditory hallucinations, it's demons talking amongst themselves. She denies suicidal ideation or homicidal ideation. According to the collateral, her stepfather Eulogio. He reports the patient's presented to outpatient appointment at [facility], but refused to be seen in the in's was scheduled for the next appointment for 3 months out. 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 Previous Psychiatric Admissions: Multiple psychiatric admissions due to poor compliance. Suicide Attempts: , Unknown suicide attempts. Psychiatric Follow-up: [facility]. Psychiatric medications: Patient is on Haldol, Depakote and Haldol to cannulate. Past Medical History Medical Problems Schizophrenia, schizoaffective depression, anxiety, no surgical history Head Injury: No Seizures: No Hospitalizations: Yes Surgeries: No Family Medical/Psychiatric HX Medical Problems Patient is unable to recall any family history Addiction History other (unable to obtain any history about addiction history) Social History Childhood: Patient grew up in [place], lived with her grandmother. Patient then moved to [facility] in 2018. Other was stationed at [employer] at the time. Collateral was received from her father. Abuse/Trauma:Unknown. Current Living Situation: , Currently living with stepfather and mother. Mother is currently deployed. Education: Unknown. Employment: , Disabled. Social Support: Family. Legal: Unknown. Marital: Single . Mental Status Examination General Appearance: well groomed, appears stated age, hospital scubs/clothing Build: overweight Demeanor: mistrustful, preoccupied, guarded Eye Contact: avoidant Activity: anxious Behavior: cooperative Speech: impoverished Mood: other ('s are) Affect: disorganized Thought Process: blocked Thought Content (Delusions): bizarre, paranoia, delusions Thought Content (Other): preoccupied Thought Content (Aggressive): none reported Perception (Hallucinations): auditory, visual Perception (Other): none reported Cognition (Impairment of): ability to abstract Cognition(Intelligence Est.): average Oriented: Alert, Oriented times three Insight: poor Judgment: Poor Psychosis: Associations (cheondoism), Psychotic Perceptions, Denies Diagnoses Schizoaffective disorder A-FIB/CHADSVASC A-FIB History Current/History of A-Fib/PAF?: No Current PO Anticoag Therapy: No Assessment Patient is a 25-year-old single, disabled domicile, -Turkmen female who came to the ER, is complaining of auditory and visual hallucinations. He is often noncompliant with medications. On this occasion. This is her eighth hospitalization. Her last hospitalization was 01/13/2021 to 01/16/2021. On this occasion patient is internally preoccupied, having bizarre behaviors stopping mid sentence, unable to finish her thought processes. Patient will be restarted on her home medications. Likely she needs to restart her Haldol Decanoate. Will discharge when she is stable. Initial Treatment Plan 1. Patient was admitted on a [9.39] status. 2. Complete history was obtained. 3. With patients permission, family will be contacted and database will be expanded. 4. Patients medication regimen will be reviewed and changed accordingly. 5. Patient will be provided with protected environment. 6. Patient will be treated with individual, group, and milieu therapies. 7. Patient will receive supportive psych-education. 8. Discharge planning will commence immediately. 9. Outpatient follow-up treatment will be strongly recommended. 10. The initial treatment plan will focus initially on: * Depression. * Risk for suicide. ESTIMATED LENGTH OF STAY: 5-10 DAYS. TIME SPENT COUNSELING AND COORDINATING INITIAL CARE: 60 minutes. Incomplete r/t Pt cond. Vital Signs Vital Signs Date Time Temp Pulse Resp B/P (MAP) Pulse Ox O2 Delivery O2 Flow Rate FiO2 01/20/21 16:47 97.1 80 16 110/64 (79) 100 Room Air Laboratory Data 24H Labs Laboratory Tests 2 01/19/21 20:21: Nucleated Red Blood Cells % (auto) 0.0, Anion Gap 7L, Glomerular Filtration Rate > 60.0, Calcium Level 6.0#L, Magnesium Level 2.0, Total Bilirubin 0.4, Direct Bilirubin 0.1, Aspartate Amino Transf (AST/SGOT) 7, Alanine Aminotransferase (ALT/SGPT) 13, Alkaline Phosphatase 71, Total Protein 7.8, Albumin 3.4, Albumin/Globulin Ratio 0.8L, Thyroid Stimulating Hormone (TSH) 0.714, Human Chorionic Gonadotropin, Qual NEGATIVE, Salicylates Level < 1.7L, Acetaminophen Level < 2.0L, Valproic Acid (Depakene) Level 116.2H, Ethyl Alcohol Level < 0.003 01/19/21 21:27: Urine Opiates Screen NEGATIVE, Urine Methadone Screen NEGATIVE, Urine Barbiturates Screen NEGATIVE, Urine Phencyclidine Screen NEGATIVE, Urine Amphetamines Screen NEGATIVE, Urine Benzodiazepines Screen NEGATIVE, Urine Cocaine Metabolite Screen NEGATIVE, Urine Cannabinoids Screen NEGATIVE, Coronavirus (COVID-19)(PCR) NEGATIVE, Influenza Type A (RT-PCR) NEGATIVE, Influenza Type B (RT-PCR) NEGATIVE, Respiratory Syncytial Virus (PCR) NEGATIVE 01/20/21 00:43: Calcium Level 9.2#, Whole Blood Ionized Calcium 4.5 CBC/BMP Laboratory Tests 01/19/21 20:21 Medications Scheduled Amoxicillin/Potassium Clav (Augmentin 875-125 Tablet) 1 Each Tablet, 875 MG PO BID, (Reported) STARTED 01/18/21 Benztropine Mesylate (Benztropine Mesylate) 0.5 Mg Tablet, 0.5 MG PO QHS, (Reported) Divalproex Sodium (Divalproex Sodium) 250 Mg Tablet.dr, 250 MG PO DAILY, (Reported) Divalproex Sodium (Depakote) 500 Mg Tablet.dr, 500 MG PO QHS, (Reported) Haloperidol (Haloperidol) 10 Mg Tablet, 10 MG PO TID, (Reported) Scheduled PRN Ibuprofen (Ibuprofen) 600 Mg Tablet, 600 MG PO Q6H PRN for PAIN, (Reported) Miscellaneous Medications [Patient Comment] , (Reported) MED REC COMPLETED VIA EXTERNAL MED HISTORY AND PREVIOUS DISCHARGE PAPERWORK (01/16/21) Allergies Coded Allergies: No Known Drug Allergies (Verified Allergy, Unknown, 04/13/20) JESSI SIMMS NP Jan 20, 2021 18:12
[2021-01-20] MEDS: BENZTROPINE 0.5 MG TAB PO SCH (21:00)
[2021-01-21 06:49] VITALS: BP 121/77
[2021-01-21] MEDS: DIVALPROEX 250 MG TAB PO SCH ×2 (09:43→20:30)
[2021-01-21 18:38] VITALS: BP 126/69
[2021-01-21] MEDS: BENZTROPINE 0.5 MG TAB PO SCH (20:29)
[2021-01-22 06:42] VITALS: BP 122/66
--- NOTE | 2021-01-22 11:21 | MHIPN ---
[facility] PROGRESS NOTE DATE: 01/21/2021 The patient today tells me that she is doing all right. She has no complaints. MENTAL STATUS EXAMINATION: She is alert and oriented times three. Eye contact is fair. There is no formal thought disorder noted. She says her mood is fine. Affect is appropriate. She is denying any hallucinations today. She is not suicidal, or homicidal. Concentration and memory is fair. Insight and judgment fair. DIAGNOSES: Schizophrenia. Non-adherence to medical treatment. TREATMENT PLAN: We will continue to monitor the patient for psychotic symptoms and I suspect she is minimizing her symptoms. We will titrate medications as indicated. MTDD
[2021-01-22] MEDS: DIVALPROEX 250 MG TAB PO SCH ×2 (11:49→20:06)
[2021-01-22 17:32] VITALS: BP 115/66
[2021-01-22] MEDS: BENZTROPINE 0.5 MG TAB PO SCH (20:05)
[2021-01-23 06:41] VITALS: BP 98/57
[2021-01-23] MEDS: DIVALPROEX 250 MG TAB PO SCH ×2 (08:52→20:06)
[2021-01-23 16:42] VITALS: BP 108/68
[2021-01-23] MEDS: BENZTROPINE 0.5 MG TAB PO SCH (20:06)
[2021-01-24 06:42] VITALS: BP 90/53
[2021-01-24] MEDS: DIVALPROEX 250 MG TAB PO SCH ×2 (08:27→20:05)
--- NOTE | 2021-01-24 10:20 | MHIPNPDOC ---
[facility] Progress Note Progress Note DATE OF SERVICE: 01/24/21 HISTORY: Patient is a 25 -year-old Single, Disabled, Domiciled, female, who has a long history of psychiatric admissions to this hospital. This would be her eighth hospitalization. Her last hospitalization was on 01/13/2021 to 01/16/2021. Patient self-presented to the ED requesting admission, stating that she is suffering from visual hallucinations. On this occasion. She is reporting that she is having visual hallucinations dating him seeing things and its getting worse complained of twitching and jerking increased bizarre thinking, having visual hallucinations of demons and devils that don't necessarily have any command hallucinations. She reported increased paranoia, poor sleep, poor concentration, poor appetite and in the interview today. She had bizarre behavior, would often start a conversation and stop mid- sentence and would not respond. Often. Her answers were, "I am really know I'm not quite sure." She stated, "I don't really know what I'm hearing" sated that she came in because she was having a bad day Per ED report, patient self-presented to the emergency department requesting admission [facility] due to suffering visual hallucinations. Patient has a history of schizophrenia, last admitted to psychiatry on 01/13/21 and discharged on 01/16/21 and returned two more times that day wanting to be readmitted back to [facility] on the day that she was discharged. She was seen by the psychiatrist and was not readmitted. We postulate that her reasons for wanting to be readmitted was because of peers with which she wanted to continue a friendship. She presented to the emergency department yesterday with similar complaints. She has been seen multiple times over the past week for complaints of visual hallucination. Patient states "I'm seeing things and it's gotten worse." She is unable to describe visual hallucinations states I can't describe it. My reality is different. During interview patient began twitching her eyes and started jerking body movement were about 15 seconds and then stated I can't remember what happened. Stated that she is hears demons, but denies command hallucinations. His Ibarra and auditory hallucinations, its demons talking amongst themselves. She denies suicidal ideation or homicidal ideation. According to the collateral, her stepfather Eulogio. He reports the patient's presented to outpatient appointment at [facility], but refused to be seen in the in's was scheduled for the next appointment for 3 months out. Stepfather's demanding hospitalization due to the severity of visual hallucinations VITAL SIGNS: See below. CURRENT MEDICATIONS: See below. MENTAL STATUS EXAMINATION: Patient is a 25-year old Single, Disabled, female, who is admitted to psychiatry on a 9.39 legal status reporting delusional thinking, auditory and visual hallucinations and bizarre behaviors in which she would have moments in her conversation when she would stop speaking and stare into space. She is dressed appropriately, hygiene and grooming is fair. Her eye contact is good and at times hypervigilant, In today's session she is demanding to be discharged and arguing that she is ready for discharged. Speech: Is fluid, conversant, normal rate, tone and volume Language skills are intact Thought processes including: linear and goal oriented most times. Thought content: denies depression and anxiety. Denies suicidal/homicidal yaima ation, planning or intent. Abstract reasoning, and computation: fair Description of associations: having mormon preoccupations according to her father (father spoke with urban planner) in the interview today, patient was not seen with any delusional or abnormal behaviors Description of abnormal or psychotic thoughts: denies, but she is minimizing and is not forthcoming. Judgment: fair Insight: fair Orientation: alert and oriented to person, place, time and situation Recent and remote memory: intact Attention span and concentration: good Language: expansive Fund of knowledge: average Mood: Euthymic Mood Affect: reactive DIAGNOSES: Schizoaffective disorder ASSESSMENT: Patient presented very well in the interview initially. She then demanded to be discharged to home. When I reinforced that I would like to confirm with the staff that she had been doing well, whether she was at her baseline and if her family agreed that she was safe for discharge patient became very agitated and began crying. She demanded again to be discharged and stated that she was stable. Immediately after the interview, patient was observed calling her father being argumentative, demanding to be discharged. She then became so loud that she had to be spoken to about the volume of her yelling. She was extremely agitated, angry, and aggressive. Oral medications were offered because patient appeared quite violent at that moment. Patient at this time is not stable for discharge due to her lack of insight and judgement. MANAGEMENT PLAN: Continue all medications. Discharge when she is stable TIME SPENT: 25 minutes. Vital Signs Vital Signs Date Time Temp Pulse Resp B/P (MAP) Pulse Ox O2 Delivery O2 Flow Rate FiO2 01/24/21 06:42 97.4 71 20 90/53 (65) 100 Room Air Current Medications Current Medications Medications (Trade) Dose Ordered Sig/Ben Route PRN Reason Start Time Stop Time Status Last Admin Dose Admin Acetaminophen (Tylenol Tab) 650 mg Q6HP PRN PO HEADACHE or DISCOMFORT 01/20/21 02:35 Al Hydrox/Mg Hydrox/Simethicone (Mylanta) 30 ml Q4HP PRN PO HEARTBURN/INDIGESTION 01/20/21 02:35 Benztropine Mesylate (Cogentin) 0.5 mg QHS PO 01/20/21 21:00 01/23/21 20:06 Divalproex Sodium (Depakote) 250 mg BID PO 01/20/21 09:00 01/24/21 08:27 Haloperidol (Haldol) 10 mg TID PO 01/20/21 09:00 01/24/21 08:27 Home Med (Med Rec Complete!) ASDIRECTED XX 01/20/21 02:55 01/20/21 03:02 DC Magnesium Hydroxide (Milk Of Magnesia) 30 ml DAILYPRN PRN PO CONSTIPATION 01/20/21 02:35 Olanzapine (ZyPREXA ZYDIS) 5 mg Q6HP PRN PO AGITATION 01/20/21 02:35 Trazodone HCl (Desyrel) 50 mg QHSP PRN PO INSOMNIA 01/20/21 02:35 Allergies Coded Allergies: No Known Drug Allergies (Verified Allergy, Unknown, 04/13/20) JESSI SIMMS NP Jan 24, 2021 10:20
[2021-01-24 16:38] VITALS: BP 112/70
--- NOTE | 2021-01-24 17:31 | MHIPN ---
[facility] PROGRESS NOTE DATE: 01/22/2021 The patient today tells me that she is fine. She has no complaints. She denies that she is hearing voices. She is very vague as to why she was admitted to the hospital, however, and she tells me, "I was having a bad day." MENTAL STATUS EXAMINATION: She is alert and oriented times three. Eye contact is very good. She is verbally spontaneous. There is no formal thought disorder noted. She tells me that she is feeling better and that she only came in because she was having a bad day, and she seems to be minimizing all the hallucinations today. She is denying suicidal or homicidal ideations. Concentration is fair. Memory intact. Insight and judgment poor. DIAGNOSIS: Schizophrenia. TREATMENT PLAN: At this point, the patient, I believe, is still psychotic, but I think she is minimizing her symptoms now. We will continue the patient on her current medications, but will titrate them as indicated until she is stable.
[2021-01-24] MEDS: BENZTROPINE 0.5 MG TAB PO SCH (20:05)
[2021-01-25 06:53] VITALS: BP 126/75
[2021-01-25] MEDS: DIVALPROEX 250 MG TAB PO SCH ×2 (08:45→22:25)
[2021-01-25 16:30] VITALS: BP 102/59
--- NOTE | 2021-01-25 18:06 | MHIPNPDOC ---
[facility] Progress Note Progress Note DATE OF SERVICE: 01/25/21 HISTORY: Patient is a 25 -year-old Single, Disabled, Domiciled, female, who has a long history of psychiatric admissions to this hospital. This would be her eighth hospitalization. Her last hospitalization was on 01/13/2021 to 01/16/2021. Patient self-presented to the ED requesting admission, stating that she is suffering from visual hallucinations. On this occasion. She is reporting that she is having visual hallucinations dating him seeing things and its getting worse complained of twitching and jerking increased bizarre thinking, having visual hallucinations of demons and devils that don't necessarily have any command hallucinations. She reported increased paranoia, poor sleep, poor concentration, poor appetite and in the interview today. She had bizarre behavior, would often start a conversation and stop mid- sentence and would not respond. Often. Her answers were, "I am really know I'm not quite sure." She stated, "I don't really know what I'm hearing" sated that she came in because she was having a bad day Per ED report, patient self-presented to the emergency department requesting admission to [facility] due to suffering visual hallucinations. Patient has a history of schizophrenia, last admitted to psychiatry on 01/13/21 and discharged on 01/16/21 and returned two more times that day wanting to be readmitted back to [facility] on the day that she was discharged. She was seen by the psychiatrist and was not readmitted. We postulate that her reasons for wanting to be readmitted was because of peers with which she wanted to continue a friendship. She presented to the emergency department yesterday with similar complaints. She has been seen multiple times over the past week for complaints of visual hallucination. Patient states "I'm seeing things and it's gotten worse." She is unable to describe visual hallucinations states I can't describe it. My reality is different. During interview patient began twitching her eyes and started jerking body movement were about 15 seconds and then stated I can't remember what happened. Stated that she is hears demons, but denies command hallucinations. His Ibarra and auditory hallucinations, its demons talking amongst themselves. She denies suicidal ideation or homicidal ideation. According to the collateral, her stepfather Eulogio. He reports the patient's presented to outpatient appointment at [facility], but refused to be seen in the in's was scheduled for the next appointment for 3 months out. Stepfather's demanding hospitalization due to the severity of visual hallucinations VITAL SIGNS: See below. CURRENT MEDICATIONS: See below. MENTAL STATUS EXAMINATION: Patient is a 25-year old Single, Disabled, female, who is admitted to psychiatry on a 9.39 legal status reporting delusional thinking, auditory and visual hallucinations and bizarre behaviors in which she would have moments in her conversation when she would stop speaking and stare into space. She is dressed appropriately, hygiene and grooming is fair. Her eye contact is good and at times hypervigilant, In today's session she is demanding to be discharged and arguing that she is ready for discharged. Speech: Is fluid, minimal responses, low rate, tone and volume Language skills are intact Thought processes including: linear and goal oriented most times. Thought content: denies depression and anxiety. Denies suicidal/homicidal ideation, planning or intent. Abstract reasoning, and computation: fair Description of associations: denies any psychotic symptoms but appears to be minimizing Description of abnormal or psychotic thoughts: denies, but she is minimizing and is not forthcoming. Judgment: fair Insight: fair Orientation: alert and oriented to person, place, time and situation Recent and remote memory: intact Attention span and concentration: good Language: expansive Fund of knowledge: average Mood: agitated mood Affect: flat DIAGNOSES: Schizoaffective disorder ASSESSMENT: Patient initially very friendly, then becomes every irritable in the interview. She demands to be discharged, states that this provider is holding her in the hospital for no reason. States that her father feels that she is safe for discharge. Patient becomes very tearful and states that her father believes that she is safe for discharge and she demands that she be discharged today. Reinforced with patient that the last admission she had returned to the ED two times on the day of her discharge and want to be sure on this hospitalization that she is stable and not going to return within hours of her discharge. Patient is observed being social with peers, she is compliant with medications, but patient's mood continues to be moderately unstable and expansive. Left message with her father. MANAGEMENT PLAN: Continue all medications. Discharge when she is stable TIME SPENT: 25 minutes. Vital Signs Vital Signs Date Time Temp Pulse Resp B/P (MAP) Pulse Ox O2 Delivery O2 Flow Rate FiO2 01/25/21 16:30 97.8 82 18 102/59 (73) 96 Room Air Current Medications Current Medications Medications (Trade) Dose Ordered Sig/Ben Route PRN Reason Start Time Stop Time Status Last Admin Dose Admin Acetaminophen (Tylenol Tab) 650 mg Q6HP PRN PO HEADACHE or DISCOMFORT 01/20/21 02:35 Al Hydrox/Mg Hydrox/Simethicone (Mylanta) 30 ml Q4HP PRN PO HEARTBURN/INDIGESTION 01/20/21 02:35 Benztropine Mesylate (Cogentin) 0.5 mg QHS PO 01/20/21 21:00 01/24/21 20:05 Divalproex Sodium (Depakote) 250 mg BID PO 01/20/21 09:00 01/25/21 08:45 Haloperidol (Haldol) 10 mg TID PO 01/20/21 09:00 01/25/21 15:38 Home Med (Med Rec Complete!) ASDIRECTED XX 01/20/21 02:55 01/20/21 03:02 DC Magnesium Hydroxide (Milk Of Magnesia) 30 ml DAILYPRN PRN PO CONSTIPATION 01/20/21 02:35 Olanzapine (ZyPREXA ZYDIS) 5 mg Q6HP PRN PO AGITATION 01/20/21 02:35 Trazodone HCl (Desyrel) 50 mg QHSP PRN PO INSOMNIA 01/20/21 02:35 01/24/21 20:05 Allergies Coded Allergies: No Known Drug Allergies (Verified Allergy, Unknown, 04/13/20) JESSI SIMMS NP Jan 25, 2021 17:58
[2021-01-25] MEDS: BENZTROPINE 0.5 MG TAB PO SCH (22:25)
[2021-01-26 06:44] VITALS: BP 105/54
[2021-01-26] MEDS: DIVALPROEX 250 MG TAB PO SCH (08:30)
[2021-01-26] MEDS ORDERED: DEPA250T32 PO (09:21)
--- NOTE | 2021-01-26 09:30 | MHDSPDOC ---
[facility] Discharge Summary Discharge Summary DATE OF ADMISSION: Jan 20, 2021 at 03:23 DATE OF DISCHARGE: January 26, 2021 at 0923 DISCHARGE DIAGNOSES: Schizoaffective disorder REASON FOR ADMISSION: Patient is a 25 -year-old Single, Disabled, Domiciled, female, who has a long history of psychiatric admissions to this hospital. This would be her eighth hospitalization. Her last hospitalization was on 01/13/2021 to 01/16/2021. Patient self-presented to the ED requesting admission, stating that she is suffering from visual hallucinations. On this occasion. She is reporting that she is having visual hallucinations dating him seeing things and its getting worse complained of twitching and jerking increased bizarre thinking, having visual hallucinations of demons and devils that don't necessarily have any command hallucinations. She reported increased paranoia, poor sleep, poor concentration, poor appetite and in the interview today. She had bizarre behavior, would often start a conversation and stop mid-sentence and would not respond. Often. Her answers were, "I am really know I'm not quite sure." She stated, "I don't really know what I'm hearing" sated that she came in because she was having a bad day Per ED report, patient self-presented to the emergency department requesting admission to [facility] psychiatry due to suffering visual hallucinations. Patient has a history of schizophrenia, last admitted to psychiatry on 01/13/21 and discharged on 01/16/21 and returned two more times that day wanting to be readmitted back to [facility] on the day that she was discharged. She was seen by the psychiatrist and was not readmitted. We postulate that her reasons for wanting to be readmitted was because of peers with which she wanted to continue a friendship. She presented to the emergency department yesterday with similar complaints. She has been seen multiple times over the past week for complaints of visual hallucination. Patient states "I'm seeing things and it's gotten worse." She is unable to describe visual hallucinations states I can't describe it. My reality is different. During interview patient began twitching her eyes and started jerking body movement were about 15 seconds and then stated I can't remember what happened. Stated that she is hears demons, but denies command hallucinations. His Ibarra and auditory hallucinations, its demons talking amongst themselves. She denies suicidal ideation or homicidal ideation. According to the collateral, her stepfather Eulogio. He reports the patient's presented to outpatient appointment at [facility], but refused to be seen in the in's was scheduled for the next appointment for 3 months out. Stepfather's demanding hospitalization due to the severity of visual hallucinations CONSULTANTS INVOLVED: CONSULTANTS INVOLVED: See Medical H + P by Hospitalist TREATMENT AND PROGRESS ON THE UNIT: Patient was admitted to the [facility] on a legal status he was afforded the following treatment modalities: 1) Individual Therapy 2) Group Therapy 3) Medication Management 4) Milieu Therapy 5) Safe Environment HOSPITAL COURSE: Patient was admitted to psychiatry on a legal status for her complaints of auditory and visual hallucinations. She was started on her home medications, patient states that she recently had Haldol Decanoate at [facility] and is due on 02/05/21. Depakote level was elevated and Depakote was reduced to 250 mg twice daily. Patient has milder psychotic symptoms on this admission. She was less religiously preoccupied. She was not observed with internal stimuli on discharge interview. She was pleasant and engaged. I have spoken to the father, Eulogio who feels that patient is stable and can return to home today. DISCHARGE ASSESSMENT: In today's interview, patient is alert and oriented, pts dress is appropriate. Hygiene and grooming is well-kempt. Smiles on approach and is pleasant and engaged in the interview. Denies depression and anxiety. Denies suicidal and homicidal ideation, planning or intent. Denies and is not observed with brown, psychotic symptoms of delusions, bizarre thinking, obsessions, paranoia, ruminations illogical thoughts, flight of ideas or having poor insight and judgement. Patient has normal mentation, declines further hospitalization on a voluntary status and meets criteria for discharge today. MENTAL STATUS EXAMINATION ON DISCHARGE: Patient is a 25 -year-old Single, Disabled, Domiciled, female, who has a long history of psychiatric admissions to this hospital complaining of auditory and visual hallucinations of demons and devils . Speech: Is fluid, conversant, normal rate, tone and volume Language skills are intact Thought processes including: linear and goal oriented Thought content: denies depression and anxiety. Denies suicidal/homicidal ideation, planning or intent. Abstract reasoning, and computation: fair Description of associations: denies, none observed Description of abnormal or psychotic thoughts: denies, none observed. Judgment: fair Insight: fair Orientation: alert and oriented to person, place, time and situation Recent and remote memory: intact Attention span and concentration: good Language: expansive Fund of knowledge: average Mood: Euthymic Mood Affect: reactive MEDICATIONS ON DISCHARGE: See Medication Reconciliation PLAN/FOLLOWUP ARRANGEMENTS: Patient will be discharged to home, she will follow up with [facility] The amount of time spent in the coordination of care for this patient was approximately 25 minutes. ETOH/Disorder Med Rx ETOH/DRUG DISORDER RX: N/A Vital Signs/I&Os Vital Signs Date Time Temp Pulse Resp B/P (MAP) Pulse Ox O2 Delivery O2 Flow Rate FiO2 01/26/21 06:44 97.1 81 16 105/54 (71) 100 Room Air Medications Scheduled Benztropine Mesylate (Benztropine Mesylate) 0.5 Mg Tablet, 0.5 MG PO QHS, (Reported) Divalproex Sodium (Depakote) 250 Mg Tablet.dr, 250 MG PO BID for Mood, #14 Haloperidol (Haloperidol) 10 Mg Tablet, 10 MG PO TID, (Reported) Scheduled PRN Ibuprofen (Ibuprofen) 600 Mg Tablet, 600 MG PO Q6H PRN for PAIN, (Reported) Miscellaneous Medications [Patient Comment] , (Reported) MED REC COMPLETED VIA EXTERNAL MED HISTORY AND PREVIOUS DISCHARGE PAPERWORK (01/16/21) Allergies Coded Allergies: No Known Drug Allergies (Verified Allergy, Unknown, 04/13/20) JESSI SIMMS NP Jan 26, 2021 09:30
== END 2021-01-26 12:36 | disposition home or self-care (01) | DRG 885 ==
LOC: M ED 19:49 → M PSY 01-20 03:23
PROVIDERS: ADMIT Psychiatry & Neurology Psychiatry; ATTEND Psychiatry & Neurology Psychiatry
DX: F25.9 Schizoaffective disorder, unspecified (principal); F41.9 Anxiety disorder, unspecified; Z79.899 Other long term (current) drug therapy; Z20.822 Contact with and (suspected) exposure to COVID-19; Z91.19 Patient's noncompliance with other medical treatment and regimen

== ENCOUNTER 2021-03-19 10:37 | Emergency (ER) | payer MEDICARE, MEDICAID ==
[~2021-03-19] VITALS: Ht 172.7 cm; Wt 100.1 kg
[~2021-03-19 10:37] MED LIST changes: +IBUP1TAB6 PO; +PATIENT COMMENT
[2021-03-19 12:48] VITALS: BP 131/81
== END 2021-03-19 12:50 | disposition home or self-care (01) ==
LOC: M ED 10:37
DX: F43.20 Adjustment disorder, unspecified (principal); F33.9 Major depressive disorder, recurrent, unspecified; F41.9 Anxiety disorder, unspecified; F20.9 Schizophrenia, unspecified; Z79.899 Other long term (current) drug therapy

== ENCOUNTER 2021-03-25 21:30 | Emergency (ER) | payer MEDICARE, MEDICAID ==
[~2021-03-25] VITALS: Ht 175.3 cm; Wt 58.0 kg
[2021-03-25] MEDS ORDERED: diphenhydrAMINE 50MG/ML VIAL (J1200) IM ONE (21:50)
[2021-03-25] MEDS ORDERED: LORazepam 2 MG/ML VIAL IM ONE (21:50)
[2021-03-25] MEDS ORDERED: HALOPERIDOL 5MG/ML VIAL (J1630 PER 1) IM ONE (21:50)
[2021-03-25] MEDS ORDERED: LORazepam 2 MG/ML VIAL As Ordered ONE (21:59)
[2021-03-25 22:51] LABS: HEMATOCRIT 41.1 % (36.0-47.0); HEMOGLOBIN 13.1 g/dl (12.0-15.5); MEAN CORPUSCULAR HEMOGLOBIN 27.3 pg (27.0-33.0); MEAN CORPUSCULAR HGB CONC 31.9 g/dl (32.0-36.5); MEAN CORPUSCULAR VOLUME 85.6 fl (80.0-96.0); PLATELET COUNT, AUTOMATED 271 10^3/uL (150-450); WHITE BLOOD COUNT 8.5 10^3/uL (4.0-10.0)
[2021-03-25 23:17] LABS: AMPHETAMINES LEVEL URINE NEGATIVE (NEGATIVE); BARBITURATES URINE NEGATIVE (NEGATIVE); BENZODIAZEPINES URINE NEGATIVE (NEGATIVE); CANNABINOIDS URINE NEGATIVE (NEGATIVE); COCAINE METABOLITE URINE NEGATIVE (NEGATIVE); METHADONE URINE NEGATIVE (NEGATIVE); OPIATES URINE NEGATIVE (NEGATIVE); PHENCYCLIDINE URINE NEGATIVE (NEGATIVE)
[2021-03-25 23:23] LABS: RSV AMPLIFICATION NEGATIVE (NEGATIVE)
[2021-03-25 23:26] LABS: ALT/SGPT 16 U/L (12-78); BILIRUBIN,DIRECT 0.2 MG/DL (0.0-0.2); BILIRUBIN,TOTAL 0.7 MG/DL (0.2-1.0); BLOOD UREA NITROGEN 8 MG/DL (7-18); CALCIUM LEVEL 9.1 MG/DL (8.5-10.1); CARBON DIOXIDE LEVEL 25 MEQ/L (21-32); CHLORIDE LEVEL 103 MEQ/L (98-107); GLOMERULAR FILTRATION RATE > 60.0 (>60); GLUCOSE, FASTING 98 MG/DL (70-100); POTASSIUM SERUM 3.4 MEQ/L (3.5-5.1); SALICYLATE LEVEL < 1.7 MG/DL (5.0-30.0); SODIUM LEVEL 138 MEQ/L (136-145); TOTAL PROTEIN 8.6 GM/DL (6.4-8.2)
[2021-03-25 23:27] LABS: ACETAMINOPHEN LEVEL < 2.0 UG/ML (10.0-30.0); ETHYL ALCOHOL (ETHANOL) < 0.003 % (0.000-0.010)
[2021-03-26 00:13] LABS: HCG, SERUM QUALITATIVE NEGATIVE (NEGATIVE)
[2021-03-26] MEDS ORDERED: BENZ0.5T23 PO (05:12)
--- NOTE | 2021-03-26 07:57 | ECGEPIP ---
[facility] - ED Test Date: 2021-03-25 Pat Name: KATHY GORDON Department: Room: - Gender: Female Medical Records Specialist: Derick BARRY : 1995 Requested By: MONICA Munoz Order Number: [id number] Reading MD: Aline Das Measurements Intervals [place] Rate: 79 P: 115 OR: 146 QRS: 159 QRSD: 146 T: 134 QT: 402 QTc: 460 Interpretive Statements Suspect arm lead reversal, interpretation assumes no reversal Normal sinus rhythm with sinus arrhythmia Right bundle branch block NSTTW abnormalities Clinical correlation advised Electronically Signed on 03-26-2021 7:57:16 EDT by Aline Das
[2021-03-26 11:58] LABS: VALPROIC ACID (DEPAKOTE) < 3.0 UG/ML (50.0-100.0)
[2021-03-26 13:20] VITALS: BP 132/83
== END 2021-03-26 13:22 | disposition short-term general hospital (02) ==
LOC: M ED 21:30
DX: F29 Unspecified psychosis not due to a substance or known physiological condition (principal); F33.9 Major depressive disorder, recurrent, unspecified; F20.9 Schizophrenia, unspecified; Z79.899 Other long term (current) drug therapy
CPT/HCPCS: 80048; 80076; 80143; 80164; 80307; 82077; 84443; 84703; 85027; 87631; 93005; 96372; 99285; J1200; J1630; J2060

== ENCOUNTER 2021-03-28 21:42 | Inpatient (IN) | payer MEDICARE, MEDICAID ==
[~2021-03-28] VITALS: Ht 172.7 cm; Wt 58.0 kg
[2021-03-28] MEDS ORDERED: LORazepam 2 MG/ML VIAL IM ONE (22:10)
[2021-03-28] MEDS ORDERED: HALOPERIDOL 5MG/ML VIAL (J1630 PER 1) IM ONE (22:10)
[2021-03-28 22:34] LABS: HEMATOCRIT 37.1 % (36.0-47.0); HEMOGLOBIN 11.6 g/dl (12.0-15.5); MEAN CORPUSCULAR HEMOGLOBIN 27.2 pg (27.0-33.0); MEAN CORPUSCULAR HGB CONC 31.3 g/dl (32.0-36.5); MEAN CORPUSCULAR VOLUME 87.1 fl (80.0-96.0); PLATELET COUNT, AUTOMATED 218 10^3/uL (150-450); RED BLOOD COUNT 4.26 10^6/uL (4.00-5.40); WHITE BLOOD COUNT 9.8 10^3/uL (4.0-10.0)
[2021-03-28 23:11] LABS: HCG, SERUM QUALITATIVE NEGATIVE (NEGATIVE)
[2021-03-28 23:13] LABS: ACETAMINOPHEN LEVEL < 2.0 UG/ML (10.0-30.0); ALBUMIN 3.6 GM/DL (3.2-5.2); ALT/SGPT 23 U/L (12-78); BILIRUBIN,DIRECT < 0.1 MG/DL (0.0-0.2); BILIRUBIN,TOTAL 0.2 MG/DL (0.2-1.0); BLOOD UREA NITROGEN 13 MG/DL (7-18); CALCIUM LEVEL 9.2 MG/DL (8.5-10.1); CARBON DIOXIDE LEVEL 26 MEQ/L (21-32); CHLORIDE LEVEL 103 MEQ/L (98-107); CREATININE FOR GFR 1.08 MG/DL (0.55-1.30); ETHYL ALCOHOL (ETHANOL) < 0.003 % (0.000-0.010); GLOMERULAR FILTRATION RATE > 60.0 (>60); GLUCOSE, FASTING 94 MG/DL (70-100); POTASSIUM SERUM 3.4 MEQ/L (3.5-5.1); SALICYLATE LEVEL < 1.7 MG/DL (5.0-30.0); SODIUM LEVEL 138 MEQ/L (136-145); TOTAL PROTEIN 7.5 GM/DL (6.4-8.2); VALPROIC ACID (DEPAKOTE) 35.9 UG/ML (50.0-100.0)
[2021-03-29 00:52] LABS: AMPHETAMINES LEVEL URINE NEGATIVE (NEGATIVE); BARBITURATES URINE NEGATIVE (NEGATIVE); BENZODIAZEPINES URINE NEGATIVE (NEGATIVE); CANNABINOIDS URINE NEGATIVE (NEGATIVE); COCAINE METABOLITE URINE NEGATIVE (NEGATIVE); METHADONE URINE NEGATIVE (NEGATIVE); OPIATES URINE NEGATIVE (NEGATIVE); PHENCYCLIDINE URINE NEGATIVE (NEGATIVE)
[2021-03-29] MEDS ORDERED: POTASSIUM CHLORIDE 10 MEQ SR TABLET PO ONE (01:20)
[2021-03-29] MEDS ORDERED: LORazepam 2 MG TAB PO STA (10:12)
[2021-03-29] MEDS ORDERED: HALO10TA20 PO (12:57)
[2021-03-29] MEDS ORDERED: DIVA250T67 PO (12:57)
[2021-03-29] MEDS ORDERED: MED REC COMMENT (12:58)
[2021-03-29 14:36] LABS: RSV AMPLIFICATION NEGATIVE (NEGATIVE)
[2021-03-29] MEDS ORDERED: HALOPERIDOL 5MG/ML VIAL (J1630 PER 1) IM ONE (16:40)
[2021-03-29] MEDS ORDERED: LORazepam 2 MG/ML VIAL IM ONE (16:40)
[2021-03-29] MEDS ORDERED: BENZTROPINE 0.5 MG TAB PO SCH (21:00)
[2021-03-29] MEDS ORDERED: MAALOX 30 ML SUSP *UDC PO PRN (21:45)
[2021-03-29] MEDS ORDERED: MOM 30ML SUSPENSION UDC PO PRN (21:45)
[2021-03-30] VITALS (10 sets, daily range): BP systolic 103–124; BP diastolic 56–73
[2021-03-30] MEDS: DIVALPROEX 250 MG TAB PO SCH ×3 (00:33→20:44)
[2021-03-30] MEDS ORDERED: HALOPERIDOL 5MG/ML VIAL (J1630 PER 1) IM STA ×3 (06:08→22:22)
[2021-03-30] MEDS ORDERED: diphenhydrAMINE 50MG/ML VIAL (J1200) IM STA ×3 (06:08→22:22)
[2021-03-30] MEDS ORDERED: LORazepam 2 MG/ML VIAL IM STA ×3 (06:08→22:22)
--- NOTE | 2021-03-30 06:14 | IPNPDOC ---
Text Note Date of Service The patient was seen on 03/30/21. NOTE PSYCH CERTIFICATION FACE TO FACE: yes PHYSICIAN ASSESSMENT: The patient was agitated, violent towards staff and not following verbal instructions VITALS GEN: irritable / yelling LUNGS: CTAB on RA REASON FOR RESTRAINT: The patient was a danger to the staff. DE-ESCALATION INTERVENTIONS ATTEMPTED BEFORE USE OF RESTRAINTS: verbal redirection [MECHANICAL AND/OR CHEMICAL] RESTRAINTS USED: Both LENGTH OF TIME ORDERED IN RESTRAINTS: 4 hours WHEN TO DISCONTINUE RESTRAINTS: When the patient is no longer a threat to to herself or others Post evaluation of restraint due in 24 hours. VS,Fishbone, I+O VS, Fishbone, I+O Vital Signs Date Time Temp Pulse Resp B/P (MAP) Pulse Ox O2 Delivery O2 Flow Rate FiO2 03/29/21 23:45 97.5 83 16 118/62 (80) 100 Room Air MAYDA RUTHERFORD MD Mar 30, 2021 06:14
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
[2021-03-30] MEDS: ACETAMINOPHEN TAB 650MG DOSE (2X325MG) PO PRN (12:57)
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
[2021-03-30] MEDS: QUEtiapine FUMARATE 200 MG TAB PO SCH (20:44)
[2021-03-30] MEDS: DIVALPROEX 500MG *ER* TAB PO SCH (20:44)
[2021-03-30] MEDS: BENZTROPINE 1 MG TAB PO SCH (20:44)
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
[2021-03-31] MEDS ORDERED: HALOPERIDOL 5MG/ML VIAL (J1630 PER 1) IM STA ×2 (07:32→16:46)
[2021-03-31] MEDS ORDERED: LORazepam 2 MG/ML VIAL IM STA ×3 (07:32→18:29)
[2021-03-31] MEDS ORDERED: diphenhydrAMINE 50MG/ML VIAL (J1200) IM STA ×2 (07:32→16:46)
[2021-03-31] MEDS: DIVALPROEX 250 MG TAB PO SCH ×2 (09:00→21:47)
[2021-03-31] MEDS: DIVALPROEX 500MG *ER* TAB PO SCH ×2 (09:00→21:00)
[2021-03-31] MEDS: BENZTROPINE 1 MG TAB PO SCH ×2 (09:00→21:47)
[2021-03-31] MEDS ORDERED: OLANZapine INTRAMUSCULAR 10MG VIAL IM ONE (09:30)
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
[2021-03-31] MEDS ORDERED: chlorproMAZINE INJ 50MG/2ML AMP (J3230) IM STA ×2 (16:46→18:29)
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
[2021-03-31] MEDS: traZODone 50 MG TAB PO PRN (21:47)
[2021-03-31] MEDS: QUEtiapine FUMARATE 200 MG TAB PO SCH (21:47)
[2021-04-01 06:52] VITALS: BP 135/85
[2021-04-01] MEDS ORDERED: diphenhydrAMINE 50MG/ML VIAL (J1200) IM STA (08:39)
[2021-04-01] MEDS ORDERED: chlorproMAZINE INJ 50MG/2ML AMP (J3230) IM STA (08:39)
[2021-04-01] MEDS ORDERED: LORazepam 2 MG/ML VIAL IM STA (08:39)
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
[2021-04-01] MEDS: DIVALPROEX 500MG *ER* TAB PO SCH ×2 (09:00→23:52)
[2021-04-01] MEDS: DIVALPROEX 250 MG TAB PO SCH ×2 (09:00→23:52)
[2021-04-01] MEDS: BENZTROPINE 1 MG TAB PO SCH ×2 (09:00→23:52)
[2021-04-01] MEDS ORDERED: diphenhydrAMINE 50MG/ML VIAL (J1200) IM ONE ×2 (09:50→11:30)
[2021-04-01] MEDS ORDERED: chlorproMAZINE INJ 50MG/2ML AMP (J3230) IM ONE ×3 (09:50→22:00)
[2021-04-01] MEDS ORDERED: LORazepam 2 MG/ML VIAL IM ONE (09:50)
[2021-04-01] MEDS ORDERED: OLANZapine INTRAMUSCULAR 10MG VIAL IM ONE ×2 (11:30→15:55)
[2021-04-01] MEDS ORDERED: diazePAM 10MG/2ML SYRINGE (J3360 PER 5MG) IM ONE (16:00)
--- NOTE | 2021-04-01 19:23 | MHPR ---
General Date: Mar 31, 2021 Time: 21:55 Post-Restraint Evaluation THE OUTCOME OF THE RESTRAINT: She was calmer, she was able to be re directed by staff, she didn't exhibit more angry or aggressive behaviors EFFECTIVENESS OF THE RESTRAINT: Mechanical and/or chemical: Positive ANY EVIDENCE THAT THE PATIENT WAS AFFECTED EMOTIONALLY: No, the patient was not affected in a negative way, she was calmer, went to sleep on her bed without exhibiting threatening behavior to patients or staff members ANY NEED FOR COUNSELING/ASSISTANCE: Emotional support and re direction was provided by staff. CHANGES IN TREATMENT PLAN: There are no changes for now. Will continue to monitor for changes, to provide reassurance, to provide support, to provide with PRN medications to help her feel safe RECOMMENDATIONS FOR FUTURE INCIDENTS: As above WENDY SHAIKH MD Apr 01, 2021 19:23
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
[2021-04-01] MEDS: QUEtiapine FUMARATE 200 MG TAB PO SCH (23:53)
[2021-04-02 01:00] VITALS: BP 132/87
[2021-04-02] MEDS ORDERED: LORazepam 2 MG/ML VIAL IM ONE ×2 (01:00→11:15)
[2021-04-02] MEDS ORDERED: diphenhydrAMINE 50MG/ML VIAL (J1200) IM ONE ×3 (01:00→11:15)
[2021-04-02] MEDS ORDERED: LORazepam 2 MG/ML VIAL IM STA (06:55)
[2021-04-02] MEDS ORDERED: HALOPERIDOL 5MG/ML VIAL (J1630 PER 1) IM STA (06:55)
[2021-04-02] MEDS: DIVALPROEX 500MG *ER* TAB PO SCH ×2 (09:00→21:00)
[2021-04-02] MEDS: BENZTROPINE 1 MG TAB PO SCH ×2 (10:03→21:00)
[2021-04-02] MEDS: DIVALPROEX 250 MG TAB PO SCH ×2 (10:13→21:00)
[2021-04-02] MEDS ORDERED: LORazepam 1 MG TAB PO ONE (10:25)
[2021-04-02] MEDS ORDERED: diphenhydrAMINE 50MG CAP PO ONE (10:25)
[2021-04-02] MEDS ORDERED: HALOPERIDOL 5MG/ML VIAL (J1630 PER 1) IM ONE (11:15)
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
[2021-04-02] MEDS ORDERED: OLANZapine ORAL DISINTEGRATING TAB 5MG PO STA (18:39)
[2021-04-02] MEDS: QUEtiapine FUMARATE 200 MG TAB PO SCH (21:00)
[2021-04-03] MEDS: BENZTROPINE 1 MG TAB PO SCH ×2 (08:41→21:00)
[2021-04-03] MEDS: QUEtiapine FUMARATE 200 MG TAB PO SCH ×2 (09:00→21:00)
[2021-04-03] MEDS: DIVALPROEX SPRINKLE 125 MG CAP PO SCH ×2 (09:00→21:00)
[2021-04-03] MEDS ORDERED: QUEtiapine FUMARATE 200 MG TAB PO SCH (09:00)
--- NOTE | 2021-04-03 09:29 | MHIPNPDOC ---
[facility] Progress Note Progress Note DATE OF SERVICE: 04/03/21 , Over the weekend, the patient continued to exhibit agitated and aggressive behavior on and off, resulting in repeated extra medications to control her agitation and maintained on one-to-one observation. She has refused to take Depakote, claiming that the tablets are too big to swallow. On examination, the patient initially reports that she is doing better and wants to go home, but when told that she will be discharged when her behavior is under control she became very angry and asked the M D to leave her room. She is taking a long time to answer any questions and appears to be actively hallucinating at times and other times she appears more deliberate and dramatic. She is not showing much improvement in her impulse control and aggressive, assaultive behavior and is in need of close observation and stabilization. We will increase her Depakote in sprinkles to 750 mg twice a day and increase Seroquel 200 mg twice a day and continued with one to one. Close observation. HISTORY: . VITAL SIGNS: See below. NEW TEST RESULTS: . CURRENT MEDICATIONS: See below. MENTAL STATUS EXAMINATION: Patient is a 25-year old female, who is in no acute physical distress. Speech: Is slow, not productive and not spontaneous. Language skills are poor. Thought processes including: Blocking at times. Thought content: , Not able to give any relevant response and only asking for discharge. Abstract reasoning, and computation: poor. Description of associatio ns: Lose, not productive. Blocking. Description of abnormal or psychotic thoughts: Appears grossly paranoid and actively hallucinating. Judgment: , Poor. Insight: very poor. Orientation: Appears oriented to place and person. Recent and remote memory: poor. Attention span and concentration: poor. Language: . Fund of knowledge: poor. Mood: , Angry. Affect: Labile, agitated. DIAGNOSES: 1. . Paranoid schizophrenia 2. ., Rule out schizoaffective disorder 3. . ASSESSMENT:No improvement MANAGEMENT PLAN: Maintain one-to-one observation stabilized with the increased medications. TIME SPENT: 20 minutes. Vital Signs Vital Signs Date Time Temp Pulse Resp B/P (MAP) Pulse Ox O2 Delivery O2 Flow Rate FiO2 04/02/21 10:00 Room Air 04/02/21 01:00 97.9 97 16 132/87 95 Current Medications Current Medications Medications (Trade) Dose Ordered Sig/Ben Route PRN Reason Start Time Stop Time Status Last Admin Dose Admin Acetaminophen (Tylenol Tab) 650 mg Q6HP PRN PO HEADACHE or DISCOMFORT 03/29/21 21:45 03/30/21 12:57 Al Hydrox/Mg Hydrox/Simethicone (Mylanta) 30 ml Q4HP PRN PO HEARTBURN/INDIGESTION 03/29/21 21:45 Benztropine Mesylate (Cogentin) 0.5 mg QHS PO 03/29/21 21:00 03/30/21 11:10 DC 03/30/21 00:33 Benztropine Mesylate (Cogentin) 1 mg BID PO 03/30/21 21:00 04/03/21 08:41 Chlorpromazine HCl (Thorazine) 100 mg STAT STAT IM 03/31/21 16:46 03/31/21 16:52 DC 03/31/21 17:12 Chlorpromazine HCl (Thorazine) 200 mg STAT STAT IM 03/31/21 18:29 03/31/21 18:32 DC 03/31/21 19:01 Chlorpromazine HCl (Thorazine) 300 mg STAT STAT IM 04/01/21 08:39 04/01/21 15:49 DC 04/01/21 09:03 Diphenhydramine HCl (Benadryl) 50 mg STAT STAT IM 03/30/21 06:08 03/30/21 06:09 DC 03/30/21 06:24 Diphenhydramine HCl (Benadryl) 50 mg STAT STAT IM 03/30/21 12:26 03/30/21 12:30 DC 03/30/21 12:34 Diphenhydramine HCl (Benadryl) 50 mg STAT STAT IM 03/30/21 22:22 03/30/21 22:23 DC 03/30/21 22:26 Diphenhydramine HCl (Benadryl) 50 mg STAT STAT IM 03/31/21 07:32 03/31/21 07:34 DC 03/31/21 07:40 Diphenhydramine HCl (Benadryl) 50 mg STAT STAT IM 03/31/21 16:46 03/31/21 16:50 DC 03/31/21 17:13 Diphenhydramine HCl (Benadryl) 50 mg STAT STAT IM 04/01/21 08:39 04/01/21 08:41 DC 04/01/21 09:02 Divalproex Sodium (Depakote Sprinkles) 750 mg BID PO 04/03/21 09:00 Divalproex Sodium (Depakote Er) 500 mg DAILY PO 03/31/21 09:00 04/03/21 08:35 DC Divalproex Sodium (Depakote Er) 500 mg QHS PO 03/30/21 21:00 04/03/21 08:35 DC 04/01/21 23:52 Divalproex Sodium (Depakote) 250 mg BID PO 03/29/21 21:00 04/03/21 08:35 DC 04/02/21 10:13 Haloperidol (Haldol) 10 mg STAT STAT IM 03/30/21 06:08 03/30/21 06:09 DC 03/30/21 06:25 Haloperidol (Haldol) 10 mg STAT STAT IM 03/30/21 12:26 03/30/21 12:30 DC 03/30/21 12:33 Haloperidol (Haldol) 10 mg STAT STAT IM 03/30/21 22:22 03/30/21 22:23 DC 03/30/21 22:26 Haloperidol (Haldol) 10 mg STAT STAT IM 03/31/21 07:32 03/31/21 07:34 DC 03/31/21 07:40 Haloperidol (Haldol) 10 mg STAT STAT IM 03/31/21 16:46 03/31/21 16:50 DC 03/31/21 17:12 Haloperidol (Haldol) 10 mg TID PO 03/29/21 21:00 04/03/21 08:41 Haloperidol (Haldol) 15 mg STAT STAT IM 04/02/21 06:55 04/02/21 06:58 DC 04/02/21 07:18 Home Med (Med Rec Complete!) ASDIRECTED XX 03/29/21 13:00 03/29/21 13:00 DC Ibuprofen (Advil) 600 mg Q6HP PRN PO MODERATE PAIN (PS 5-7) 04/02/21 07:00 Lorazepam (Ativan) 1 mg STAT STAT IM 03/30/21 12:26 03/30/21 12:30 DC 03/30/21 12:34 Lorazepam (Ativan) 1 mg STAT STAT IM 03/31/21 18:29 03/31/21 18:32 DC 03/31/21 18:51 Lorazepam (Ativan) 2 mg STAT STAT IM 03/30/21 06:08 03/30/21 06:09 DC 03/30/21 06:24 Lorazepam (Ativan) 2 mg STAT STAT IM 03/30/21 22:22 03/30/21 22:23 DC 03/30/21 22:26 Lorazepam (Ativan) 2 mg STAT STAT IM 03/31/21 07:32 03/31/21 07:34 DC 03/31/21 07:40 Lorazepam (Ativan) 2 mg STAT STAT IM 03/31/21 16:46 03/31/21 16:50 DC 03/31/21 17:13 Lorazepam (Ativan) 2 mg STAT STAT IM 04/01/21 08:39 04/01/21 08:41 DC 04/01/21 09:02 Lorazepam (Ativan) 2 mg STAT STAT IM 04/02/21 06:55 04/02/21 06:58 DC 04/02/21 07:18 Lorazepam (Ativan) 2 mg STAT STAT PO 03/29/21 10:12 03/29/21 10:13 DC 03/29/21 10:25 Magnesium Hydroxide (Milk Of Magnesia) 30 ml DAILYPRN PRN PO CONSTIPATION 03/29/21 21:45 Olanzapine (ZyPREXA ZYDIS) 10 mg STAT STAT PO 04/02/21 18:39 04/02/21 18:41 DC Quetiapine Fumarate (SEROquel) 200 mg BID PO 04/03/21 09:00 Quetiapine Fumarate (SEROquel) 200 mg BID PO 04/03/21 09:00 UNV Quetiapine Fumarate (SEROquel) 200 mg QHS PO 03/30/21 21:00 04/03/21 08:37 DC 04/01/21 23:53 Trazodone HCl (Desyrel) 50 mg QHSP PRN PO INSOMNIA 03/29/21 21:45 03/31/21 21:47 Allergies Coded Allergies: No Known Drug Allergies (Verified Allergy, Unknown, 03/29/21) FIORELLA DIOP M.D. Apr 03, 2021 09:29
[2021-04-03] MEDS ORDERED: MAALOX 30 ML SUSP *UDC PO PRN (14:50)
[2021-04-03] MEDS ORDERED: IBUPROFEN 400MG TAB PO PRN (14:50)
[2021-04-03] MEDS ORDERED: traZODone 50 MG TAB PO PRN (14:50)
[2021-04-03] MEDS ORDERED: OLANZapine ORAL DISINTEGRATING TAB 5MG PO PRN (14:50)
[2021-04-03] MEDS ORDERED: MOM 30ML SUSPENSION UDC PO PRN (14:50)
[2021-04-03] MEDS ORDERED: HALOPERIDOL 5MG/ML VIAL (J1630 PER 1) IM STA (17:35)
[2021-04-03] MEDS ORDERED: LORazepam 2 MG/ML VIAL IM STA (17:35)
[2021-04-03] MEDS ORDERED: diphenhydrAMINE 50MG/ML VIAL (J1200) IM STA (17:35)
[2021-04-03 21:00] VITALS: BP 122/83
[2021-04-03] MEDS ORDERED: DIVALPROEX 250 MG TAB PO SCH (21:00)
[2021-04-03] MEDS ORDERED: OLANZapine INTRAMUSCULAR 10MG VIAL IM ONE (22:00)
[2021-04-04] MEDS ORDERED: OLANZapine INTRAMUSCULAR 10MG VIAL IM ONE (02:00)
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
[2021-04-04] MEDS ORDERED: diphenhydrAMINE 50MG/ML VIAL (J1200) IM ONE (08:00)
[2021-04-04] MEDS ORDERED: HALOPERIDOL 5MG/ML VIAL (J1630 PER 1) IM ONE (08:00)
[2021-04-04] MEDS ORDERED: LORazepam 2 MG/ML VIAL IM ONE (08:00)
[2021-04-04] MEDS ORDERED: NICOTINE 21MG/24HR 1 EA TRANSDERMAL TD SCH (09:00)
[2021-04-04] MEDS ORDERED: DIVALPROEX SPRINKLE 125 MG CAP PO SCH ×2 (09:00→21:00)
[2021-04-04] MEDS ORDERED: SERTRALINE HCL 25 MG TABLET PO SCH (09:00)
[2021-04-04] MEDS: QUEtiapine FUMARATE 200 MG TAB PO SCH ×2 (09:21→17:00)
[2021-04-04] MEDS: DIVALPROEX 125 MG TAB PO SCH ×2 (09:21→16:12)
[2021-04-04] MEDS: BENZTROPINE 1 MG TAB PO SCH ×2 (09:21→21:00)
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
[2021-04-05] MEDS: traZODone 50 MG TAB PO PRN ×2 (02:29→20:47)
[2021-04-05] MEDS ORDERED: LORazepam 2 MG/ML VIAL IM STA (04:50)
[2021-04-05] MEDS ORDERED: HALOPERIDOL 5MG/ML VIAL (J1630 PER 1) IM STA (04:50)
[2021-04-05] MEDS ORDERED: HALOPERIDOL 5MG/ML VIAL (J1630 PER 1) As Ordered ONE (04:56)
[2021-04-05] MEDS ORDERED: LORazepam 2 MG/ML VIAL As Ordered ONE (04:57)
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
[2021-04-05] MEDS: DIVALPROEX 125 MG TAB PO SCH ×3 (09:00→16:52)
[2021-04-05] MEDS: BENZTROPINE 1 MG TAB PO SCH ×2 (09:00→20:47)
[2021-04-05] MEDS: QUEtiapine FUMARATE 200 MG TAB PO SCH ×2 (09:00→16:49)
[2021-04-05] MEDS: **PENDING PPD ENTRY XX SCH (09:00)
[2021-04-05] MEDS ORDERED: TUBERCULIN PPD 5 UNITS/0.1 ML ID ONE (10:00)
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
[2021-04-06] MEDS ORDERED: diphenhydrAMINE 50MG CAP PO ONE (05:20)
[2021-04-06] MEDS ORDERED: LORazepam 1 MG TAB PO ONE (05:20)
[2021-04-06] MEDS: IBUPROFEN 600MG TAB PO PRN (05:25)
[2021-04-06] MEDS: **PENDING PPD ENTRY XX SCH (09:00)
[2021-04-06] MEDS: QUEtiapine FUMARATE 200 MG TAB PO SCH ×2 (09:00→16:21)
[2021-04-06] MEDS: DIVALPROEX 125 MG TAB PO SCH ×4 (09:00→16:20)
[2021-04-06] MEDS: BENZTROPINE 1 MG TAB PO SCH ×3 (09:00→21:44)
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
[2021-04-07] MEDS: IBUPROFEN 600MG TAB PO PRN (01:50)
[2021-04-07] MEDS: traZODone 50 MG TAB PO PRN ×2 (01:51→20:54)
--- NOTE | 2021-04-07 07:54 | MHIPNPDOC ---
[facility] Progress Note Progress Note DATE OF SERVICE: 04/07/21 The patient has been in much better control and didn't show any assaultive behavior yesterday. She didn't require any physical or chemical restraint, but kept on one-to-one close observation. She refused to her bedtime medicine, Depakote, Haldol and Seroquel. This morning she is rather pleasant and smiling but remained very childish and regressed, but not as angry, hostile or agitated. She is now promising that she will cooperate with all the medications. We will continue one-to-one observation for another day and reevaluate the need for continued close observation. HISTORY: . VITAL SIGNS: See below. NEW TEST RESULTS: . CURRENT MEDICATIONS: See below. MENTAL STATUS EXAMINATION: Patient is a 25-year old female, who is in no acute distress. Speech: Is more productive, but very superficial. Language skills are fair. Thought processes including: , Relevant at times, but not spontaneous and superficially denies any problem. Thought content: No basic change. Abstract reasoning, and computation: poor]. Description of associations: Superficial. Description of abnormal or psychotic thoughts: Denies any problem, but no significant improvement. Judgment: poor. Insight: very poor. Orientation: Appears oriented. Recent and remote memory: poor. Attention span and concentration: poor. Language: . Fund of knowledge: Very limited. Mood: Reports feeling fine. Affect: , More animated, but remained labile and inappropriate. DIAGNOSES: 1. . Chronic schizophrenia 2. . Roto-schizoaffective disorder 3. . ASSESSMENT:Intermittently refusing oral medicine is in better control, but remains very labile MANAGEMENT PLAN: Continuing the current medicine and one-to-one close observation. TIME SPENT: 20 minutes. Vital Signs Vital Signs Date Time Temp Pulse Resp B/P (MAP) Pulse Ox O2 Delivery O2 Flow Rate FiO2 04/03/21 21:00 100 18 122/83 98 04/02/21 10:00 Room Air 04/02/21 01:00 97.9 Current Medications Current Medications Medications (Trade) Dose Ordered Sig/Ben Route PRN Reason Start Time Stop Time Status Last Admin Dose Admin Acetaminophen (Tylenol Tab) 650 mg Q6HP PRN PO HEADACHE or DISCOMFORT 03/29/21 21:45 03/30/21 12:57 Al Hydrox/Mg Hydrox/Simethicone (Mylanta) 30 ml Q4HP PRN PO HEARTBURN/INDIGESTION 03/29/21 21:45 Al Hydrox/Mg Hydrox/Simethicone (Mylanta) 30 ml Q4HP PRN PO HEARTBURN/INDIGESTION 04/03/21 14:50 UNV Benztropine Mesylate (Cogentin) 0.5 mg QHS PO 03/29/21 21:00 03/30/21 11:10 DC 03/30/21 00:33 Benztropine Mesylate (Cogentin) 1 mg BID PO 03/30/21 21:00 04/06/21 21:44 Chlorpromazine HCl (Thorazine) 100 mg STAT STAT IM 03/31/21 16:46 03/31/21 16:52 DC 03/31/21 17:12 Chlorpromazine HCl (Thorazine) 200 mg STAT STAT IM 03/31/21 18:29 03/31/21 18:32 DC 03/31/21 19:01 Chlorpromazine HCl (Thorazine) 300 mg STAT STAT IM 04/01/21 08:39 04/01/21 15:49 DC 04/01/21 09:03 Diphenhydramine HCl (Benadryl) 50 mg STAT STAT IM 03/30/21 06:08 03/30/21 06:09 DC 03/30/21 06:24 Diphenhydramine HCl (Benadryl) 50 mg STAT STAT IM 03/30/21 12:26 03/30/21 12:30 DC 03/30/21 12:34 Diphenhydramine HCl (Benadryl) 50 mg STAT STAT IM 03/30/21 22:22 03/30/21 22:23 DC 03/30/21 22:26 Diphenhydramine HCl (Benadryl) 50 mg STAT STAT IM 03/31/21 07:32 03/31/21 07:34 DC 03/31/21 07:40 Diphenhydramine HCl (Benadryl) 50 mg STAT STAT IM 03/31/21 16:46 03/31/21 16:50 DC 03/31/21 17:13 Diphenhydramine HCl (Benadryl) 50 mg STAT STAT IM 04/01/21 08:39 04/01/21 08:41 DC 04/01/21 09:02 Diphenhydramine HCl (Benadryl) 50 mg STAT STAT IM 04/03/21 17:35 04/03/21 17:41 DC 04/03/21 17:46 Divalproex Sodium (Depakote Sprinkles) 500 mg QHS PO 04/04/21 21:00 UNV Divalproex Sodium (Depakote Sprinkles) 750 mg BID PO 04/03/21 09:00 04/04/21 07:25 DC Divalproex Sodium (Depakote Sprinkles) 1,000 mg DAILY PO 04/04/21 09:00 UNV Divalproex Sodium (Depakote Er) 500 mg DAILY PO 03/31/21 09:00 04/03/21 08:35 DC Divalproex Sodium (Depakote Er) 500 mg QHS PO 03/30/21 21:00 04/03/21 08:35 DC 04/01/21 23:52 Divalproex Sodium (Depakote) 250 mg BID PO 03/29/21 21:00 04/03/21 08:35 DC 04/02/21 10:13 Divalproex Sodium (Depakote) 250 mg BID PO 04/03/21 21:00 UNV Divalproex Sodium (Depakote) 500 mg TID PO 04/04/21 09:00 04/04/21 16:32 DC 04/04/21 16:12 Divalproex Sodium (Depakote) 500 mg TID@0900,1300,1700 PO 04/05/21 09:00 Haloperidol (Haldol) 5 mg STAT STAT IM 04/05/21 04:50 04/05/21 04:56 DC 04/05/21 05:02 Haloperidol (Haldol) 10 mg STAT STAT IM 03/30/21 06:08 03/30/21 06:09 DC 03/30/21 06:25 Haloperidol (Haldol) 10 mg STAT STAT IM 03/30/21 12:26 03/30/21 12:30 DC 03/30/21 12:33 Haloperidol (Haldol) 10 mg STAT STAT IM 03/30/21 22:22 03/30/21 22:23 DC 03/30/21 22:26 Haloperidol (Haldol) 10 mg STAT STAT IM 03/31/21 07:32 03/31/21 07:34 DC 03/31/21 07:40 Haloperidol (Haldol) 10 mg STAT STAT IM 03/31/21 16:46 03/31/21 16:50 DC 03/31/21 17:12 Haloperidol (Haldol) 10 mg STAT STAT IM 04/03/21 17:35 04/03/21 17:40 DC 04/03/21 17:46 Haloperidol (Haldol) 10 mg TID PO 03/29/21 21:00 04/04/21 16:32 DC 04/04/21 16:10 Haloperidol (Haldol) 10 mg TID@0900,1300,1700 PO 04/05/21 09:00 04/05/21 16:50 Haloperidol (Haldol) 15 mg STAT STAT IM 04/02/21 06:55 04/02/21 06:58 DC 04/02/21 07:18 Home Med (Med Rec Complete!) ASDIRECTED XX 03/29/21 13:00 03/29/21 13:00 DC Ibuprofen (Advil) 400 mg Q6HP PRN PO PAIN 04/03/21 14:50 UNV Ibuprofen (Advil) 600 mg Q6HP PRN PO MODERATE PAIN (PS 5-7) 04/02/21 07:00 04/07/21 01:50 Lorazepam (Ativan) 1 mg STAT STAT IM 03/30/21 12:26 03/30/21 12:30 DC 03/30/21 12:34 Lorazepam (Ativan) 1 mg STAT STAT IM 03/31/21 18:29 03/31/21 18:32 DC 03/31/21 18:51 Lorazepam (Ativan) 1 mg STAT STAT IM 04/05/21 04:50 04/05/21 04:56 DC 04/05/21 05:02 Lorazepam (Ativan) 2 mg STAT STAT IM 03/30/21 06:08 03/30/21 06:09 DC 03/30/21 06:24 Lorazepam (Ativan) 2 mg STAT STAT IM 03/30/21 22:22 03/30/21 22:23 DC 03/30/21 22:26 Lorazepam (Ativan) 2 mg STAT STAT IM 03/31/21 07:32 03/31/21 07:34 DC 03/31/21 07:40 Lorazepam (Ativan) 2 mg STAT STAT IM 03/31/21 16:46 03/31/21 16:50 DC 03/31/21 17:13 Lorazepam (Ativan) 2 mg STAT STAT IM 04/01/21 08:39 04/01/21 08:41 DC 04/01/21 09:02 Lorazepam (Ativan) 2 mg STAT STAT IM 04/02/21 06:55 04/02/21 06:58 DC 04/02/21 07:18 Lorazepam (Ativan) 2 mg STAT STAT IM 04/03/21 17:35 04/03/21 17:41 DC 04/03/21 17:46 Lorazepam (Ativan) 2 mg STAT STAT PO 03/29/21 10:12 03/29/21 10:13 DC 03/29/21 10:25 Magnesium Hydroxide (Milk Of Magnesia) 30 ml DAILYPRN PRN PO CONSTIPATION 03/29/21 21:45 Magnesium Hydroxide (Milk Of Magnesia) 30 ml DAILYPRN PRN PO CONSTIPATION 04/03/21 14:50 UNV Nicotine (Nicoderm Cq 21mg) 1 patch DAILY TD 04/04/21 09:00 UNV Non-Formulary Medication ( See Comment Field Below ) SEE COMMENTS SECTION 1T@10 XX 04/07/21 10:00 04/08/21 09:59 UNV Non-Formulary Medication ( See Comment Field Below ) SEE LABEL COMMENTS DAILY XX 04/05/21 09:00 Olanzapine (ZyPREXA ZYDIS) 5 mg Q6HP PRN PO AGITATION 04/03/21 14:50 UNV Olanzapine (ZyPREXA ZYDIS) 10 mg STAT STAT PO 04/02/21 18:39 04/02/21 18:41 DC Quetiapine Fumarate (SEROquel) 200 mg BID PO 04/03/21 09:00 04/04/21 16:39 DC 04/04/21 09:21 Quetiapine Fumarate (SEROquel) 200 mg BID PO 04/03/21 09:00 UNV Quetiapine Fumarate (SEROquel) 200 mg BID@0900,1700 PO 04/04/21 17:00 Quetiapine Fumarate (SEROquel) 200 mg QHS PO 03/30/21 21:00 04/03/21 08:37 DC 04/01/21 23:53 Sertraline HCl (Zoloft) 75 mg QAM PO 04/04/21 09:00 UNV Trazodone HCl (Desyrel) 50 mg QHSP PRN PO INSOMNIA 03/29/21 21:45 04/07/21 01:51 Trazodone HCl (Desyrel) 50 mg QHSP PRN PO INSOMNIA 04/03/21 14:50 UNV Allergies Coded Allergies: No Known Drug Allergies (Verified Allergy, Unknown, 03/29/21) FIORELLA DIOP M.D. Apr 07, 2021 07:54
[2021-04-07] MEDS: **PENDING PPD ENTRY XX SCH (08:22)
[2021-04-07] MEDS: QUEtiapine FUMARATE 200 MG TAB PO SCH ×2 (08:22→17:47)
[2021-04-07] MEDS: BENZTROPINE 1 MG TAB PO SCH ×2 (08:24→20:53)
[2021-04-07] MEDS: DIVALPROEX 125 MG TAB PO SCH ×3 (08:24→17:47)
[2021-04-07] MEDS ORDERED: PPD DOCUMENTATION ENTRY MISC XX SCH (10:00)
[2021-04-08] MEDS: **PENDING PPD ENTRY XX SCH (08:11)
[2021-04-08] MEDS: ACETAMINOPHEN TAB 650MG DOSE (2X325MG) PO PRN ×2 (08:13→20:03)
[2021-04-08] MEDS: QUEtiapine FUMARATE 200 MG TAB PO SCH ×3 (08:13→17:12)
[2021-04-08] MEDS: BENZTROPINE 1 MG TAB PO SCH ×2 (08:14→20:03)
[2021-04-08] MEDS: DIVALPROEX 125 MG TAB PO SCH ×4 (08:14→17:12)
[2021-04-08] MEDS: IBUPROFEN 600MG TAB PO PRN (09:26)
[2021-04-08] MEDS ORDERED: HALOPERIDOL DECANOATE 100 MG/ML VIAL (J1631) IM ONE (10:00)
[2021-04-08 10:01] LABS: ALBUMIN 3.3 GM/DL (3.2-5.2); ALT/SGPT 36 U/L (12-78); BILIRUBIN,TOTAL 0.3 MG/DL (0.2-1.0); BLOOD UREA NITROGEN 12 MG/DL (7-18); CALCIUM LEVEL 8.9 MG/DL (8.5-10.1); CARBON DIOXIDE LEVEL 28 MEQ/L (21-32); CHLORIDE LEVEL 104 MEQ/L (98-107); GLOMERULAR FILTRATION RATE > 60.0 (>60); GLUCOSE, FASTING 73 MG/DL (70-100); POTASSIUM SERUM 4.3 MEQ/L (3.5-5.1); SODIUM LEVEL 139 MEQ/L (136-145); TOTAL PROTEIN 7.5 GM/DL (6.4-8.2)
--- NOTE | 2021-04-08 13:07 | MHIPN ---
[facility], [facility] PROGRESS NOTE DATE: 04/08/2021 Patient today remains very psychotic. She tells me that she is still hearing voices. She thinks it is the devil. She is refusing medications because she thinks that this is going to make the voices worse. MENTAL STATUS EXAMINATION: She is alert and oriented times three. She is pleasant. She is cooperative, verbally spontaneous. There is no formal thought disorder noted. She says that she is good. Her affect is appropriate to her mood. She has paranoid delusions and auditory hallucinations. Insight and judgment are poor. Concentration is fair. Memory is grossly intact. She is denying suicidal or homicidal ideation. DIAGNOSIS: Schizophrenia and rule out schizoaffective disorder. TREATMENT PLAN: At this point, the patient will be continued to be evaluated for her psychotic symptoms, and the patient will continue on one-to-one evaluation, because she gets easily aggressive with others. The patient is in agreement to restart her Haldol Decanoate 200 mg intramuscularly (IM). The patient was seen at the clinic by me in the past, and she was on Haldol Decanoate 200 mg IM every month, and she was actually doing good at one point with that medication.
[2021-04-08 16:14] VITALS: BP 125/80
[2021-04-09] MEDS: IBUPROFEN 600MG TAB PO PRN ×2 (01:04→07:51)
[2021-04-09] MEDS: QUEtiapine FUMARATE 200 MG TAB PO SCH ×2 (08:47→17:05)
[2021-04-09] MEDS: BENZTROPINE 1 MG TAB PO SCH ×2 (08:47→21:00)
[2021-04-09] MEDS: DIVALPROEX 125 MG TAB PO SCH ×3 (08:48→17:05)
[2021-04-09] MEDS: **PENDING PPD ENTRY XX SCH (09:00)
[2021-04-09 15:27] VITALS: BP 121/80
[2021-04-10] MEDS: ACETAMINOPHEN TAB 650MG DOSE (2X325MG) PO PRN (04:41)
[2021-04-10 06:40] VITALS: BP 117/79
[2021-04-10] MEDS: QUEtiapine FUMARATE 200 MG TAB PO SCH ×2 (09:00→16:15)
[2021-04-10] MEDS: **PENDING PPD ENTRY XX SCH (09:00)
[2021-04-10] MEDS: DIVALPROEX 125 MG TAB PO SCH ×3 (10:07→16:14)
[2021-04-10] MEDS: BENZTROPINE 1 MG TAB PO SCH ×2 (10:08→20:02)
--- NOTE | 2021-04-10 10:23 | MHIPNPDOC ---
[facility] Progress Note Progress Note DATE OF SERVICE: 04/10/21 The patient has cooperated with the medications and the Depakote level is 76 and CMP is within normal limits. She didn't have any assaultive behavior and didn't require any physical or chemical restraint over the weekend. She is smiling more and is pleasant on approach, but showing very little change in her delusional mental status. When asked where she would go if she is discharged. She reports that she will go back to her , [place]'s house.. She has been living with her stepfather and is able to return there if she is stable. HISTORY: . VITAL SIGNS: See below. NEW TEST RESULTS: . CURRENT MEDICATIONS: See below. MENTAL STATUS EXAMINATION: Patient is a 25-year old female, who is in no acute distress. Speech: Is mall, relevant. Language skills are fair. Thought processes including: Responding appropriately. Thought content: Remained delusional. Abstract reasoning, and computation: poor. Description of associations: more relevant. Description of abnormal or psychotic thoughts: Remains grossly delusional. Judgment: poor. Insight: poor. Orientation: , Oriented. Recent and remote memory: poor. Attention span and concentration: poor. Language: . Fund of knowledge: poor. Mood: Reports feeling good. Affect: Inappropriately elevated. DIAGNOSES: 1. . Chronic schizophrenia 2. ., Rule out schizoaffective disorder 3. . ASSESSMENT:Significant improvement in her behavior MANAGEMENT PLAN: Consider slowly decreasing the level of observation. TIME SPENT: 20 minutes. Vital Signs Vital Signs Date Time Temp Pulse Resp B/P (MAP) Pulse Ox O2 Delivery O2 Flow Rate FiO2 04/10/21 06:40 96.7 101 20 117/79 (92) 97 Room Air Current Medications Current Medications Medications (Trade) Dose Ordered Sig/Ben Route PRN Reason Start Time Stop Time Status Last Admin Dose Admin Acetaminophen (Tylenol Tab) 650 mg Q6HP PRN PO HEADACHE or DISCOMFORT 03/29/21 21:45 04/10/21 04:41 Al Hydrox/Mg Hydrox/Simethicone (Mylanta) 30 ml Q4HP PRN PO HEARTBURN/INDIGESTION 03/29/21 21:45 Al Hydrox/Mg Hydrox/Simethicone (Mylanta) 30 ml Q4HP PRN PO HEARTBURN/INDIGESTION 04/03/21 14:50 UNV Benztropine Mesylate (Cogentin) 0.5 mg QHS PO 03/29/21 21:00 03/30/21 11:10 DC 03/30/21 00:33 Benztropine Mesylate (Cogentin) 1 mg BID PO 03/30/21 21:00 04/10/21 10:08 Chlorpromazine HCl (Thorazine) 100 mg STAT STAT IM 03/31/21 16:46 03/31/21 16:52 DC 03/31/21 17:12 Chlorpromazine HCl (Thorazine) 200 mg STAT STAT IM 03/31/21 18:29 03/31/21 18:32 DC 03/31/21 19:01 Chlorpromazine HCl (Thorazine) 300 mg STAT STAT IM 04/01/21 08:39 04/01/21 15:49 DC 04/01/21 09:03 Diphenhydramine HCl (Benadryl) 50 mg STAT STAT IM 03/30/21 06:08 03/30/21 06:09 DC 03/30/21 06:24 Diphenhydramine HCl (Benadryl) 50 mg STAT STAT IM 03/30/21 12:26 03/30/21 12:30 DC 03/30/21 12:34 Diphenhydramine HCl (Benadryl) 50 mg STAT STAT IM 03/30/21 22:22 03/30/21 22:23 DC 03/30/21 22:26 Diphenhydramine HCl (Benadryl) 50 mg STAT STAT IM 03/31/21 07:32 03/31/21 07:34 DC 03/31/21 07:40 Diphenhydramine HCl (Benadryl) 50 mg STAT STAT IM 03/31/21 16:46 03/31/21 16:50 DC 03/31/21 17:13 Diphenhydramine HCl (Benadryl) 50 mg STAT STAT IM 04/01/21 08:39 04/01/21 08:41 DC 04/01/21 09:02 Diphenhydramine HCl (Benadryl) 50 mg STAT STAT IM 04/03/21 17:35 04/03/21 17:41 DC 04/03/21 17:46 Divalproex Sodium (Depakote Sprinkles) 500 mg QHS PO 04/04/21 21:00 UNV Divalproex Sodium (Depakote Sprinkles) 750 mg BID PO 04/03/21 09:00 04/04/21 07:25 DC Divalproex Sodium (Depakote Sprinkles) 1,000 mg DAILY PO 04/04/21 09:00 UNV Divalproex Sodium (Depakote Er) 500 mg DAILY PO 03/31/21 09:00 04/03/21 08:35 DC Divalproex Sodium (Depakote Er) 500 mg QHS PO 03/30/21 21:00 04/03/21 08:35 DC 04/01/21 23:52 Divalproex Sodium (Depakote) 250 mg BID PO 03/29/21 21:00 04/03/21 08:35 DC 04/02/21 10:13 Divalproex Sodium (Depakote) 250 mg BID PO 04/03/21 21:00 UNV Divalproex Sodium (Depakote) 500 mg TID PO 04/04/21 09:00 04/04/21 16:32 DC 04/04/21 16:12 Divalproex Sodium (Depakote) 500 mg TID@0900,1300,1700 PO 04/05/21 09:00 04/10/21 10:07 Haloperidol (Haldol) 5 mg STAT STAT IM 04/05/21 04:50 04/05/21 04:56 DC 04/05/21 05:02 Haloperidol (Haldol) 10 mg STAT STAT IM 03/30/21 06:08 03/30/21 06:09 DC 03/30/21 06:25 Haloperidol (Haldol) 10 mg STAT STAT IM 03/30/21 12:26 03/30/21 12:30 DC 03/30/21 12:33 Haloperidol (Haldol) 10 mg STAT STAT IM 03/30/21 22:22 03/30/21 22:23 DC 03/30/21 22:26 Haloperidol (Haldol) 10 mg STAT STAT IM 03/31/21 07:32 03/31/21 07:34 DC 03/31/21 07:40 Haloperidol (Haldol) 10 mg STAT STAT IM 03/31/21 16:46 03/31/21 16:50 DC 03/31/21 17:12 Haloperidol (Haldol) 10 mg STAT STAT IM 04/03/21 17:35 04/03/21 17:40 DC 04/03/21 17:46 Haloperidol (Haldol) 10 mg TID PO 03/29/21 21:00 04/04/21 16:32 DC 04/04/21 16:10 Haloperidol (Haldol) 10 mg TID@0900,1300,1700 PO 04/05/21 09:00 04/10/21 10:08 Haloperidol (Haldol) 15 mg STAT STAT IM 04/02/21 06:55 04/02/21 06:58 DC 04/02/21 07:18 Home Med (Med Rec Complete!) ASDIRECTED XX 03/29/21 13:00 03/29/21 13:00 DC Ibuprofen (Advil) 400 mg Q6HP PRN PO PAIN 04/03/21 14:50 UNV Ibuprofen (Advil) 600 mg Q6HP PRN PO MODERATE PAIN (PS 5-7) 04/02/21 07:00 04/09/21 07:51 Lorazepam (Ativan) 1 mg STAT STAT IM 03/30/21 12:26 03/30/21 12:30 DC 03/30/21 12:34 Lorazepam (Ativan) 1 mg STAT STAT IM 03/31/21 18:29 03/31/21 18:32 DC 03/31/21 18:51 Lorazepam (Ativan) 1 mg STAT STAT IM 04/05/21 04:50 04/05/21 04:56 DC 04/05/21 05:02 Lorazepam (Ativan) 2 mg STAT STAT IM 03/30/21 06:08 03/30/21 06:09 DC 03/30/21 06:24 Lorazepam (Ativan) 2 mg STAT STAT IM 03/30/21 22:22 03/30/21 22:23 DC 03/30/21 22:26 Lorazepam (Ativan) 2 mg STAT STAT IM 03/31/21 07:32 03/31/21 07:34 DC 03/31/21 07:40 Lorazepam (Ativan) 2 mg STAT STAT IM 03/31/21 16:46 03/31/21 16:50 DC 03/31/21 17:13 Lorazepam (Ativan) 2 mg STAT STAT IM 04/01/21 08:39 04/01/21 08:41 DC 04/01/21 09:02 Lorazepam (Ativan) 2 mg STAT STAT IM 04/02/21 06:55 04/02/21 06:58 DC 04/02/21 07:18 Lorazepam (Ativan) 2 mg STAT STAT IM 04/03/21 17:35 04/03/21 17:41 DC 04/03/21 17:46 Lorazepam (Ativan) 2 mg STAT STAT PO 03/29/21 10:12 03/29/21 10:13 DC 03/29/21 10:25 Magnesium Hydroxide (Milk Of Magnesia) 30 ml DAILYPRN PRN PO CONSTIPATION 03/29/21 21:45 Magnesium Hydroxide (Milk Of Magnesia) 30 ml DAILYPRN PRN PO CONSTIPATION 04/03/21 14:50 UNV Nicotine (Nicoderm Cq 21mg) 1 patch DAILY TD 04/04/21 09:00 UNV Non-Formulary Medication ( See Comment Field Below ) SEE COMMENTS SECTION 1T@10 XX 04/07/21 10:00 04/08/21 09:59 UNV Non-Formulary Medication ( See Comment Field Below ) SEE LABEL COMMENTS DAILY XX 04/05/21 09:00 Olanzapine (ZyPREXA ZYDIS) 5 mg Q6HP PRN PO AGITATION 04/03/21 14:50 UNV Olanzapine (ZyPREXA ZYDIS) 10 mg STAT STAT PO 04/02/21 18:39 04/02/21 18:41 DC Quetiapine Fumarate (SEROquel) 200 mg BID PO 04/03/21 09:00 04/04/21 16:39 DC 04/04/21 09:21 Quetiapine Fumarate (SEROquel) 200 mg BID PO 04/03/21 09:00 UNV Quetiapine Fumarate (SEROquel) 200 mg BID@0900,1700 PO 04/04/21 17:00 04/09/21 17:05 Quetiapine Fumarate (SEROquel) 200 mg QHS PO 03/30/21 21:00 04/03/21 08:37 DC 04/01/21 23:53 Sertraline HCl (Zoloft) 75 mg QAM PO 04/04/21 09:00 UNV Trazodone HCl (Desyrel) 50 mg QHSP PRN PO INSOMNIA 03/29/21 21:45 04/07/21 20:54 Trazodone HCl (Desyrel) 50 mg QHSP PRN PO INSOMNIA 04/03/21 14:50 UNV Allergies Coded Allergies: No Known Drug Allergies (Verified Allergy, Unknown, 03/29/21) FIORELLA DIOP M.D. Apr 10, 2021 10:23
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
[2021-04-10 18:02] VITALS: BP 124/66
[2021-04-10] MEDS: traZODone 50 MG TAB PO PRN (20:02)
[2021-04-11] MEDS: ACETAMINOPHEN TAB 650MG DOSE (2X325MG) PO PRN ×2 (00:42→17:54)
[2021-04-11 06:00] VITALS: BP 142/84
[2021-04-11] MEDS: **PENDING PPD ENTRY XX SCH (09:00)
[2021-04-11] MEDS: QUEtiapine FUMARATE 200 MG TAB PO SCH (09:00)
[2021-04-11] MEDS: BENZTROPINE 1 MG TAB PO SCH ×2 (09:07→21:18)
[2021-04-11] MEDS: DIVALPROEX 125 MG TAB PO SCH ×4 (09:07→17:17)
--- NOTE | 2021-04-11 10:46 | MHIPNPDOC ---
[facility] Progress Note Progress Note DATE OF SERVICE: 04/11/21 The patient is maintaining improved. The mental status and behavior. She is pleasant and cooperative and hasn't had any aggressive or assaultive behavior. She is asking if she can have her Seroquel discontinued due to over sedation. She has received long-acting Haldol injection on April 08 and is reporting no side effect. Her insight is still poor and she is still delusional about being etc. she needs further stabilization with the current medication HISTORY: . VITAL SIGNS: See below. NEW TEST RESULTS: . CURRENT MEDICATIONS: See below. MENTAL STATUS EXAMINATION: Patient is a 25-year old female, who is , cooperative and pleasant. Speech: Is superficial, but productive. Language skills are flair. Thought processes including: Relevant. Thought content: Denies any suicidal thoughts or assaultive thoughts. Abstract reasoning, and computation: , Poor. Description of associations: More relevant. Description of abnormal or psychotic thoughts: Remained delusional. Judgment: poor. Insight: . poor. Orientation: Appears oriented. Recent and remote memory: , Poor. Attention span and concentration: poor. Language: . Fund of knowledge: . Mood: Reports feeling fine . Affect: Inappropriately elevated . DIAGNOSES: 1. . Chronic schizophrenia 2. ., Rule out schizoaffective disorder 3. . ASSESSMENT:[Improved behavior, but remains delusional] MANAGEMENT PLAN: [Needs further stabilization]. TIME SPENT: [20] minutes. Vital Signs Vital Signs Date Time Temp Pulse Resp B/P (MAP) Pulse Ox O2 Delivery O2 Flow Rate FiO2 04/11/21 06:00 97.4 83 18 142/84 (103) 98 Room Air Current Medications Current Medications Medications (Trade) Dose Ordered Sig/Ben Route PRN Reason Start Time Stop Time Status Last Admin Dose Admin Acetaminophen (Tylenol Tab) 650 mg Q6HP PRN PO HEADACHE or DISCOMFORT 03/29/21 21:45 04/11/21 00:42 Al Hydrox/Mg Hydrox/Simethicone (Mylanta) 30 ml Q4HP PRN PO HEARTBURN/INDIGESTION 03/29/21 21:45 Al Hydrox/Mg Hydrox/Simethicone (Mylanta) 30 ml Q4HP PRN PO HEARTBURN/INDIGESTION 04/03/21 14:50 UNV Benztropine Mesylate (Cogentin) 0.5 mg QHS PO 03/29/21 21:00 03/30/21 11:10 DC 03/30/21 00:33 Benztropine Mesylate (Cogentin) 1 mg BID PO 03/30/21 21:00 04/11/21 09:07 Chlorpromazine HCl (Thorazine) 100 mg STAT STAT IM 03/31/21 16:46 03/31/21 16:52 DC 03/31/21 17:12 Chlorpromazine HCl (Thorazine) 200 mg STAT STAT IM 03/31/21 18:29 03/31/21 18:32 DC 03/31/21 19:01 Chlorpromazine HCl (Thorazine) 300 mg STAT STAT IM 04/01/21 08:39 04/01/21 15:49 DC 04/01/21 09:03 Diphenhydramine HCl (Benadryl) 50 mg STAT STAT IM 03/30/21 06:08 03/30/21 06:09 DC 03/30/21 06:24 Diphenhydramine HCl (Benadryl) 50 mg STAT STAT IM 03/30/21 12:26 03/30/21 12:30 DC 03/30/21 12:34 Diphenhydramine HCl (Benadryl) 50 mg STAT STAT IM 03/30/21 22:22 03/30/21 22:23 DC 03/30/21 22:26 Diphenhydramine HCl (Benadryl) 50 mg STAT STAT IM 03/31/21 07:32 03/31/21 07:34 DC 03/31/21 07:40 Diphenhydramine HCl (Benadryl) 50 mg STAT STAT IM 03/31/21 16:46 03/31/21 16:50 DC 03/31/21 17:13 Diphenhydramine HCl (Benadryl) 50 mg STAT STAT IM 04/01/21 08:39 04/01/21 08:41 DC 04/01/21 09:02 Diphenhydramine HCl (Benadryl) 50 mg STAT STAT IM 04/03/21 17:35 04/03/21 17:41 DC 04/03/21 17:46 Divalproex Sodium (Depakote Sprinkles) 500 mg QHS PO 04/04/21 21:00 UNV Divalproex Sodium (Depakote Sprinkles) 750 mg BID PO 04/03/21 09:00 04/04/21 07:25 DC Divalproex Sodium (Depakote Sprinkles) 1,000 mg DAILY PO 04/04/21 09:00 UNV Divalproex Sodium (Depakote Er) 500 mg DAILY PO 03/31/21 09:00 04/03/21 08:35 DC Divalproex Sodium (Depakote Er) 500 mg QHS PO 03/30/21 21:00 04/03/21 08:35 DC 04/01/21 23:52 Divalproex Sodium (Depakote) 250 mg BID PO 03/29/21 21:00 04/03/21 08:35 DC 04/02/21 10:13 Divalproex Sodium (Depakote) 250 mg BID PO 04/03/21 21:00 UNV Divalproex Sodium (Depakote) 500 mg TID PO 04/04/21 09:00 04/04/21 16:32 DC 04/04/21 16:12 Divalproex Sodium (Depakote) 500 mg TID@0900,1300,1700 PO 04/05/21 09:00 04/11/21 09:07 Haloperidol (Haldol) 5 mg STAT STAT IM 04/05/21 04:50 04/05/21 04:56 DC 04/05/21 05:02 Haloperidol (Haldol) 10 mg STAT STAT IM 03/30/21 06:08 03/30/21 06:09 DC 03/30/21 06:25 Haloperidol (Haldol) 10 mg STAT STAT IM 03/30/21 12:26 03/30/21 12:30 DC 03/30/21 12:33 Haloperidol (Haldol) 10 mg STAT STAT IM 03/30/21 22:22 03/30/21 22:23 DC 03/30/21 22:26 Haloperidol (Haldol) 10 mg STAT STAT IM 03/31/21 07:32 03/31/21 07:34 DC 03/31/21 07:40 Haloperidol (Haldol) 10 mg STAT STAT IM 03/31/21 16:46 03/31/21 16:50 DC 03/31/21 17:12 Haloperidol (Haldol) 10 mg STAT STAT IM 04/03/21 17:35 04/03/21 17:40 DC 04/03/21 17:46 Haloperidol (Haldol) 10 mg TID PO 03/29/21 21:00 04/04/21 16:32 DC 04/04/21 16:10 Haloperidol (Haldol) 10 mg TID@0900,1300,1700 PO 04/05/21 09:00 04/11/21 09:07 Haloperidol (Haldol) 15 mg STAT STAT IM 04/02/21 06:55 04/02/21 06:58 DC 04/02/21 07:18 Home Med (Med Rec Complete!) ASDIRECTED XX 03/29/21 13:00 03/29/21 13:00 DC Ibuprofen (Advil) 400 mg Q6HP PRN PO PAIN 04/03/21 14:50 UNV Ibuprofen (Advil) 600 mg Q6HP PRN PO MODERATE PAIN (PS 5-7) 04/02/21 07:00 04/09/21 07:51 Lorazepam (Ativan) 1 mg STAT STAT IM 03/30/21 12:26 03/30/21 12:30 DC 03/30/21 12:34 Lorazepam (Ativan) 1 mg STAT STAT IM 03/31/21 18:29 03/31/21 18:32 DC 03/31/21 18:51 Lorazepam (Ativan) 1 mg STAT STAT IM 04/05/21 04:50 04/05/21 04:56 DC 04/05/21 05:02 Lorazepam (Ativan) 2 mg STAT STAT IM 03/30/21 06:08 03/30/21 06:09 DC 03/30/21 06:24 Lorazepam (Ativan) 2 mg STAT STAT IM 03/30/21 22:22 03/30/21 22:23 DC 03/30/21 22:26 Lorazepam (Ativan) 2 mg STAT STAT IM 03/31/21 07:32 03/31/21 07:34 DC 03/31/21 07:40 Lorazepam (Ativan) 2 mg STAT STAT IM 03/31/21 16:46 03/31/21 16:50 DC 03/31/21 17:13 Lorazepam (Ativan) 2 mg STAT STAT IM 04/01/21 08:39 04/01/21 08:41 DC 04/01/21 09:02 Lorazepam (Ativan) 2 mg STAT STAT IM 04/02/21 06:55 04/02/21 06:58 DC 04/02/21 07:18 Lorazepam (Ativan) 2 mg STAT STAT IM 04/03/21 17:35 04/03/21 17:41 DC 04/03/21 17:46 Lorazepam (Ativan) 2 mg STAT STAT PO 03/29/21 10:12 03/29/21 10:13 DC 03/29/21 10:25 Magnesium Hydroxide (Milk Of Magnesia) 30 ml DAILYPRN PRN PO CONSTIPATION 03/29/21 21:45 04/10/21 16:19 Magnesium Hydroxide (Milk Of Magnesia) 30 ml DAILYPRN PRN PO CONSTIPATION 04/03/21 14:50 UNV Nicotine (Nicoderm Cq 21mg) 1 patch DAILY TD 04/04/21 09:00 UNV Non-Formulary Medication ( See Comment Field Below ) SEE COMMENTS SECTION 1T@10 XX 04/07/21 10:00 04/08/21 09:59 UNV Non-Formulary Medication ( See Comment Field Below ) SEE LABEL COMMENTS DAILY XX 04/05/21 09:00 Olanzapine (ZyPREXA ZYDIS) 5 mg Q6HP PRN PO AGITATION 04/03/21 14:50 UNV Olanzapine (ZyPREXA ZYDIS) 10 mg STAT STAT PO 04/02/21 18:39 04/02/21 18:41 DC Quetiapine Fumarate (SEROquel) 200 mg BID PO 04/03/21 09:00 04/04/21 16:39 DC 04/04/21 09:21 Quetiapine Fumarate (SEROquel) 200 mg BID PO 04/03/21 09:00 UNV Quetiapine Fumarate (SEROquel) 200 mg BID@0900,1700 PO 04/04/21 17:00 04/09/21 17:05 Quetiapine Fumarate (SEROquel) 200 mg QHS PO 03/30/21 21:00 04/03/21 08:37 DC 04/01/21 23:53 Sertraline HCl (Zoloft) 75 mg QAM PO 04/04/21 09:00 UNV Trazodone HCl (Desyrel) 50 mg QHSP PRN PO INSOMNIA 03/29/21 21:45 04/10/21 20:02 Trazodone HCl (Desyrel) 50 mg QHSP PRN PO INSOMNIA 04/03/21 14:50 UNV Allergies Coded Allergies: No Known Drug Allergies (Verified Allergy, Unknown, 03/29/21) FIORELLA DIOP M.D. Apr 11, 2021 10:46
[2021-04-11 16:17] VITALS: BP 131/74
[2021-04-12] MEDS: IBUPROFEN 600MG TAB PO PRN ×2 (03:23→15:33)
[2021-04-12] MEDS: **PENDING PPD ENTRY XX SCH (09:00)
--- NOTE | 2021-04-12 09:20 | MHIPNPDOC ---
[facility] Progress Note Progress Note DATE OF SERVICE: 04/12/21 The patient is fully cooperating with the medications and maintaining much improved control. She is somewhat childish and regressed but pleasant on approach. She reported that she is still hallucinating and feels that a demon is chasing her.. She is however denies any command hallucination and denies any intent to act out on her hallucination or delusional thoughts. She is showing significant improvement and hasn't had any agitated or assaultive behavior for the past week. We will consider to start gradually lessening the level of obser vation from 24-hour 1-1. close observation. HISTORY: . VITAL SIGNS: See below. NEW TEST RESULTS: . CURRENT MEDICATIONS: See below. MENTAL STATUS EXAMINATION: Patient is a 25-year old female, who is , cooperative and in no acute distress. Speech: Is simplistic but rational and productive . Language skills are fair. Thought processes including: Relevant responses. Thought content: Preoccupied with the paranoid thoughts . Abstract reasoning, and computation: , Poor. Description of associations: , Better organized. Description of abnormal or psychotic thoughts: Hallucinations and delusional thinking persists. Judgment: poor. Insight: poor. Orientation: , Oriented. Recent and remote memory: poor. Attention span and concentration: poor. Language: . Fund of knowledge: . Mood: Euthymic. Affect: Inappropriately elevated. DIAGNOSES: 1. . Chronic schizophrenia 2. ., Rule out schizoaffective disorder 3. . ASSESSMENT:Showing improvement MANAGEMENT PLAN: Start relaxing the close observation, continued the current medicine and supportive therapy. TIME SPENT: 20 minutes. Vital Signs Vital Signs Date Time Temp Pulse Resp B/P (MAP) Pulse Ox O2 Delivery O2 Flow Rate FiO2 04/11/21 16:17 98.9 100 18 131/74 (93) 04/11/21 08:30 Room Air 04/11/21 06:00 98 Current Medications Current Medications Medications (Trade) Dose Ordered Sig/Ben Route PRN Reason Start Time Stop Time Status Last Admin Dose Admin Acetaminophen (Tylenol Tab) 650 mg Q6HP PRN PO HEADACHE or DISCOMFORT 03/29/21 21:45 04/11/21 17:54 Al Hydrox/Mg Hydrox/Simethicone (Mylanta) 30 ml Q4HP PRN PO HEARTBURN/INDIGESTION 03/29/21 21:45 Al Hydrox/Mg Hydrox/Simethicone (Mylanta) 30 ml Q4HP PRN PO HEARTBURN/INDIGESTION 04/03/21 14:50 UNV Benztropine Mesylate (Cogentin) 0.5 mg QHS PO 03/29/21 21:00 03/30/21 11:10 DC 03/30/21 00:33 Benztropine Mesylate (Cogentin) 1 mg BID PO 03/30/21 21:00 04/11/21 21:18 Chlorpromazine HCl (Thorazine) 100 mg STAT STAT IM 03/31/21 16:46 03/31/21 16:52 DC 03/31/21 17:12 Chlorpromazine HCl (Thorazine) 200 mg STAT STAT IM 03/31/21 18:29 03/31/21 18:32 DC 03/31/21 19:01 Chlorpromazine HCl (Thorazine) 300 mg STAT STAT IM 04/01/21 08:39 04/01/21 15:49 DC 04/01/21 09:03 Diphenhydramine HCl (Benadryl) 50 mg STAT STAT IM 03/30/21 06:08 03/30/21 06:09 DC 03/30/21 06:24 Diphenhydramine HCl (Benadryl) 50 mg STAT STAT IM 03/30/21 12:26 03/30/21 12:30 DC 03/30/21 12:34 Diphenhydramine HCl (Benadryl) 50 mg STAT STAT IM 03/30/21 22:22 03/30/21 22:23 DC 03/30/21 22:26 Diphenhydramine HCl (Benadryl) 50 mg STAT STAT IM 03/31/21 07:32 03/31/21 07:34 DC 03/31/21 07:40 Diphenhydramine HCl (Benadryl) 50 mg STAT STAT IM 03/31/21 16:46 03/31/21 16:50 DC 03/31/21 17:13 Diphenhydramine HCl (Benadryl) 50 mg STAT STAT IM 04/01/21 08:39 04/01/21 08:41 DC 04/01/21 09:02 Diphenhydramine HCl (Benadryl) 50 mg STAT STAT IM 04/03/21 17:35 04/03/21 17:41 DC 04/03/21 17:46 Divalproex Sodium (Depakote Sprinkles) 500 mg QHS PO 04/04/21 21:00 UNV Divalproex Sodium (Depakote Sprinkles) 750 mg BID PO 04/03/21 09:00 04/04/21 07:25 DC Divalproex Sodium (Depakote Sprinkles) 1,000 mg DAILY PO 04/04/21 09:00 UNV Divalproex Sodium (Depakote Er) 500 mg DAILY PO 03/31/21 09:00 04/03/21 08:35 DC Divalproex Sodium (Depakote Er) 500 mg QHS PO 03/30/21 21:00 04/03/21 08:35 DC 04/01/21 23:52 Divalproex Sodium (Depakote) 250 mg BID PO 03/29/21 21:00 04/03/21 08:35 DC 04/02/21 10:13 Divalproex Sodium (Depakote) 250 mg BID PO 04/03/21 21:00 UNV Divalproex Sodium (Depakote) 500 mg TID PO 04/04/21 09:00 04/04/21 16:32 DC 04/04/21 16:12 Divalproex Sodium (Depakote) 500 mg TID@0900,1300,1700 PO 04/05/21 09:00 04/11/21 17:17 Haloperidol (Haldol) 5 mg STAT STAT IM 04/05/21 04:50 04/05/21 04:56 DC 04/05/21 05:02 Haloperidol (Haldol) 10 mg STAT STAT IM 03/30/21 06:08 03/30/21 06:09 DC 03/30/21 06:25 Haloperidol (Haldol) 10 mg STAT STAT IM 03/30/21 12:26 03/30/21 12:30 DC 03/30/21 12:33 Haloperidol (Haldol) 10 mg STAT STAT IM 03/30/21 22:22 03/30/21 22:23 DC 03/30/21 22:26 Haloperidol (Haldol) 10 mg STAT STAT IM 03/31/21 07:32 03/31/21 07:34 DC 03/31/21 07:40 Haloperidol (Haldol) 10 mg STAT STAT IM 03/31/21 16:46 03/31/21 16:50 DC 03/31/21 17:12 Haloperidol (Haldol) 10 mg STAT STAT IM 04/03/21 17:35 04/03/21 17:40 DC 04/03/21 17:46 Haloperidol (Haldol) 10 mg TID PO 03/29/21 21:00 04/04/21 16:32 DC 04/04/21 16:10 Haloperidol (Haldol) 10 mg TID@0900,1300,1700 PO 04/05/21 09:00 04/12/21 06:58 Haloperidol (Haldol) 15 mg STAT STAT IM 04/02/21 06:55 04/02/21 06:58 DC 04/02/21 07:18 Home Med (Med Rec Complete!) ASDIRECTED XX 03/29/21 13:00 03/29/21 13:00 DC Ibuprofen (Advil) 400 mg Q6HP PRN PO PAIN 04/03/21 14:50 UNV Ibuprofen (Advil) 600 mg Q6HP PRN PO MODERATE PAIN (PS 5-7) 04/02/21 07:00 04/12/21 03:23 Lorazepam (Ativan) 1 mg STAT STAT IM 03/30/21 12:26 03/30/21 12:30 DC 03/30/21 12:34 Lorazepam (Ativan) 1 mg STAT STAT IM 03/31/21 18:29 03/31/21 18:32 DC 03/31/21 18:51 Lorazepam (Ativan) 1 mg STAT STAT IM 04/05/21 04:50 04/05/21 04:56 DC 04/05/21 05:02 Lorazepam (Ativan) 2 mg STAT STAT IM 03/30/21 06:08 03/30/21 06:09 DC 03/30/21 06:24 Lorazepam (Ativan) 2 mg STAT STAT IM 03/30/21 22:22 03/30/21 22:23 DC 03/30/21 22:26 Lorazepam (Ativan) 2 mg STAT STAT IM 03/31/21 07:32 03/31/21 07:34 DC 03/31/21 07:40 Lorazepam (Ativan) 2 mg STAT STAT IM 03/31/21 16:46 03/31/21 16:50 DC 03/31/21 17:13 Lorazepam (Ativan) 2 mg STAT STAT IM 04/01/21 08:39 04/01/21 08:41 DC 04/01/21 09:02 Lorazepam (Ativan) 2 mg STAT STAT IM 04/02/21 06:55 04/02/21 06:58 DC 04/02/21 07:18 Lorazepam (Ativan) 2 mg STAT STAT IM 04/03/21 17:35 04/03/21 17:41 DC 04/03/21 17:46 Lorazepam (Ativan) 2 mg STAT STAT PO 03/29/21 10:12 03/29/21 10:13 DC 03/29/21 10:25 Magnesium Hydroxide (Milk Of Magnesia) 30 ml DAILYPRN PRN PO CONSTIPATION 03/29/21 21:45 04/10/21 16:19 Magnesium Hydroxide (Milk Of Magnesia) 30 ml DAILYPRN PRN PO CONSTIPATION 04/03/21 14:50 UNV Nicotine (Nicoderm Cq 21mg) 1 patch DAILY TD 04/04/21 09:00 UNV Non-Formulary Medication ( See Comment Field Below ) SEE COMMENTS SECTION 1T@10 XX 04/07/21 10:00 04/08/21 09:59 UNV Non-Formulary Medication ( See Comment Field Below ) SEE LABEL COMMENTS DAILY XX 04/05/21 09:00 Olanzapine (ZyPREXA ZYDIS) 5 mg Q6HP PRN PO AGITATION 04/03/21 14:50 UNV Olanzapine (ZyPREXA ZYDIS) 10 mg STAT STAT PO 04/02/21 18:39 04/02/21 18:41 DC Quetiapine Fumarate (SEROquel) 200 mg BID PO 04/03/21 09:00 04/04/21 16:39 DC 04/04/21 09:21 Quetiapine Fumarate (SEROquel) 200 mg BID PO 04/03/21 09:00 UNV Quetiapine Fumarate (SEROquel) 200 mg BID@0900,1700 PO 04/04/21 17:00 04/11/21 10:42 DC 04/09/21 17:05 Quetiapine Fumarate (SEROquel) 200 mg QHS PO 03/30/21 21:00 04/03/21 08:37 DC 04/01/21 23:53 Sertraline HCl (Zoloft) 75 mg QAM PO 04/04/21 09:00 UNV Trazodone HCl (Desyrel) 50 mg QHSP PRN PO INSOMNIA 03/29/21 21:45 04/10/21 20:02 Trazodone HCl (Desyrel) 50 mg QHSP PRN PO INSOMNIA 04/03/21 14:50 UNV Allergies Coded Allergies: No Known Drug Allergies (Verified Allergy, Unknown, 03/29/21) FIORELLA DIOP M.D. Apr 12, 2021 09:20
[2021-04-12] MEDS: DIVALPROEX 125 MG TAB PO SCH ×3 (10:05→19:02)
[2021-04-12] MEDS: BENZTROPINE 1 MG TAB PO SCH ×2 (10:06→21:00)
[2021-04-12] MEDS: ACETAMINOPHEN TAB 650MG DOSE (2X325MG) PO PRN ×2 (10:42→22:12)
[2021-04-12 15:13] VITALS: BP 117/67
[2021-04-13] MEDS: ACETAMINOPHEN TAB 650MG DOSE (2X325MG) PO PRN ×2 (06:02→19:44)
[2021-04-13 06:32] VITALS: BP 102/57
[2021-04-13] MEDS: DIVALPROEX 125 MG TAB PO SCH ×3 (08:53→16:26)
[2021-04-13] MEDS: BENZTROPINE 1 MG TAB PO SCH ×2 (08:53→19:42)
[2021-04-13] MEDS: **PENDING PPD ENTRY XX SCH (09:00)
--- NOTE | 2021-04-13 09:57 | MHIPNPDOC ---
[facility] Progress Note Progress Note DATE OF SERVICE: 04/13/21 Patient is again showing improvement in her behavior and also her overall mental status. She is still complaining of hallucinations, but understands that she may have to live with some degree of symptoms and is accepting support and education. She is having trouble swallowing big tablets of Depakote, but understands the importance of the medicine and was reassured that she may be able to have syrup form THE medicine after discharge. HISTORY: . VITAL SIGNS: See below. NEW TEST RESULTS: . CURRENT MEDICATIONS: See below. MENTAL STATUS EXAMINATION: Patient is a 25-year old female, who is in good control. Speech: Is more spontaneous. Language skills are fair. Thought processes including: Relevant and coherent. Thought content: Experiencing hallucination and paranoid fear. Abstract reasoning, and computation: , Poor. Description of associations: , Better organized. Description of abnormal or psychotic thoughts: Still experiencing hallucinations and paranoia. Judgment: Fair. Insight: fair.. Orientation: , Oriented. Recent and remote memory: , Poor. Attention span and concentration: poor. Language: . Fund of knowledge: . Mood: Feeling better. Affect: More animated and spontaneous. DIAGNOSES: 1. . Chronic schizophrenia 2. ., Rule out schizoaffective disorder 3. ]. ASSESSMENT: Showing improvement MANAGEMENT PLAN: [. Continue same medicine and gradual reduction in level of observation]. TIME SPENT: [20] minutes. Vital Signs Vital Signs Date Time Temp Pulse Resp B/P (MAP) Pulse Ox O2 Delivery O2 Flow Rate FiO2 04/13/21 06:32 98.0 79 14 102/57 (72) 99 Room Air Current Medications Current Medications Medications (Trade) Dose Ordered Sig/Ben Route PRN Reason Start Time Stop Time Status Last Admin Dose Admin Acetaminophen (Tylenol Tab) 650 mg Q6HP PRN PO HEADACHE or DISCOMFORT 03/29/21 21:45 04/13/21 06:02 Al Hydrox/Mg Hydrox/Simethicone (Mylanta) 30 ml Q4HP PRN PO HEARTBURN/INDIGESTION 03/29/21 21:45 Al Hydrox/Mg Hydrox/Simethicone (Mylanta) 30 ml Q4HP PRN PO HEARTBURN/INDIGESTION 04/03/21 14:50 UNV Benztropine Mesylate (Cogentin) 0.5 mg QHS PO 03/29/21 21:00 03/30/21 11:10 DC 03/30/21 00:33 Benztropine Mesylate (Cogentin) 1 mg BID PO 03/30/21 21:00 04/13/21 08:53 Chlorpromazine HCl (Thorazine) 100 mg STAT STAT IM 03/31/21 16:46 03/31/21 16:52 DC 03/31/21 17:12 Chlorpromazine HCl (Thorazine) 200 mg STAT STAT IM 03/31/21 18:29 03/31/21 18:32 DC 03/31/21 19:01 Chlorpromazine HCl (Thorazine) 300 mg STAT STAT IM 04/01/21 08:39 04/01/21 15:49 DC 04/01/21 09:03 Diphenhydramine HCl (Benadryl) 50 mg STAT STAT IM 03/30/21 06:08 03/30/21 06:09 DC 03/30/21 06:24 Diphenhydramine HCl (Benadryl) 50 mg STAT STAT IM 03/30/21 12:26 03/30/21 12:30 DC 03/30/21 12:34 Diphenhydramine HCl (Benadryl) 50 mg STAT STAT IM 03/30/21 22:22 03/30/21 22:23 DC 03/30/21 22:26 Diphenhydramine HCl (Benadryl) 50 mg STAT STAT IM 03/31/21 07:32 03/31/21 07:34 DC 03/31/21 07:40 Diphenhydramine HCl (Benadryl) 50 mg STAT STAT IM 03/31/21 16:46 03/31/21 16:50 DC 03/31/21 17:13 Diphenhydramine HCl (Benadryl) 50 mg STAT STAT IM 04/01/21 08:39 04/01/21 08:41 DC 04/01/21 09:02 Diphenhydramine HCl (Benadryl) 50 mg STAT STAT IM 04/03/21 17:35 04/03/21 17:41 DC 04/03/21 17:46 Divalproex Sodium (Depakote Sprinkles) 500 mg QHS PO 04/04/21 21:00 UNV Divalproex Sodium (Depakote Sprinkles) 750 mg BID PO 04/03/21 09:00 04/04/21 07:25 DC Divalproex Sodium (Depakote Sprinkles) 1,000 mg DAILY PO 04/04/21 09:00 UNV Divalproex Sodium (Depakote Er) 500 mg DAILY PO 03/31/21 09:00 04/03/21 08:35 DC Divalproex Sodium (Depakote Er) 500 mg QHS PO 03/30/21 21:00 04/03/21 08:35 DC 04/01/21 23:52 Divalproex Sodium (Depakote) 250 mg BID PO 03/29/21 21:00 04/03/21 08:35 DC 04/02/21 10:13 Divalproex Sodium (Depakote) 250 mg BID PO 04/03/21 21:00 UNV Divalproex Sodium (Depakote) 500 mg TID PO 04/04/21 09:00 04/04/21 16:32 DC 04/04/21 16:12 Divalproex Sodium (Depakote) 500 mg TID@0900,1300,1700 PO 04/05/21 09:00 04/13/21 08:53 Haloperidol (Haldol) 5 mg STAT STAT IM 04/05/21 04:50 04/05/21 04:56 DC 04/05/21 05:02 Haloperidol (Haldol) 10 mg STAT STAT IM 03/30/21 06:08 03/30/21 06:09 DC 03/30/21 06:25 Haloperidol (Haldol) 10 mg STAT STAT IM 03/30/21 12:26 03/30/21 12:30 DC 03/30/21 12:33 Haloperidol (Haldol) 10 mg STAT STAT IM 03/30/21 22:22 03/30/21 22:23 DC 03/30/21 22:26 Haloperidol (Haldol) 10 mg STAT STAT IM 03/31/21 07:32 03/31/21 07:34 DC 03/31/21 07:40 Haloperidol (Haldol) 10 mg STAT STAT IM 03/31/21 16:46 03/31/21 16:50 DC 03/31/21 17:12 Haloperidol (Haldol) 10 mg STAT STAT IM 04/03/21 17:35 04/03/21 17:40 DC 04/03/21 17:46 Haloperidol (Haldol) 10 mg TID PO 03/29/21 21:00 04/04/21 16:32 DC 04/04/21 16:10 Haloperidol (Haldol) 10 mg TID@0900,1300,1700 PO 04/05/21 09:00 04/13/21 08:53 Haloperidol (Haldol) 15 mg STAT STAT IM 04/02/21 06:55 04/02/21 06:58 DC 04/02/21 07:18 Home Med (Med Rec Complete!) ASDIRECTED XX 03/29/21 13:00 03/29/21 13:00 DC Ibuprofen (Advil) 400 mg Q6HP PRN PO PAIN 04/03/21 14:50 UNV Ibuprofen (Advil) 600 mg Q6HP PRN PO MODERATE PAIN (PS 5-7) 04/02/21 07:00 04/12/21 15:33 Lorazepam (Ativan) 1 mg STAT STAT IM 03/30/21 12:26 03/30/21 12:30 DC 03/30/21 12:34 Lorazepam (Ativan) 1 mg STAT STAT IM 03/31/21 18:29 03/31/21 18:32 DC 03/31/21 18:51 Lorazepam (Ativan) 1 mg STAT STAT IM 04/05/21 04:50 04/05/21 04:56 DC 04/05/21 05:02 Lorazepam (Ativan) 2 mg STAT STAT IM 03/30/21 06:08 03/30/21 06:09 DC 03/30/21 06:24 Lorazepam (Ativan) 2 mg STAT STAT IM 03/30/21 22:22 03/30/21 22:23 DC 03/30/21 22:26 Lorazepam (Ativan) 2 mg STAT STAT IM 03/31/21 07:32 03/31/21 07:34 DC 03/31/21 07:40 Lorazepam (Ativan) 2 mg STAT STAT IM 03/31/21 16:46 03/31/21 16:50 DC 03/31/21 17:13 Lorazepam (Ativan) 2 mg STAT STAT IM 04/01/21 08:39 04/01/21 08:41 DC 04/01/21 09:02 Lorazepam (Ativan) 2 mg STAT STAT IM 04/02/21 06:55 04/02/21 06:58 DC 04/02/21 07:18 Lorazepam (Ativan) 2 mg STAT STAT IM 04/03/21 17:35 04/03/21 17:41 DC 04/03/21 17:46 Lorazepam (Ativan) 2 mg STAT STAT PO 03/29/21 10:12 03/29/21 10:13 DC 03/29/21 10:25 Magnesium Hydroxide (Milk Of Magnesia) 30 ml DAILYPRN PRN PO CONSTIPATION 03/29/21 21:45 04/10/21 16:19 Magnesium Hydroxide (Milk Of Magnesia) 30 ml DAILYPRN PRN PO CONSTIPATION 04/03/21 14:50 UNV Nicotine (Nicoderm Cq 21mg) 1 patch DAILY TD 04/04/21 09:00 UNV Non-Formulary Medication ( See Comment Field Below ) SEE COMMENTS SECTION 1T@10 XX 04/07/21 10:00 04/08/21 09:59 UNV Non-Formulary Medication ( See Comment Field Below ) SEE LABEL COMMENTS DAILY XX 04/05/21 09:00 Olanzapine (ZyPREXA ZYDIS) 5 mg Q6HP PRN PO AGITATION 04/03/21 14:50 UNV Olanzapine (ZyPREXA ZYDIS) 10 mg STAT STAT PO 04/02/21 18:39 04/02/21 18:41 DC Quetiapine Fumarate (SEROquel) 200 mg BID PO 04/03/21 09:00 04/04/21 16:39 DC 04/04/21 09:21 Quetiapine Fumarate (SEROquel) 200 mg BID PO 04/03/21 09:00 UNV Quetiapine Fumarate (SEROquel) 200 mg BID@0900,1700 PO 04/04/21 17:00 04/11/21 10:42 DC 04/09/21 17:05 Quetiapine Fumarate (SEROquel) 200 mg QHS PO 03/30/21 21:00 04/03/21 08:37 DC 04/01/21 23:53 Sertraline HCl (Zoloft) 75 mg QAM PO 04/04/21 09:00 UNV Trazodone HCl (Desyrel) 50 mg QHSP PRN PO INSOMNIA 03/29/21 21:45 04/10/21 20:02 Trazodone HCl (Desyrel) 50 mg QHSP PRN PO INSOMNIA 04/03/21 14:50 UNV Allergies Coded Allergies: No Known Drug Allergies (Verified Allergy, Unknown, 03/29/21) FIORELLA DIOP M.D. Apr 13, 2021 09:56
[2021-04-13 17:37] VITALS: BP 131/79
[2021-04-14] MEDS: ACETAMINOPHEN TAB 650MG DOSE (2X325MG) PO PRN ×3 (03:23→22:34)
[2021-04-14] MEDS: traZODone 50 MG TAB PO PRN (03:23)
--- NOTE | 2021-04-14 08:18 | MHIPNPDOC ---
[facility] Progress Note Progress Note DATE OF SERVICE: 04/14/21 Patient is maintaining improved mental status and behavior. She is on a modified 1-1. Close observation, but hasn't shown any behavior problem. She is still co mplaining of occasional hallucinations, and demonic presence, but denies feeling scared and denies any command hallucinations. HISTORY: . VITAL SIGNS: See below. NEW TEST RESULTS: . CURRENT MEDICATIONS: See below. MENTAL STATUS EXAMINATION: Patient is a 25-year old female, who is , cooperative and pleasant. Speech: Is simplistic but rational. Language skills are fair. Thought processes including: Relevant and productive. Thought content: Talking about demons presents. Abstract reasoning, and computation: , Poor. Description of associations: Better organized. Description of abnormal or psychotic thoughts: Still symptomatic. Judgment: , Poor. Insight: poor]. Orientation: , Oriented. Recent and remote memory: fair. Attention span and concentration: poor. Language: . Fund of knowledge: . Mood: Superficial, but euthymic. Affect: Inappropriately elevated]. DIAGNOSES: 1. . Chronic schizophrenia 2. ., Rule out schizoaffective disorder 3. . ASSESSMENT:Showing improvement MANAGEMENT PLAN: Continued the current medicine and gradual lessening of level of observation. TIME SPENT: [20 minutes. Vital Signs Vital Signs Date Time Temp Pulse Resp B/P (MAP) Pulse Ox O2 Delivery O2 Flow Rate FiO2 04/13/21 17:37 97.7 84 18 131/79 (96) 98 04/13/21 06:32 Room Air Current Medications Current Medications Medications (Trade) Dose Ordered Sig/Ben Route PRN Reason Start Time Stop Time Status Last Admin Dose Admin Acetaminophen (Tylenol Tab) 650 mg Q6HP PRN PO HEADACHE or MILD DISCOMFORT 03/29/21 21:45 04/14/21 03:23 Al Hydrox/Mg Hydrox/Simethicone (Mylanta) 30 ml Q4HP PRN PO HEARTBURN/INDIGESTION 03/29/21 21:45 Al Hydrox/Mg Hydrox/Simethicone (Mylanta) 30 ml Q4HP PRN PO HEARTBURN/INDIGESTION 04/03/21 14:50 UNV Benztropine Mesylate (Cogentin) 0.5 mg QHS PO 03/29/21 21:00 03/30/21 11:10 DC 03/30/21 00:33 Benztropine Mesylate (Cogentin) 1 mg BID PO 03/30/21 21:00 04/13/21 19:42 Chlorpromazine HCl (Thorazine) 100 mg STAT STAT IM 03/31/21 16:46 03/31/21 16:52 DC 03/31/21 17:12 Chlorpromazine HCl (Thorazine) 200 mg STAT STAT IM 03/31/21 18:29 03/31/21 18:32 DC 03/31/21 19:01 Chlorpromazine HCl (Thorazine) 300 mg STAT STAT IM 04/01/21 08:39 04/01/21 15:49 DC 04/01/21 09:03 Diphenhydramine HCl (Benadryl) 50 mg STAT STAT IM 03/30/21 06:08 03/30/21 06:09 DC 03/30/21 06:24 Diphenhydramine HCl (Benadryl) 50 mg STAT STAT IM 03/30/21 12:26 03/30/21 12:30 DC 03/30/21 12:34 Diphenhydramine HCl (Benadryl) 50 mg STAT STAT IM 03/30/21 22:22 03/30/21 22:23 DC 03/30/21 22:26 Diphenhydramine HCl (Benadryl) 50 mg STAT STAT IM 03/31/21 07:32 03/31/21 07:34 DC 03/31/21 07:40 Diphenhydramine HCl (Benadryl) 50 mg STAT STAT IM 03/31/21 16:46 03/31/21 16:50 DC 03/31/21 17:13 Diphenhydramine HCl (Benadryl) 50 mg STAT STAT IM 04/01/21 08:39 04/01/21 08:41 DC 04/01/21 09:02 Diphenhydramine HCl (Benadryl) 50 mg STAT STAT IM 04/03/21 17:35 04/03/21 17:41 DC 04/03/21 17:46 Divalproex Sodium (Depakote Sprinkles) 500 mg QHS PO 04/04/21 21:00 UNV Divalproex Sodium (Depakote Sprinkles) 750 mg BID PO 04/03/21 09:00 04/04/21 07:25 DC Divalproex Sodium (Depakote Sprinkles) 1,000 mg DAILY PO 04/04/21 09:00 UNV Divalproex Sodium (Depakote Er) 500 mg DAILY PO 03/31/21 09:00 04/03/21 08:35 DC Divalproex Sodium (Depakote Er) 500 mg QHS PO 03/30/21 21:00 04/03/21 08:35 DC 04/01/21 23:52 Divalproex Sodium (Depakote) 250 mg BID PO 03/29/21 21:00 04/03/21 08:35 DC 04/02/21 10:13 Divalproex Sodium (Depakote) 250 mg BID PO 04/03/21 21:00 UNV Divalproex Sodium (Depakote) 500 mg TID PO 04/04/21 09:00 04/04/21 16:32 DC 04/04/21 16:12 Divalproex Sodium (Depakote) 500 mg TID@0900,1300,1700 PO 04/05/21 09:00 04/13/21 16:26 Haloperidol (Haldol) 5 mg STAT STAT IM 04/05/21 04:50 04/05/21 04:56 DC 04/05/21 05:02 Haloperidol (Haldol) 10 mg STAT STAT IM 03/30/21 06:08 03/30/21 06:09 DC 03/30/21 06:25 Haloperidol (Haldol) 10 mg STAT STAT IM 03/30/21 12:26 03/30/21 12:30 DC 03/30/21 12:33 Haloperidol (Haldol) 10 mg STAT STAT IM 03/30/21 22:22 03/30/21 22:23 DC 03/30/21 22:26 Haloperidol (Haldol) 10 mg STAT STAT IM 03/31/21 07:32 03/31/21 07:34 DC 03/31/21 07:40 Haloperidol (Haldol) 10 mg STAT STAT IM 03/31/21 16:46 03/31/21 16:50 DC 03/31/21 17:12 Haloperidol (Haldol) 10 mg STAT STAT IM 04/03/21 17:35 04/03/21 17:40 DC 04/03/21 17:46 Haloperidol (Haldol) 10 mg TID PO 03/29/21 21:00 04/04/21 16:32 DC 04/04/21 16:10 Haloperidol (Haldol) 10 mg TID@0900,1300,1700 PO 04/05/21 09:00 04/13/21 16:25 Haloperidol (Haldol) 15 mg STAT STAT IM 04/02/21 06:55 04/02/21 06:58 DC 04/02/21 07:18 Home Med (Med Rec Complete!) ASDIRECTED XX 03/29/21 13:00 03/29/21 13:00 DC Ibuprofen (Advil) 400 mg Q6HP PRN PO PAIN 04/03/21 14:50 UNV Ibuprofen (Advil) 600 mg Q6HP PRN PO MODERATE PAIN (PS 5-7) 04/02/21 07:00 04/12/21 15:33 Lorazepam (Ativan) 1 mg STAT STAT IM 03/30/21 12:26 03/30/21 12:30 DC 03/30/21 12:34 Lorazepam (Ativan) 1 mg STAT STAT IM 03/31/21 18:29 03/31/21 18:32 DC 03/31/21 18:51 Lorazepam (Ativan) 1 mg STAT STAT IM 04/05/21 04:50 04/05/21 04:56 DC 04/05/21 05:02 Lorazepam (Ativan) 2 mg STAT STAT IM 03/30/21 06:08 03/30/21 06:09 DC 03/30/21 06:24 Lorazepam (Ativan) 2 mg STAT STAT IM 03/30/21 22:22 03/30/21 22:23 DC 03/30/21 22:26 Lorazepam (Ativan) 2 mg STAT STAT IM 03/31/21 07:32 03/31/21 07:34 DC 03/31/21 07:40 Lorazepam (Ativan) 2 mg STAT STAT IM 03/31/21 16:46 03/31/21 16:50 DC 03/31/21 17:13 Lorazepam (Ativan) 2 mg STAT STAT IM 04/01/21 08:39 04/01/21 08:41 DC 04/01/21 09:02 Lorazepam (Ativan) 2 mg STAT STAT IM 04/02/21 06:55 04/02/21 06:58 DC 04/02/21 07:18 Lorazepam (Ativan) 2 mg STAT STAT IM 04/03/21 17:35 04/03/21 17:41 DC 04/03/21 17:46 Lorazepam (Ativan) 2 mg STAT STAT PO 03/29/21 10:12 03/29/21 10:13 DC 03/29/21 10:25 Magnesium Hydroxide (Milk Of Magnesia) 30 ml DAILYPRN PRN PO CONSTIPATION 03/29/21 21:45 04/10/21 16:19 Magnesium Hydroxide (Milk Of Magnesia) 30 ml DAILYPRN PRN PO CONSTIPATION 04/03/21 14:50 UNV Nicotine (Nicoderm Cq 21mg) 1 patch DAILY TD 04/04/21 09:00 UNV Non-Formulary Medication ( See Comment Field Below ) SEE COMMENTS SECTION 1T@10 XX 04/07/21 10:00 04/08/21 09:59 UNV Non-Formulary Medication ( See Comment Field Below ) SEE LABEL COMMENTS DAILY XX 04/05/21 09:00 Olanzapine (ZyPREXA ZYDIS) 5 mg Q6HP PRN PO AGITATION 04/03/21 14:50 UNV Olanzapine (ZyPREXA ZYDIS) 10 mg STAT STAT PO 04/02/21 18:39 04/02/21 18:41 DC Quetiapine Fumarate (SEROquel) 200 mg BID PO 04/03/21 09:00 04/04/21 16:39 DC 04/04/21 09:21 Quetiapine Fumarate (SEROquel) 200 mg BID PO 04/03/21 09:00 UNV Quetiapine Fumarate (SEROquel) 200 mg BID@0900,1700 PO 04/04/21 17:00 04/11/21 10:42 DC 04/09/21 17:05 Quetiapine Fumarate (SEROquel) 200 mg QHS PO 03/30/21 21:00 04/03/21 08:37 DC 04/01/21 23:53 Sertraline HCl (Zoloft) 75 mg QAM PO 04/04/21 09:00 UNV Trazodone HCl (Desyrel) 50 mg QHSP PRN PO INSOMNIA 03/29/21 21:45 04/14/21 03:23 Trazodone HCl (Desyrel) 50 mg QHSP PRN PO INSOMNIA 04/03/21 14:50 UNV Allergies Coded Allergies: No Known Drug Allergies (Verified Allergy, Unknown, 03/29/21) FIORELLA DIOP M.D. Apr 14, 2021 08:18
[2021-04-14] MEDS: BENZTROPINE 1 MG TAB PO SCH ×2 (08:28→22:08)
[2021-04-14] MEDS: DIVALPROEX 125 MG TAB PO SCH ×3 (08:29→16:22)
[2021-04-14] MEDS: **PENDING PPD ENTRY XX SCH (08:31)
[2021-04-14 16:44] VITALS: BP 133/80
[2021-04-15 06:00] VITALS: BP 126/70
[2021-04-15] MEDS: ACETAMINOPHEN TAB 650MG DOSE (2X325MG) PO PRN ×3 (06:57→17:35)
[2021-04-15] MEDS: BENZTROPINE 1 MG TAB PO SCH ×2 (10:11→21:36)
[2021-04-15] MEDS: DIVALPROEX 125 MG TAB PO SCH ×3 (10:12→17:56)
[2021-04-15] MEDS: **PENDING PPD ENTRY XX SCH (10:13)
[2021-04-15 16:31] VITALS: BP 145/89
[2021-04-16] MEDS: ACETAMINOPHEN TAB 650MG DOSE (2X325MG) PO PRN (00:15)
[2021-04-16] MEDS: traZODone 50 MG TAB PO PRN ×2 (00:15→20:28)
[2021-04-16 06:17] VITALS: BP 145/64
[2021-04-16] MEDS: **PENDING PPD ENTRY XX SCH (09:00)
[2021-04-16] MEDS: DIVALPROEX 125 MG TAB PO SCH ×3 (11:05→17:04)
[2021-04-16] MEDS: BENZTROPINE 1 MG TAB PO SCH ×2 (11:55→20:28)
[2021-04-16 17:31] VITALS: BP 137/87
[2021-04-17] MEDS: ACETAMINOPHEN TAB 650MG DOSE (2X325MG) PO PRN (05:20)
[2021-04-17 06:44] VITALS: BP 123/59
[2021-04-17] MEDS: DIVALPROEX 125 MG TAB PO SCH ×3 (08:48→17:23)
[2021-04-17] MEDS: BENZTROPINE 1 MG TAB PO SCH ×2 (08:48→20:33)
[2021-04-17] MEDS ORDERED: TUBERCULIN PPD 5 UNITS/0.1 ML ID ONE (09:00)
--- NOTE | 2021-04-17 09:51 | MHIPNPDOC ---
[facility] Progress Note Progress Note DATE OF SERVICE: 04/17/21 The patient was taken off from one-to-one close observation. On April 15.. She has been maintaining very good control and remained pleasant cooperative without any acting out behavior. She is also showing much improved insight and not as delusional. She is not insisting that she is anymore and understands that that she would be going back to her stepfather after discharge and also understands that she needs to continue to get her haloperidol injection. HISTORY: . VITAL SIGNS: See below. NEW TEST RESULTS: . CURRENT MEDICATIONS: See below. MENTAL STATUS EXAMINATION: Patient is a 25-year old female, who is in good control and cooperative. Speech: Is quite productive. Language skills are good. Thought processes including: Relevant and coherent. Thought content: , Not as delusional or. Abstract reasoning, and computation: fair. Description of associations: , Better organized. Description of abnormal or psychotic thoughts: , Not expressing same delusional thinking. Judgment: fair. Insight: fair.. Orientation: , Oriented. Recent and remote memory: fair. Attention span and concentration: fair. Language: . Fund of knowledge: . Mood: Euthymic. Affect: Animated and pleasant. DIAGNOSES: 1. . Chronic schizophrenia 2. ., Rule out schizoaffective disorder 3. . ASSESSMENT:Showing much improved mental status and behavior MANAGEMENT PLAN: . Continue with the current treatment and possible discharge in the next 2-3 days. TIME SPENT: 20 minutes. Vital Signs Vital Signs Date Time Temp Pulse Resp B/P (MAP) Pulse Ox O2 Delivery O2 Flow Rate FiO2 04/17/21 06:44 97.5 77 16 123/59 (80) 96 Room Air Current Medications Current Medications Medications (Trade) Dose Ordered Sig/Ben Route PRN Reason Start Time Stop Time Status Last Admin Dose Admin Acetaminophen (Tylenol Tab) 650 mg Q6HP PRN PO HEADACHE or MILD DISCOMFORT 03/29/21 21:45 04/17/21 05:20 Al Hydrox/Mg Hydrox/Simethicone (Mylanta) 30 ml Q4HP PRN PO HEARTBURN/INDIGESTION 03/29/21 21:45 Al Hydrox/Mg Hydrox/Simethicone (Mylanta) 30 ml Q4HP PRN PO HEARTBURN/INDIGESTION 04/03/21 14:50 UNV Benztropine Mesylate (Cogentin) 0.5 mg QHS PO 03/29/21 21:00 03/30/21 11:10 DC 03/30/21 00:33 Benztropine Mesylate (Cogentin) 1 mg BID PO 03/30/21 21:00 04/17/21 08:48 Chlorpromazine HCl (Thorazine) 100 mg STAT STAT IM 03/31/21 16:46 03/31/21 16:52 DC 03/31/21 17:12 Chlorpromazine HCl (Thorazine) 200 mg STAT STAT IM 03/31/21 18:29 03/31/21 18:32 DC 03/31/21 19:01 Chlorpromazine HCl (Thorazine) 300 mg STAT STAT IM 04/01/21 08:39 04/01/21 15:49 DC 04/01/21 09:03 Diphenhydramine HCl (Benadryl) 50 mg STAT STAT IM 03/30/21 06:08 03/30/21 06:09 DC 03/30/21 06:24 Diphenhydramine HCl (Benadryl) 50 mg STAT STAT IM 03/30/21 12:26 03/30/21 12:30 DC 03/30/21 12:34 Diphenhydramine HCl (Benadryl) 50 mg STAT STAT IM 03/30/21 22:22 03/30/21 22:23 DC 03/30/21 22:26 Diphenhydramine HCl (Benadryl) 50 mg STAT STAT IM 03/31/21 07:32 03/31/21 07:34 DC 03/31/21 07:40 Diphenhydramine HCl (Benadryl) 50 mg STAT STAT IM 03/31/21 16:46 03/31/21 16:50 DC 03/31/21 17:13 Diphenhydramine HCl (Benadryl) 50 mg STAT STAT IM 04/01/21 08:39 04/01/21 08:41 DC 04/01/21 09:02 Diphenhydramine HCl (Benadryl) 50 mg STAT STAT IM 04/03/21 17:35 04/03/21 17:41 DC 04/03/21 17:46 Divalproex Sodium (Depakote Sprinkles) 500 mg QHS PO 04/04/21 21:00 UNV Divalproex Sodium (Depakote Sprinkles) 750 mg BID PO 04/03/21 09:00 04/04/21 07:25 DC Divalproex Sodium (Depakote Sprinkles) 1,000 mg DAILY PO 04/04/21 09:00 UNV Divalproex Sodium (Depakote Er) 500 mg DAILY PO 03/31/21 09:00 04/03/21 08:35 DC Divalproex Sodium (Depakote Er) 500 mg QHS PO 03/30/21 21:00 04/03/21 08:35 DC 04/01/21 23:52 Divalproex Sodium (Depakote) 250 mg BID PO 03/29/21 21:00 04/03/21 08:35 DC 04/02/21 10:13 Divalproex Sodium (Depakote) 250 mg BID PO 04/03/21 21:00 UNV Divalproex Sodium (Depakote) 500 mg TID PO 04/04/21 09:00 04/04/21 16:32 DC 04/04/21 16:12 Divalproex Sodium (Depakote) 500 mg TID@0900,1300,1700 PO 04/05/21 09:00 04/17/21 08:48 Haloperidol (Haldol) 5 mg STAT STAT IM 04/05/21 04:50 04/05/21 04:56 DC 04/05/21 05:02 Haloperidol (Haldol) 10 mg STAT STAT IM 03/30/21 06:08 03/30/21 06:09 DC 03/30/21 06:25 Haloperidol (Haldol) 10 mg STAT STAT IM 03/30/21 12:26 03/30/21 12:30 DC 03/30/21 12:33 Haloperidol (Haldol) 10 mg STAT STAT IM 03/30/21 22:22 03/30/21 22:23 DC 03/30/21 22:26 Haloperidol (Haldol) 10 mg STAT STAT IM 03/31/21 07:32 03/31/21 07:34 DC 03/31/21 07:40 Haloperidol (Haldol) 10 mg STAT STAT IM 03/31/21 16:46 03/31/21 16:50 DC 03/31/21 17:12 Haloperidol (Haldol) 10 mg STAT STAT IM 04/03/21 17:35 04/03/21 17:40 DC 04/03/21 17:46 Haloperidol (Haldol) 10 mg TID PO 03/29/21 21:00 04/04/21 16:32 DC 04/04/21 16:10 Haloperidol (Haldol) 10 mg TID@0900,1300,1700 PO 04/05/21 09:00 04/17/21 08:48 Haloperidol (Haldol) 15 mg STAT STAT IM 04/02/21 06:55 04/02/21 06:58 DC 04/02/21 07:18 Home Med (Med Rec Complete!) ASDIRECTED XX 03/29/21 13:00 03/29/21 13:00 DC Ibuprofen (Advil) 400 mg Q6HP PRN PO PAIN 04/03/21 14:50 UNV Ibuprofen (Advil) 600 mg Q6HP PRN PO MODERATE PAIN (PS 5-7) 04/02/21 07:00 04/12/21 15:33 Lorazepam (Ativan) 1 mg STAT STAT IM 03/30/21 12:26 03/30/21 12:30 DC 03/30/21 12:34 Lorazepam (Ativan) 1 mg STAT STAT IM 03/31/21 18:29 03/31/21 18:32 DC 03/31/21 18:51 Lorazepam (Ativan) 1 mg STAT STAT IM 04/05/21 04:50 04/05/21 04:56 DC 04/05/21 05:02 Lorazepam (Ativan) 2 mg STAT STAT IM 03/30/21 06:08 03/30/21 06:09 DC 03/30/21 06:24 Lorazepam (Ativan) 2 mg STAT STAT IM 03/30/21 22:22 03/30/21 22:23 DC 03/30/21 22:26 Lorazepam (Ativan) 2 mg STAT STAT IM 03/31/21 07:32 03/31/21 07:34 DC 03/31/21 07:40 Lorazepam (Ativan) 2 mg STAT STAT IM 03/31/21 16:46 03/31/21 16:50 DC 03/31/21 17:13 Lorazepam (Ativan) 2 mg STAT STAT IM 04/01/21 08:39 04/01/21 08:41 DC 04/01/21 09:02 Lorazepam (Ativan) 2 mg STAT STAT IM 04/02/21 06:55 04/02/21 06:58 DC 04/02/21 07:18 Lorazepam (Ativan) 2 mg STAT STAT IM 04/03/21 17:35 04/03/21 17:41 DC 04/03/21 17:46 Lorazepam (Ativan) 2 mg STAT STAT PO 03/29/21 10:12 03/29/21 10:13 DC 03/29/21 10:25 Magnesium Hydroxide (Milk Of Magnesia) 30 ml DAILYPRN PRN PO CONSTIPATION 03/29/21 21:45 04/10/21 16:19 Magnesium Hydroxide (Milk Of Magnesia) 30 ml DAILYPRN PRN PO CONSTIPATION 04/03/21 14:50 UNV Nicotine (Nicoderm Cq 21mg) 1 patch DAILY TD 04/04/21 09:00 UNV Non-Formulary Medication ( See Comment Field Below ) SEE COMMENTS SECTION 1T@10 XX 04/07/21 10:00 04/08/21 09:59 UNV Non-Formulary Medication ( See Comment Field Below ) SEE LABEL COMMENTS DAILY XX 04/05/21 09:00 Olanzapine (ZyPREXA ZYDIS) 5 mg Q6HP PRN PO AGITATION 04/03/21 14:50 UNV Olanzapine (ZyPREXA ZYDIS) 10 mg STAT STAT PO 04/02/21 18:39 04/02/21 18:41 DC Quetiapine Fumarate (SEROquel) 200 mg BID PO 04/03/21 09:00 04/04/21 16:39 DC 04/04/21 09:21 Quetiapine Fumarate (SEROquel) 200 mg BID PO 04/03/21 09:00 UNV Quetiapine Fumarate (SEROquel) 200 mg BID@0900,1700 PO 04/04/21 17:00 04/11/21 10:42 DC 04/09/21 17:05 Quetiapine Fumarate (SEROquel) 200 mg QHS PO 03/30/21 21:00 04/03/21 08:37 DC 04/01/21 23:53 Sertraline HCl (Zoloft) 75 mg QAM PO 04/04/21 09:00 UNV Trazodone HCl (Desyrel) 50 mg QHSP PRN PO INSOMNIA 03/29/21 21:45 04/16/21 20:28 Trazodone HCl (Desyrel) 50 mg QHSP PRN PO INSOMNIA 04/03/21 14:50 UNV Allergies Coded Allergies: No Known Drug Allergies (Verified Allergy, Unknown, 03/29/21) FIORELLA DIOP M.D. Apr 17, 2021 09:51
[2021-04-17 16:10] VITALS: BP 110/58
[2021-04-17 16:15] VITALS: BP 110/65
[2021-04-17] MEDS: traZODone 50 MG TAB PO PRN (20:33)
[2021-04-18 06:08] VITALS: BP 128/81
[2021-04-18] MEDS: BENZTROPINE 1 MG TAB PO SCH ×2 (08:35→20:12)
[2021-04-18] MEDS: DIVALPROEX 125 MG TAB PO SCH ×3 (08:36→17:01)
--- NOTE | 2021-04-18 10:40 | MHIPNPDOC ---
[facility] Progress Note Progress Note DATE OF SERVICE: 04/18/21 The patient is maintaining improved mental status and behavior. She has no new complaints is quite pleasant and animated and showing no behavior problem. She i s willing to continue her outpatient treatment and is asking for discharge back to her stepfather.. She appears to be at her baseline mental status. We will arrange for discharge tomorrow with close follow-up outpatient treatment HISTORY: . VITAL SIGNS: See below. NEW TEST RESULTS: . CURRENT MEDICATIONS: See below. MENTAL STATUS EXAMINATION: Patient is a [25]-year old female, who is [, pleasant and cooperative]. Speech: Is coherent and relevant . Language skills are [, fair]. Thought processes including: [Responding appropriately]. Thought content: Not reporting any delusional thinking . Abstract reasoning, and computation: [, Poor]. Description of associations: [Appropriate responses and relevant]. Description of abnormal or psychotic thoughts: [Denies any command hallucination and denies any suicidal thoughts and not expressing any gross delusional thinking]. Judgment: [, Fair]. Insight: [ fair. ]. Orientation: [, Oriented]. Recent and remote memory: Fair . Attention span and concentration: . Language: . Fund of knowledge: . Mood: [Euthymic]. Affect: . DIAGNOSES: 1. . 2. . 3. . ASSESSMENT: MANAGEMENT PLAN: . TIME SPENT: minutes. Vital Signs Vital Signs Date Time Temp Pulse Resp B/P (MAP) Pulse Ox O2 Delivery O2 Flow Rate FiO2 04/18/21 06:08 96.9 77 12 128/81 (97) 95 Room Air Current Medications Current Medications Medications (Trade) Dose Ordered Sig/Ben Route PRN Reason Start Time Stop Time Status Last Admin Dose Admin Acetaminophen (Tylenol Tab) 650 mg Q6HP PRN PO HEADACHE or MILD DISCOMFORT 03/29/21 21:45 04/17/21 05:20 Al Hydrox/Mg Hydrox/Simethicone (Mylanta) 30 ml Q4HP PRN PO HEARTBURN/INDIGESTION 03/29/21 21:45 Al Hydrox/Mg Hydrox/Simethicone (Mylanta) 30 ml Q4HP PRN PO HEARTBURN/INDIGESTION 04/03/21 14:50 UNV Benztropine Mesylate (Cogentin) 0.5 mg QHS PO 03/29/21 21:00 03/30/21 11:10 DC 03/30/21 00:33 Benztropine Mesylate (Cogentin) 1 mg BID PO 03/30/21 21:00 04/18/21 08:35 Chlorpromazine HCl (Thorazine) 100 mg STAT STAT IM 03/31/21 16:46 03/31/21 16:52 DC 03/31/21 17:12 Chlorpromazine HCl (Thorazine) 200 mg STAT STAT IM 03/31/21 18:29 03/31/21 18:32 DC 03/31/21 19:01 Chlorpromazine HCl (Thorazine) 300 mg STAT STAT IM 04/01/21 08:39 04/01/21 15:49 DC 04/01/21 09:03 Diphenhydramine HCl (Benadryl) 50 mg STAT STAT IM 03/30/21 06:08 03/30/21 06:09 DC 03/30/21 06:24 Diphenhydramine HCl (Benadryl) 50 mg STAT STAT IM 03/30/21 12:26 03/30/21 12:30 DC 03/30/21 12:34 Diphenhydramine HCl (Benadryl) 50 mg STAT STAT IM 03/30/21 22:22 03/30/21 22:23 DC 03/30/21 22:26 Diphenhydramine HCl (Benadryl) 50 mg STAT STAT IM 03/31/21 07:32 03/31/21 07:34 DC 03/31/21 07:40 Diphenhydramine HCl (Benadryl) 50 mg STAT STAT IM 03/31/21 16:46 03/31/21 16:50 DC 03/31/21 17:13 Diphenhydramine HCl (Benadryl) 50 mg STAT STAT IM 04/01/21 08:39 04/01/21 08:41 DC 04/01/21 09:02 Diphenhydramine HCl (Benadryl) 50 mg STAT STAT IM 04/03/21 17:35 04/03/21 17:41 DC 04/03/21 17:46 Divalproex Sodium (Depakote Sprinkles) 500 mg QHS PO 04/04/21 21:00 UNV Divalproex Sodium (Depakote Sprinkles) 750 mg BID PO 04/03/21 09:00 04/04/21 07:25 DC Divalproex Sodium (Depakote Sprinkles) 1,000 mg DAILY PO 04/04/21 09:00 UNV Divalproex Sodium (Depakote Er) 500 mg DAILY PO 03/31/21 09:00 04/03/21 08:35 DC Divalproex Sodium (Depakote Er) 500 mg QHS PO 03/30/21 21:00 04/03/21 08:35 DC 04/01/21 23:52 Divalproex Sodium (Depakote) 250 mg BID PO 03/29/21 21:00 04/03/21 08:35 DC 04/02/21 10:13 Divalproex Sodium (Depakote) 250 mg BID PO 04/03/21 21:00 UNV Divalproex Sodium (Depakote) 500 mg TID PO 04/04/21 09:00 04/04/21 16:32 DC 04/04/21 16:12 Divalproex Sodium (Depakote) 500 mg TID@0900,1300,1700 PO 04/05/21 09:00 04/18/21 08:36 Haloperidol (Haldol) 5 mg STAT STAT IM 04/05/21 04:50 04/05/21 04:56 DC 04/05/21 05:02 Haloperidol (Haldol) 10 mg STAT STAT IM 03/30/21 06:08 03/30/21 06:09 DC 03/30/21 06:25 Haloperidol (Haldol) 10 mg STAT STAT IM 03/30/21 12:26 03/30/21 12:30 DC 03/30/21 12:33 Haloperidol (Haldol) 10 mg STAT STAT IM 03/30/21 22:22 03/30/21 22:23 DC 03/30/21 22:26 Haloperidol (Haldol) 10 mg STAT STAT IM 03/31/21 07:32 03/31/21 07:34 DC 03/31/21 07:40 Haloperidol (Haldol) 10 mg STAT STAT IM 03/31/21 16:46 03/31/21 16:50 DC 03/31/21 17:12 Haloperidol (Haldol) 10 mg STAT STAT IM 04/03/21 17:35 04/03/21 17:40 DC 04/03/21 17:46 Haloperidol (Haldol) 10 mg TID PO 03/29/21 21:00 04/04/21 16:32 DC 04/04/21 16:10 Haloperidol (Haldol) 10 mg TID@0900,1300,1700 PO 04/05/21 09:00 04/18/21 08:36 Haloperidol (Haldol) 15 mg STAT STAT IM 04/02/21 06:55 04/02/21 06:58 DC 04/02/21 07:18 Home Med (Med Rec Complete!) ASDIRECTED XX 03/29/21 13:00 03/29/21 13:00 DC Ibuprofen (Advil) 400 mg Q6HP PRN PO PAIN 04/03/21 14:50 UNV Ibuprofen (Advil) 600 mg Q6HP PRN PO MODERATE PAIN (PS 5-7) 04/02/21 07:00 04/12/21 15:33 Lorazepam (Ativan) 1 mg STAT STAT IM 03/30/21 12:26 03/30/21 12:30 DC 03/30/21 12:34 Lorazepam (Ativan) 1 mg STAT STAT IM 03/31/21 18:29 03/31/21 18:32 DC 03/31/21 18:51 Lorazepam (Ativan) 1 mg STAT STAT IM 04/05/21 04:50 04/05/21 04:56 DC 04/05/21 05:02 Lorazepam (Ativan) 2 mg STAT STAT IM 03/30/21 06:08 03/30/21 06:09 DC 03/30/21 06:24 Lorazepam (Ativan) 2 mg STAT STAT IM 03/30/21 22:22 03/30/21 22:23 DC 03/30/21 22:26 Lorazepam (Ativan) 2 mg STAT STAT IM 03/31/21 07:32 03/31/21 07:34 DC 03/31/21 07:40 Lorazepam (Ativan) 2 mg STAT STAT IM 03/31/21 16:46 03/31/21 16:50 DC 03/31/21 17:13 Lorazepam (Ativan) 2 mg STAT STAT IM 04/01/21 08:39 04/01/21 08:41 DC 04/01/21 09:02 Lorazepam (Ativan) 2 mg STAT STAT IM 04/02/21 06:55 04/02/21 06:58 DC 04/02/21 07:18 Lorazepam (Ativan) 2 mg STAT STAT IM 04/03/21 17:35 04/03/21 17:41 DC 04/03/21 17:46 Lorazepam (Ativan) 2 mg STAT STAT PO 03/29/21 10:12 03/29/21 10:13 DC 03/29/21 10:25 Magnesium Hydroxide (Milk Of Magnesia) 30 ml DAILYPRN PRN PO CONSTIPATION 03/29/21 21:45 04/10/21 16:19 Magnesium Hydroxide (Milk Of Magnesia) 30 ml DAILYPRN PRN PO CONSTIPATION 04/03/21 14:50 UNV Nicotine (Nicoderm Cq 21mg) 1 patch DAILY TD 04/04/21 09:00 UNV Non-Formulary Medication ( See Comment Field Below ) SEE COMMENTS SECTION 1T@10 XX 04/07/21 10:00 04/08/21 09:59 UNV Non-Formulary Medication ( See Comment Field Below ) SEE LABEL COMMENTS DAILY XX 04/05/21 09:00 04/17/21 09:55 DC Olanzapine (ZyPREXA ZYDIS) 5 mg Q6HP PRN PO AGITATION 04/03/21 14:50 UNV Olanzapine (ZyPREXA ZYDIS) 10 mg STAT STAT PO 04/02/21 18:39 04/02/21 18:41 DC Quetiapine Fumarate (SEROquel) 200 mg BID PO 04/03/21 09:00 04/04/21 16:39 DC 04/04/21 09:21 Quetiapine Fumarate (SEROquel) 200 mg BID PO 04/03/21 09:00 UNV Quetiapine Fumarate (SEROquel) 200 mg BID@0900,1700 PO 04/04/21 17:00 04/11/21 10:42 DC 04/09/21 17:05 Quetiapine Fumarate (SEROquel) 200 mg QHS PO 03/30/21 21:00 04/03/21 08:37 DC 04/01/21 23:53 Sertraline HCl (Zoloft) 75 mg QAM PO 04/04/21 09:00 UNV Trazodone HCl (Desyrel) 50 mg QHSP PRN PO INSOMNIA 03/29/21 21:45 04/17/21 20:33 Trazodone HCl (Desyrel) 50 mg QHSP PRN PO INSOMNIA 04/03/21 14:50 UNV Allergies Coded Allergies: No Known Drug Allergies (Verified Allergy, Unknown, 03/29/21) FIORELLA DIOP M.D. Apr 18, 2021 10:40
[2021-04-18 16:15] VITALS: BP 102/76
[2021-04-18] MEDS: traZODone 50 MG TAB PO PRN (20:12)
[2021-04-19 06:10] VITALS: BP 108/55
[2021-04-19] MEDS ORDERED: BENZ-52 PO (08:42)
[2021-04-19] MEDS ORDERED: HALO10TA20 PO (08:42)
[2021-04-19] MEDS: BENZTROPINE 1 MG TAB PO SCH (08:43)
[2021-04-19] MEDS: DIVALPROEX 125 MG TAB PO SCH (08:43)
[2021-04-19] MEDS ORDERED: DEPA1TAB PO (08:50)
[2021-04-19] MEDS ORDERED: HALO10AM IM (08:59)
[2021-04-19] MEDS ORDERED: DEPA250T2 PO (08:59)
[2021-04-19] MEDS ORDERED: PPD DOCUMENTATION ENTRY MISC XX ONE (09:00)
--- NOTE | 2021-04-19 11:34 | MHDSPDOC ---
[facility] Discharge Summary Discharge Summary DATE OF ADMISSION: Mar 29, 2021 at 21:44 DATE OF DISCHARGE: 04/19/2021 DISCHARGE DIAGNOSES: 1. . Chronic schizophrenia, paranoid 2. ., Rule out schizoaffective disorder REASON FOR ADMISSION: 25-year-old single female with a long psychiatric history since ages 14. She was admitted after she was found on the street talking to herself and acting bizarre and disorganized. She apparently has not been receiving any outpatient treatment for the past year and has been decompensating with a bizarre and agitated behavior. On the unit, the patient was extremely a gitated and aggressive and assaultive required frequent physical and chemical restraint for the safety of staff and other patients. CONSULTANTS INVOLVED: TREATMENT AND PROGRESS ON THE UNIT : The patient was started on Haldol 10 mg 3 times a day and had repeated extra medication including haloperidol injection, Ativan injection. Zyprexa injection to control her agitation and assaultive behavior. For the first 10 days. Patient has shown minimum response to the treatment. She was extremely labile, aggressive and assaultive without any provocation, resulting in frequent restraint and the seclusion and was maintained on one-to-one close observation. Patient finally started to show improvement with the addition of Depakote 500 mg 3 times a day achieving blood l filomena lof 76.. She was also given long-acting Haldol injection 200 mg on April 08, to be repeated every 4 weeks. HOSPITAL COURSE: Patient had the very stormy hospital course in and the first 3 weeks. She was finally showing improvement with the combination of Haldol and Depakote and showing steady significant improvement. She is becoming much more pleasant and cooperative, maintaining good control without any more assaultive behavior. Her one-to-one observation was gradually relapsed and by April 15. She was taken off close observation and maintained on a regular level of observation. She is fully cooperated with medications and is showing marked reduction in her delusional thinking. She does not believe she is anymore and understands that she will be going back to he stepfather and willing to accept this arrangement and willing to continue outpatient treatment, including her injectable medication. She is denying any command hallucination, and she is not expressing any paranoid ideas and appears to be stable at her baseline mental status DISCHARGE ASSESSMENT: Improved, stable and not suicidal and not assaultive MENTAL STATUS EXAMINATION ON DISCHARGE: Patient is a 25-year old female, who is , pleasant and cooperative. Speech is , coherent and productive. Language skills are fair. Thought processes including: Relevant and organized. Thought content: , Not as delusional. Abstract reasoning, and computation: , Coherent and relevant. Description of associations: Organized. Description of abnormal or psychotic thoughts: Denies any suicidal or homicidal thoughts. Judgment: Fair. Insight: fair. Orientation to , well oriented. Recent and remote memory: fair. Attention span and concentration: fair. Language: . Fund of knowledge: Below average. Mood: Euthymic. Affect: Animated and appropriate. MEDICATIONS ON DISCHARGE: - for ., Haldol 10 mg 3 times a day, 7 days supply with 3 refills - for ., Depakote 500 mg 3 times a day, 7 days supply with 3 refills - for . Haldol Decanoate injectable 200 mg to be given on May 06 PLAN/FOLLOWUP ARRANGEMENTS: Arranged by marketing planner. The amount of time spent in the coordination of care for this patient was approximately 35 minutes. ETOH/Disorder Med Rx ETOH/DRUG DISORDER RX: N/A Vital Signs/I&Os Vital Signs Date Time Temp Pulse Resp B/P (MAP) Pulse Ox O2 Delivery O2 Flow Rate FiO2 04/19/21 06:10 98.0 76 18 108/55 (72) 100 Room Air Medications Scheduled Benztropine Mesylate (Benztropine Mesylate) 1 Mg Tablet, 1 MG PO BID for epse for 7 Days, #14 Divalproex Sodium (Depakote) 125 Mg Tablet.dr, 500 MG PO TID@0900,1300,1700 for mood for 7 Days, #84 Divalproex Sodium (Depakote ER) 250 Mg Tab.er.24h, 500 MG PO TID for mood for 7 Days, #42 Haloperidol Decanoate (Haloperidol Decanoate) 100 Mg/1 Ml Vial, 200 MG IM Q28D for psychosis for 30 Days, #1 Allergies Coded Allergies: No Known Drug Allergies (Verified Allergy, Unknown, 03/29/21) FIORELLA DIOP M.D. Apr 19, 2021 11:34
[2021-04-19] MEDS ORDERED: DIVALPROEX 250MG *ER* TAB PO SCH (16:00)
[2021-05-06] MEDS ORDERED: HALOPERIDOL DECANOATE 100 MG/ML VIAL (J1631) IM SCH (09:00)
== END 2021-04-19 16:30 | disposition home or self-care (01) | DRG 885 ==
LOC: M ED 21:42 → M ED INP 03-29 21:44 → M PSY 03-30 01:00
PROVIDERS: ADMIT Psychiatry & Neurology Psychiatry; ATTEND Psychiatry & Neurology Psychiatry
DX: F20.0 Paranoid schizophrenia (principal); Z91.19 Patient's noncompliance with other medical treatment and regimen; Z20.822 Contact with and (suspected) exposure to COVID-19; Z79.899 Other long term (current) drug therapy; Z78.1 Physical restraint status; F25.9 Schizoaffective disorder, unspecified

== ENCOUNTER 2021-04-24 17:14 | Emergency (ER) | payer MEDICARE, MEDICAID ==
[~2021-04-24] VITALS: Ht 172.7 cm; Wt 102.7 kg
[~2021-04-24 17:14] MED LIST changes: +BENZ-52 PO; +DEPA1TAB PO; +DEPA250T2 PO; +HALO10AM IM; +MED REC COMMENT
[2021-04-24] MEDS ORDERED: HALO10TA20 (17:33)
[2021-04-24 20:21] VITALS: BP 123/83
== END 2021-04-24 20:28 | disposition home or self-care (01) ==
LOC: M ED 17:14
DX: J02.9 Acute pharyngitis, unspecified (principal); F41.9 Anxiety disorder, unspecified; F20.9 Schizophrenia, unspecified; Z79.899 Other long term (current) drug therapy

== ENCOUNTER → 2021-05-10 | Outpatient (REF) | payer MEDICARE, MEDICAID ==
[~2021-05-10] MED LIST changes: +HALO10TA20
== END ==
LOC: M SFHCPLAZ 11:00
PROVIDERS: ATTEND Family Medicine
DX: Z87.09 Personal history of other diseases of the respiratory system (principal); Z79.899 Other long term (current) drug therapy

== ENCOUNTER 2021-05-16 20:04 | Emergency (ER) | payer MEDICARE, MEDICAID ==
[~2021-05-16] VITALS: Ht 172.7 cm; Wt 109.6 kg
[2021-05-16] MEDS ORDERED: ALBU8.5H INH (20:15)
[2021-05-16] MEDS ORDERED: PENI500T PO (20:15)
[2021-05-16] MEDS ORDERED: FLUTISP INH (20:15)
[2021-05-16] MEDS ORDERED: dexameTHASONE 20MG/5ML VIAL (J1100 PER 1MG) IV ONE (21:10)
[2021-05-16] MEDS: COMBIVENT RESPIMAT 100-20MCG INHALER 4GM INH SCH ×2 (21:58→22:14)
[2021-05-16 22:06] LABS: BASO % 0.5 % (0.0-1.0); EOS # 0.6 10^3/uL (0.0-0.5); EOS % 7.5 % (0.0-3.0); HEMATOCRIT 34.5 % (36.0-47.0); HEMOGLOBIN 10.9 g/dl (12.0-15.5); LYMPH # 2.4 10^3/uL (1.5-5.0); LYMPH % 29.3 % (24.0-44.0); MEAN CORPUSCULAR HEMOGLOBIN 27.7 pg (27.0-33.0); MEAN CORPUSCULAR HGB CONC 31.6 g/dl (32.0-36.5); MEAN CORPUSCULAR VOLUME 87.8 fl (80.0-96.0); MONO # 0.9 10^3/uL (0.0-0.8); MONO % 10.9 % (2.0-8.0); NEUTROPHILS # 4.2 10^3/uL (1.5-8.5); NEUTROPHILS % 50.9 % (36.0-66.0); PLATELET COUNT, AUTOMATED 239 10^3/uL (150-450); RED BLOOD COUNT 3.93 10^6/uL (4.00-5.40); WHITE BLOOD COUNT 8.2 10^3/uL (4.0-10.0)
[2021-05-16 22:29] LABS: HCG, SERUM QUALITATIVE NEGATIVE (NEGATIVE)
[2021-05-16 22:37] LABS: ALBUMIN 2.9 GM/DL (3.2-5.2); ALT/SGPT 14 U/L (12-78); BILIRUBIN,DIRECT < 0.1 MG/DL (0.0-0.2); BILIRUBIN,TOTAL 0.2 MG/DL (0.2-1.0); BLOOD UREA NITROGEN 11 MG/DL (7-18); CALCIUM LEVEL 8.4 MG/DL (8.5-10.1); CARBON DIOXIDE LEVEL 27 MEQ/L (21-32); CHLORIDE LEVEL 108 MEQ/L (98-107); CK-MB VALUE MASS < 1.0 NG/ML (<3.6); CPK CREATINE PHOSPHOKINASE 74 U/L (26-192); CREATININE FOR GFR 1.05 MG/DL (0.55-1.30); GLOMERULAR FILTRATION RATE > 60.0 (>60); GLUCOSE, FASTING 89 MG/DL (70-100); MB/CK RELATIVE INDEX 1.35 (< OR =4); NT-PRO BNP 40 PG/ML (<125); POTASSIUM SERUM 4.1 MEQ/L (3.5-5.1); SODIUM LEVEL 138 MEQ/L (136-145); TOTAL PROTEIN 7.1 GM/DL (6.4-8.2); TROPONIN I < 0.02 NG/ML (< 0.10)
--- NOTE | 2021-05-17 00:03 | REPVR ---
PROCEDURE INFORMATION: Exam: XR Chest Exam date and time: 05/16/2021 10:53 PM Age: 25 years old Clinical indication: Cough and dyspnea; Additional info: Dyspnea/cough TECHNIQUE: Imaging protocol: XR of the chest. Views: 1 view. COMPARISON: No relevant prior studies available. FINDINGS: Lungs: There is no pulmonary vascular congestion. There is no evidence of focal parenchymal consolidation. Pleural spaces: There are no pleural effusions. There is no evidence of pneumothorax. Heart/Mediastinum: The cardiac silhouette is within normal limits. Bones/joints: No acute osseous abnormality is identified. IMPRESSION: No acute cardiopulmonary disease identified. Electronically signed by: Maria Eugenia Barbosa On 05/17/2021 00:02:45 AM
[2021-05-17] MEDS ORDERED: PRED20TA PO (01:01)
[2021-05-17 01:17] VITALS: BP 127/73
--- NOTE | 2021-05-17 05:25 | ECGEPIP ---
[facility] - ED Test Date: 2021-05-16 Pat Name: KATHY GORDON Department: Room: - Gender: Female [employer] Supervisor: PAMELA : [id number] Requested By: MONICA Munoz Order Number: [id number] Reading MD: Jean Carlos Stephen Measurements Intervals [place] Rate: 95 P: 64 TX: 154 QRS: 58 QRSD: 134 T: 34 QT: 376 QTc: 472 Interpretive Statements Normal sinus rhythm Right bundle branch block SIMILAR TO 03/25/21 Electronically Signed on 05-17-2021 5:25:48 EDT by Jean Carlos Stephen
== END 2021-05-17 01:20 | disposition home or self-care (01) ==
LOC: M ED 20:04
DX: J45.901 Unspecified asthma with (acute) exacerbation (principal); F20.9 Schizophrenia, unspecified; F41.1 Generalized anxiety disorder; Z79.899 Other long term (current) drug therapy; F17.210 Nicotine dependence, cigarettes, uncomplicated
CPT/HCPCS: 71045; 80048; 80076; 82550; 82553; 83880; 84443; 84484; 84703; 85025; 87798; 90792; 93005; 93041; 94640; 94760; 96374; 99285; J1100

== ENCOUNTER 2021-07-24 11:49 | Emergency (ER) | payer MEDICARE, MEDICAID ==
[~2021-07-24] VITALS: Ht 172.7 cm; Wt 110.0 kg
[~2021-07-24 11:49] MED LIST changes: +ALBU8.5H INH; +FLUTISP INH; +PENI500T PO; +PRED20TA PO
[2021-07-24 14:39] LABS: RSV AMPLIFICATION NEGATIVE (NEGATIVE)
[2021-07-24] MEDS ORDERED: DOCUSATE SOD LIQ 100MG/10ML UDC PO ONE (15:45)
[2021-07-24] MEDS ORDERED: DEBR6.5S4 OTIC (16:12)
[2021-07-24 16:23] VITALS: BP 137/91
[2021-07-24 16:46] LABS: BASO % 0.3 % (0.0-1.0); EOS # 0.3 10^3/uL (0.0-0.5); EOS % 4.9 % (0.0-3.0); HEMATOCRIT 41.1 % (36.0-47.0); HEMOGLOBIN 12.8 g/dl (12.0-15.5); LYMPH # 2.4 10^3/uL (1.5-5.0); LYMPH % 35.8 % (24.0-44.0); MEAN CORPUSCULAR HEMOGLOBIN 27.1 pg (27.0-33.0); MEAN CORPUSCULAR HGB CONC 31.1 g/dl (32.0-36.5); MEAN CORPUSCULAR VOLUME 86.9 fl (80.0-96.0); MONO # 0.6 10^3/uL (0.0-0.8); MONO % 8.2 % (2.0-8.0); NEUTROPHILS # 3.4 10^3/uL (1.5-8.5); NEUTROPHILS % 50.5 % (36.0-66.0); PLATELET COUNT, AUTOMATED 274 10^3/uL (150-450); RED BLOOD COUNT 4.73 10^6/uL (4.00-5.40); WHITE BLOOD COUNT 6.7 10^3/uL (4.0-10.0)
[2021-07-24 17:14] LABS: FREE THYROXINE INDEX 3.8 % (1.3-4.8); HCG, SERUM QUANTITATIVE < 1.0 MIU/ML; T UPTAKE 33 % (30-39); THYROID STIMULATING HORMONE 0.893 uIU/ML (0.358-3.740); THYROXINE (T4) 11.5 UG/DL (4.5-12.0)
[2021-07-24 17:16] LABS: PROLACTIN 24.6 NG/ML; PTH INTACT 46.6 PG/ML (18.5-88.0)
== END 2021-07-24 16:34 | disposition home or self-care (01) ==
LOC: M ED 11:49
DX: H61.23 Impacted cerumen, bilateral (principal); R09.81 Nasal congestion; N64.52 Nipple discharge; J45.909 Unspecified asthma, uncomplicated; F20.9 Schizophrenia, unspecified; Z79.899 Other long term (current) drug therapy

== ENCOUNTER → 2021-08-02 | Outpatient (REF) | payer MEDICARE, MEDICAID ==
[~2021-08-02] MED LIST changes: +DEBR6.5S4 OTIC
[2021-08-02 21:28] LABS: GC DNA AMPLIFICATION NEGATIVE (NEGATIVE)
== END ==
LOC: M SFHCPLAZ 17:00
PROVIDERS: ATTEND Student in an Organized Health Care Education/Training Program
DX: Z01.419 Encounter for gynecological examination (general) (routine) without abnormal findings (principal)
CPT/HCPCS: 87661; G0123; G0463

== ENCOUNTER 2021-10-13 17:37 | Emergency (ER) | payer MEDICARE, MEDICAID ==
[~2021-10-13] VITALS: Ht 172.7 cm; Wt 116.2 kg
[2021-10-13 17:37] VITALS: BP 134/77
[~2021-10-13 17:37] MED LIST changes: -HALO5TA PO; +HALO5TAB33 PO
== END 2021-10-13 19:00 | disposition left against medical advice (07) ==
LOC: M ED 17:37
DX: Z53.29 Procedure and treatment not carried out because of patient's decision for other reasons (principal)

== ENCOUNTER 2021-10-15 13:57 | Emergency (ER) | payer MEDICARE, MEDICAID ==
[~2021-10-15] VITALS: Ht 172.7 cm; Wt 116.4 kg
[2021-10-15 14:37] LABS: BASO % 0.3 % (0.0-1.0); EOS # 0.2 10^3/uL (0.0-0.5); EOS % 2.3 % (0.0-3.0); HEMATOCRIT 38.3 % (36.0-47.0); LYMPH # 2.6 10^3/uL (1.5-5.0); LYMPH % 32.9 % (24.0-44.0); MEAN CORPUSCULAR HEMOGLOBIN 26.4 pg (27.0-33.0); MEAN CORPUSCULAR HGB CONC 31.3 g/dl (32.0-36.5); MEAN CORPUSCULAR VOLUME 84.4 fl (80.0-96.0); MONO # 0.7 10^3/uL (0.0-0.8); MONO % 8.2 % (2.0-8.0); NEUTROPHILS # 4.4 10^3/uL (1.5-8.5); NEUTROPHILS % 55.9 % (36.0-66.0); PLATELET COUNT, AUTOMATED 275 10^3/uL (150-450); RED BLOOD COUNT 4.54 10^6/uL (4.00-5.40); WHITE BLOOD COUNT 7.9 10^3/uL (4.0-10.0)
[2021-10-15 14:59] LABS: ALBUMIN 3.5 GM/DL (3.2-5.2); BILIRUBIN,DIRECT 0.2 MG/DL (0.0-0.2); BILIRUBIN,TOTAL 0.5 MG/DL (0.2-1.0); TOTAL PROTEIN 8.1 GM/DL (6.4-8.2)
[2021-10-15 15:21] VITALS: BP 130/81
== END 2021-10-15 15:22 | disposition home or self-care (01) ==
LOC: M ED 13:57
DX: Z32.01 Encounter for pregnancy test, result positive (principal); J45.909 Unspecified asthma, uncomplicated; F33.9 Major depressive disorder, recurrent, unspecified; F41.9 Anxiety disorder, unspecified; Z79.899 Other long term (current) drug therapy

== ENCOUNTER → 2021-10-18 | Outpatient (CLI) | payer MEDICARE, MEDICAID ==
[~2021-10-18] MED LIST changes: +HALO5TA PO; -HALO5TAB33 PO
[2021-10-18 14:15] LABS: BASO % 0.6 % (0.0-1.0); EOS # 0.2 10^3/uL (0.0-0.5); EOS % 3.2 % (0.0-3.0); HEMATOCRIT 36.5 % (36.0-47.0); HEMOGLOBIN 11.3 g/dl (12.0-15.5); LYMPH % 31.7 % (24.0-44.0); MEAN CORPUSCULAR HEMOGLOBIN 26.5 pg (27.0-33.0); MEAN CORPUSCULAR VOLUME 85.7 fl (80.0-96.0); MONO # 0.6 10^3/uL (0.0-0.8); MONO % 8.8 % (2.0-8.0); NEUTROPHILS # 3.5 10^3/uL (1.5-8.5); NEUTROPHILS % 55.2 % (36.0-66.0); PLATELET COUNT, AUTOMATED 264 10^3/uL (150-450); RED BLOOD COUNT 4.26 10^6/uL (4.00-5.40); WHITE BLOOD COUNT 6.3 10^3/uL (4.0-10.0)
[2021-10-18 14:17] LABS: APPEARANCE, URINE HAZY (CLEAR); BACTERIA, URINE AUTO NEGATIVE (NEGATIVE); BILIRUBIN, URINE AUTO NEGATIVE (NEGATIVE); BLOOD, URINE BLOOD NEGATIVE (NEGATIVE); COLOR, URINE YELLOW (YELLOW); GLUCOSE, URINE (UA) AUTO NEGATIVE (NEGATIVE); KETONE, URINE AUTO NEGATIVE (NEGATIVE); LEUKOCYTE ESTERASE, URINE AUTO NEGATIVE (NEGATIVE); MUCUS, URINE SMALL (NEGATIVE); NITRITE, URINE AUTO NEGATIVE (NEGATIVE); PROTEIN, URINE AUTO 1+ mg/dL (NEGATIVE); RBC, URINE AUTO 2 /HPF (0-3); SPECIFIC GRAVITY URINE AUTO 1.032 (1.002-1.035); SQUAMOUS EPITHELIAL CELL UR AU 2 /HPF (0-6); UROBILINOGEN, URINE AUTO 0.2 mg/dL (0.0-2.0); WBC, URINE AUTO 1 /HPF (0-3)
== END ==
LOC: M PLALAB 09:25
PROVIDERS: ATTEND Student in an Organized Health Care Education/Training Program
DX: Z36.9 Encounter for antenatal screening, unspecified (principal)

== ENCOUNTER 2021-10-23 14:35 | Emergency (ER) | payer MEDICARE, MEDICAID ==
[~2021-10-23] VITALS: Ht 172.7 cm; Wt 114.2 kg
[~2021-10-23 14:35] MED LIST changes: -HALO5TA PO; +HALO5TAB33 PO
[2021-10-23] MEDS ORDERED: FOLI1TAB11 (14:57)
[2021-10-23 15:58] LABS: HEMOGLOBIN 11.8 g/dl (12.0-15.5); MEAN CORPUSCULAR HEMOGLOBIN 26.3 pg (27.0-33.0); MEAN CORPUSCULAR HGB CONC 31.1 g/dl (32.0-36.5); MEAN CORPUSCULAR VOLUME 84.6 fl (80.0-96.0); PLATELET COUNT, AUTOMATED 263 10^3/uL (150-450); RED BLOOD COUNT 4.49 10^6/uL (4.00-5.40); WHITE BLOOD COUNT 7.3 10^3/uL (4.0-10.0)
[2021-10-23 17:21] LABS: ALBUMIN 3.3 GM/DL (3.2-5.2); ALT/SGPT 24 U/L (12-78); BILIRUBIN,DIRECT 0.1 MG/DL (0.0-0.2); BILIRUBIN,TOTAL 0.3 MG/DL (0.2-1.0); BLOOD UREA NITROGEN 8 MG/DL (7-18); CARBON DIOXIDE LEVEL 27 MEQ/L (21-32); CHLORIDE LEVEL 106 MEQ/L (98-107); GLOMERULAR FILTRATION RATE > 60.0 (>60); GLUCOSE, FASTING 81 MG/DL (70-100); HCG, SERUM QUANTITATIVE 6966 MIU/ML; LIPASE 90 U/L (73-393); POTASSIUM SERUM 3.8 MEQ/L (3.5-5.1); SODIUM LEVEL 138 MEQ/L (136-145); TOTAL PROTEIN 7.4 GM/DL (6.4-8.2)
[2021-10-23 17:40] LABS: APPEARANCE, URINE CLOUDY (CLEAR); BACTERIA, URINE AUTO NEGATIVE (NEGATIVE); BILIRUBIN, URINE AUTO NEGATIVE (NEGATIVE); BLOOD, URINE BLOOD NEGATIVE (NEGATIVE); COLOR, URINE YELLOW (YELLOW); GLUCOSE, URINE (UA) AUTO NEGATIVE (NEGATIVE); KETONE, URINE AUTO NEGATIVE (NEGATIVE); LEUKOCYTE ESTERASE, URINE AUTO NEGATIVE (NEGATIVE); NITRITE, URINE AUTO NEGATIVE (NEGATIVE); PROTEIN, URINE AUTO NEGATIVE (NEGATIVE); RBC, URINE AUTO 0 /HPF (0-3); SPECIFIC GRAVITY URINE AUTO 1.026 (1.002-1.035); SQUAMOUS EPITHELIAL CELL UR AU 19 /HPF (0-6); UROBILINOGEN, URINE AUTO 0.2 mg/dL (0.0-2.0); WBC, URINE AUTO 1 /HPF (0-3)
[2021-10-23 17:49] VITALS: BP 120/71
== END 2021-10-23 17:55 | disposition home or self-care (01) ==
LOC: M ED 14:35
DX: O99.891 Other specified diseases and conditions complicating pregnancy (principal); R10.2 Pelvic and perineal pain; Z3A.01 Less than 8 weeks gestation of pregnancy

== ENCOUNTER → 2021-12-04 | Outpatient (CLI) | payer MEDICARE, MEDICAID ==
[~2021-12-04] MED LIST changes: +FOLI1TAB11
[2021-12-04 17:21] LABS: BASO % 0.2 % (0.0-1.0); EOS # 0.2 10^3/uL (0.0-0.5); EOS % 1.9 % (0.0-3.0); HEMATOCRIT 38.3 % (36.0-47.0); HEMOGLOBIN 12.1 g/dl (12.0-15.5); LYMPH # 2.2 10^3/uL (1.5-5.0); LYMPH % 24.4 % (24.0-44.0); MEAN CORPUSCULAR HEMOGLOBIN 26.8 pg (27.0-33.0); MEAN CORPUSCULAR HGB CONC 31.6 g/dl (32.0-36.5); MEAN CORPUSCULAR VOLUME 84.7 fl (80.0-96.0); MONO # 0.8 10^3/uL (0.0-0.8); MONO % 8.5 % (2.0-8.0); NEUTROPHILS # 5.8 10^3/uL (1.5-8.5); NEUTROPHILS % 64.6 % (36.0-66.0); PLATELET COUNT, AUTOMATED 246 10^3/uL (150-450); RED BLOOD COUNT 4.52 10^6/uL (4.00-5.40)
[2021-12-04 18:33] LABS: HEPATITIS C VIRUS ABY INDEX < 0.0 INDEX (<0.8); HIV 1&2 SCREEN CENTAUR NEGATIVE (NEGATIVE)
[2021-12-04 18:53] LABS: GC DNA AMPLIFICATION NEGATIVE (NEGATIVE)
== END ==
LOC: M PLALAB 15:40
PROVIDERS: ATTEND Advanced Practice Midwife
DX: Z36.89 Encounter for other specified antenatal screening (principal); Z79.899 Other long term (current) drug therapy